=== PATIENT | female | born 1935 | race Caucasian/White ===

== ENCOUNTER → 2017-05-16 13:17 | Outpatient (CLI) | payer MEDICARE, SELFPAY ==
--- NOTE | 2017-05-16 13:20 | RAD_ITS ---
STUDY: X-RAY - RIGHT SHOULDER REASON FOR EXAM: Female, 82 years old. Shoulder pain TECHNIQUE: 3 view(s) of the shoulder. COMPARISON: None. FINDINGS: There is moderate degenerative arthrosis of the glenohumeral articulation. There is minimal widening of the AC joint suggesting a Type I acromioclavicular joint separation. Normal acromion. There is narrowing of the space between the acromion and humerus consistent with chronic rotator cuff tear. There is demineralization of the humerus and visualized osseous structures. The soft tissue structures are unremarkable. Surgical clips are seen anterior to the axilla. Normal visualized pulmonary apex. RAD/Shoulder min 2 Views IMPRESSION: Degenerative changes. Probable chronic rotator cuff tear. Possible AC joint separation Electronically Signed: Dimas Fitch MD at 18:31 EST , Service support ,
== END ==
PROVIDERS: Family Provider Family Medicine; PCP Family Medicine; Visit Provider Orthopaedic Surgery
DX: M25.511 Pain in right shoulder (principal)
CPT/HCPCS: 73030

== ENCOUNTER → 2017-10-21 08:01 | Outpatient (CLI) | payer MEDICARE, SELFPAY ==
--- OUTSIDE RECORDS SUMMARY | 2017-10-07 09:33 | XMS RPT_ITS ---
:1935 Author Organization OHIP Care Team Providers Name Role Phone Francesco Mendoza Attending Unavailable Preciado, Mylene Primary Care Unavailable Preciado, Mylene Referring Unavailable Preciado, Mylene Attending Unavailable Preciado, Mylene Primary Care Unavailable Mario Alberto Garcia Attending Unavailable Preciado, Mylene Referring Unavailable Preciado, Mylene Primary Care Unavailable Mario Alberto Garcia Attending Unavailable Preciado, Mylene Primary Care Unavailable Francesco Mendoza Attending Unavailable Preciado, Mylene Referring Unavailable Preciado, Mylene Primary Care Unavailable Francesco Mendoza Consulting Unavailable Mario Alberto Garcia Attending Unavailable Preciado, Mylene Referring Unavailable Preciado, Mylene Primary Care Unavailable MIAH UPTON Attending Unavailable MIAH UPTON Referring Unavailable MIAH UPTON Attending Unavailable MIAH UPTON Referring Unavailable MIAH UPTON Attending Unavailable MIAH UPTON Referring Unavailable PRECIADO, MYLENE A Primary Care Unavailable PROBLEMS PROBLEMS DATE TYPE CONDITION / CODE ATTENDING STATUS SOURCE 07/05/2017 Unknown D64.9 - Anemia, Francesco Mendoza Active [facility] unspecified / Community D64.9(ICD-10) Hospital Repository 05/16/2017 Unknown M25.511 - Pain in Mario Alberto Garcia Active [facility] right shoulder / Community M25.511(ICD-10) Hospital Repository 12/15/2016 Active Unknown / MIAH UPTON Active [facility] UNK(Unknown) [address] [place] Repository PROCEDURES PROCEDURES No Procedure Records FoundRESULTS RESULTS ORTHOPEDIC VISIT Observed: 09/19/2017 Status: F Source: PAKO REPORT 10:32 AM [facility] REPOSITORY [facility] [id number] [id number] VISITDate of Service: 08/31/17MR#: [id number] Acct: [id number]: CELINA GALINDO Rep #: [id number]: 1935 Provider: Mario Alberto Garcia DOAge/Sex: 82/F Location[place] [facility] [place] [facility] [place]SMOStatus: SignedIntakeIntakeVisit Reasons: RIGHT SHOULDERIs patient in pain?: Yes Pain scale (1-10): 7AllergiesNo Known Allergies Allergy (Verified 07/06/17 12:59)MedicationsCholecalciferol (VIT D3) [Vitamin D3] 2,000 unit PO DAILY [History Confirmed 07/06/17]Furosemide [Lasix] 40 mg PO DAILY 05/24/16 [History Confirmed 07/06/17]Levothyroxine [Synthroid] 50 mcg PO DAILY 05/24/16 [History Confirmed 07/06/17]Metoprolol Tartrate 25 mg PO BID 05/24/16 [History Confirmed 07/06/17]Pantoprazole Sodium [Protonix] 40 mg PO DAILY 05/24/16 [History Confirmed 07/06/17]Pravastatin [Pravachol] 40 mg PO QHS 05/24/16 [History Confirmed 07/06/17]Albuterol IH (ProAir) [Proair Hfa] 1 - 2 puff INHALATION Q4H PRN PRN # 1 inhaler 07/27/16 [RxConfirmed 07/06/17]Ferrous Sulfate 325 mg PO BIDCM #60 tab 07/27/16 [Rx Confirmed 07/06/17]Magnesium Oxide 400 mg PO BID #60 tab 07/27/16 [Rx Confirmed 07/06/17]Senna/Docusate Sodium [Senokot-S] 2 tab PO BID #120 tab [Rx Confirmed 07/06/17]Dulera 200 Mcg/5 Mcg Inhaler 200 mcg INHALATION BID [History Confirmed 07/06/17]hydrocodone 5 mg-acetaminophen 300 mg tablet 1 tab PO ONCE tab 05/16/17 [History Ruskpmaoo73/04/18]tramadol 50 mg tablet 50 mg PO Q6H PRN #60 tab 08/31/17 [Rx Confirmed 08/31/17]PFSHSurgical HistoryH/O right knee surgery (Inactive)History of total left hip arthroplasty (Inactive)History of total replacement of left shoulder joint (Inactive)Family HistoryFather Heart diseaseSocial HistorySmoking Status: Never smokerHPIRIGHT SHOULDER:Details: CELINA GALINDO is a 82 year old F here today for increased right shoulder pain. Shestates that her pain is anterior but can travel into the trap and down the biceps. Sheambulates with a walker when out of her house and that tends to make the shoulder hurt worse.Denies numbness, tingling or other associated symptoms. She has decreased rom today andcomplains of intermittent swelling of her shoulder.ROSMuscReports limited joint movement, Reports stiffness, Reports joint pain, Reports muscle weaknessOrtho ExamRight ShoulderSHOULDER: Patient otherwise alert and oriented x3 in no acute distress.Contact and affect. Otherwise remains intact from C5-T2 distributions. Musculotendinous extranerve function is 5 out of 5. Patient has limited range of motion secondary to rotator cuffarthropathy on the right. Pulses are maintained.Office ProceduresOrtho InjectionsInjectionsYes Subacromial Injection RightDetails: Obtained consent for injection. Under sterile conditions, injected the patients rightsubacromial joint with a 10cc cocktail of 8cc bupivacaine and 2cc kenalog. The patienttolerated the injection well without any noted complication. Patient should call our office ifredness develops, pain worsens or if they have any concerns.Office MedsKenalogPerforming Provider: Mario Alberto Garcia DOAdministered by : Mario Alberto Garcia DO on 08/31/17 13:14Dose Route Admin Location Lot Number Expiration DateNDC Manufacturer2 mg Intra-Articularright shoulder AAU 3232 08/02/18 0250-8368-24 [facility]ssessment AND PlanProblems1. Rotator cuff tear arthropathy of right shoulder M75.101; M12.8112. Chronic right shoulder pain M25.511; G89.29PlanAssessment: Right shoulder rotator cuff arthropathy right shoulder pain.Plan: 1 time of proceeding with a right shoulder injection per the patient's request. I willalso refer her to Dr. George at [facility] [place] for possible surgical intervention the patient willrequire. I think the patient would benefit from a reverse total shoulder arthroplasty forlong-term treatment of her shoulder pain.Obtained consent for injection. Under sterile conditions, injected the patients rightsubacromial joint with a 10cc cocktail of 8cc bupivacaine and 2cc kenalog. The patienttolerated the injection well without any noted complication. Patient should call our office ifredness develops, pain worsens or if they have any concerns. Patient follow-up with Dr. Reilly.A major treatment plan. Patient agrees to plan.Tramadol prescription was also providedOrdersOrders:MedicationsNew:Discontinued:Kenalog (triamcinolone acetonide) 2 mg (0.2 mL) Intra-Articular ONCE NM19.011 Bulmaro NessDiscontinued Reason: Office MedicaStion has been Documented as givenCodingLevel of Care CodeNo ChargeDiagnosesRotator cuff tear arthropathy of right shoulder M75.101; M12.811Chronic right shoulder pain M25.511; G89.29Chronicity: chronicAdditional Codesrcp.sub (31616)09/19/17 1032 <Electronically signed by Mario Alberto Garcia DO>Date Mario Alberto Garcia DOCosigner Signature: Date (if applicable)CC: PROGRESS Observed: 08/25/2017 Status: COMPLETED Source: ALICE 10:54 AM [facility] [place] REPOSITORY HNO ID: [id number]: Miah Jules: (none) Author Type: PhysicianType: Progress NotesFiled: 08/25/2017 6:04 PMNote Text:PERTINENT CARDIAC HISTORYHTNHLOSAThoracic aortic aneurysm - repair 2005DMPossible TIAsASHD - minimal by cath 2005CHF - diastolic, no VICTORINO-I due to low BPPostural lightneadednessSVTADHERENCE TO GUIDELINESACE-I or ARB for HF with prior LVEF&lt ;40 (NQF 0081) - N/AASA or Plavix for ASHD (NQF 0067) - Fe def anemiaBeta emil for ASHD with prior AR or prior LVEF<40 (NQF 0070) - N/ABeta emil for HF with prior LVEF<40 (NQF 0083) - N/AACE-I or ARB for ASHD with DM or prior LVEF<40 ( NQF 0066) - hypotensionStatin therapy for ASHD or FHL or DM - metBMI documented and plan if >25 (NQF 0421) - lifestyle recommendation formTobacco use screening and referral (NQF 0028) - lifestyle recommendationformRecommendation for whole food , plant based diet - lifestyle recommendationformCLINICAL IMPRESSION/PLAN:Celina Galindo is doing well. She has had no assessment of her aorticrepair in over 10 years. This will be discussed with her again I see her.I've encouraged her to continue her current medication and try to beactive to get her weight under better control.I will see her in 8 months or as needed. If there is increased chest painor shortness breath, she's been advised to contact me. I've asked her tocall with vital signs in the next several weeks.Written and verbal health teaching given to patient, patient verbalizesunderstanding and agrees with treatment plan.DIAGNOSIS FOR VISIT:ASHDHypertensionHISTORY OF PRESENT ILLNESSCelina Galindo returns for follow-up of multiple cardiac issues, asnoted above.She reports that she has been feeling well. She's had no further episodesof syncope or lightheadedness. She denies chest pain. She's had noorthopnea. She's had stable edema. She denies palpitations, TIAs,amaurosis and claudicationALLERGIES:ALLERGIESAllergen Reactions- Seasonal Allergies Unknown- Tape [Other]CURRENT OUTPATIENT MEDICATIONS:furosemide ( LASIX) 40 mg tablet Take 0.5 tablets by mouth once daily.acetaminophen (TYLENOL EXTRA STRENGTH) 500 mg tablet Take 500 mg by mouthevery 8 hours as needed.magnesium oxide 400 mg cap Take 400 mg by mouth twice daily.metoprolol tartrate, short acting, (LOPRESSOR ) 25 mg tablet Take 25 mg bymouth twice daily.mometasone-formoterol (DULERA) 200-5 mcg/actuation inhaler Inhale asinstructed twice daily.Cholecalciferol, Vitamin D3, 1,000 unit cap Take 1,000 Units by mouthtwice daily.levothyroxine (SYNTHROID) 50 mcg tablet Take 50 mcg by mouth daily beforebreakfast.albuterol HFA (PROAIR HFA) 90 mcg/actuation inhaler Inhale 2 Puffs asinstructed every 6 hours as needed.ferrous sulfate 325 mg (65 mg iron) tablet Take 325 mg by mouth daily withbreakfast.pravastatin (PRAVACHOL) 40 mg tablet Take 40 mg by mouth once daily.OTC NUTRITIONAL SUPPLEMENT xango drink 1 1/2 oz dailyPROTONIX 40 MG ORAL TBEC Take one(1) tablet daily.CYANOCOBALAMIN, VITAMIN B-12, (VITAMIN B-12 ORAL) Take by mouth.HYDROCODONE-ACETAMINOPHEN 5 MG-500 MG TAB Take one(1) tablet every four(4 )hours as needed.PHYSICAL EXAMINATION:VITAL SIGNS: BP 134/70 Pulse 70 Wt 183 lb 6.4 oz (83.2kg)Chest: Clear to percussion and auscultation. Trachea is midline. Airentry is equal. Cardiac: Regular rhythm. S1 and S2 are normal. PMI isnondisplaced. There is a soft systolic ejection murmur. Carotids arebrisk without bruits. JVP is less than 10 cm. Abdomen: Soft andnontender. There are no pulsatile masses or bruits. No liverenlargement. Bowel sounds are active. Extremities: Trace edema. Pulsesare intact and symmetrical.EKG shows sinus rhythm. There is evidence of previous inferior AR. PoorR-wave progression is noted. There is no significant change from 12/19/14.Recent labs were reviewed. Hemoglobin has improved. Renal function isstable. She has been treated for iron deficiency anemia. I asked her toget copy of her next lab reports for us.Electronically Signed:Miah Upton, MDMa2017 10:54 [facility]: Mylene Preciado MD OV Observed: 08/25/2017 Status: COMPLETED Source: [place] 10:30 AM [facility] REPOSITORY Office Visit (CAWSTR) ---------CELINA GALINDO ([id number]) 1935 FDate Time Provider Department08/25/17 10:30 AM MIAH UPTON CAWSTR During your visit today, we recorded the following information about you: Pulse Blood pressure Weight 70/ minute 134/70 83.2 kgMiah Upton MD 08/25/2017 6:04 PM SignedPERTINENT CARDIAC HISTORYHTNHLOSAThoracic aortic aneurysm - repair 2005DMPossible TIAsASHD - minimal by cath 2004CHF - diastolic, no VICTORINO-I due to low BPPostural lightneadednessSVTADHERENCE TO GUIDELINESACE-I or ARB for HF with prior LVEF<40 (NQF 0081) - N/AASA or Plavix for ASHD (NQF 0067) - Fe def anemiaBeta emil for ASHD with prior AR or prior LVEF<40 (NQF 0070) - N/ABeta emil for HF with prior LVEF<40 (NQF 0083 ) - N/AACE-I or ARB for ASHD with DM or prior LVEF<40 (NQF 0066) - hypotensionStatin therapy for ASHD or FHL or DM - metBMI documented and plan if >25 (NQF 0421) - lifestyle recommendation formTobacco use screening and referral (NQF 0028) - lifestyle recommendation formRecommendation for whole food, plant based diet - lifestyle recommendation formCLINICAL IMPRESSION/PLAN:Celina Galindo is doing well. She has had no assessment of her aortic repairin over 10 years. This will be discussed with her again I see her.I've encouraged her to continue her current medication and try to be active toget her weight under better control.I will see her in 8 months or as needed. If there is increased chest pain orshortness breath, she's been advised to contact me. I've asked her to call withvital signs in the next several weeks.Written and verbal health teaching given to patient, patient verbalizesunderstanding and agrees with treatment plan.DIAGNOSIS FOR VISIT:ASHDHypertensionHISTORY OF PRESENT ILLNESSCelina Galindo returns for follow-up of multiple cardiac issues, as notedabove.She reports that she has been feeling well. She's had no further episodes ofsyncope or lightheadedness. She denies chest pain. She's had no orthopnea.She's had stable edema. She denies palpitations, TIAs, amaurosis andclaudicationALLERGIES:ALLERGIESAllergen Reactions- Seasonal Allergies Unknown- Tape [Other]CURRENT OUTPATIENT MEDICATIONS:furosemide (LASIX) 40 mg tablet Take 0.5 tablets by mouth once daily.acetaminophen (TYLENOL EXTRA STRENGTH) 500 mg tablet Take 500 mg by mouth every8 hours as needed.magnesium oxide 400 mg cap Take 400 mg by mouth twice daily.metoprolol tartrate, short acting, (LOPRESSOR) 25 mg tablet Take 25 mg by mouthtwice daily.mometasone-formoterol ( DULERA) 200-5 mcg/actuation inhaler Inhale asinstructed twice daily.Cholecalciferol, Vitamin D3, 1,000 unit cap Take 1,000 Units by mouth twicedaily.levothyroxine (SYNTHROID) 50 mcg tablet Take 50 mcg by mouth daily beforebreakfast.albuterol HFA (PROAIR HFA) 90 mcg/actuation inhaler Inhale 2 Puffs asinstructed every 6 hours as needed.ferrous sulfate 325 mg (65 mg iron) tablet Take 325 mg by mouth daily withbreakfast.pravastatin (PRAVACHOL) 40 mg tablet Take 40 mg by mouth once daily.OTC NUTRITIONAL SUPPLEMENT xango drink 1 1/2 oz dailyPROTONIX 40 MG ORAL TBEC Take one(1) tablet daily.CYANOCOBALAMIN, VITAMIN B-12, (VITAMIN B-12 ORAL) Take by mouth.HYDROCODONE-ACETAMINOPHEN 5 MG -500 MG TAB Take one(1) tablet every four(4)hours as needed.PHYSICAL EXAMINATION:VITAL SIGNS: BP 134/ 70 Pulse 70 Wt 183 lb 6.4 oz (83.2kg)Chest: Clear to percussion and auscultation. Trachea is midline. Air entry isequal. Cardiac: Regular rhythm. S1 and S2 are normal. PMI is nondisplaced.There is a soft systolic ejection murmur. Carotids are brisk without bruits.JVP is less than 10 cm. Abdomen: Soft and nontender. There are no pulsatilemasses or bruits. No liver enlargement. Bowel sounds are active.Extremities: Trace edema. Pulses are intact and symmetrical.EKG shows sinus rhythm. There is evidence of previous inferior AR. Poor R-waveprogression is noted. There is no significant change from .Recent labs were reviewed. Hemoglobin has improved. Renal function is stable.She has been treated for iron deficiency anemia. I asked her to get copy of hernext lab reports for us.Electronically Signed:Vadim Poe 2017 10:54 [facility]: Fe Byers MD 08/25/2017 10: 55 AM SignedPlease ask for lab results to be sent to [facility]ALCIRA LUBIN healthy lifestyle is the most important component of your overall treatmentplan. Please give serious thought to the following areas and commit to makinglong term changes.EAT A WHOLE FOOD, PLANT BASED DIETThe nutrition your body gets is more important than the medicine you take.What matters most is the overall way you eat. We encourage you to minimize theuse of animal products (which include dairy and all meats except fatty fish)and use whole, unprocessed plant foods to provide your protein, vitamins andother nutrients. We have a lot of information to share with you on this topic.This is not a diet. It is a way of life that you will keep with you.EXERCISE REGULARLYIt is not important to spend hours in the gym, lifting weights and perspiringheavily. A total of 2-3 hours per week of aerobic (causing you to bemoderately short of breath) exercise is sufficient to improve your health.Talk to us before you begin a new exercise program, if you have heart diseaseor experience shortness of breath or chest pain.REDUCE STRESSChronic emotional and physical stress leads to disease. Ways of reducingstress include meditation, visualization, prayer, yoga and other forms ofrelaxation therapy. Consistency is the herrera. Find a technique that works foryou and do it every day.CULTIVATE RELATIONSHIPSLoneliness and isolation have a major negative impact on health. Seek outothers who can love, care for and nurture you. Avoid hurtful relationships.MAINTAIN IDEAL BODY WEIGHTThe best way to do this is to do all the things above. Our bodies naturallyfind the right weight if we keep moving and feed ourselves the right food. Ifyour BMI is greater than 25, we strongly recommend a referral to a weightmanagement program. Please speak to us or your family physician aboutavailable programs.AVOID NICOTINE IN ALL FORMSThis includes all tobacco products, whether chewed, smoked, vaped, or rubbed onthe skin. Smoking cessation programs, which can make use of tobaccosubstitutes, medications to suppress cravings and behavior management, areavailable. Please contact your family physician about programs in your area.Referring Provider: MIAH UPTON [[id number]]Allergies As of Date: 08/25/2017 Noted Allergy ReactionSEASONAL ALLERGIES 12/05/2014 16 - UnknownTAPE [Other] 11/04/2004Date Reviewed: 08/25/2017Reviewed by: Nancy Tam RN - Fully AssessedReason for Visit: Recheck [92]Primary Visit Diagnosis:Essential hypertension [I10] Other Visit Diagnosis:ASHD (arteriosclerotic heart disease ) [I25.10]Order(s):ECG COMPLETE W INTERPRETATION [ECG01] Order #: [id number] FUTUREPrescriptions as of 08/25/2017 Sig: FUROSEMIDE 40 MG TABLET Take 0.5 tablets by mouth onc* ACETAMINOPHEN 500 MG TABLET Take 500 mg by mouth every 8 * MAGNESIUM OXIDE 400 MG CAPSULE Take 400 mg by mouth twice da* METOPROLOL TARTRATE 25 MG TAB* Take 25 mg by mouth twice david* MOMETASONE- FORMOTEROL HFA 200* Inhale as instructed twice d* CHOLECALCIFEROL (VITAMIN D3) * Take 1,000 Units by mouth twi* LEVOTHYROXINE 50 MCG TABLET Take 50 mcg by mouth daily be* ALBUTEROL SULFATE HFA 90 MCG/* Inhale 2 Puffs as instructed * FERROUS SULFATE 325 MG (65 MG* Take 325 mg by mouth daily wi* PRAVASTATIN 40 MG TABLET Take 40 mg by mouth once charlene* * OTC NUTRITIONAL SUPPLEMENT xango drink 1 1/2 oz daily * PROTONIX 40 MG TABLET,DELAYED* Take one(1) tablet daily. VITAMIN B-12 ORAL Take by mouth. * HYDROCODONE 5 MG-ACETAMINOPHE* Take one(1) tablet every four* Patient not taking: No sig reportedProblem List As Of Date 08/25/2017 Noted Resolved BENIGN HYPERTENSION [I10] INVALID FOR* ESOPHAGEAL REFLUX [K21.9] INVALID FOR* OTHER UNSPEC SLEEP APNEA [G47.30] INVALID FOR * SHORTNESS OF BREATH [R06.02] INVALID FOR* HYPERLIPIDEMIA NEC/NOS [E78.5] INVALID FOR* OSTEOARTHROS NOS-OTHER SITE [M19.90] INVALID FOR* CONGESTIVE HEART FAILURE, UNSPEC [I50.9] INVALID FOR* AORTIC ANEURYSM NOS [I71.9] INVALID FOR * ABDOMINAL PAIN RUQ [R10.11] INVALID FOR* ABDOMINAL PAIN UNSPEC SITE [R10.9] INVALID FOR* INCISIONAL HERNIA [K43.2] INVALID FOR* DIAPHRAGMATIC HERNIA [K44.9] INVALID FOR* Anemia [D64.9] INVALID FOR * Other instructions from your clinician: Please ask for lab results to be sent to me LIFESTYLE CHANGE A healthy lifestyle is the most important component of your overall treatment plan. Please give serious thought to the following areas and commit to making chcf changes. EAT A WHOLE FOOD, PLANT BASED DIET The nutrition your body gets is more important than the medicine you take. What matters most is the overall way you eat. We encourage you to minimize the use of animal products (which include dairy and all meats except fatty fish) and use whole, unprocessed plant foods to provide your protein, vitamins and other nutrients. We have a lot of information to share with you on this topic. This is not a diet. It is a way of life that you will keep with you. EXERCISE REGULARLY It is not important to spend hours in the gym, lifting weights and perspiring heavily. A total of 2-3 hours per week of aerobic (causing you to be moderately short of breath) exercise is sufficient to improve your health. Talk to us before you begin a new exercise program, if you have heart disease or experience shortness of breath or chest pain. REDUCE STRESS Chronic emotional and physical stress leads to disease. Ways of reducing stress include meditation, visualization, prayer, yoga and other forms of relaxation therapy. Consistency is the herrera. Find a technique that works for you and do it every day. CULTIVATE RELATIONSHIPS Loneliness and isolation have a major negative impact on health. Seek out others who can love, care for and nurture you. Avoid hurtful relationships. MAINTAIN IDEAL BODY WEIGHT The best way to do this is to do all the things above. Our bodies naturally find the right weight if we keep moving and feed ourselves the right food. If your BMI is greater than 25, we strongly recommend a referral to a weight management program. Please speak to us or your family physician about available programs. AVOID NICOTINE IN ALL FORMS This includes all tobacco products, whether chewed, smoked, vaped, or rubbed on the skin. Smoking cessation programs, which can make use of tobacco substitutes, medications to suppress cravings and behavior management, are available. Please contact your family physician about programs in your area. Status:Closed by MIAH UPTON MD on 08/25/17 ONCOLOGY VISIT REPORT Observed: 07/06/2017 Status: F Source: [place] 1:35 PM [facility] REPOSITORY [facility] [id number], [place] [id number] VISITDate of Service: 07/06/17 1323MR#: [id number] Acct: [id number]: CELINA GALINDO Rep #: [id number]: 1935 From: Francesco Mendoza MDAge/Sex: 82/F Location: DStatus: SignedSubjective- Date of ServiceDate of Service:: 07/06/17- Chief ComplaintF/ u for anemia.- History of Present IllnessMs. Celina Galindo is a very pleasant 81y.o.woman with h/o chronic anemia. She underwentupper GI endoscopy and colonoscopy on 05/27/2016 under the care of Dr. Mittal. Pathology showedmild gastritis and rectal tubular adenoma. She had L knee replacement on 07/20/2016 andrequired PRBC transfusions. Began PO iron 09/15/16 with no improvement. She received [id number] IV x 5 doses from 11/15/2016 to 11/29/2016. She is on oral iron supplements. Comes in forfollow up.- Past Medical/Social HistoryPast Medical HistoryPast Medical History: Anemia,Blood transfusion,Hypertension,ThyroiddiseaseOther Past Medical History: measles, chicken pox,Past Surgical HistorySurgical: Carpal tunnel,Cholecystectomy,Hernia repair,Hipreplacement,Knee replacementOther Surgical History: rotator cuff shoulder sxFamily HistoryPaternal Past Medical History: StrokeMaternal Past Medical History: Heart diseaseSocial HistorySocial History: No changesSmoking Status Never smokerReview of SystemsConstitutional:: Denies: Weakness, Fatigue, Fever, SweatsCardiovascular:: Denies: Chest pain, Palpitations, Dyspnea on exertion, Orthopnea, PND,Shortness of breathRespiratory: Denies: Cough, Hemoptysis, Shortness of Breath, WheezingGastrointestinal:: Denies: Abdominal pain, Nausea, Vomiting, Diarrhea, Constipation,HematocheziaGenitourinary: Denies: Dysuria, Hematuria, 15, Flank painMusculoskeletal:: Reports: - - Pain R shoulderNeurological:: Denies: Headache, Dizziness, Visual changes, Tinnitus, Hearing lossVital SignsHeight 5 ftWeight: 79.605 kgWeight in Pounds 175.5 lbsPulse Ox 95- Physical ExamGeneral: Alert, Oriented x3, No apparent distressLaboratory Data:06/24/2017 Hgb 11, Ferritin 173 , Iron 59.Assessment and PlanIron deficiency Anemia resolved.Plan is to continue maintenance Iron 325mg daily for another 6 months.RTC 6 months with CBC, CMP/Iron profile.Primary Care Provider: Mylene PreciadoReferring Provider:- Problem List(1) Chronic anemiaStatus: ChronicCode VisitOffice Visits / Consults: [id number] OV L3 Est07/06/17 1335 <Electronically signed by Francesco Mendoza MD>Date Francesco Mendoza MDCosigner Signature: Date (if applicable)CC: CBC W/DIFF, AUTOMATED Collected: 06/24/2017 Status: F Source: [place] 9:44 AM [facility] REPOSITORY Order Comment: Reason for Laboratory Test OV TYPE CODE TESTS RESULT OUT OF RANGE REFERENCE UNITS LAB L100.1000 Normal 4.4-11.0 K/mm3 WBC 7.6 LAB L100.1200 Low 4.2-5.4 M/mm3 RBC 3.76 LAB L100.1300 Low 12.0-15.0 g/dl HGB 11.0 LAB L100.1400 Low 37-47 % HCT 36.2 LAB L100.1500 Normal 81-99 fL MCV 96.3 LAB L100.1600 Normal 27.0-32.0 pg MCH 29.3 LAB L100.1700 Low 32-36 g/gl MCHC 30.4 LAB L100.1810 Normal 11.6-14.6 % RDW 14.0 CV LAB L100.1820 High 35.1-43.9 fl RDW 47.4 SD LAB L100.1900 Normal 150-450 K/mm3 PLT 282 LAB L100.2000 Normal 6.2-12.0 fl MPV 9.9 LAB L100.2100 Normal 47-70 % NEUT% 61.6 LAB L100.2200 Normal 19-41 % LY% 25.4 LAB L100.2300 Normal 0-10 % MONO% 7.5 LAB L100.2400 Normal 0-5 % EO% 5.0 LAB L100.2500 Normal 0-1 % BASO% 0.5 LAB L100.2550 Normal 0.0-0.9 % IM 0.000 GRAN % Result Comment: IG% - Immature Granulocytes (promyelocytes, myelocytes andmetamyelocytes) > 1% indicates that a LEFT SHIFT is Present. LAB L100.2620 Normal 2.0-7.7 X10 3/uL Absolute Neut 4.7 LAB L100.2720 Normal 0.83-4.51 X10 3/ul Absolute Lymph 1.93 Performed By: #### L100.0100 ####[facility] [address] [place], [address] VITAMIN B12 Collected: 06/24/2017 Status: F Source: [place] 9:44 AM [facility] REPOSITORY Order Comment: Reason for Laboratory Test OV TYPE CODE TESTS RESULT OUT OF RANGE REFERENCE UNITS LAB L503.0105 Normal 211-911 pg/mL Vitamin 889 B12 Performed By: #### L503.0105 ####[facility] [address] [place], [address] COMPREHENSIVE METABOLIC Collected: 06/24/2017 Status: F Source: PAKO KOTHARI 9:44 AM [facility] REPOSITORY Order Comment: Reason for Laboratory Test OVIs Patient Taking Vitamins or Folic Acid Supplements? N TYPE CODE TESTS RESULT OUT OF RANGE REFERENCE UNITS LAB L501.0100 Normal 74-106 mg/dL GLU 95 Result Comment: Please note revised GLUCOSE reference range yecaorgag95/02/2018. LAB L501.1000 High 7-18 mg/dL BUN 38 LAB L501.1100 Normal 0.55-1.02 mg/dL CREAT,SERUM 0.96 Result Comment: The validity of the calculated GFR AND GFRAA in patients over70 years has not been determined. Clinical correlation isessential. LAB L501.1110 Low >60 mL/min EST GFR 59 Result Comment: Non- GFR Calc LAB L501.1115 Normal >60 mL/min EST GFR - 72 AA Result Comment: GFR Calc LAB L501.1255 Normal ml/min Estimated 33.57 CRCL LAB L501.1300 High 10-20 RATIO BUN/CRE 39.5 LAB L501.1500 Normal 6.4-8. g/dL T PROT 7.2 2 LAB L501.1800 Low 3.2-5. g/dL ALB 3.0 0 LAB L501.1950 Normal 2.2-4. g/dL GLOB 4.2 2 LAB L501.2000 Low 0.9-2. RATIO A/G 0.7 4 LAB L501.2200 Normal 8.5-10 mg/dL CA 9.2 .1 LAB L501.4100 Normal 15-37 U/L AST 15 LAB L501.4305 High 45-117 U/L ALK P 138 LAB L501.4405 Normal 13-56 U/L ALT 18 Result Comment: Please note revised ALT reference range bmzyfrwyo77/28/2018. LAB L501.4600 Normal 0.20-1.00 mg/dL T BILI 0.40 LAB L501.5300 Normal 136-145 mmol/L NA 140 LAB L501.5600 Normal 3.5-5.1 mmol/L K 4.4 LAB L501.5900 Normal 98-107 mmol/L CL 105 LAB L501.6100 Normal 21.0-32.0 mmol/L CO2 28.0 LAB L501.6200 Normal 5-15 GAP 7 Performed By: #### L500.4050, L503.6075, L503.6150, L503.6550, L506.0250 ####[facility] [address] [facility] [address] IRON BINDING Collected: 06/24/2017 Status: F Source: [facility] 9:44 AM [facility] REPOSITORY Order Comment: Reason for Laboratory Test OVIs Patient Taking Vitamins or Folic Acid Supplements? N TYPE CODE TESTS RESULT OUT OF RANGE REFERENCE UNITS LAB L503.6075 Normal 250-450 ug/dL TIBC 310 Performed By: #### L500.4050, L503.6075, L503.6150, L503.6550, L506.0250 ####[facility] [address] [facility] [id number] IRON Collected: 06/24/2017 Status: F Source: [place] 9:44 AM [facility] REPOSITORY Order Comment: Reason for Laboratory Test OVIs Patient Taking Vitamins or Folic Acid Supplements? N TYPE CODE TESTS RESULT OUT OF RANGE REFERENCE UNITS LAB L503.6150 Normal 50-170 ug/dL IRON 59 Performed By: #### L500.4050, L503.6075, L503.6150, L503.6550, L506.0250 ####[facility] [address] [facility] [address] FERRITIN Collected: 06/24/2017 Status: F Source: [place] 9:44 AM [facility] REPOSITORY Order Comment: Reason for Laboratory Test OVIs Patient Taking Vitamins or Folic Acid Supplements? N TYPE CODE TESTS RESULT OUT OF RANGE REFERENCE UNITS LAB L503.6550 Normal 8-252 ng/mL FERRITIN 173 Performed By: #### L500.4050, L503.6075, L503.6150, L503.6550, L506.0250 ####[facility] [address] [place], [address] FOLATES, (FOLIC ACID) Collected: 06/24/2017 Status: F Source: PAKO 9:44 AM [facility] REPOSITORY Order Comment: Reason for Laboratory Test OVIs Patient Taking Vitamins or Folic Acid Supplements? N TYPE CODE TESTS RESULT OUT OF REFERENCE UNITS RANGE LAB L506.0250 High 3.1-55.4 ng/mL FOLATES 62.00 Performed By: #### L500.4050, L503.6075, L503.6150, L503.6550, L506.0250 ####[facility] [address] [place], [address] ORTHOPEDIC VISIT Observed: 05/23/2017 Status: F Source: PAKO REPORT 1:41 PM [facility] REPOSITORY [facility] [address] [place] [address] [place] [address] [phone] VISITDate of Service: 05/16/17MR#: [id number] Acct: [id number]: CELINA GALINDO Rep #: [id number]: 1935 Provider: Mario Alberto Garcia DOAge/Sex: 82/F [place] [facility] [place] [facility] [place]SMOStatus: SignedIntakeVital Signs05/16/17 Height 5 ft05/16/17 Weight: 165 lb05/16/17 Body Mass Index (BMI) 32.2IntakeVisit Reasons: RIGHT SHOULDERIs patient in pain?: YesAllergiesNo Known Allergies Allergy (Verified 05/16/17 13:18)MedicationsCholecalciferol (VIT D3) [Vitamin D3] 2,000 unit PO DAILY 05/24/16 [History Confirmed 01/05/17] Furosemide [Lasix] 40 mg PO DAILY 05/24/16 [History Confirmed 01/05/17]Levothyroxine [ Synthroid] 50 mcg PO DAILY 05/24/16 [History Confirmed 01/05/17]Metoprolol Tartrate 25 mg PO BID 05/24/16 [History Confirmed 01/05/17]Pantoprazole Sodium [Protonix] 40 mg PO DAILY 05/24/16 [History Confirmed 01/05/17]Pravastatin [Pravachol] 40 mg PO QHS 05/24 [History Confirmed 01/05/17]Albuterol IH (ProAir) [Proair Hfa] 1 - 2 puff INHALATION Q4H PRN PRN #1 inhaler 07/27/16 [RxConfirmed 01/05/17]Ferrous Sulfate 325 mg PO BIDCM #60 tab 07/27/16 [Rx Confirmed 01/05/17]Magnesium Oxide 400 mg PO BID #60 tab 07/27/16 [Rx Confirmed 01/05/17]Senna/Docusate Sodium [Senokot-S] 2 tab PO BID #120 tab 07/27/16 [Rx Confirmed 01/05/17]Dulera 200 Mcg/5 Mcg Inhaler 200 mcg INHALATION BID 08/24/16 [History Confirmed 01/05/17]hydrocodone 5 mg-acetaminophen 300 mg tablet 1 tab PO ONCE tab 05/16/17 [History Nsgauglft54/12/18]PFSHSurgical HistoryH/O right knee surgery (Inactive)History of total left hip arthroplasty (Inactive) History of total replacement of left shoulder joint (Inactive)Family HistoryFather Heart diseaseSocial HistorySmoking Status: Never smokerHPIRIGHT SHOULDER:Details: CELINA GALINDO is a 82 year old F here today for right shoulder pain that radiatesinto her bicep. She has no known injury, history of left tsa. She only has pain in themornings and takes a vidodin daily. She is ambulating with a walker and has no pain today withthat. Her FE and ABD is approximately 100 degrees. Denies numbness, tingling or otherassociated symptoms.ROSConstReports system reviewed and no additional complaints, except as docuEyesReports system reviewed and no additional complaints, except as docuENTReports system reviewed and no additional complaints, except as docuCardReports system reviewed and no additional complaints, except as docuRespReports system reviewed and no additional complaints, except as docuGIReports system reviewed and no additional complaints, except as docuMuscReports limited joint movement, Reports stiffness, Reports as per HPISkin/BreastReports system reviewed and no additional complaints, except as docuNeuroYes system reviewed and no additional complaints, except as docuPsychReports system reviewed and no additional complaints, except as docuEndoReports system reviewed and no additional complaints, except as docuOrtho ExamRight ShoulderSkin/Wound: Yes CDITesting: Positive AROM-External Rotation at 90 0-60, PROM-External Rotation at side 0-60,PROM-Forward Elevation 0-180, PROM-External Rotation at 90 0-60, AROM-External Rotation at side0-60, AROM-Forward Elevation 0-180, Hawkin's, Neer's and empty canInternal Rotation: [id number]: Patient is alert and oriented 3 in no acute distress. Appropriate eye contact andaffect. Walks with assistive device. Otherwise intact the C5-T2 distributions. She haspositive pulses. She has no obvious axillary adenopathy. Currently her shoulder showsglenohumeral habitus with range of motion but she will actively move her shoulder in a nearfull symmetric plane but does cause pain when she is within the Bang and Neer's motion area.She has weakness with supraspinatus testing and interspace testing at the side in the abductedposition. She has negative belly press. 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 Rotator cuff tear arthropathy of right shoulder M12.8112. Chronic right shoulder pain M25.511; G89.29PlanAssessment: Right shoulder pain right shoulder rotator cuff arthropathyPlan: At this point time I discussed with the patient conservative care versus operativeintervention. Patient had a reverse total shoulder to the left upper extremity. I told herthat would be my recommendation to the right upper extremity based on her radiographicfindings. However the patient actually moves the shoulder fairly well and says her paincurrently is not too bad. I told patient to consider having an injection and see if that givesher any significant relief should she needed to come back in 4. Otherwise I want her tocontinue to work on good range of motion of her provider with a AOS shoulder guidelines keepworking on some strengthening. If the patient were to fail conservative measures andconsideration for right reverse total shoulder arthroplasty should be warranted. If thepatient decides to proceed with operative intervention I will get a CT examination to evaluatefor retroversion and overall glenohumeral changes. But again the patient would be a candidatefor reverse total shoulder arthroplasty secondary to rotator cuff pathologyOrdersOrders:MedicationsDiscontinued:acetaminophen Discontinued Reason: 1,000 mg (2 x 500 mg) PO Q8H PRN PRN Mi Bulmaro Lily no longer taking ld Pain (-06/11)CodingLevel of Care CodeOff vis,new, level 3DiagnosesRotator cuff tear arthropathy of right shoulder M12.811Chronic right shoulder pain M25.511; G89.29Chronicity: sdouuor33/19/18 1341 < Electronically signed by Mario Alberto Garcia DO>Date Mario Alberto Garcia DOCosigner Signature: Date (if applicable)CC: SHOULDER MIN 2 VIEWS Observed: 05/16/2017 Status: F Source: [place] 1:20 PM [facility] REPOSITORY [facility] [address] [place], [place] [address]Usegexet min 2 ViewsMR#: [id number] Acct: [id number]: CELINA GALINDO Rep #: [id number]: 1935 F 82 From: Dimas Fitch MDPCP: Mylene Preciado MD Status: REG CLIStudy: Shoulder min 2 Views Date of Exam: 05/16/17Exam# [id number] Ordering Dr: Mario Alberto Garcia DOSTUDY: X-RAY - RIGHT SHOULDERREASON FOR EXAM: Female, 82 years old. Shoulder painTECHNIQUE: 3 view(s) of the shoulder.COMPARISON: None. FINDINGS:There is moderate degenerative arthrosis of the glenohumeral articulation.There is minimal widening of the AC joint suggesting a Type Iacromioclavicular joint separation. Normal acromion. There is narrowing ofthe space between the acromion and humerus consistent with chronic rotatorcuff tear.There is demineralization of the humerus and visualized osseous structures.The soft tissue structures are unremarkable. Surgical clips are seenanterior to the axilla.Normal visualized pulmonary apex. ORDER #: [id number] RAD/Shoulder min 2 ViewsIMPRESSION:Degenerative changes. Probable chronic rotator cuff tear. Possible AC jointseparationElectronically Signed:Dimas Fitch MD at 18:31 ESTTel , Service support , AG: Mylene Preciado MD; Mario Alberto Garcia DO Absorber Operator:Signed CBC W/DIFF, AUTOMATED Collected: 04/25/2017 Status: F Source: [place] 3:38 PM [facility] REPOSITORY TYPE CODE TESTS RESULT OUT OF RANGE REFERENCE UNITS LAB L100.1000 Normal 4.4-11.0 K/mm3 WBC 8.7 LAB L100.1200 Low 4.2-5.4 M/mm3 RBC 3.92 LAB L100.1300 Low 12.0-15.0 g/dl HGB 11.1 LAB L100.1400 Normal 37-47 % HCT 37.4 LAB L100.1500 Normal 81-99 fL MCV 95.4 LAB L100.1600 Normal 27.0-32.0 pg MCH 28.3 LAB L100.1700 Low 32-36 g/gl MCHC 29.7 LAB L100.1810 High 11.6-14.6 % RDW 15.4 CV LAB L100.1820 High 35.1-43.9 fl RDW 53.9 SD LAB L100.1900 Normal 150-450 K/mm3 PLT 306 LAB L100.2000 Normal 6.2-12.0 fl MPV 10.8 LAB L100.2100 Normal 47-70 % NEUT% 60.8 LAB L100.2200 Normal 19-41 % LY% 28.0 LAB L100.2300 Normal 0-10 % MONO% 6.4 LAB L100.2400 Normal 0-5 % EO% 4.1 LAB L100.2500 Normal 0-1 % BASO% 0.6 LAB L100.2550 Normal 0.0-0.9 % IM 0.100 GRAN % Result Comment: IG% - Immature Granulocytes (promyelocytes, myelocytes andmetamyelocytes) > 1% indicates that a LEFT SHIFT is Present. LAB L100.2620 Normal 2.0-7.7 X10 3/uL Absolute Neut 5.3 LAB L100.2720 Normal 0.83-4.51 X10 3/ul Absolute Lymph 2.44 Performed By: #### L100.0100 ####[facility] [address] [place], [place], [address] VITAMIN B12 Collected: 04/25/2017 Status: F Source: [place] 3:38 PM [facility] REPOSITORY TYPE CODE TESTS RESULT OUT OF RANGE REFERENCE UNITS LAB L503.0105 Normal 211-911 pg/mL Vitamin 585 B12 Performed By: #### L503.0105 ####[facility] [address] [place], [address] COMPREHENSIVE METABOLIC Collected: 04/25/2017 Status: F Source: [facility] 3:38 PM [facility] REPOSITORY TYPE CODE TESTS RESULT OUT OF RANGE REFERENCE UNITS LAB L501.0100 Normal 70-110 mg/dL GLU 88 LAB L501.1000 High 7-18 mg/dL BUN 40 LAB L501.1100 High 0.55-1.02 mg/dL 1.16 CREAT,SERUM Result Comment: The validity of the calculated GFR AND GFRAA in patients over70 years has not been determined. Clinical correlation isessential. LAB L501.1110 Low >60 mL/min EST GFR 48 Result Comment: Non- GFR Calc LAB L501.1115 Low >60 mL/min EST GFR - AA 58 Result Comment: GFR Calc LAB L501.1300 High 10-20 RATIO BUN/CRE 34.5 LAB L501.1500 Normal 6.4-8.2 g/dL T PROT 7.7 LAB L501.1800 Low 3.4-5.0 g/dL ALB 3.2 Result Comment: Please note revised Albumin AND Globulin reference rangeeffective 2017. LAB L501.1950 High 2.2-4.2 g/dL GLOB 4.5 LAB L501.2000 Low 0.9-2.4 RATIO A/G 0.7 LAB L501.2200 Normal 8.5-10.1 mg/dL CA 9.2 LAB L501.4100 Normal 15-37 U/L AST 18 LAB L501.4305 High 45-117 U/L ALK P 162 LAB L501.4405 Normal 12-78 U/L ALT 18 LAB L501.4600 Normal 0.20-1.00 mg/dL T BILI 0.30 LAB L501.5300 Normal 136-145 mmol/L NA 140 LAB L501.5600 Normal 3.5-5.1 mmol/L K 5.0 LAB L501.5900 Normal 98-107 mmol/L CL 104 LAB L501.6100 Normal 21.0-32.0 mmol/L CO2 28.0 LAB L501.6200 Normal 5-15 GAP 8 Performed By: #### L500.4050, L501.9520, L503.6550 #### [facility] [address] [place], [place], [id number] THYROID STIM HORMONE Collected: 04/25/2017 Status: F Source: MCLEAN (TSH) 3:38 PM [facility] REPOSITORY TYPE CODE TESTS RESULT OUT OF RANGE REFERENCE UNITS LAB L501.9520 Normal 0.358-3.74 uIU/mL TSH 2.83 Performed By: #### L500.4050, L501.9520, L503.6550 #### [facility] [address] [place], [place], [id number] FERRITIN Collected: 04/25/2017 Status: F Source: PAKO 3:38 PM [facility] REPOSITORY TYPE CODE TESTS RESULT OUT OF REFERENCE UNITS RANGE LAB L503.6550 High 8-252 ng/mL FERRITIN 254 Performed By: #### L500.4050, L501.9520, L503.6550 #### [facility] [address] [place], [place], [address] MICROALB:CREAT Collected: 04/25/2017 Status: F Source: PAKO RATIO,RANDOM UR 3:38 PM [facility] REPOSITORY TYPE CODE TESTS RESULT OUT OF RANGE REFERENCE UNITS LAB L501.1200 Normal NO RANGE EST. mg/dL UR 33.30 CREAT LAB L502.0500 Normal NO RANGE EST. mg/L < 5.0 MICROALBUMI N,UR LAB L502.0600 Normal <30 mg/g CRE mg/g CRE Test not MALB:CREAT performed Performed By: #### L502.0250 ####[facility] [address] [place], [place], [address] HEMOGLOBIN A1C Collected: 04/25/2017 Status: F Source: [place] 3:38 PM [facility] REPOSITORY TYPE CODE TESTS RESULT OUT OF RANGE REFERENCE UNITS LAB L501.9985 Normal 4.2-6.3 % HGB 5.6 A1C Performed By: #### L501.9985 ####[facility] [address] [place], [place], [address] CBC W/DIFF, AUTOMATED Collected: 01/03/2017 Status: F Source: PAKO 8:40 AM [facility] REPOSITORY Order Comment: ALEXSANDRA ORDERED LIPID,BMPPRAH ORDERED ALL OTHERS TYPE CODE TESTS RESULT OUT OF RANGE REFERENCE UNITS LAB L100.1000 Normal 4.4-11.0 K/mm3 WBC 7.4 LAB L100.1200 Low 4.2-5.4 M/mm3 RBC 3.91 LAB L100.1300 Low 12.0-15.0 g/dl HGB 10.6 LAB L100.1400 Low 37-47 % HCT 35.3 LAB L100.1500 Normal 81-99 fL MCV 90.3 LAB L100.1600 Normal 27.0-32.0 pg MCH 27.1 LAB L100.1700 Low 32-36 g/gl MCHC 30.0 LAB L100.1810 High 11.6-14.6 % RDW 18.2 CV LAB L100.1820 High 35.1-43.9 fl RDW 60.4 SD LAB L100.1900 Normal 150-450 K/mm3 PLT 274 LAB L100.2000 Normal 6.2-12.0 fl MPV 10.2 LAB L100.2100 Normal 47-70 % NEUT% 58.6 LAB L100.2200 Normal 19-41 % LY% 29.2 LAB L100.2300 Normal 0-10 % MONO% 6.5 LAB L100.2400 High 0-5 % EO% 5.1 LAB L100.2500 Normal 0-1 % BASO% 0.5 LAB L100.2550 Normal 0.0-0.9 % IM 0.100 GRAN % Result Comment: IG% - Immature Granulocytes (promyelocytes, myelocytes andmetamyelocytes) > 1% indicates that a LEFT SHIFT is Present. LAB L100.2620 Normal 2.0-7.7 X10 3/uL Absolute Neut 4.4 LAB L100.2720 Normal 0.83-4.51 X10 3/ul Absolute Lymph 2.17 Performed By: #### L100.0100 ####[facility] [address] [place], [address] COMPREHENSIVE METABOLIC Collected: 01/03/2017 Status: F Source: [facility] 8:39 AM [facility] REPOSITORY Order Comment: ALEXSANDRA ORDERED LIPID,BMPHEIDI ORDERED ALL OTHERSReason for Laboratory Test . TYPE CODE TESTS RESULT OUT OF RANGE REFERENCE UNITS LAB L501.0100 Normal 70-110 mg/dL GLU 91 LAB L501.1000 High 7-18 mg/dL BUN 29 LAB L501.1100 High 0.55-1.02 mg/dL 1.08 CREAT,SERUM Result Comment: The validity of the calculated GFR AND GFRAA in patients over70 years has not been determined. Clinical correlation isessential. LAB L501.1110 Low >60 mL/min EST GFR 52 Result Comment: Non- GFR Calc LAB L501.1115 Normal >60 mL/min EST GFR - 63 AA Result Comment: GFR Calc LAB L501.1255 Normal ml/min Estimated 30.34 CRCL LAB L501.1300 High 10-20 RATIO BUN/CRE 26.9 LAB L501.1500 Normal 6.4-8. g/dL T PROT 7.5 2 LAB L501.1800 Low 3.4-5. g/dL ALB 3.0 0 LAB L501.1950 High 2.3-3. g/dL GLOB 4.5 5 LAB L501.2000 Low 0.9-2. RATIO A/G 0.7 4 LAB L501.2200 Normal 8.5-10 mg/dL CA 8.9 .1 LAB L501.4100 Low 15-37 U/L AST 13 LAB L501.4305 High 45-117 U/L ALK P 173 LAB L501.4405 Normal 12-78 U/L ALT 16 LAB L501.4600 Normal 0.20-1 mg/dL T BILI 0.50 .00 LAB L501.5300 Normal 136-14 mmol/L NA 140 5 LAB L501.5600 Normal 3.5-5. mmol/L K 4.7 1 LAB L501.5900 Normal 98-107 mmol/L CL 107 LAB L501.6100 Normal 21.0-3 mmol/L CO2 27.0 2.0 LAB L501.6200 Normal 5-15 GAP 6 Performed By: #### L500.4050, L500.4100, L503.6030, L503.6550 ####[facility] [address] [place], [place], [address] LIPID PROFILE Collected: 01/03/2017 Status: F Source: [place] 8:39 AM [facility] REPOSITORY Order Comment: ALEXSANDRA ORDERED LIPID,[facility] ORDERED ALL OTHERSReason for Laboratory Test . TYPE CODE TESTS RESULT OUT OF RANGE REFERENCE UNITS LAB L501.4900 Normal 200 mg/dL CHOL 156 Result Comment: <200 mg /dL Desirable 200-240 mg/dL Borderline >240 mg/dL High Risk LAB L501.5000 Normal mg/dL TRIG 74 Result Comment: The drugs N-Acetylcysteine and Metamizole may falselydepress this assay.Serum Triglycerides Reference Interval Normal <150 mg/dL Borderline high 150 - 199 mg/dL High 200 - 499 mg/dL Very High > or = 500 mg/dL LAB L501.6400 Normal mg/dL HDL 73 Result Comment: The drugs N-Acetylcysteine and Metamizole may falselydepress this assay. Reference Range HDL <40 mg/dL Low HDL Cholesterol HDL >or= 60 mg/dL High HDL Cholesterol LAB L501.6500 Normal 0-130 mg/dL LDL 68 LAB L501.6600 Normal 5-40 mg/dL VLDL 15 Performed By: #### L500.4050, L500.4100, L503.6030, L503.6550 ####[facility] [address] [place], [place], [id number] IRON+IRON BINDING Collected: 01/03/2017 Status: F Source: [facility] 8:39 AM [facility] REPOSITORY Order Comment: ALEXSANDRA ORDERED LIPID,[facility] ORDERED ALL OTHERSReason for Laboratory Test . TYPE CODE TESTS RESULT OUT OF RANGE REFERENCE UNITS LAB L503.6075 Normal 250-450 ug/dL TIBC 276 LAB L503.6150 Low 50-170 ug/dL IRON 33 LAB L503.6250 Low 15.0-55.0 % IRON 12.0 SATURATION Performed By: #### L500.4050, L500.4100, L503.6030, L503.6550 ####[facility] [address] [place], [place], [id number] FERRITIN Collected: 01/03/2017 Status: F Source: [place] 8:39 AM [facility] REPOSITORY Order Comment: ALEXSANDRA ORDERED LIPID,BMPPRA ORDERED ALL OTHERSReason for Laboratory Test . TYPE CODE TESTS RESULT OUT OF REFERENCE UNITS RANGE LAB L503.6550 High 8-252 ng/mL FERRITIN 320 Performed By: #### L500.4050, L500.4100, L503.6030, L503.6550 ####[facility] [address] [place], [place], [address] PROGRESS Observed: 12/15/2016 Status: COMPLETED Source: [place] 11:27 AM [facility] REPOSITORY HNO ID: [id number]: Miah Jules: (none) Author Type: PhysicianType: Progress NotesFiled: 12/15/2016 1:01 PMNote Text:PERTINENT CARDIAC HISTORYHTNHLOSAThoracic aortic aneurysm - repair 2005DMPossible TIAsASHD - minimal by cath 2005CHF - diastolic, no VICTORINO-I due to low BPPostural lightneadednessSVTCLINICAL IMPRESSION/PLAN:Celina Galindo is doing well. She 's been advised to continue hercurrent medication. Blood pressure is borderline low. She's having nolightheadedness at this time. She is well compensated.She's been advised to call if she has episodes of lightheadedness. We mayneed to back off on her diuretics, though she appears at optimal volumestatus presently.I will see her in 8 months or as needed.Written and verbal health teaching given to patient, patient verbalizesunderstanding and agrees with treatment plan.This note was generated using [employer] voice recognition system, and theremay be some incorrect words, spellings, and punctuation that were notnoted in checking the note before saving.DIAGNOSIS FOR VISIT:HypertensionCHFHISTORY OF PRESENT ILLNESSCelina Galindo returns for follow-up of her hypertension, coronarydisease, CHF and SVT.She reports good exercise tolerance. 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 She has had no chest discomfort. She is currently seeinghematology for her anemia and is getting iron supplement. She underwentknee surgery without complication.She has had no chest discomfort, orthopnea, palpitations, TIAs, amaurosisor claudication. She's had no further syncope or near-syncopeALLERGIES:ALLERGIESAllergen Reactions- Seasonal Allergies Unknown- Tape [Other]CURRENT OUTPATIENT MEDICATIONS:acetaminophen (TYLENOL EXTRA STRENGTH) 500 mg tablet Take 500 mg by mouthevery 8 hours as needed.magnesium oxide 400 mg cap Take 400 mg by mouth twice daily.metoprolol tartrate, short acting, (LOPRESSOR) 25 mg tablet Take 25 mg bymouth twice daily.mometasone-formoterol (DULERA) 200-5 mcg/actuation inhaler Inhale asinstructed twice daily.furosemide (LASIX) 40 mg tablet Take 1 tablet by mouth once daily.Cholecalciferol, Vitamin D3, 1,000 unit cap Take 1,000 Units by mouthtwice daily.levothyroxine (SYNTHROID) 50 mcg tablet Take 50 mcg by mouth daily beforebreakfast.albuterol HFA (PROAIR HFA) 90 mcg/actuation inhaler Inhale 2 Puffs asinstructed every 6 hours as needed.ferrous sulfate 325 mg (65 mg iron) tablet Take 325 mg by mouth daily withbreakfast.pravastatin (PRAVACHOL) 40 mg tablet Take 40 mg by mouth once daily.HYDROCODONE-ACETAMINOPHEN 5 MG-500 MG TAB Take one(1) tablet every four(4)hours as needed.OTC NUTRITIONAL SUPPLEMENT xango drink 1 1/2 oz dailyPROTONIX 40 MG ORAL TBEC Take one(1) tablet daily.CYANOCOBALAMIN, VITAMIN B-12, (VITAMIN B-12 ORAL) Take by mouth.PHYSICAL EXAMINATION:VITAL SIGNS: BP 110/72 Pulse 68 Ht 5' 2.5 (1.59m) Wt 172 lb 8 oz(78.2kg) BMI 31.03 kg/(m2) .Chest: Clear to percussion and auscultation. Trachea is midline. Airentry is equal. Cardiac: Regular rhythm. S1 and S2 are normal. PMI isnondisplaced. There is a soft systolic ejection murmur. Carotids arebrisk without bruits. JVP is less than 10 cm. Abdomen: Soft andnontender. There are no pulsatile masses or bruits. No liverenlargement. Bowel sounds are active. Extremities: Trace edema. Pulsesare intact and symmetrical.Laboratory studies are followed in primary care. We have requested copy.Electronically Signed:RAMIN Poeept2016 11 :27 [facility]: Mylene Preciado MD CNOV Observed: 12/15/2016 Status: COMPLETED Source: [place] 11:15 AM [facility] REPOSITORY Office Visit (CARDWS) ---------CELINA GALINDO ([id number]) 1935 FDate Time Provider Department12/15/16 11:15 AM MIAH UPTON During your visit today, we recorded the following information about you: Pulse Blood pressure Weight Height 68/minute 110/72 78.2 kg 1.588 Ethel Upton MD 12/15 1:01 PM SignedPERTINENT CARDIAC HISTORYHTNHLOSAThoracic aortic aneurysm - repair 2005DMPossible TIAsASHD - minimal by cath 2005CHF - diastolic, no VICTORINO-I due to low BPPostural lightneadednessSVTCLINICAL IMPRESSION/PLAN:Celina Galindo is doing well. She's been advised to continue her currentmedication. Blood pressure is borderline low. She's having no lightheadednessat this time. She is well compensated.She's been advised to call if she has episodes of lightheadedness. We may needto back off on her diuretics, though she appears at optimal volume statuspresently.I will see her in 8 months or as needed.Written and verbal health teaching given to patient, patient verbalizesunderstanding and agrees with treatment plan.This note was generated using [employer] voice recognition system, and there may besome incorrect words, spellings, and punctuation that were not noted inchecking the note before saving.DIAGNOSIS FOR VISIT:HypertensionCHFHISTORY OF PRESENT ILLNESSCelina Galindo returns for follow-up of her hypertension, coronary disease,CHF and SVT.She reports good exercise tolerance. 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 She has had no chest discomfort. She is currently seeing hematologyfor her anemia and is getting iron supplement. She underwent knee surgerywithout complication.She has had no chest discomfort, orthopnea, palpitations, TIAs, amaurosis orclaudication. She's had no further syncope or near-syncopeALLERGIES:ALLERGIESAllergen Reactions- Seasonal Allergies Unknown- Tape [Other]CURRENT OUTPATIENT MEDICATIONS:acetaminophen (TYLENOL EXTRA STRENGTH) 500 mg tablet Take 500 mg by mouth every8 hours as needed.magnesium oxide 400 mg cap Take 400 mg by mouth twice daily.metoprolol tartrate, short acting, (LOPRESSOR) 25 mg tablet Take 25 mg by mouthtwice daily.mometasone-formoterol (DULERA) 200-5 mcg/actuation inhaler Inhale asinstructed twice daily.furosemide (LASIX) 40 mg tablet Take 1 tablet by mouth once daily.Cholecalciferol, Vitamin D3, 1,000 unit cap Take 1,000 Units by mouth twicedaily.levothyroxine (SYNTHROID) 50 mcg tablet Take 50 mcg by mouth daily beforebreakfast.albuterol HFA (PROAIR HFA) 90 mcg/actuation inhaler Inhale 2 Puffs asinstructed every 6 hours as needed.ferrous sulfate 325 mg (65 mg iron) tablet Take 325 mg by mouth daily withbreakfast.pravastatin (PRAVACHOL) 40 mg tablet Take 40 mg by mouth once daily.HYDROCODONE-ACETAMINOPHEN 5 MG-500 MG TAB Take one(1) tablet every four(4 )hours as needed.OTC NUTRITIONAL SUPPLEMENT xango drink 1 1/2 oz dailyPROTONIX 40 MG ORAL TBEC Take one(1) tablet daily.CYANOCOBALAMIN, VITAMIN B-12, (VITAMIN B-12 ORAL) Take by mouth.PHYSICAL EXAMINATION:VITAL SIGNS: BP 110/72 Pulse 68 Ht 5' 2.5ANDquot; (1.59m) Wt 172 lb 8 oz(78.2kg) BMI 31.03 kg/(m2).Chest: Clear to percussion and auscultation. Trachea is midline. Air entry isequal. Cardiac: Regular rhythm. S1 and S2 are normal. PMI is nondisplaced.There is a soft systolic ejection murmur. Carotids are brisk without bruits.JVP is less than 10 cm. Abdomen: Soft and nontender. There are no pulsatilemasses or bruits. No liver enlargement. Bowel sounds are active.Extremities: Trace edema. Pulses are intact and symmetrical.Laboratory studies are followed in primary care. We have requested copy.Electronically Signed:RAMIN Poeeptember 2016 11:27 [facility]: Meghna Byers Provider: MIAH UPTON [[id number]]Allergies As of Date: 12/15/2016 Noted Allergy ReactionSEASONAL ALLERGIES 12/05/2014 16 - UnknownTAPE [Other] 11/04/2004Date Reviewed: 12/15/2016Reviewed by: Sara Laurent Ma - Fully AssessedReason for Visit: Follow Up [171]Primary Visit Diagnosis:Essential hypertension [I10] Other Visit Diagnosis:Chronic diastolic congestive heart failure (HCC) [I50.32] Prescriptions as of 12/15/2016 Sig: ACETAMINOPHEN 500 MG TABLET Take 500 mg by mouth every 8 * MAGNESIUM OXIDE 400 MG CAPSULE Take 400 mg by mouth twice da* METOPROLOL TARTRATE 25 MG TAB* Take 25 mg by mouth twice david* MOMETASONE-FORMOTEROL HFA 200* Inhale as instructed twice d* FUROSEMIDE 40 MG TABLET Take 1 tablet by mouth once d* CHOLECALCIFEROL (VITAMIN D3) * Take 1,000 Units by mouth twi* LEVOTHYROXINE 50 MCG TABLET Take 50 mcg by mouth daily be* ALBUTEROL SULFATE HFA 90 MCG/* Inhale 2 Puffs as instructed * FERROUS SULFATE 325 MG (65 MG* Take 325 mg by mouth daily wi* PRAVASTATIN 40 MG TABLET Take 40 mg by mouth once charlene* * HYDROCODONE 5 MG- ACETAMINOPHE* Take one(1) tablet every four* * OTC NUTRITIONAL SUPPLEMENT xango drink 1 1/2 oz daily * PROTONIX 40 MG TABLET,DELAYED* Take one(1) tablet daily. VITAMIN B-12 ORAL Take by mouth.Medication notes this encounter VITAMIN B-12 ORAL >> Sara Laurent Ma 12/15/2016 11:09 AM >> SARA LAURENT MA TueDec 15, 2016 11:09 AM Not takingProblem List As Of Date 12/15 Noted Resolved BENIGN HYPERTENSION [I10] INVALID FOR* ESOPHAGEAL REFLUX [K21.9] INVALID FOR* OTHER UNSPEC SLEEP APNEA [G47.30] INVALID FOR* SHORTNESS OF BREATH [R06.02] INVALID FOR* HYPERLIPIDEMIA NEC/NOS [E78.5] INVALID FOR* OSTEOARTHROS NOS-OTHER SITE [M19.90] INVALID FOR * CONGESTIVE HEART FAILURE, UNSPEC [I50.9] INVALID FOR* AORTIC ANEURYSM NOS [I71.9] INVALID FOR* ABDOMINAL PAIN RUQ [R10.11] INVALID FOR* ABDOMINAL PAIN UNSPEC SITE [R10.9] INVALID FOR* INCISIONAL HERNIA [K43.2] INVALID FOR* DIAPHRAGMATIC HERNIA [K44.9] INVALID FOR* Anemia [D64.9] INVALID FOR*Follow-up and Disposition History RecordedEncounter Number: [id number] Status:Closed by MIAH UPTON MD on 12/15/16 CBC W/DIFF, AUTOMATED Collected: 11/08/2016 Status: F Source: PAKO 9:19 AM [facility] REPOSITORY TYPE CODE TESTS RESULT OUT OF RANGE REFERENCE UNITS LAB L100.1000 Normal 4.4-11.0 K/mm3 WBC 8.1 LAB L100.1200 Low 4.2-5.4 M/mm3 RBC 3.80 LAB L100.1300 Low 12.0-15.0 g/dl HGB 9.6 LAB L100.1400 Low 37-47 % HCT 32.9 LAB L100.1500 Normal 81-99 fL MCV 86.6 LAB L100.1600 Low 27.0-32.0 pg MCH 25.3 LAB L100.1700 Low 32-36 g/gl MCHC 29.2 LAB L100.1810 High 11.6-14.6 % RDW 15.0 CV LAB L100.1820 High 35.1-43.9 fl RDW 47.6 SD LAB L100.1900 Normal 150-450 K/mm3 PLT 346 LAB L100.2000 Normal 6.2-12.0 fl MPV 10.2 LAB L100.2100 Normal 47-70 % NEUT% 61.4 LAB L100.2200 Normal 19-41 % LY% 26.4 LAB L100.2300 Normal 0-10 % MONO% 6.3 LAB L100.2400 High 0-5 % EO% 5.3 LAB L100.2500 Normal 0-1 % BASO% 0.5 LAB L100.2550 Normal 0.0-0.9 % IM 0.100 GRAN % Result Comment: IG% - Immature Granulocytes (promyelocytes, myelocytes andmetamyelocytes) > 1% indicates that a LEFT SHIFT is Present. LAB L100.2620 Normal 2.0-7.7 X10 3/uL Absolute Neut 5.0 LAB L100.2720 Normal 0.83-4.51 X10 3/ul Absolute Lymph 2.14 Performed By: #### L100.0100 ####[facility] [address] [place] [place], [address] VITAMIN B12 Collected: 11/08/2016 Status: F Source: PAKO 9:18 AM [facility] REPOSITORY Order Comment: Order Date: 10/18/16Order Info: 2132-9 - B12 TYPE CODE TESTS RESULT OUT OF RANGE REFERENCE UNITS LAB L503.0105 Normal 211-911 pg/mL Vitamin 553 B12 Performed By: #### L503.0105 ####[facility] [address] [place], [address] COMPREHENSIVE METABOLIC Collected: 11/08/2016 Status: F Source: PAKO [facility] 9:14 AM [facility] REPOSITORY Order Comment: Reason for Laboratory Test OV TYPE CODE TESTS RESULT OUT OF RANGE REFERENCE UNITS LAB L501.0100 Normal 70-110 mg/dL GLU 99 LAB L501.1000 High 7-18 mg/dL BUN 37 LAB L501.1100 High 0.55-1.02 mg/dL 1.10 CREAT,SERUM Result Comment: The validity of the calculated GFR AND GFRAA in patients over70 years has not been determined. Clinical correlation isessential. LAB L501.1110 Low >60 mL/min EST GFR 51 Result Comment: Non- GFR Calc LAB L501.1115 Normal >60 mL/min EST GFR - 62 AA Result Comment: GFR Calc LAB L501.1255 Normal ml/min Estimated 29.79 CRCL LAB L501.1300 High 10-20 RATIO BUN/CRE 33.6 LAB L501.1500 Normal 6.4-8. g/dL T PROT 7.5 2 LAB L501.1800 Low 3.4-5. g/dL ALB 2.9 0 LAB L501.1950 High 2.3-3. g/dL GLOB 4.6 5 LAB L501.2000 Low 0.9-2. RATIO A/G 0.6 4 LAB L501.2200 Normal 8.5-10 mg/dL CA 9.2 .1 LAB L501.4100 Low 15-37 U/L AST 13 LAB L501.4305 High 45-117 U/L ALK P 151 LAB L501.4405 Normal 12-78 U/L ALT 12 LAB L501.4600 Normal 0.20-1 mg/dL T BILI 0.30 .00 LAB L501.5300 Normal 136-14 mmol/L NA 138 5 LAB L501.5600 Normal 3.5-5. mmol/L K 4.3 1 LAB L501.5900 Normal 98-107 mmol/L CL 101 LAB L501.6100 Normal 21.0-3 mmol/L CO2 31.0 2.0 LAB L501.6200 Normal 5-15 GAP 6 Performed By: #### L500.4050, L503.6030 ####[facility] [address] [place], [address] IRON+IRON BINDING Collected: 11/08/2016 Status: F Source: [place] [facility] 9:14 AM [facility] REPOSITORY Order Comment: Reason for Laboratory Test OV TYPE CODE TESTS RESULT OUT OF RANGE REFERENCE UNITS LAB L503.6075 Normal 250-450 ug/dL TIBC 347 LAB L503.6150 Low 50-170 ug/dL IRON 33 LAB L503.6250 Low 15.0-55.0 % IRON 9.5 SATURATION Performed By: #### L500.4050, L503.6030 ####[facility] [address] [place], [address] ALLERGIES ALLERGIES DATE TYPE / CODE NAME / CODE REACTION SEVERITY SOURCE 07/06/2017 Drug No Known Unknown [place] Allergy/[id number](S Allergies/F0019 [facility] [place] [address](RXNORM) Hospital Repository 12/05/2014 Environ/[id number](S SEASONAL UNKNOWN [place] NOMED CT) ALLERGIES [facility] Repository 11/04/2004 Miscellaneous OTHER [place] Allergy/[id number](S [facility]OM[facility]) [place] Repository NG/[id number](SNOMED SEASONAL [facility]) ALLERGIES [facility] Repository NG/[id number](SNOMED OTHER [facility]) [facility] Repository ENCOUNTERS ENCOUNTERS ADMIT/DISCHARGE ACCOUNT NUMBER ADMITTING ENCOUNTER LOCATION SOURCE CLASS 08/31/2017/09/01/19 [id number] Ambulatory BMSBuilding: [address] Repository 08/25/2017/08/26/19 [id number] Ambulatory [address] Repository 08/25/2017 [id number] Ambulatory [facility] MEDICAL Repository CENTERBuildi ng:CAGWS 07/06/2017 [id number] Ambulatory [facility] ding:OMD Repository 07/06/2017 [id number] Ambulatory BMSBuilding: [place] BMS.CF.WMO [facility] Repository 05/16/2017 [id number] Ambulatory [facility] ding:HPRAD Repository 05/16/2017/05/16/19 [id number] Ambulatory BMSBuilding: [address] BMS.SMO [facility] Repository 04/25/2017 [id number] Ambulatory [facility] ding:MFPLAB Repository 12/15/2016/12/16/19 [id number] Ambulatory [address] Repository PAYERS PAYERS ENCOUNTER GUARANTOR PAYER SUBSCRIBER SOURCE 08/31/2017 CELINA Pollack Primary CELINA [id number] Insurance:ITZEL BILLHEIMERDOB: Community [place] PPOPolicy [id number] Number: Repository [phone]: (330) [id number] [phone] () Date:3144-40-12Vj [address] [place] [address] 890[address]XS: 08/31/2017 Secondary NOT GIVENUNK [place] Insurance:SELF PAY [facility] Number: Effective Repository Date:2017-08-31 08/25/2017 CELINA Pollack Primary CELINA [facility] BILLHEIMERDOB: Insurance:ITZEL CAMPBELL: Health System [id number] MEDIBLUE ACCESS [id number] [place], [place] Number: [id number]: (330) [id number] [phone] (HP) Date: 07/06/2017 CELINA Pollack Primary CELINA [id number] Insurance:ITZEL GALINDODOB: Community [place] PPOPolicy [id number], [place] Number: Repository [address]Wer: (330) [id number] [phone] (HP) Date:7956-27-13Wy [address] [place] [address] 85275OI: 07/06/2017 Secondary NOT GIVENUNK [place] Insurance:SELF PAY [facility] Number: Effective Repository Date:2016-09-09 07/06/2017 CELINA D Primary CELINA D [place] [id number] Insurance:ANTHEM BILLHEIMERDOB: [facility] MEDICARE PPOPolicy [id number], [place] Number: Repository [address]Esv: 330 [id number] [phone] (HP) Date:2984-82-45Cx [address] [place] [address] 264[address]KO: 07/06/2017 Secondary NOT GIVENUNK [place] Insurance:SELF PAY [facility] Number: Effective Repository Date:2017-07-06 05/16/2017 CELINA D Primary CELINA D [place] [id number] Insurance:ANTHEM BILLHEIMERDOB: Community [place] [id number] Number: Repository [phone]: (330 [id number] [phone] () Date:3225-98-37IC [address] [place] [address]JG: 05/16/2017 Secondary NOT GIVENUNK [place] Insurance:SELF PAY [facility] Number: Effective Repository Date:2017-05-16 05/16/2017 CELINA D Primary CELINA D [place] [id number] Insurance:ANTHEM BILLHEIMERDOB: Community [place] [id number] [place] Number: Repository [id number]: (330 [id number] [phone] (HP) Date:5539-08-91EI [id number] [place] [address]VP: 05/16/2017 Secondary NOT GIVENUNK [place] Insurance:SELF PAY [facility] Number: Effective Repository Date:2017-04-28 04/25/2017 Celina D Primary Celina D [place] [id number] Insurance:ANTHEM BillheimerDOB: Community [place] MED[place]ARE [place] [id number] [facility] Number: Repository [id number]: (443) [id number] [phone] () Date:6057-31-24MC [address]XL[place], [place] [address]YO: 04/25/2017 Secondary NOT GIVENUNK [place] Insurance:SELF PAY [facility] Number: Effective Repository Date:2017-04-25
[2017-10-21 10:33] LABS: Absolute Lymphocyte Count 1.93 X10^3/ul (0.83-4.51); Absolute Neutrophil Count 3.4 X10^3/uL (2.0-7.7); Basophil# 0.04 X10^3/uL; Basophil% 0.6 % (0-1); Eosinophil# 0.29 X10^3/uL; Eosinophils% 4.7 % (0-5); Hematocrit 34.4 % (37-47); Hemoglobin 10.2 g/dl (12.0-15.0); Lymphocyte # 1.93 X10^3/ul (4.0); Lymphocyte % 31.2 % (19-41); Mean Corp Hgb Conc 29.7 g/gl (32-36); Mean Corpuscular Hgb 28.3 pg (27.0-32.0); Mean Corpuscular Volume 95.6 fL (81-99); Mean Platelet Vol. 10.7 fl (6.2-12.0); Monocyte# 0.51 X10^3/uL; Monocyte% 8.3 % (0-10); Neutrophil # 3.41 X10^3/uL (2.7-7.7); Neutrophil % 55.2 % (47-70); Platelet Count 270 K/mm3 (150-450); RBC Distribution Width CV 14.3 % (11.6-14.6); RBC Distribution Width SD 49.8 fl (35.1-43.9); White Blood Count 6.2 K/mm3 (4.4-11.0)
[2017-10-21 10:36] LABS: POSITIVE COUNT NO; POSITIVE DIFFERENTIAL NO; POSITIVE MORPHOLOGY NO
[2017-10-21 10:49] LABS: ALB/GLOB Ratio 0.7 RATIO (0.9-2.4); AST(SGOT) 14 U/L (15-37); Alanine Aminotransfer ALT/SGPT 16 U/L (13-56); Alkaline Phosphatase 125 U/L (45-117); Anion Gap 7 (5-15); BUN 36 mg/dL (7-18); BUN/Creat Ratio 33.6 RATIO (10-20); Chloride 106 mmol/L (98-107); Cholesterol 173 mg/dL (200); Creatinine, Serum 1.07 mg/dL (0.55-1.02); EST Glomerular Filtration Rate 52 mL/min (>60); Est Glom Filt Rate - Afr Amer 63 mL/min (>60); Ferritin 136 ng/mL (8-252); Globulin 4.3 g/dL (2.2-4.2); Glucose 98 mg/dL (74-106); High Density Lipoprotein 68 mg/dL; Potassium 4.4 mmol/L (3.5-5.1); Protein, Total 7.3 g/dL (6.4-8.2); Sodium Level 141 mmol/L (136-145); Triglycerides 58 mg/dL; Very Low Density Lipoprotein 12 mg/dL (5-40)
[2017-10-21 10:53] LABS: Vitamin B12 910 pg/mL (211-911)
[2017-10-21 10:56] LABS: Hemoglobin A1c 5.6 % (4.2-6.3)
== END ==
PROVIDERS: Family Provider Family Medicine; PCP Family Medicine; Visit Provider Family Medicine
DX: E11.9 Type 2 diabetes mellitus without complications (principal); D64.9 Anemia, unspecified
CPT/HCPCS: 80053; 80061; 82607; 82728; 83036; 85025

== ENCOUNTER → 2017-12-30 08:08 | Outpatient (CLI) | payer MEDICARE, SELFPAY ==
[2017-12-30 08:31] LABS: Absolute Lymphocyte Count 2.07 X10^3/ul (0.83-4.51); Absolute Neutrophil Count 4.1 X10^3/uL (2.0-7.7); Basophil# 0.05 X10^3/uL; Basophil% 0.7 % (0-1); Eosinophil# 0.44 X10^3/uL; Eosinophils% 6.1 % (0-5); Hematocrit 33.7 % (37-47); Hemoglobin 10.3 g/dl (12.0-15.0); Lymphocyte # 2.07 X10^3/ul (4.0); Lymphocyte % 28.5 % (19-41); Mean Corp Hgb Conc 30.6 g/gl (32-36); Mean Corpuscular Hgb 28.9 pg (27.0-32.0); Mean Corpuscular Volume 94.7 fL (81-99); Mean Platelet Vol. 9.9 fl (6.2-12.0); Monocyte# 0.57 X10^3/uL; Monocyte% 7.9 % (0-10); Neutrophil # 4.13 X10^3/uL (2.7-7.7); Neutrophil % 56.8 % (47-70); Platelet Count 267 K/mm3 (150-450); RBC Distribution Width CV 14.6 % (11.6-14.6); RBC Distribution Width SD 50.3 fl (35.1-43.9); Red Blood Count 3.56 M/mm3 (4.2-5.4); White Blood Count 7.3 K/mm3 (4.4-11.0)
[2017-12-30 08:35] LABS: POSITIVE COUNT NO; POSITIVE DIFFERENTIAL NO; POSITIVE MORPHOLOGY NO
[2017-12-30 09:05] LABS: ALB/GLOB Ratio 0.7 RATIO (0.9-2.4); AST(SGOT) 13 U/L (15-37); Alanine Aminotransfer ALT/SGPT 14 U/L (13-56); Alkaline Phosphatase 131 U/L (45-117); Anion Gap 6 (5-15); BUN 32 mg/dL (7-18); BUN/Creat Ratio 28.8 RATIO (10-20); Chloride 105 mmol/L (98-107); Creatinine, Serum 1.11 mg/dL (0.55-1.02); EST Glomerular Filtration Rate 50 mL/min (>60); Est Glom Filt Rate - Afr Amer 61 mL/min (>60); Globulin 4.1 g/dL (2.2-4.2); Glucose 91 mg/dL (74-106); Potassium 4.3 mmol/L (3.5-5.1); Protein, Total 7.1 g/dL (6.4-8.2); Sodium Level 140 mmol/L (136-145)
== END ==
PROVIDERS: Family Provider Family Medicine; PCP Family Medicine; Referring Provider Specialist; Visit Provider Specialist
DX: N18.3 Chronic kidney disease, stage 3 (moderate) (principal); M19.011 Primary osteoarthritis, right shoulder
CPT/HCPCS: 36415; 80053; 85025

== ENCOUNTER → 2018-01-18 15:45 | Outpatient (CLI) | payer MEDICARE, SELFPAY ==
--- NOTE | 2018-01-18 15:47 | CT_ITS ---
STUDY: CT RIGHT SHOULDER REASON FOR EXAM: Female, 82 years old. Osteoarthritis of the right shoulder RADIATION DOSAGE (If Supplied By Facility): CTDIvol = ( 27.47 ) mGy, DLP = ( 649.55 ) mGycm TECHNIQUE: The patient was scanned in a multi detector CT scanner. High resolution transaxial imaging was performed without the administration of intravenous contrast material. Sagittal and coronal images were reconstructed. # of Images: 635 Individualized dose optimization techniques were used for this CT. COMPARISON: None. FINDINGS: There is severe osteoarthritis, with severe articular joint space narrowing, osteoarthritic spurring, articular remodeling, and with articular erosions. There is evidence of degenerative spur along the inferior aspect of the glenoid rim. There is cephalic migration of the humeral head suggests well-formed rotator cuff pathology. Normal coracoid process. Normal visualized lateral clavicle. Normal acromioclavicular articulation. There is a Type II morphology (curved), with a neutral orientation. Surgical clips are seen in the right axillary region suggestive of a right axillary lymph node dissection. Increased interstitial markings in the medial aspect of the right upper lobe and right suprahilar region. This may be related to post radiation fibrosis if the patient has a history of a breast cancer and radiation. 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 Electronically Signed: Rex Raines MD at 10:42 EDT Tel [phone], Service support ,
== END ==
PROVIDERS: Family Provider Family Medicine; PCP Family Medicine; Referring Provider Specialist; Visit Provider Specialist
DX: M19.211 Secondary osteoarthritis, right shoulder (principal)
CPT/HCPCS: 73200

== ENCOUNTER 2018-02-08 10:00 | Outpatient (RCR) | payer MEDICARE, SELFPAY ==
--- NOTE | 2018-01-09 12:46 | HP.PTEVAL_ITS ---
Patient's Visit Information CELINA GALINDO is a 82 year old F referred to Physical Therapy by Goran George MD with a diagnosis of Unsteady gait. Date of Evaluation: 01/09/18 Physical Therapist: Jass Phillips PT, - Visit Plan Frequency: 2-3x /Week Duration: 4 Weeks Plan: Gait training with QC, B LE strengthening, balance and proprio, nustep, and HEP - Subjective Subjective: Pt reports she needs to have a R total shoulder replacement here in the near future, and needs to be able to ambulate with just a cane. Pt reports she has been walking with a walker for 2 years due to her unsteady gait. Pt reports she needs to be able to walk with a quad cane in order to have her shoulder surgery. Pt reports she lives in a one floor house at this time. Pt has 2 steps into her house, which she has to use hand rails to negotiate. Pt denies any T or N at this time. Pt reports her surgery is scheduled for 03/01/18. Pt denies any LE pain at this time. R shoulder pain is 7/10 currently. - Pain R shoulder Pain Intensity (Out of 10): 7 - Objective Neuro: B LE sensation is WNL to light touch. B bicepital reflex= 1/3. ROM: B LE's are WFL at this time. MMT: B knee flexion 4-/5. All other LE measurements are 4+/5 throughout. Gait: Pt is able to ambulate approximately 60 feet with QC and CGAx1 until feeling fatigued. Pt did experience one LOB episode which required min A by PT - Goals Goal 1:: Pt will be I with the use of a QC prior to her shoulder surgery Goal Time Frame: 2-4 Weeks Goal 2:: Increase B LE strength x 1 grade to aid with stair negotiation Goal Time Frame: 2-4 Weeks Goal 3:: I with HEP Goal Time Frame: 2-4 Weeks - Rehabilitation Potential Physical Therapy Diagnosis: Pt has an usteady gait pattern with QC which must improve prior to her R TSA Rehabilitation Potential: Good - Anticipated Interventions Patient/Client Instruction: Educate patient on: Condition, Plan of Care For the Purpose of:: To improve self management Therapeutic Exercise to Include: Strength training, Endurance training, Balance training, Gait and locomotor training For the Purpose of:: To improve muscle performance and motor function, To increase tolerance to activity/condition/position, To improve gait and locomotor functions Thank you for the opportunity to evaluate your patient. For Medicare and Medicare HMO plans, please review the plan of care and approve it. It will need to be FAXED BACK to us at [phone] for Medicare purposes. Please let me know if there are questions or concerns regarding this plan of care. Physician Sign ature: Date:
--- NOTE | 2018-02-08 11:05 | HP.PTDCSUM ---
HP - PT D/C Summary It has been my pleasure to treat CELINA GALINDO under orders from Goran George MD, for the diagnosis of Unsteady gait for a total of 7 visit(s). Discharge Date: Please see the following information for a summary of their discharge status. - Subjective Subjective: Pt reports she feels she has made great improvements with her walking since having therapy. Pt feels she is ready to be done - Pain R shoulder Pain Intensity (Out of 10): 8 - Overall Improvement % Improvement: 50 - Objective Objective/Function: R LE strength now 5/5, L LE strength is 4/5. Pt was able to ambulate greater than 40 feet with QC and SBA. Pt is I with HEP. Rx goals achieved - Goals Goal 1:: Pt will be I with the use of a QC prior to her shoulder surgery Goal Progress: Goal Met Goal 2:: Increase B LE strength x 1 grade to aid with stair negotiation Goal Progress: Goal Met Goal 3:: I with HEP Goal Progress: Goal Met - Plan Plan: Discharge - D/C Information If there are questions or concerns regarding this patient's physical therapy, please feel free to call me at [phone]. Thank you for the referral of this patient. Sincerely, Jass Phillips, PT,
== END 2018-02-08 11:46 | disposition home or self-care (01) ==
LOC: PT 10:00
PROVIDERS: Family Provider Family Medicine; PCP Family Medicine; Referring Provider Specialist; Visit Provider Specialist
DX: E66.9 Obesity, unspecified (principal)
CPT/HCPCS: 97110; 97116; 97162; 97530

== ENCOUNTER 2018-03-01 10:45 | Inpatient (IN) | payer MEDICARE, SELFPAY ==
[2018-02-15 11:35] VITALS: BP 150/87; PULSE 69; RESP 16; TEMP 36.6; O2SAT 99; BMI 37.4
--- NOTE | 2018-02-15 11:50 | SDCEKG_ITS ---
Test Reason : Blood Pressure : / mmHG Vent. Rate : 060 BPM Atrial Rate : 060 BPM P-R Int : 188 ms QRS Dur : 084 ms QT Int : 404 ms P-R-T Axes : 000 -05 042 degrees QTc Int : 404 ms Normal sinus rhythm Inferior infarct , age undetermined Cannot rule out Anterior infarct , age undetermined Abnormal ECG Confirmed by MARGARITA BENITEZ, HERMILA ([id number]), film or videotape editor USAMA GRIDER ([id number]) on 02/22/2018 11:32:15 AM Referred By: Goran George Confirmed By:HERMILA AVILA MD
[2018-02-15 15:04] LABS: Absolute Lymphocyte Count 2.07 X10^3/ul (0.83-4.51); Absolute Neutrophil Count 4.9 X10^3/uL (2.0-7.7); Basophil# 0.04 X10^3/uL; Basophil% 0.5 % (0-1); Eosinophil# 0.31 X10^3/uL; Eosinophils% 3.9 % (0-5); Hematocrit 34.1 % (37-47); Hemoglobin 10.4 g/dl (12.0-15.0); Lymphocyte # 2.07 X10^3/ul (4.0); Lymphocyte % 25.8 % (19-41); Mean Corp Hgb Conc 30.5 g/gl (32-36); Mean Corpuscular Hgb 29.9 pg (27.0-32.0); Mean Platelet Vol. 11.2 fl (6.2-12.0); Monocyte# 0.68 X10^3/uL; Monocyte% 8.5 % (0-10); Neutrophil % 61.2 % (47-70); POSITIVE COUNT NO; POSITIVE DIFFERENTIAL NO; POSITIVE MORPHOLOGY NO; Platelet Count 253 K/mm3 (150-450); RBC Distribution Width CV 14.6 % (11.6-14.6); RBC Distribution Width SD 50.1 fl (35.1-43.9); Red Blood Count 3.48 M/mm3 (4.2-5.4)
[2018-02-15 15:28] LABS: Prothrombin Time (Protime)PT. 13.2 SECONDS (11.7-14.9)
[2018-02-15 15:29] LABS: Partial Thromboplast Time 30.5 Seconds (24.1-36.2)
[2018-02-15 15:30] LABS: ALB/GLOB Ratio 0.8 RATIO (0.9-2.4); AST(SGOT) 14 U/L (15-37); Alanine Aminotransfer ALT/SGPT 15 U/L (13-56); Albumin, Serum 3.2 g/dL (3.2-5.0); Alkaline Phosphatase 135 U/L (45-117); Anion Gap 7 (5-15); BUN 32 mg/dL (7-18); BUN/Creat Ratio 26.9 RATIO (10-20); Calcium,Total 8.9 mg/dL (8.5-10.1); Chloride 106 mmol/L (98-107); Creatinine, Serum 1.19 mg/dL (0.55-1.02); EST Glomerular Filtration Rate 46 mL/min (>60); Est Glom Filt Rate - Afr Amer 56 mL/min (>60); Estimated Creatinine Clearance 50.06 ml/min; Ferritin 282 ng/mL (8-252); Glucose 117 mg/dL (74-106); Iron 38 ug/dL (50-170); Iron Binding Capacity,Total 323 ug/dL (250-450); PERCENT IRON SATURATION 11.8 % (15.0-55.0); Potassium 4.7 mmol/L (3.5-5.1); Protein, Total 7.2 g/dL (6.4-8.2); Sodium Level 140 mmol/L (136-145)
--- NOTE | 2018-02-16 12:30 | HP.PCM_ITS ---
History and Physical DATE OF SURGERY: 03/01/2018 SCHEDULED PROCEDURE: Right Reverse Total Shoulder Arthroplasty HISTORY OF PRESENT ILLNESS: This is an 82-year-old female who has been having ongoing pain in her right dominant shoulder for the past 6-7 months. Patient did have a previous fall. Patient has difficult time with activities of daily living that require getting up from a seated position, overhead activity, and driving. Pain is over the anterior lateral aspect of the right shoulder. Patient states she is unable to raise her hand overhead. Her range of motion has been limited. Patient has tried previous corticosteroid injection with no relief in symptoms. X-rays reveal complete loss of the glenohumeral joint with superior head migration consistent with secondary rotator cuff arthropathy. Patient currently denies any chest pain, shortness of breath, fevers chills, recent infections. Patient has had a previous left total shoulder arthroplasty by Dr. Morel in 2009. Patient has a medical history pertinent for hypertension, anemia, gout, sleep apnea. Patient states she sees Dr. Mendoza for iron infusions. She also sees a straight knife cutter machine Dr. Bryan. Patient requires the use of a walker due to her knee. Patient did have a previous left total knee arthroplasty in [address] Billy Levine. Since then she has been on a walker. We are obtaining surgical clearance from patient's straight knife cutter machine and primary care physician. After failing conservative measures and discussing all treatment options with Dr. Goran George, the patient would like to proceed with a right reverse total shoulder arthroplasty. REVIEW OF SYSTEMS: ROS: Const: Reports change in appetite, loss of appetite and weight change, but denies anorexia, anxiety and fever,hard of hearing, and vision problems. CV: Reports irregular heartbeat, but denies chest pain, heart murmur and peripheral vascular disease. Resp: Reports sleep apnea, but denies asthma, cough, pneumonia, SOB, tuberculosis and wheezing. GI: Denies constipation, diarrhea, heartburn, nausea, bloody stools and vomiting, and difficulty swallowing. : Urinary: denies incontinence. Musculo: Reports limp,denies leg swelling, trouble walking and weakness Skin: Denies Raynaud's, history of shingles and tattoo. Neuro: Reports dizziness but denies ambulatory dysfunction, numbness/tingling a nd tremor. Psych: Denies anxiety, depression, insomnia, mental illness and stress. Aaron/Lymph: Reports anemia, but denies bleeding/bruising tendency and past transfusion. Reviewed, no changes. PAST MEDICAL HISTORY: Advance Care Plan: Other Directive, POA Effective Date: 01/14/2017 Other Directive, LIVING WILL Effective Date: 01/14/2017 PMH: Medical Problems: Arthritis, High Blood Pressure, High Cholesteral, Mild Anemia, Gout, Sleep Apnea, Thyroid Disease Accidents: Fracture - (06/2007) LT WRIST LT Foot FX - (12/26/2009) LT KNEE FALL RT Shoulder Dislocation - (07/2011) LT Hip Dislocation - (04/2012) Surgical Hx: Knee Replacement - (2001) RT TKR, [facility] - Abner Aorta Surgery - (11/2004) [facility] Gallbladder - (11/2005) AND HERNIA REPAIR, DR. DUDLEY, [facility] Hernia Repair - (02/2008) Dr. Nayana DE ANDA Carpal Tunnel Release LT - (08/2005) DR. LEVINE L TSR - (07/2009) Dr. Morel [facility] LT THR - (12/28/2011) EVAN @ [facility] LT THR Revision - (07/18/2012) [email or web address] Knee Replacement LT - (07/20/2016) [email or web address] Anesthesia Complications: None Assistive Devices: Glasses, Dentures, Walker Reviewed and updated. SOCIAL HISTORY: SH: Marital: .Occupation: Retired.Work Status: Retired.Hand Dominance: Right- handed. Personal Habits: Smoking: Patient has never smoked.Cigarette Use: Never.Alcohol: Denies use.Drug Use: Denies Use.Enjoy Exercising: Exercises 1-3 x/month. Reviewed, no changes. VITALS: Ht: 59 Wt: 184lb Wt k.462 BMI: 37.2 BP: 116/44 Pulse: 61 Resp: 20 T: 96.8 T: 36.0C ALLERGIES: No Known Drug Allergy MEDICATIONS: Levothyroxine Sodium 50 mcg 1 PO qday, Metoprolol 25mg 1 tab PO bid, Furosemide 40 mg 1 tab PO bid, Pantoprazole Sodium 40 mg 1 tab PO bid, Ferrous Sulfate 325 (65 Fe) MG 1 tab PO bid, Pravastatin Sodium 40 mg 1 by mouth every day, Dulera 200-5 mcg/Act 2 puffs PO bid prn, Vitamin D3 1000 Unit 1 tab PO daily PRE-OP EXAM: General appearance:NORMAL Other: Eyes: Conjunctivae and lids: NORMAL Pupils: ERR Ears, Nose, Mouth, and Throat: NORMAL Other: Inspection of lips, teeth and gums: NORMAL Other: Neck: Examination of neck: no masses noted. Respiratory: Assessment of respiratory effort: NORMAL Other: Auscultation of lungs: clear to auscultation no wheezes, rhonchi or rales. Cardiovascular: Auscultation of heart: regular rate and rhythm, positive systolic murmurs, no gallops or rubs. Exam of carotid arteries: NORMAL Other: Gastrointestinal: Exam of abdomen: soft, nontender, nondistended bowel sounds present. PHYSICAL EXAMINATION: Right shoulder is cool to touch without erythema. Range of motion right jaya ulder: Active flexion 45, passive flexion 100. Right shoulder strength testing of the supraspinatus 3/5. Sensation intact to light touch to axillary, radial, median, and ulnar nerve distribution. Motor intact to AIN, PIN, and ulnar nerve. Patient does require the use of a walker secondary to her knee pain. IMAGING STUDIES: Previous x-rays of the right shoulder do reveal complete loss of glenohumeral joint space with superior migration of the humeral head consistent with secondary rotator cuff arthropathy of the right shoulder. IMPRESSION: 1. 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 Anemia 3. Hypertension 4. Hypercholesterolemia 5. Gout 6. Sleep apnea 7. Thyroid disease PLAN: Dr. Goran George did discuss and review with the patient all treatment options including surgical versus nonsurgical options. Patient does wish to proceed with the above-stated procedure. Potential risks, benefits, and complications of the procedure were discussed in detail including but not limited to , infection, nerve and blood vessel damage, persistent pain, numbness, tingling, paresthesias, blood clot, pulmonary embolism, and requirement for possible further surgery. The patient expressed full understanding and has no further questions for the doctor. Patient does agree to proceed with the above-stated procedure and has signed the surgery consent form. This dictation was created using voice recognition software. Phonetic and/or grammatical errors may exist.. ___ I have re-examined the patient. There are no clinical changes since date of exam. ___ See progress notes for changes. ___ Dictated on admission Date: Time: Signature:
[2018-02-27 08:57] VITALS: BMI 35.9
[2018-03-01] VITALS (12 sets, daily range): BP systolic 106–144; BP diastolic 44–67; PULSE 62–92; RESP 12–18; TEMP 36.4–37.6; O2SAT 4–100; BMI 37.4
[2018-03-01] MEDS: Celecoxib 200 MG Capsule 400 MG PO (11:41)
[2018-03-01] MEDS: Acetaminophen 500 MG Tablet 1000 MG PO ×2 (11:42→21:31)
[2018-03-01] MEDS: Lactated Ringers 1,000 ML 999 ML IV (12:05)
[2018-03-01] MEDS: Cefazolin 2 GM in 0.9% Normal Saline 100 ML IV (13:03)
--- NOTE | 2018-03-01 13:05 | RAD_ITS ---
STUDY: X-RAY - RIGHT SHOULDER REASON FOR EXAM: Female, 82 years old. Postop. TECHNIQUE: 5 view(s) of the right shoulder and upper chest. COMPARISON: Right shoulder, May 16, 2017. FINDINGS: Is evidence of a right total hip arthroplasty. The prosthetic components appear to articulate normally with each other. There is no obvious loosening from the bone or fracture. There is continued widening of the acromioclavicular joint. Normal acromion. There is seen in the surrounding soft tissues.. Surgical clips in the axilla. Normal visualized pulmonary apex. RAD/Shoulder One View IMPRESSION: Status post right total shoulder replacement. Electronically Signed: Urban Hinojosa DO at 19:22 EST Tel [phone], Service support ,
[2018-03-01] MEDS: Scopolamine 1mg/72hr Patch 1 PATCH TD (13:15)
[2018-03-01] MEDS: Ropivacaine 0.5% 30 ML Vial (14:12)
[2018-03-01] MEDS: Ketorolac 30 MG/ML Syringe (14:12)
--- NOTE | 2018-03-01 14:28 | PCM.OPRPT ---
Report of Operation Date of Procedure: 03/01/18 Pre-Operative Diagnosis: Right Shoulder CTA Post-Operative Diagnosis: Right Shoulder CTA Surgery/Procedure Performed:: Right Reverse TSA Description of Surgical Findings:: stable shoulder turntable worker: Dylan Galvez Type of Anesthesia:: General Anesthesiologist: Esvin Gaming Specimen's removed: bony cuts Estimated Blood Loss (mL): 150 Fluids Replaced: 700 ml crystalloid Description of Procedure: Components used 1. glenoid baseplate from Teo for reverse TSA 2. 32, +6 mm Glenosphere 3. 32 mm, 4mm humeral liner 4. reverse TSA humeral adapter tray 4mm 5. 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 Patient failed conservative measures as mentioned in the H&P. After discussion of risk and benefits of reverse total shoulder replacement including but not limited to blood loss, DVTs, PEs, nerve vessel damage, infection, general risk of anesthesia including loss of life, instability and stiffness patient demonstrating understanding wish to proceed was able to sign informed consent. Medical clearance was obtained. Procedure: On the date of the procedure, patient's R upper extremity was marked in the preoperative area. Patient was taken back to the operating room where they were placed on the table in the supine position. Anesthesia assumed control of the C-spine and airway, then administered anesthetic. All bony prominences were identified well-padded, the head was secured and the patient was placed in the beachchair position at about 35? inclination. Anesthesia remained in control of the C-spine airway throughout the remainder of the procedure. Patient was then appropriately fastened to the table and the R upper extremity was prepped in a sterile fashion. The surgeons then scrubbed. Upon reentering the room, the R upper extremity was draped in a sterile fashion and the incision was marked out. Timeout was called, everyone agreed upon the side, the site, the procedure to be performed, patient identity and antibiotics given. Incision was taken down through skin and subcutaneous tissue, fat down to fascia. The stripe of the deltopectoral interval and cephalic vein were identified and blunt dissection was used to retract the deltoid. The cephalic vein was retracted laterally. Clavipectoral fascia was then incised and a cobra retractor was placed in the wound. The proximal one third of the pectoralis major insertion was released. Pectoralis tendon insertion was used to tenodesed the biceps tendon which was identified in the bicipital groove. Tenodesis was done with #1 Vicryl. Proximally we followed the biceps tendon after transecting it into the rotator interval. The rotator interval was split and the arm was externally rotated. The split was 1 cm medial to the bicipital groove. Subscapularis tendon was released. We released down the anterior portion of the humeral head and a herrera elevator was used to release the inferior portion of the humeral head. The arm was externally rotated and the shoulder was dislocated. The [employer] humeral head cutting guide was used to make humeral cut. This was done at 20? retroversion. Once his humeral head cut was made humerus was retracted out of the way and the glenoid was exposed. After exposing the glenoid, the labrum and the remaining proximal biceps were debrided. At this time we are able to view the entire outer edge of the glenoid. A central pin was placed we sequentially reamed over this central pin to 32mm. Once this was completed the central pedicle was drilled. The glenoid baseplate was impacted into place and central screw was tightened down. Wound was closely irrigated out with normal saline we then drilled sequentially for 2 screws. Screws were placed superiorly and inferiorly and tightened down the screws. Once the screws were appropriately tightened into place the glenoid baseplate was compressed against the exposed subchondral bone. A 32, +6mm glenosphere was impacted into place engaging the Renteria taper. Attention was then turned towards the humerus. The humerus was again externally rotated exposing the proximal portion of the humerus. Central canal finder was then used to open up the canal. We reamed to a 11mm reamer. We then broached to a 9mm stem. We trialed the 4mm liner, with the 4mm humeral baseplate. We obtained an adequate reduction at this time with a nice stable shoulder. Good internal rotation to the gluteus, forward elevation to 140?, external rotation to 20?. Final components were then assembled on the back table, trials were removed and the wound was copiously irrigated with normal saline after dislocating the shoulder. Once the final components were assembled they were impacted into place. Shoulder was then reduced and found to be stable with good range of motion. Subscapularis tendon was repaired using #2 fiberwire. The wound was then copiously irrigated out with a 1 L normal saline lavage. The deltopectoral fascia was then closed using #1 Vicryl skin was closed using 2-0 Vicryl interrupted sutures and final skin closure was done with 3-0 Monocryl. Steri-Strips are placed for final skin closure. Sterile dressing was placed patient was then placed in a sling and awakened by anesthesia. Patient was then transferred to the PACU for recovery. Postoperative plan: Patient will be admitted to the hospital overnight. They will get physical therapy starting in 2 weeks with normal postoperative regimen. Patient will be placed on ASA 325 daily for DVT prophylaxis. The first postoperative appointment will be in 2 weeks for wound check and initiation of phase 1 physical therapy. During the course of the procedure the physician speech language pathologist assistant played a vital role. His intimate knowledge of my steps in the procedure aided in safe and expedient completion of the procedure. The PA played a vital rolls in positioning particularly in obtaining the appropriate beach chair position and securing the patient's body and head to the table. The PA was also vital in the retraction of soft tissues during the exposure and especially the glenoid work as this is a vital part of the procedure to prevent neurovascular damage. the PA was also vital and protecting soft tissues during times of bony cuts and reaming. He also played a vital role in closure with my direct supervision. The PA was also important during reduction and dislocation of the joint and trials intraoperatively. Grafts/Implants Used: [place] Re[place] Reverse TSA - Complications none - Admit VTE Documentation VTE Present on Admission: No VTE Mechan Device Prophylaxis: SCD's VTE Pharm Prophylaxis ordered?: Yes
[2018-03-01] MEDS: Lactated Ringers 1,000 ML 125 ML IV (16:06)
--- NOTE | 2018-03-01 16:19 | CASEMGMT ---
EMORY spoke with patient's niece, Bolivar. She is patient's POA and patient has no other family. She said patient is hoping to go to [facility]. EMORY told her SW will check on bed availability and we can let them know tomorrow. Phone number taken and given to MS 3 Jelly CAT. EMORY called Tenisha in TCU and left a voice mail with patient's name. SW to follow up tomorrow. Samantha LANGE COMMERCIAL DOOR INSTALLER
[2018-03-01] MEDS: Ferrous Sulfate 325 MG Tablet PO (18:28)
[2018-03-01] MEDS: Cefazolin 1 GM/50 ML BAG IV (21:16)
[2018-03-01] MEDS: Pravastatin 40 MG Tablet PO (21:30)
[2018-03-01] MEDS: Metoprolol Tartrate 25 MG Tablet PO (21:30)
[2018-03-02] MEDS: Lactated Ringers 1,000 ML 125 ML IV (00:31)
[2018-03-02 01:56] VITALS: BP 118/50; PULSE 53; RESP 16; TEMP 36.6; O2SAT 93
[2018-03-02] MEDS: Cefazolin 1 GM/50 ML BAG IV (05:20)
[2018-03-02] MEDS: Levothyroxine 50 MCG Tablet PO (05:45)
[2018-03-02] MEDS: Acetaminophen 500 MG Tablet 1000 MG PO ×3 (05:45→22:47)
[2018-03-02 07:58] VITALS: BP 119/52; PULSE 61; RESP 16; TEMP 36.6; O2SAT 97
[2018-03-02] MEDS: Aspirin 325 MG Tablet PO (08:17)
--- NOTE | 2018-03-02 09:04 | PN.ORTHO_ITS ---
Subjective: The patient was sitting in bedside chair upon examination. Patient denies any chest pain, shortness of breath, dizziness, lightheadedness, nausea or vomiting, or calf pain. Pain is controlled on medications. No adverse overnight events. Prior to surgery patient was walker dependent secondary to her knee, hip, and back. At this time patient is going to need assistance postoperatively due to this requirement and not having use of the right upper extremity. We will have physical therapy/occupational therapy work with patient. Plan is for [facility] once approval has been obtained. Objective: Vital signs stable, afebrile Dressing is C/D/I Ultra-sling fitting appropriately Sensation intact to axillary, radial, median, and ulnar distribution Motor intact to AIN, PIN, and ulnar nerve - Physical Exam General: Alert, Oriented x3, Cooperative, No apparent distress Vital Signs Temp Pulse Resp BP Pulse Ox 97.9 F 61 16 119/52 L 97 03/02/18 07:58 03/02/18 07:58 03/02/18 07:58 03/02/18 07:58 03/02/18 07:58 Oxygen Flow Rate (L/min) 2 Oxygen Delivery Method Room Air Weight: 84.1 kg Body Mass Index (BMI) 37.4 Intake and Output for Last 24 Hours 02/28/18 03/01/18 03/02/18 23:59 23:59 23:59 Intake Total 900 / 900 1776 / 1776 Output Total 400 / 400 Balance 900 / 900 1376 / 1376 Medical Necessity - Tobacco Use Smoking Status: Never smoker Tobacco Use: Non-smoker Assessment/Plan All Active Problems (Last Reviewed 02/27/18 @ 09:21 by Mary Mcnair) Status post total left knee replacement (Acute) Iron deficiency anemia (Acute) 1. S/P right reverse total shoulder arthroplasty POD #1 2. Continue Pain Medications: Tylenol and OxyIR 3. DVT Prophylaxis: Aspirin 325 mg daily 4. PT/OT: Continue with UltraSling right upper extremity, nonweightbearing right upper extremity. Okay to work on pendulum and range of motion of the right elbow, hand, wrist. No range of motion of the right shoulder. Plan will be for formal physical therapy 2 weeks postoperatively. 5. Encouraged Incentive Spirometry 6. Disposition: Patient is dependent upon walker secondary to her knee, back, and hip. Patient is currently nonweightbearing with the right upper extremity. She will need assistance postoperatively secondary to this requirement. Physical therapy/Occupational Therapy will work with patient. Plan will be for discharge to [facility] once approval has been obtained.
[2018-03-02] MEDS: FORMOTEROL AD IH ×2 (10:45→22:49)
[2018-03-02] MEDS: MOMETASONE IH ×2 (10:45→22:49)
[2018-03-02] MEDS: Furosemide 40 MG Tablet PO (10:45)
[2018-03-02 10:46] VITALS: PULSE 61
[2018-03-02] MEDS: Metoprolol Tartrate 25 MG Tablet PO ×2 (10:46→22:48)
[2018-03-02] MEDS: Famotidine 20 MG Tablet PO (10:48)
[2018-03-02] MEDS: Pantoprazole Sodium 40 MG Tablet PO (10:48)
[2018-03-02] MEDS: Ferrous Sulfate 325 MG Tablet PO ×2 (11:20→18:22)
[2018-03-02 14:00] VITALS: BP 132/82; PULSE 61; RESP 14; TEMP 36.7; O2SAT 96
--- NOTE | 2018-03-02 14:06 | CASEMGMT ---
Social Work Note EMORY received call from [facility] in TCU stating she is able to accept pt and will submit for pre-cert. Tenisha states she will have a potential bed tomorrow and a for sure bed on Tuesday for pt. EMORY met with pt to confirm discharge plans. EMORY introduced self and role at [facility]. Pt has guest present in room. Pt gave this worker permission to speak to her in front of her guest. Pt confirms that she wishes to got to TCU at discharge. EMORY informed pt that TCU is able to accept pt and that pre-cert is needed before pt can discharge. Pt states understanding. EMORY placed a call to pt's niece Ian and updated her on acceptance in TCU. Ian thanked this worker for updating her. Transfer to extended care facility form was placed on pt's chart earlier today. Plan: TCU pending pre-cert Jelly Escamilla TELE TECH, BEHAVIORAL MEDICAL DIRECTOR
[2018-03-02] MEDS: oxyCODONE 5 MG Tablet PO (19:50)
[2018-03-02 21:22] VITALS: BP 132/44; PULSE 79; RESP 18; TEMP 36.8; O2SAT 95
[2018-03-02 22:48] VITALS: PULSE 76
[2018-03-02] MEDS: Pravastatin 40 MG Tablet PO (22:48)
[2018-03-03] MEDS: 0.9% NaCl Peripheral Flush Adult/Peds IV (04:41)
[2018-03-03] MEDS: Ketorolac 15 MG/ML Vial IV (04:41)
[2018-03-03 04:45] VITALS: BP 153/74; PULSE 68; RESP 16; TEMP 36.6; O2SAT 100
[2018-03-03] MEDS: Acetaminophen 500 MG Tablet 1000 MG PO ×2 (04:55→14:09)
[2018-03-03] MEDS: Levothyroxine 50 MCG Tablet PO (04:55)
--- NOTE | 2018-03-03 07:22 | PN.ORTHO_ITS ---
Subjective: The patient was sitting in bed upon examination. Patient denies any chest pain, shortness of breath, dizziness, lightheadedness, nausea or vomiting, or calf pain. Pain is controlled on medications. No adverse overnight events. Patient states she had significant increase in pain yesterday that required oxycodone. She feels she is doing better today. Case management has been working on placement to the transitional care unit. They are able to accept the patient possibly today and has a bed definitely tomorrow. We are waiting on pre-CERT from the insurance. Objective: Dressing is C/D/I Ultra-sling fitting appropriately Sensation intact to axillary, radial, median, and ulnar distribution Motor intact to AIN, PIN, and ulnar nerve Vital signs are stable, afebrile - Physical Exam General: Alert, Oriented x3, Cooperative, No apparent distress Vital Signs Temp Pulse Resp BP Pulse Ox 97.8 F 68 16 153/74 H 100 03/03/18 04:45 03/03/18 04:45 03/03/18 04:45 03/03/18 04:45 03/03/18 04:45 Oxygen Flow Rate (L/min) 2 Oxygen Delivery Method Room Air Weight: 84.1 kg Body Mass Index (BMI) 37.4 Intake and Output for Last 24 Hours 03/01/18 03/02/18 03/03/18 23:59 23:59 23:59 Intake Total 900 / 900 1776 / 1776 Output Total 400 / 400 Balance 900 / 900 1376 / 1376 Medical Necessity - Tobacco Use Smoking Status: Never smoker Tobacco Use: Non-smoker Assessment/Plan All Active Problems (Last Reviewed 02/27/18 @ 09:21 by Mary Mcnair) Status post total left knee replacement (Acute) Iron deficiency anemia (Acute) 1. S/P right reverse total shoulder arthroplasty POD #2 2. Continue Pain Medications: Tylenol and OxyIR 3. DVT Prophylaxis: Aspirin 325 mg daily for 2 weeks postoperatively 4. PT/OT: Continue with UltraSling right upper extremity, nonweightbearing right upper extremity. Okay to work on pendulum and range of motion of the right elbow, hand, wrist. No range of motion of the right shoulder. Plan will be for formal physical therapy 2 weeks postoperatively. 5. Encouraged Incentive Spirometry 6. Disposition: Patient is dependent upon walker secondary to her knee, back, and hip. Patient is currently nonweightbearing with the right upper extremity. She will need assistance postoperatively secondary to this requirement. Physical therapy/Occupational Therapy will work with patient. Plan will be for discharge to assisted facility once approval has been obtained. We are waiting on pre-CERT from the insurance for discharge to transitional care unit at [facility] possibly today versus tomorrow. Patient is orthopedically stable.
--- NOTE | 2018-03-03 07:30 | DCINST_ITS ---
Discharge Diet: No Restrictions Discharge Activity: May Not Drive May shower in (days): 1 - Turned dressing away from water Ice area for (Minutes): 20 - Ice area for 20 minutes each hour while awake Weight Bearing Status: No weight bearing - Right upper extremity Call your doctor if your incision/area has: Continuous Slow Oozing, Sudden Increased Bleeding, Increased Pain/ Swelling, Increased Redness, Foul Smelling Discharge Call your doctor if you observe: Fever of 101 or Higher, Coldness, Increased Pain, Numbness or Tingling, Change in Color Remove Dressing in (days):: 3 - Remove dressing on March 06, 2018 Additional Instructions: Follow [place] [facility] postop instructions Physical therapy/OT: No range of motion of the right shoulder until 2 weeks postoperatively after follow-up in our office. Patient can work on right shoulder pendulums, elbow/wrist/hand range of motion. Continue with UltraSling. Nonweightbearing on the right upper extremity. Allergies/Adverse Reactions: Allergies No Known Allergies Allergy (Verified 03/01/18 11:23) Medications to take at Discharge Cholecalciferol (VIT D3) [Vitamin D3] 1,000 unit PO DAILY 05/24/16 Furosemide [Lasix] 40 mg PO DAILY 05/24/16 Levothyroxine [Synthroid] 50 mcg PO DAILY 05/24/16 Metoprolol Tartrate 25 mg PO BID 05/24/16 Pantoprazole Sodium [Protonix] 40 mg PO DAILY 05/24/16 Pravastatin [Pravachol] 40 mg PO QHS 05/24/16 Albuterol IH (ProAir) [Proair Hfa] 1 - 2 puff INHALATION Q4H PRN PRN #1 inhaler 07/27/16 Dulera 200 Mcg/5 Mcg Inhaler 200 mcg INHALATION BID PRN 08/24/16 Ferrous Sulfate 325 mg PO BIDCM 02/15/18 Acetaminophen [Tylenol] 1,000 mg PO Q8 14 Days tablet 03/03/18 Aspirin 325 mg PO DAILY@0800 14 Days tablet 03/03/18 Oxycodone [Oxyir] 5 - 10 mg PO Q4H PRN PRN 5 Days #60 tab 03/03/18 The following prescriptions were given: Oxycodone [Oxyir] 5 - 10 mg PO Q4H PRN PRN 5 Days #60 tab PRN Reason: Pain Primary Care Physician: Esvin Preciado MD [Primary Care Provider] - Test Results: Test results from this visit will be discussed in further detail at your follow- up appointment, if applicable. Please Follow Up With: Dylan Galvez PA-C When: 03/15/18 @ 10:30 am
[2018-03-03] MEDS: Aspirin 325 MG Tablet PO (08:32)
[2018-03-03] MEDS: Famotidine 20 MG Tablet PO (08:32)
[2018-03-03] MEDS: Furosemide 40 MG Tablet PO (08:32)
[2018-03-03 08:33] VITALS: PULSE 68
[2018-03-03] MEDS: Metoprolol Tartrate 25 MG Tablet PO (08:33)
[2018-03-03] MEDS: Pantoprazole Sodium 40 MG Tablet PO (08:33)
[2018-03-03] MEDS: FORMOTEROL AD IH (08:34)
[2018-03-03] MEDS: MOMETASONE IH (08:34)
[2018-03-03 09:18] VITALS: BP 113/60; PULSE 77; RESP 20; TEMP 36.7; O2SAT 94
[2018-03-03] MEDS: Ferrous Sulfate 325 MG Tablet PO (12:13)
[2018-03-03 13:54] VITALS: BP 122/43; PULSE 70; RESP 22; TEMP 36.8; O2SAT 97
--- NOTE | 2018-03-03 14:15 | CASEMGMT ---
Social Work Phone call from Tenisha in TCU and insurance authorization has been given. Pt medically ready for d/c today. SW met with pt and she is agreeable to transfer to TCU today. Phone call to pt nijasmeet Sosa and informed of d/c. Orders faxed and VM left for Tenisha in TCU informing of d/c today. Nursing made aware. Plan: TCU today YOANDY Higginbotham
--- NOTE | 2018-03-03 15:28 | NURSING ---
REPORT CALLED TO [facility] ON TCU FOR DISCHARGE.
--- OUTSIDE RECORDS SUMMARY | 2018-04-26 19:14 | XMS RPT_ITS ---
:1935 Author Organization OHIP Support Name Relationship Address Phone CABLE, LIMA Unavailable [address] + [place] [address] R Unavailable Unavailable Unavailable CABLE, LIMA Unavailable [address] + [place] [address] R Unavailable Unavailable Unavailable CABLE, LIMA Unavailable [address] + [place] [address] R Unavailable Unavailable Unavailable CABLE, LIMA Unavailable [address] + [place] [address] R Unavailable Unavailable Unavailable CABLE, LIMA Unavailable [address] + [place] [address] R Unavailable Unavailable Unavailable CABLE, LIMA Unavailable [address] + [place] [address] R Unavailable Unavailable Unavailable CABLE, LIMA Unavailable [address] + [place] [address] R Unavailable Unavailable Unavailable CABLE, LIMA Unavailable [address] + [place] [address] R Unavailable Unavailable Unavailable CABLE, LIMA Unavailable [address] + [place] [address] R Unavailable Unavailable Unavailable CABLE, LIMA Unavailable [address] + [place] [address] R Unavailable Unavailable Unavailable CABLE, LIMA Unavailable [address] + [place] [address] R Unavailable Unavailable Unavailable CABLE, LIMA Unavailable [address] + [place] [address] R Unavailable Unavailable Unavailable CABLE, LIMA Unavailable [address] + [place] [address] R Unavailable Unavailable Unavailable CABLE, LIMA Unavailable [address] + [place] [address] R Unavailable Unavailable Unavailable CABLE, LIMA Unavailable [address] + [place] [address] R Unavailable Unavailable Unavailable CABLE, LIMA Unavailable [address] + [place] [address] R Unavailable Unavailable Unavailable CABLE, LIMA Unavailable [address] + [place] [address] R Unavailable Unavailable Unavailable CABLE, LIMA Unavailable [address] + [place] [address] R Unavailable Unavailable Unavailable CABLE, LIMA Unavailable [address] + [place] [address] R Unavailable Unavailable Unavailable CABLE, LIMA Unavailable [address] + [place] [address] R Unavailable Unavailable Unavailable Care Team Providers Name Role Phone JUAN UPTON Attending Unavailable JUAN UPTON Referring Unavailable PRECIADO, MLYENE A Primary Care Unavailable JUAN UPTON Attending Unavailable JUAN UPTON Referring Unavailable JUAN UPTON Attending Unavailable RJ COLON Referring Unavailable Candy Hinkle Attending Unavailable Francesco Armas Attending Unavailable Preciado, Mylene Primary Care Unavailable Preciado, Mylene Referring Unavailable Preciado, Mylene Attending Unavailable Preciado, Mylene Primary Care Unavailable Mario Alberto Garcia Attending Unavailable Preciado, Mylene Referring Unavailable Preciado, Mylene Primary Care Unavailable Mario Alberto Garcia Attending Unavailable Preciado, Mylene Primary Care Unavailable Francesco Armas Attending Unavailable Preciado, Mylene Referring Unavailable Preciado, Mylene Primary Care Unavailable PraFrancesco sanchez Consulting Unavailable Mario Alberto Garcia Attending Unavailable Preciado, Mylene Referring Unavailable Preciado, Mylene Primary Care Unavailable Preciado, Mylene Attending Unavailable Preciado, Mylene Primary Care Unavailable Rj Colon Attending Unavailable Ariel, Rj Referring Unavailable Preciado, Mylene Primary Care Unavailable Rj Colon Attending Unavailable Ariel, Rj Referring Unavailable Preciado, Mylene Primary Care Unavailable Francesco Armas Attending Unavailable Preciado, Mylene Referring Unavailable Preciado, Mylene Primary Care Unavailable PraFrancesco sanchez Consulting Unavailable Rj Colon Attending Unavailable Ariel, Rj Referring Unavailable Preciado, Mylene Primary Care Unavailable Francesco Armas Attending Unavailable Preciado, Mylene Referring Unavailable Preciado, Mylene Primary Care Unavailable Prah, Francesco Consulting Unavailable Aaron Colonen Admitting Unavailable Rj Colon Attending Unavailable Ariel, Rj Referring Unavailable Preciado, Mylene Primary Care Unavailable PraFrancesco sanchez Attending Unavailable Preciado, Mylene Referring Unavailable Preciado, Mylene Primary Care Unavailable Prah, Francesco Consulting Unavailable Walt, Wesley Chi Admitting Unavailable Walt, Wesley Chi Referring Unavailable Preciado, Mylene Primary Care Unavailable Tereletsky, Sourav Attending Unavailable Robotham, Candy Consulting Unavailable Renate, Stuart Attending Unavailable Rj Colon Referring Unavailable Walt, Wesley Chi Attending Unavailable Walt, Wesley Chi Referring Unavailable Preciado, Mylene Primary Care Unavailable Walt, Wesley Chi Admitting Unavailable Robotham, Candy Attending Unavailable Walt, Wesley Chi Referring Unavailable Preciado, Mylene Primary Care Unavailable Robotham, Candy Consulting Unavailable Tereletsky, Sourav Consulting Unavailable Robotham, Candy Attending Unavailable Robotham, Candy Referring Unavailable Preciado, Mylene Primary Care Unavailable PROBLEMS PROBLEMS DATE TYPE CONDITION / CODE ATTENDING STATUS SOURCE 03/20/2018 Unknown D50.9 - Iron Robotham, Active [place] deficiency anemia, C[facility] Community unspecified / Hospital D50.9(ICD-10) Repository 03/20/2018 Unknown K44.9 - Diaphragmatic Robotham, 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 Candy Community obstruction or Hospital gangrene / Repository K44.9(ICD-10) 03/20/2018 Unknown K29.70 - Gastritis, Robotham, Active [place] unspecified, without Candy Community bleeding / Hospital K29.70(ICD-10) Repository 03/21/2018 Unknown Z47.1 - Aftercare Tereletsky, Active [place] following joint Sourav Community replacement surgery / Hospital Z47.1(ICD-10) Repository 03/03/2018 Unknown E61.1 - Iron Rj Colon Active [place] deficiency / Community E61.1(ICD-10) Hospital Repository 03/03/2018 Unknown Z96.611 - Presence of Rj Colon Active [place] right artificial Community shoulder joint / Hospital Z96.611(ICD-10) Repository 02/27/2018 Active Encounter for ALEXSANDRA Active [place] preprocedural [facility] cardiovascular [place] examination / Repository Z01.810(ICD-10) 02/27/2018 Active Essential (primary) ALEXSANDRA, Active [place] hypertension / [facility] I10(ICD-10) [place] Repository 03/06/2018 Unknown R94.31 - Abnormal Renate, German Active [place] electrocardiogram Community [ECG] [EKG] / Hospital R94.31(ICD-10) Repository 02/08/2018 Unknown E66.9 - Obesity, Rj Colon Active [place] unspecified / Community E66.9(ICD-10) Hospital Repository 02/05/2018 Unknown E11.9 - Type 2 PraFrancesco sanchez Active [place] diabetes mellitus Community without complications Hospital / E11.9(ICD-10) Repository 02/05/2018 Unknown 244.9 - Unspecified Prah, Francesco Active [place] acquired Community hypothyroidism / Hospital 244.9(ICD-9) Repository 02/05/2018 Unknown E03.9 - Pradaniel, Francesco Active [place] Hypothyroidism, Community unspecified / Hospital E03.9(ICD-10) Repository 02/05/2018 Unknown 250.00 - Diabetes Pradaniel, Francesco Active [place] mellitus without Community mention of Hospital complication, type II Repository or unspecified type, not stated as uncontrolled / 250.00(ICD-9) 02/05/2018 Unknown 585.3 - Chronic kidney Pradaniel, Francesco Active [place] disease, Stage III Community (moderate) / Hospital 585.3(ICD-9) Repository 02/05/2018 Unknown N18.3 - Chronic kidney Pradaniel, Francesco Active [place] disease, stage 3 Community (moderate) / Hospital N18.3(ICD-10) Repository 12/30/2017 Unknown 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, right Community shoulder / Hospital M19.011(ICD-10) Repository 10/21/2017 Unknown D64.9 - Anemia, Mylene Preciado Active [place] unspecified / Community D64.9(ICD-10) Hospital Repository 05/16/2017 Unknown M25.511 - Pain in Mario Alberto Garcia Active [place] right shoulder / Community M25.511(ICD-10) Hospital Repository PROCEDURES PROCEDURES No Procedure Records FoundRESULTS RESULTS DISCHARGE SUMMARY Observed: 03/20/2018 Status: F Source: [place] 8:14 PM [facility] REPOSITORY [facility] Medical Records Department [address] [place] [address] Discharge Summary 03/20/182010 MR#: [id number] Acct: [id number] Name: JOSIECELINA D Rep #: [id number] : 1935 82 From: Wesley Godoy MD PCP: Mylene Preciado MD Status: ADM IN Location: [place] [address] Discharge Date and Diagnosis - Problem List Patient Problems: Active and Suspected Problems (Last Reviewed 02/27/18 @ 09:21 by Mary Mcnair) Rotator cuff tear arthropathy of right shoulder (Acute) Date of Admission: 03/03/18 Date of Discharge: 03/22/18 - Primary Discharge Diagnosis Active and Suspected Problems (Last Reviewed 02/27/18 @ 09:21 by Mary Mcnair) Rotator cuff tear arthropathy of right shoulder (Acute) - Secondary Discharge Diagnosis Chronic Problems (Last Reviewed 02/27/18 @ 09:21 by Mary Mcnair) Chronic anemia (Chronic) Osteoarthritis of left hip (Chronic) Hypertension (Chronic) Hypercholesterolemia (Chronic) Gout (Chronic) Sleep apnea (Chronic) Contact with and (suspected) exposure to environmental tobacco smoke (acute) (chronic) (Chronic) Secondhand smoke exposure (Chronic) no hx PFTs, on Dulera H/O abdominal aortic aneurysm repair (Chronic) [facility] Iron deficiency anemia (Chronic) Iron deficiency (Chronic) Obstructive sleep apnea (Chronic) Hyperlipidemia (Chronic) Hypothyroidism (Chronic) Hospital Course and Treatment Imaging Results: 03/13/18 11:13 Diet: Regular Diet Is pt able to select menu?: Yes Clinical Impression(s) from Imaging Studies KUB X-Ray 03/09/18 21:20 IMPRESSION: Nonobstructive abdomen. Electronically Signed: Brandy Molina MD at 22:06 EST Tel , Service support , Operations: None Procedures: EGD - 03/13/2018 Dr. Hinkle. Summary of Care Provided: The patient is a 82 year old Female with below past medical history hospitalized for right reverse total shoulder arthroplasty 03/01/[address] Colon, admitted with debility, here for rehabilitation, strengthening, prior to discharge home alone. On TCU, resident developed anemia, +stool guaiac. 03/13/2018 Dr. Hinkle performed EGD showing gastritis, Pantoprazole prescribed, Aspirin DVT prophylaxis held, resident may not have tolerated Aspirin 325MG BID. Discharge home alone, with Home Health Services for PT/OT. Patient Problems: Active and Suspected Problems (Last Reviewed 02/27/18 @ 09:21 by Mary Mcnair) Rotator cuff tear arthropathy of right shoulder (Acute) - Physical Exam Vital Signs Temp Pulse Resp BP Pulse Ox 97.7 F L 87 18 135/56 H 95 03/20/18 16:00 03/20/18 16:57 03/20/18 16:00 03/20/18 16:57 03/20/18 16:00 Oxygen Delivery Method Room Air Weight: 88.6 kg Body Mass Index (BMI) 38.0 Intake and Output for Last 24 Hours Intake Total 800 / 800 840 / 840 720 / 720 Balance 800 / 800 840 / 840 720 / 720 Discharge Diet: No Restrictions Discharge Activity: Return to Normal Activity, May Shower, Use Walker Weight Bearing Status: Weight bearing as tolerated Call your doctor if you observe: Fever of 101 or Higher, Inability to urinate, Inability to have a bowel movement, Shortness of breath, Chest pain, Uncontrolled pain Home Medications: Medications to take at Discharge Cholecalciferol (VIT D3) [Vitamin D3] 1,000 unit PO DAILY 05/24/16 Furosemide [Lasix] 40 mg PO DAILY 05/24/16 Levothyroxine [Synthroid] 50 mcg PO DAILY 05/24/16 Metoprolol Tartrate 25 mg PO BID 05/24/16 Pantoprazole Sodium [Protonix] 40 mg PO DAILY 05/24/16 Pravastatin [Pravachol] 40 mg PO QHS 05/24/16 Albuterol IH (ProAir) [Proair Hfa] 1 - 2 puff INHALATION Q4H PRN PRN #1 inhaler 07/27/16 Dulera 200 Mcg/5 Mcg Inhaler 200 mcg INHALATION BID PRN 08/24/16 Acetaminophen [Tylenol] 1,000 mg PO Q8 03/03/18 Albuterol Inhaler [Ventolin Hfa] 2 puff INHALATION Q4H PRN PRN inhaler 03/20/18 Hydrocortisone 2.5% Crm [Hytone] 1 applic TOPICAL TID PRN PRN #1 tube 03/20/18 Iron Polysaccharide Complex [Ferrex 150] 150 mg PO BIDCM #60 capsule 03/20/18 Menthol/Lanolin/Calamine/Znox [Calmoseptine Ointment] 1 applic TOPICAL 0600,2200 tube 03/20/18 Nystatin Powder [Mycostatin Powder] 1 applic TOPICAL 0600,2200 bottle 03/20/18 Pantoprazole Sodium [Protonix] 40 mg PO DAILY #30 tablet 03/20/18 Following Prescrptions Were Given to Patient: Hydrocortisone 2.5% Crm [Hytone] 1 applic TOPICAL TID PRN PRN #1 tube PRN Reason: Rash/Topical Irritation Pantoprazole Sodium [Protonix] 40 mg PO DAILY #30 tablet Iron Polysaccharide Complex [Ferrex 150] 150 mg PO BIDCM #60 capsule Primary Care Physician: Mylene Preciado MD [Primary Care Provider] - Please follow up with your Primary Care Physician in: 1 week. Please Follow Up With: Rj Colon MD When: 4 wks Please Follow Up With: Mylene Preciado MD Disposition: Home with Home Health Minutes spent on discharge:: 35 Patient Condition:: Stable Medical Necessity - Tobacco Use Smoking Status: Never smoker Tobacco Use: Non-smoker Meaningful Use Info Meaningful Use Diagnoses (Choose all that apply): None applicable 03/20/182013 <Electronically signed by Wesley Godoy MD> Date Wesley oGdoy MD Cosigner Signature (if applicable): Date CC: Mylene Preciado MD; Wesley Godoy MD Signed HOME HEALTH PROGRESS Observed: 03/20/2018 Status: F Source: [place] NOTE 8:14 PM [facility] REPOSITORY [facility] Medical Records Department [address] [place] [id number] Home Health Progress Note [id number] Encounter Encounter Date: 03/20/182013 MR#: [id number] Acct: [id number] Name: CELINA GALINDO Rep #: [id number] : 1935 82 From: Wesley Godoy MD PCP: Mylene Preciado MD Status: ADM IN Location: [place] [address] Home Health Note - Plan Overview of reason of hospitalization: The patient is a 82 year old Female with below past medical history hospitalized for right reverse total shoulder arthroplasty 03/01/[address] Ariel, admitted with debility, here for rehabilitation, strengthening, prior to discharge home alone. On TCU, resident developed anemia, +stool guaiac. 03/13/2018 Dr. Hinkle performed EGD showing gastritis, Pantoprazole prescribed, Aspirin DVT prophylaxis held, resident may not have tolerated Aspirin 325MG BID. Discharge home alone, with Home Health Services for PT/OT. Problems: Patient was seen for (Last Reviewed 02/27/18 @ 09:21 by Mary Mcnair) Rotator cuff tear arthropathy of right shoulder (Acute) Obstructive sleep apnea (Chronic) Hyperlipidemia (Chronic) Hypothyroidism (Chronic) Complete List of Medical Problems (Last Reviewed 02/27/18 @ 09:21 by Mary Mcnair) Chronic anemia (Chronic) Osteoarthritis of left hip (Chronic) Hypertension (Chronic) Hypercholesterolemia (Chronic) Gout (Chronic) Sleep apnea (Chronic) Status post total left knee replacement (Acute) Contact with and (suspected) exposure to environmental tobacco smoke (acute) (chronic) (Chronic) Secondhand smoke exposure (Chronic) H/O abdominal aortic aneurysm repair (Chronic) Iron deficiency anemia (Chronic) Iron deficiency (Chronic) Rotator cuff tear arthropathy of right shoulder (Acute) Obstructive sleep apnea (Chronic) Hyperlipidemia (Chronic) Hypothyroidism (Chronic) - Requirements and Reasons Disciplines Needed/Ordered: Physical Therapy Reason for Disciplines: Gait Training, Stair Training, Fall Prevention, Home Safety/Equipment Instruction, Balance and/or Posture Training, Transfer Training Related To: Limited/Poor Endurance, Shortness of Breath with Activity, Physical Impairments, Unsteady Gait/Balance, Fall Risk Patient is unable to leave the home: Without Aid of Supportive Devices (crutches, cane, wheelchair, walker), Without the assistance of another person - Additional Disciplines Additional Disciplines Needed/Ordered: Occupational Therapy 03/20/182013 <Electronically signed by Wesley Godoy MD> Date Wesley Godoy MD Cosigner Signature (if indicated): Date CC: Signed DISCHARGE INSTRUCTION Observed: 03/20/2018 Status: F Source: [place] 8:11 PM [facility] REPOSITORY [facility] Medical Records Department [address] [place] [address] Instructions for Home/Discharge Instructions 03/20/182008 MR#: [id number] Acct: [id number] Name: CELINA GALINDO Rep #: [id number] : 1935 82 From: Wesley Godoy MD PCP: Mylene Preciado MD Status: ADM IN - Discharge Diagnoses Current Active Problems: Current Active and Chronic Problems (Last Reviewed 02/27/18 @ 09:21 by Mary Mcnair) Rotator cuff tear arthropathy of right shoulder (Acute) Obstructive sleep apnea (Chronic) Hyperlipidemia (Chronic) Hypothyroidism (Chronic) You will use the following diet at home:: No restrictions, Regular Your food should be the consistency of: Regular Your liquids should be the consistency of: Regular/Thin Discharge Activity: Return to Normal Activity, May Shower, Use Walker Weight Bearing Status: Weight bearing as tolerated Call your doctor if you observe: Fever of 101 or Higher, Inability to urinate, Inability to have a bowel movement, Shortness of breath, Chest pain, Uncontrolled pain Allergies/Adverse Reactions: Allergies No Known Allergies Allergy (Verified 03/01/18 11:23) Medications to take at Discharge Cholecalciferol (VIT D3) [Vitamin D3] 1,000 unit PO DAILY 05/24/16 Furosemide [Lasix] 40 mg PO DAILY 05/24/16 Levothyroxine [Synthroid] 50 mcg PO DAILY 05/24/16 Metoprolol Tartrate 25 mg PO BID 05/24/16 Pantoprazole Sodium [Protonix] 40 mg PO DAILY 05/24/16 Pravastatin [Pravachol] 40 mg PO QHS 05/24/16 Albuterol IH (ProAir) [Proair Hfa] 1 - 2 puff INHALATION Q4H PRN PRN #1 inhaler 07/27/16 Dulera 200 Mcg/5 Mcg Inhaler 200 mcg INHALATION BID PRN 08/24/16 Acetaminophen [Tylenol] 1,000 mg PO Q8 03/03/18 Albuterol Inhaler [Ventolin Hfa] 2 puff INHALATION Q4H PRN PRN inhaler 03/20/18 Hydrocortisone 2.5% Crm [Hytone] 1 applic TOPICAL TID PRN PRN #1 tube 03/20/18 Iron Polysaccharide Complex [Ferrex 150] 150 mg PO BIDCM #60 capsule 03/20/18 Menthol/Lanolin/Calamine/Znox [Calmoseptine Ointment] 1 applic TOPICAL 0600,2200 tube 03/20/18 Nystatin Powder [Mycostatin Powder] 1 applic TOPICAL 0600,2200 bottle 03/20/18 Pantoprazole Sodium [Protonix] 40 mg PO DAILY #30 tablet 03/20/18 The following prescriptions were given: Hydrocortisone 2.5% Crm [Hytone] 1 applic TOPICAL TID PRN PRN #1 tube PRN Reason: Rash/Topical Irritation Pantoprazole Sodium [Protonix] 40 mg PO DAILY #30 tablet Iron Polysaccharide Complex [Ferrex 150] 150 mg PO BIDCM #60 capsule Primary Care Physician: Mylene Preciado MD [Primary Care Provider] - Please follow up with your Primary Care Physician in: 1 week. Test Results: Test results from this visit will be discussed in further detail at your follow-up appointment, if applicable. Please Follow Up With: Rj Colon MD When: 4 wks Please Follow Up With: Mylene Preciado MD Proposed Discharge Date: 03/22/18 03/20/182010 <Electronically signed by Wesley Godoy MD> Date Wesley Godoy MD CC: Mylene Preciado MD; Candy Hinkle MD CBC W/DIFF, AUTOMATED Collected: 03/18/2018 Status: F Source: [place] 6:48 AM [facility] REPOSITORY TYPE CODE TESTS RESULT OUT OF RANGE REFERENCE UNITS LAB L100.1000 4.4-11.0 K/mm3 Normal WBC 7.3 LAB L100.1200 4.2-5.4 M/mm3 Low RBC 3.22 LAB L100.1300 12.0-15.0 g/dl Low HGB 9.5 LAB L100.1400 37-47 % Low HCT 32.0 LAB L100.1500 81-99 fL High MCV 99.4 LAB L100.1600 27.0-32.0 pg Normal MCH 29.5 LAB L100.1700 32-36 g/gl Low MCHC 29.7 LAB L100.1810 11.6-14.6 % High RDW CV 15.7 LAB L100.1820 35.1-43.9 fl High RDW SD 53.8 LAB L100.1900 150-450 K/mm3 Normal PLT 382 LAB L100.2000 6.2-12.0 fl Normal MPV 9.9 LAB L100.2100 47-70 % Normal NEUT% 62.4 LAB L100.2200 19-41 % Normal LY% 24.0 LAB L100.2300 0-10 % Normal MONO% 7.6 LAB L100.2400 0-5 % Normal EO% 4.9 LAB L100.2500 0-1 % Normal BASO% 0.8 LAB L100.2550 0.0-0.9 % Normal IM GRAN % 0.300 Result Comment: IG% - Immature Granulocytes (promyelocytes, myelocytes and metamyelocytes) > 1% indicates that a LEFT SHIFT is Present. LAB L100.2620 2.0-7.7 X10 3/uL Normal Absolute Neut 4.5 LAB L100.2720 0.83-4.51 X10 3/ul Normal Absolute Lymph 1.75 Performed By: #### L100.0100 #### [facility] [address] [place], [address] BASIC METABOLIC Collected: 03/18/2018 Status: F Source: [place] PROFILE ([facility]) 6:48 AM [facility] REPOSITORY TYPE CODE TESTS RESULT OUT OF RANGE REFERENCE UNITS LAB L501.0100 74-106 mg/dL Normal GLU 85 Result Comment: Please note revised GLUCOSE reference range effective 2017. LAB L501.1000 7-18 mg/dL High BUN 31 LAB L501.1100 0.55-1.02 mg/dL Normal CREAT,SERUM 0.95 Result Comment: The validity of the calculated GFR AND GFRAA in patients over 70 years has not been determined. Clinical correlation is essential. LAB L501.1110 >60 mL/min Normal EST GFR 60 Result Comment: Non- GFR Calc LAB L501.1115 >60 mL/min Normal EST GFR - AA 73 Result Comment: GFR Calc LAB L501.1255 ml/min Normal Estimated CRCL 33.93 LAB L501.1300 10-20 RATIO High BUN/CRE 32.8 LAB L501.2200 8.5-10 mg/dL Normal .1 CA 8.8 LAB L501.5300 136-14 mmol/L Normal 5 NA 142 LAB L501.5600 3.5-5. mmol/L Normal 1 K 4.0 LAB L501.5900 98-107 mmol/L Normal CL 106 LAB L501.6100 21.0-3 mmol/L Normal 2.0 CO2 29.0 LAB L501.6200 5-15 Normal GAP 7 Performed By: #### L500.2500 #### [facility] [address] [place], [address] HISTORY AND PHYSICAL Observed: 03/16/2018 Status: F Source: [place] EXAM 8:11 AM [facility] REPOSITORY [facility] Medical Records Department [address] [place] [address] History and Physical 03/03/18 1609 MR#: [id number] Acct: [id number] Name: CELINA GALINDO Jaki Rep #: [id number] : 1935 82 From: Wesley Godoy MD PCP: Mylene Preciado MD Status: ADM IN Location: [place] [address] ADDENDUM by Wesley Godoy MD on 03/16/18 at 0810 Code Visit 03/04/2018 Anxiety - Non-pharmacologic therapy ineffective, Lorazepam 0.5MG PO x 1 dose given, effective. 03/16/18 0811 <Electronically signed by Wesley Godoy MD> Date Wesley Godoy MD cc: Mylene Preciado MD; Wesley Godoy MD * Signed Problem List (1) Rotator cuff tear arthropathy of right shoulder Status: Acute (2) Obstructive sleep apnea Status: Chronic (3) Hyperlipidemia Status: Chronic (4) Hypothyroidism Status: Chronic (5) Hypertension Status: Chronic Qualifiers: (6) Gout Status: Chronic Qualifiers: (7) Iron deficiency anemia Status: Chronic Qualifiers: History of Present Illness Date of Admission: 03/03/18 Chief Complaint: Here for rehabilitation, strengthening, prior to discharge home alone. The patient is a 82 year old Female with below past medical history with followin03/01/2018 Right Reverse Total Shoulder Arthroplasty with Dr. David Colon. Tylenol, Oxycodone for pain. Aspirin 325MG daily for DVT prophylaxis. Post-operative course unremarkable. 03/03/2018 Admit to TCU with debility, here for rehabilitation, strengthening, prior to discharge home alone. Past Medical History Past Medical History (Chronic Problems): Chronic Problems (Last Reviewed 02/27/18 @ 09:21 by Mary Mcnair) Chronic anemia (Chronic) Osteoarthritis of left hip (Chronic) Hypertension (Chronic) Hypercholesterolemia (Chronic) Gout (Chronic) Sleep apnea (Chronic) Contact with and (suspected) exposure to environmental tobacco smoke (acute) (chronic) (Chronic) Secondhand smoke exposure (Chronic) no hx PFTs, on Dulera H/O abdominal aortic aneurysm repair (Chronic) [facility] Iron deficiency anemia (Chronic) Iron deficiency (Chronic) Obstructive sleep apnea (Chronic) Hyperlipidemia (Chronic) Hypothyroidism (Chronic) Medical History: Medical History (Last Reviewed 02/27/18 @ 09:21 by Mary Mcnair) Anemia D64.9 History of blood transfusion Z92.89 Thyroid disease E07.9 Allergies No Known Allergies Allergy (Verified 03/01/18 11:23) Home Medications: Ambulatory Orders Medication Instructions Recorded Cholecalciferol (VIT D3) [Vitamin 1,000 unit PO DAILY 05/24/16 D3] Furosemide [Lasix] 40 mg PO DAILY 05/24/16 Surgical History: Surgical History (Last Reviewed 02/27/18 @ 09:21 by Mary Mcnair) History of carpal tunnel repair Z98.890 History of repair of rotator cuff Z98.890 H/O right knee surgery Z98.890 History of total left hip arthroplasty Z96.642 History of total replacement of left shoulder joint Z96.612 Surgical History: cholecystectomy, herniorrhaphy, total hip arthroplasty - Left, Left AISHA revision., total knee arthroplasty - Bilateral., - - Aortic surgery, Left carpal tunnel release, Left total shoulder replacement. Psychiatric History: No pertinent psych hx ALLIGATOR TRAPPER History: No pertinent ALLIGATOR TRAPPER history Lives: Alone Smoking Status: Never smoker Tobacco Use: Non-smoker Alcohol: None Drugs: None - *Family History Maternal Family History: Family History (Last Reviewed 02/27/18 @ 09:21 by Mary Mcnair) Father CVA (cerebral vascular accident) Mother Heart disease History Items: No pertinent history Paternal Family History: Family History (Last Reviewed 02/27/18 @ 09:21 by Mary Mcnair) Father CVA (cerebral vascular accident) Mother Heart disease History Items: No pertinent history Review of Systems Constitutional: Denies: Chills, Fever, Weight Change HEENT: Denies: Head Aches, Sinus Congestion, Sinus Drainage Cardiovascular: Denies: Chest Pain, Palpitations Respiratory: Denies: Cough, Shortness of breath at rest, Sputum production Gastrointestinal: Denies: Abdominal Pain, Nausea, Vomiting Genitourinary: Denies: Dysuria Musculoskeletal: Denies: Joint Pain, Joint Tenderness Skin: Denies: Rash, Wounds Neurological: Denies: Numbness, Tingling, Focal weakness Psychiatric: Denies: Anxiety, Depression, Homicidal Ideations, Suicidal Ideations Hematologic/ Lymphatic: Denies: Easy Bruising, Easy Bleeding VTE Information - Inpt Only VTE Present on Admission: No VTE Mechan Device Prophylaxis: Knee High NELLIE Hose VTE Pharm Prophylaxis ordered?: Yes Patient Problems: Active and Suspected Problems (Last Reviewed 02/27/18 @ 09:21 by Mary Mcnair) Rotator cuff tear arthropathy of right shoulder (Acute) - Physical Exam General: Alert, Oriented x3, Cooperative HEENT: Atraumatic, PERRLA, EOMI, Normocephalic Neck: Supple, No JVD, Negative Carotid Bruits Lungs: Clear to auscultation, Normal air movement Cardiovascular: Regular rate, No murmurs Abdomen: Bowel Sounds Present, Soft, Non Tender Extremities: No edema, Capillary Refill Less than 3 Seconds Skin: No rashes, No breakdown Musculoskeletal: No Tenderness to Palpation of Joints or Extremities, - - Right shoulder Ultra-Sling. Neurological: Cranial nerves II-XII grossly intact Psych/Mental Status: Normal Affect, Appropriate Body Mass Index (BMI) 37.4 Assessment/Plan All Active Problems (Last Reviewed 02/27/18 @ 09:21 by Mary Mcnair) Status post total left knee replacement (Acute) Rotator cuff tear arthropathy of right shoulder (Acute) 82 year old female with below past medical history hospitalized for right reverse total shoulder arthroplasty 03/01/[address] Colon, admitted with debility, here for rehabilitation, strengthening, prior to discharge home alone. * Debility - PT/OT. * Pain - Tylenol 1000MG Q8H, Oxycodone 5-10MG Q4H PRN moderate to severe pain. * Bowel - Miralax 17GM daily, Senna/colace 1 tablet BID, Dulcolax 10MG PO daily PRN. * Pneumonia vaccination - Administer Prevnar 13 and/or Pneumovax 23 as necessary. * DVT prophylaxis - Aspirin 325MG daily. * Vitamin D deficiency - D3 1000IU daily. * Edema - Lasix 40MG daily. * Hypothyroidism - Levothyroxine 50MCG daily. * Hypertension - Metoprolol 25MG BID. * GERD - Pantoprazole 40MG daily. * Hyperlipidemia - Pravastatin 40MG QHS. * Asthma - Dulera 200/5 BID PRN (or Formulary equivalent), Proair MDI 1-2 Q4H PRN. * Iron deficiency anemia - Ferrous sulfate 325MG BID. 03/03/18 0826 <Electronically signed by Wesley Godoy MD> Date Wesley Godoy MD Cosigner Signature: Date (if applicable) CC: Mylene Preciado MD; Wesley Godoy MD Signed HH, HEMOGLOBIN AND Collected: 03/14/2018 Status: F Source: [place] HEMATOCRIT 5:05 AM [facility] REPOSITORY TYPE CODE TESTS RESULT OUT OF RANGE REFERENCE UNITS LAB L100.1300 12.0-15.0 g/dl Low HGB 9.1 LAB L100.1400 37-47 % Low HCT 30.4 Performed By: #### L100.0600 #### [facility] [place], [address] IMMUNOHISTOCHEMISTRY Observed: 03/13/2018 Status: F Source: [place] 10:45 AM [facility] REPOSITORY Patient: CELINA GALINDO : 1935 (82/F) Acct Num: [id number] Phys: Candy Hinkle MD Unit Num: [id number] Loc: EN Specimen: [id number] Received: 03/13/181416 Spec Type: IMMUNO TISSUES 1 TISSUES: Stomach, NOS SPECIMEN INFORMATION: Tissue Source: Antral biopsy Clinical Info: Anemia Specimen Number: [id number] CPT code: 37769 METHODOLOGY: Deparaffinized sections of prefer/formalin-fixed tissue or PAP/DQ stained slides are incubated with monoclonal/polyclonal antibodies/oligonucleotide probes. Localization is made via biotin free immunoperoxidase method. Appropriate controls are performed and reacted as expected. Results on target cell population are indicated in the following table: RESULTS: ANTIBODY / CLONE RESULT H Pylori (polyclonal) negative These tests were developed and their performance characteristics determined by [facility]. They may not have been cleared or approved by the U.S. Food and Drug Administration. The FDA has determined that such clearance or approval is not necessary. INTERPRETATION: Antral biopsy: Negative for Helicobacter pylori organisms. SJ:dajuan 03/14/18 PHYSICIAN AND INSTITUTION [place] [address] Signed Joshua Wilder 03/14/18 <signature on file> Performed By: #### PIMM #### [facility] [address] [place] [address]. [place], [place], [id number] OPERATIVE REPORT - Observed: 03/13/2018 Status: F Source: [place] ENDOSCOPY 10:34 AM [facility] REPOSITORY [facility] Medical Records Department [address] [place] [address] Operative Report - Endoscopy MR#: [id number] Acct: [id number] Name: CELINA GALINDO Rep #: [id number] : 1935 82 From: Candy Hinkle MD PCP: Mylene Preciado MD Status: [place] [facility] [place] Patient Name: Celina Galindo Procedure Date: 03/13/2018 10:17 AM Date of : 1935 Age: 82 Procedure: Upper GI endoscopy Indications: Iron deficiency anemia Providers: Candy Hinkle MD Medicines: Monitored Anesthesia Care Patient Profile: This is an 82 year old female. Patient has symptoms. Complications: No immediate complications. Procedure: Pre-Anesthesia Assessment: - Prior to the procedure, a History and Physical was performed, and patient medications and allergies were reviewed. The patient's tolerance of previous anesthesia was also reviewed. The risks and benefits of the procedure and the sedation options and risks were discussed with the patient. All questions were answered, and informed consent was obtained. Prior Anticoagulants: The patient has taken no previous anticoagulant or antiplatelet agents. ASA Grade Assessment: II - A patient with mild systemic disease. After reviewing the risks and benefits, the patient was deemed in satisfactory condition to undergo the procedure. After obtaining informed consent, the endoscope was passed under direct vision. Throughout the procedure, the patient's blood pressure, pulse, and oxygen saturations were monitored continuously. The gastroscope was introduced through the mouth, and advanced to the second part of duodenum. The upper GI endoscopy was accomplished without difficulty. The patient tolerated the procedure well. Scope In: 10:22:20 AM Scope Out: 10:28:10 AM Total Procedure Duration Time 0 hours 5 minutes 50 seconds Findings: A medium-sized hiatal hernia was present. Mild inflammation characterized by erythema was found in the gastric antrum. Biopsies were taken with a cold forceps for histology. Biopsies were taken with a cold forceps for Helicobacter pylori cultures. The examined duodenum was normal. The examined esophagus was normal. Impression: - Medium-sized hiatal hernia. - Gastritis. Biopsied. - Normal examined duodenum. - Normal esophagus. Recommendation: - Await pathology results. - Use Protonix (pantoprazole) 40 mg IV daily. - Use sucralfate tablets 1 gram PO QID. - Continue present medications. Procedure Code(s): --- Professional --- 93846, Esophagogastroduodenoscopy, flexible, transoral; with biopsy, single or multiple Diagnosis Code(s): --- Professional --- K44.9, Diaphragmatic hernia without obstruction or gangrene K29.70, Gastritis, unspecified, without bleeding D50.9, Iron deficiency anemia, unspecified CPT copyright 2017 [employer]. All rights reserved. The codes documented in this report are preliminary and upon certified professional coder review may be revised to meet current compliance requirements. MD Candy Ramos MD 03/13/2018 10:33:30 AM This report has been signed electronically. Number of Addenda: 0 Note Initiated On: 03/13/2018 10:17 AM 03/13/18 1033 Date Candy Hinkle MD Cosigner Signature: Date (if indicated) CC: Mylene Preciado MD; Candy Hinkle MD Date Dictated: 03/13/18 1017 Date Transcribed: Enamel Drier: TR Signed HH, HEMOGLOBIN AND Collected: 03/13/2018 Status: F Source: [place] HEMATOCRIT 10:12 AM [facility] REPOSITORY TYPE CODE TESTS RESULT OUT OF RANGE REFERENCE UNITS LAB L100.1300 12.0-15.0 g/dl Low HGB 10.1 LAB L100.1400 37-47 % Low HCT 34.2 Performed By: #### L100.0600 #### [facility] [address] [facility] [place], [address] CONSULTATION Observed: 03/13/2018 Status: F Source: [place] 7:43 AM [facility] REPOSITORY [facility] Medical Records Department [address] [place] [address] Consultation 03/12/18 1457 MR#: [id number] Acct: [id number] Name: CELINA GALINDO Rep #: [id number] : 1935 82 From: Candy Hinkle MD PCP: Mylene Preciado MD Status: ADM IN Location: [place] [address] Reason for Consult Date of Consultation: 03/13/18 History of Present Illness: The patient is a 82 year old F for anemia, melena. 82-year-old female was admitted to TCU following a right shoulder surgery. Patient is normally on Protonix at home. However she denies having abdominal pain or reflux and unsure when this was started. Per notes she did have a EGD and colonoscopy in May 2016 which showed some mild gastritis and a rectal tubular adenoma by Dr. Mittal as she also follows with Dr. Armas for chronic anemia. Patient's hemoglobin checked yesterday was 6.8 previous to that it was checked on 03/04 was 9.8. Patient also received 2 units packed red blood cells yesterday and her hemoglobin this morning was 9.0. patient was started on her Protonix as well as some Carafate yesterday. She denied any abdominal pain. She does state that she has black stools but she has also been on iron supplements since prior to her surgery and after her surgery so is difficult to tell if there is much change. She denies any nausea or vomiting Past Medical History Past Medical History (Chronic Problems): Chronic Problems (Last Reviewed 02/27/18 @ 09:21 by Mary Mcnair) Chronic anemia (Chronic) Osteoarthritis of left hip (Chronic) Hypertension (Chronic) Hypercholesterolemia (Chronic) Gout (Chronic) Sleep apnea (Chronic) Contact with and (suspected) exposure to environmental tobacco smoke (acute) (chronic) (Chronic) Secondhand smoke exposure (Chronic) no hx PFTs, on Dulera H/O abdominal aortic aneurysm repair (Chronic) [facility] Iron deficiency anemia (Chronic) Iron deficiency (Chronic) Obstructive sleep apnea (Chronic) Hyperlipidemia (Chronic) Hypothyroidism (Chronic) Medical History: Medical History (Last Reviewed 02/27/18 @ 09:21 by Mary Mcnair) Anemia D64.9 History of blood transfusion Z92.89 Thyroid disease E07.9 Allergies No Known Allergies Allergy (Verified 03/01/18 11:23) Home Medications: Ambulatory Orders Medication Instructions Recorded Cholecalciferol (VIT D3) [Vitamin 1,000 unit PO DAILY 05/24/16 Surgical History: Surgical History (Last Reviewed 02/27/18 @ 09:21 by Mary Mcnair) History of carpal tunnel repair Z98.890 History of repair of rotator cuff Z98.890 H/O right knee surgery Z98.890 History of total left hip arthroplasty Z96.642 History of total replacement of left shoulder joint Z96.612 Surgical History: cholecystectomy, herniorrhaphy, total hip arthroplasty - Left, Left AISHA revision., total knee arthroplasty - Bilateral., - - Aortic surgery, Left carpal tunnel release, Left total shoulder replacement. Psychiatric History: No pertinent psych hx ALLIGATOR TRAPPER History: No pertinent ALLIGATOR TRAPPER history Lives: Alone Smoking Status: Never smoker Tobacco Use: Non-smoker Alcohol: None Drugs: None - *Family History Maternal Family History: Family History (Last Reviewed 02/27/18 @ 09:21 by Mary Mcnair) Father CVA (cerebral vascular accident) Mother Heart disease History Items: No pertinent history Paternal Family History: Family History (Last Reviewed 02/27/18 @ 09:21 by Mary Mcnair) Father CVA (cerebral vascular accident) Mother Heart disease History Items: No pertinent history Review of Systems Constitutional: Denies: Fever Eyes: Denies: Blurred vision HEENT: Denies: Difficulty Swallowing Cardiovascular: Denies: Chest Pain Respiratory: Denies: Shortness of Breath Gastrointestinal: Reports: Melena - Patient is also on iron unsure if this is truly blood previously or her iron supplement, fecal occult positive. Denies: Abdominal Pain, Nausea, Vomiting Genitourinary: Denies: Dysuria Neurological: Denies: Balance problems Psychiatric: Denies: Anxiety, Depression Hematologic/ Lymphatic: Denies: Easy Bleeding Patient Problems: Active and Suspected Problems (Last Reviewed 02/27/18 @ 09:21 by Mary Mcnair) Rotator cuff tear arthropathy of right shoulder (Acute) - Physical Exam General: Alert, Oriented x3, Cooperative, No apparent distress HEENT: Atraumatic Lungs: Normal air movement Cardiovascular: Regular rate Abdomen: Soft, Non Tender - Peritoneal signs, Non-Distended Extremities: No clubbing, No cyanosis, No edema, - - Right upper extremity in a sling Neurological: Cranial nerves II-XII grossly intact Psych/Mental Status: Normal Affect Vital Signs Temp Pulse Resp BP Pulse Ox 98.5 F 87 18 137/48 H 96 03/12/18 14:01 03/12/18 14:01 03/12/18 14:01 03/12/18 14:01 03/12/18 14:01 Oxygen Delivery Method Room Air Weight: 195 lb 2 oz Body Mass Index (BMI) 38.0 Intake and Output for Last 24 Hours Intake Total 1080 / 1080 840 / 840 600 / 600 Output Total 200 / 200 Balance 880 / 880 840 / 840 600 / 600 Microbiology Past 72 Hours 03/12/18 07:15 Stool Occult Blood (FAM) - Final Stool Occult Blood Positive Laboratory Tests Past 24 Hrs Hgb 9.0 L Hct 29.7 L Assessment/Plan All Active Problems (Last Reviewed 02/27/18 @ 09:21 by Mary Mcnair) Status post total left knee replacement (Acute) Rotator cuff tear arthropathy of right shoulder (Acute) 82-year-old female with GI bleed, anemia of 6.8 status post 2 units red blood cells hemoglobin 9, melena, patient also takes iron 1. I have discussed the above with the patient. I have offered the patient EGD with possible biopsy for evaluation. I have explained the risks/benefits of the procedure and described the procedure. I have discussed the risks with the patient, including but not limited to: infection, bleeding, perforation of the GI tract requiring emergency surgery, inability to complete the procedure, injury to any internal organs, complications of anesthesia, etc. - the patient understands and agrees to proceed. I have answered all the patient's questions to the patient's satisfaction and the patient has no further questions. 2. Start patient on Protonix 80 mg IV x1 then 40 mg IV twice daily 3. Clear liquids make n.p.o. 4 hours prior to procedure plan for EGD Tuesday about 10:30 AM. Candy Hinkle M.D. Pager: [phone] [facility] [address] [place] [address], [place] [address] Office: [phone] Candy Hinkle M.D. Pager: [phone] [facility] [address] [place] [address], [facility], [address] [address] Office: [phone] Code Visit Inpatient E AND M: 47074 Init Hosp L2 03/13/18 0743 <Electronically signed by Candy Hinkle MD> Date Candy Hinkle MD Cosigner Signature (if applicable): Date CC: Mylene Preciado MD; Wesley Godoy MD; Candy Hinkle MD Signed GASTRIC BIOPSY Observed: 03/13/2018 Status: F Source: [place] 12:00 AM [facility] REPOSITORY Patient: CELINA GALINDO : 1935 (82/F) Acct Num: [id number] Phys: Arin BENITEZ,Candy Unit Num: [id number] Loc: EN Specimen: [id number] Received: 03/13/18 - 1353 Spec Type: Gastric Bx TISSUES 1 TISSUES: Gastric mucous membrane COMMENT The results of immunohistochemistry for Helicobacter pylori will be reported separately ([id number]). GROSS DESCRIPTION Received in fixative is one container labeled with the patient's name and designated antral biopsy. The specimen consists of one irregular fragment of light milligan soft tissue that measures 0.4 x 0.3 x 0.1 cm. The specimen is totally submitted in one cassette. / SJ:dajuan 03/13/18 TC:3 CPT: 23460 HEADER OPERATION: EGD ([facility]) PRE-OP DIAGNOSIS: Anemia TISSUE SUBMITTED: Antral biopsy for H. pylori and pathology MICROSCOPIC DESCRIPTION Slides are reviewed. The specimen shows fragments of gastric mucosa with chronic inflammatory cell infiltrates in the lamina propria consisting of lymphocytes and plasma cells, consistent with mild chronic gastritis. MICROSCOPIC DIAGNOSIS Antral biopsy: Mild gastritis. See microscopic description and comment. SJ:dajuan 03/14/18 Signed Joshua Wilder 03/14/18 <signature on file> Performed By: #### PGASB #### [facility] [address] [place], [address] Observed: 03/12/2018 Status: F Source: [place] STOOL OCCULT BLOOD 7:15 AM [facility] IFOB REPOSITORY Order Date: 03/11/18 Comments: s STOB iFOB Occult Blood Positive ORGANISM 1: OCCULT BLOOD POSITIVE Performed By: #### M100.7900 #### [facility] [address] [facility]. [place], [place], [address] HH, HEMOGLOBIN AND Collected: 03/12/2018 Status: F Source: [place] HEMATOCRIT 5:05 AM [facility] REPOSITORY TYPE CODE TESTS RESULT OUT OF RANGE REFERENCE UNITS LAB L100.1300 12.0-15.0 g/dl Low HGB 9.0 LAB L100.1400 37-47 % Low HCT 29.7 Performed By: #### L100.0600 #### [facility] [address] [place], [place], [address] TYPE AND SCREEN Collected: 03/11/2018 Status: P Source: [place] 8:20 AM [facility] REPOSITORY Order Comment: CMV NEG? N Number of units to transfuse: 2 Comments: rt total shoulder Is there a >20% drop in pt's BP? N Is the EBL >/= 1000ml in adults or >/= 12ml/kg in children? Y Is pt's HR > 100 bpm? N Reason for Ordering Blood: Acute Are the blood/blood products to be transfused? Y Is the patient having/had surgery? Y Give When? When Ready Irradiated? N Leukodepleted? Y Surgery Date: 03/01/18 Type of Surgery: OTHER TYPE CODE TESTS RESULT OUT OF RANGE REFERENCE UNITS LAB B10.0800 A Normal BLOOD TYPE GEL POSITIVE LAB B100.4000 Normal Antibody NEGATIVE Screen Performed By: #### B101.7450 #### [facility] [address] [facility] [place], [address] TYPE AND SCREEN Collected: 03/11/2018 Status: F Source: [place] 8:20 AM [facility] REPOSITORY Order Comment: CMV NEG? N Number of units to transfuse: 2 Comments: rt total shoulder Is there a >20% drop in pt's BP? N Is the EBL >/= 1000ml in adults or >/= 12ml/kg in children? Y Is pt's HR > 100 bpm? N Reason for Ordering Blood: Acute Are the blood/blood products to be transfused? Y Is the patient having/had surgery? Y Give When? When Ready Irradiated? N Leukodepleted? Y Surgery Date: 03/01/18 Type of Surgery: OTHER TYPE CODE TESTS RESULT OUT OF RANGE REFERENCE UNITS LAB B10.0800 A Normal BLOOD TYPE GEL POSITIVE LAB B100.4000 Normal Antibody NEGATIVE Screen Performed By: #### B101.7450 #### [facility] [address] [place], [address] Collected: 03/11/2018 Status: F Source: [place] 8:20 AM [facility] REPOSITORY TYPE CODE TESTS RESULT OUT OF REFERENCE UNITS RANGE LAB U100.0000 [id number] TRANSFUSED PRODUCT: T AND S with Crossmatch, Red Cells COUNT: 2 Performed By: #### U100.0000 #### Non-[facility] - refer to report for specific site CBC W/DIFF, AUTOMATED Collected: 03/11/2018 Status: F Source: [place] 6:30 AM [facility] REPOSITORY TYPE CODE TESTS RESULT OUT OF RANGE REFERENCE UNITS LAB L100.1000 4.4-11.0 K/mm3 Normal WBC 7.6 LAB L100.1200 4.2-5.4 M/mm3 Low RBC 2.31 LAB L100.1300 12.0-15.0 g/dl Low HGB 6.8 LAB L100.1400 37-47 % Low HCT 24.0 LAB L100.1500 81-99 fL High MCV 103.9 LAB L100.1600 27.0-32.0 pg Normal MCH 29.4 LAB L100.1700 32-36 g/gl Low MCHC 28.3 LAB L100.1810 11.6-14.6 % High RDW CV 15.8 LAB L100.1820 35.1-43.9 fl High RDW SD 57.3 LAB L100.1900 150-450 K/mm3 Normal PLT 323 LAB L100.2000 6.2-12.0 fl Normal MPV 10.1 LAB L100.2100 47-70 % Normal NEUT% 59.8 LAB L100.2200 19-41 % Normal LY% 23.4 LAB L100.2300 0-10 % Normal MONO% 9.8 LAB L100.2400 0-5 % High EO% 6.2 LAB L100.2500 0-1 % Normal BASO% 0.5 LAB L100.2550 0.0-0.9 % Normal IM GRAN % 0.300 Result Comment: IG% - Immature Granulocytes (promyelocytes, myelocytes and metamyelocytes) > 1% indicates that a LEFT SHIFT is Present. LAB L100.2620 2.0-7.7 X10 3/uL Normal Absolute Neut 4.5 LAB L100.2720 0.83-4.51 X10 3/ul Normal Absolute Lymph 1.77 Performed By: #### L100.0100 #### [facility] [address] [place], [place], [address] BASIC METABOLIC Collected: 03/11/2018 Status: F Source: [place] PROFILE ([facility]) 6:30 AM [facility] REPOSITORY TYPE CODE TESTS RESULT OUT OF RANGE REFERENCE UNITS LAB L501.0100 74-106 mg/dL Normal GLU 87 Result Comment: Please note revised GLUCOSE reference range effective 2017. LAB L501.1000 7-18 mg/dL High BUN 69 LAB L501.1100 0.55-1.02 mg/dL High CREAT,SERUM 1.04 Result Comment: The validity of the calculated GFR AND GFRAA in patients over 70 years has not been determined. Clinical correlation is essential. LAB L501.1110 >60 mL/min Low EST GFR 54 Result Comment: Non- GFR Calc LAB L501.1115 >60 mL/min Normal EST GFR - AA 65 Result Comment: GFR Calc LAB L501.1255 ml/min Normal Estimated CRCL 30.99 LAB L501.1300 10-20 RATIO High BUN/CRE 66.3 LAB L501.2200 8.5-10 mg/dL Normal .1 CA 8.5 LAB L501.5300 136-14 mmol/L Normal 5 NA 143 LAB L501.5600 3.5-5. mmol/L Normal 1 K 4.5 LAB L501.5900 98-107 mmol/L Normal CL 105 LAB L501.6100 21.0-3 mmol/L Normal 2.0 CO2 31.0 LAB L501.6200 5-15 Normal GAP 7 Performed By: #### L500.2500 #### [facility] [address] [place], [place], [address] URINALYSIS, COMPLETE Collected: 03/09/2018 Status: F Source: [place] 10:50 PM [facility] REPOSITORY Order Comment: Order Date: 03/09/18 How was Urine Obtained? BLADDER TAP TYPE CODE TESTS RESULT OUT OF RANGE REFERENCE UNITS LAB L400.3000 Yellow COLOR Normal Yellow LAB L400.3050 Clear Normal CLARITY Clear LAB L400.3200 Normal mg/dl Normal GLUCOSE, UR Normal LAB L400.3300 Negative mg/dL Normal BILIRUBIN URINE Negative LAB L400.3400 Negative mg/dl Normal KETONE UR Negative LAB L400.3465 1.002-1.030 Normal SP.GR. DIPSTX 1.010 LAB L400.3550 5.0 - 8.0 pH UR Normal 6.5 LAB L400.3600 Negative mg/dl PROT Normal DIPSTX Negative LAB L400.3700 Normal mg/dl Normal UROBILI Normal LAB L400.3750 Negative Normal NITRITE UR Negative LAB L400.3780 Negative /ul High 25 OCCULT BLOOD-UR LAB L400.3800 Negative /ul LEUK Normal ESTERASE Negative LAB L400.4050 0-5 /hpf WBC 0 Normal SEEN LAB L400.4100 0-5 /hpf Normal RBC-UA 0-5 SEEN LAB L400.4150 5-10 /hpf SQUAM 0 Normal EPI SEEN LAB L400.4300 None Seen /hpf 0 Normal BACTERIA SEEN LAB L400.4350 <or=2+ /hpf 0 Normal MUCUS, URINE SEEN Performed By: #### L400.0001 #### [facility] [address] [facility]. [place], [place], [address] ABDOMEN SINGLE VIEW Observed: 03/09/2018 Status: F Source: [place] (PORTABLE) 9:11 PM [facility] REPOSITORY [facility] Imaging Services [address] [place] [address] Abdomen Single View (Portable) MR#: [id number] Acct: [id number] Name: CELINA GALINDO Rep #: [id number] : 1935 F 82 From: Brandy Molina MD PCP: Mylene Preciado MD Status: ADM IN Study: Abdomen Single View (Portable) Date of Exam: 03/09/18 Exam# [id number] Ordering Dr: Wesley Godoy MD STUDY: X-RAY - ABDOMEN/PELVIS REASON FOR EXAM: Female, 82 years old. Nausea vomiting. TECHNIQUE: KUB. COMPARISON: 12/10/2015. FINDINGS: There is a nonobstructive bowel gas pattern. Buttock granuloma is noted on the right. Phleboliths are noted in the pelvis. Left hip replacement is present. There is no acute bony abnormality. RAD/Abdomen Single View (Portable) IMPRESSION: Nonobstructive abdomen. Electronically Signed: Brandy Molina MD at 22:06 EST Tel , Service support , CC: Mylene Preciado MD; Wesley Godoy MD Enamel Drier: Signed CBC W/DIFF, AUTOMATED Collected: 03/04/2018 Status: F Source: [place] 7:45 AM [facility] REPOSITORY TYPE CODE TESTS RESULT OUT OF RANGE REFERENCE UNITS LAB L100.1000 4.4-11.0 K/mm3 Normal WBC 9.1 LAB L100.1200 4.2-5.4 M/mm3 Low RBC 3.29 LAB L100.1300 12.0-15.0 g/dl Low HGB 9.8 LAB L100.1400 37-47 % Low HCT 32.6 LAB L100.1500 81-99 fL High MCV 99.1 LAB L100.1600 27.0-32.0 pg Normal MCH 29.8 LAB L100.1700 32-36 g/gl Low MCHC 30.1 LAB L100.1810 11.6-14.6 % High RDW CV 17.0 LAB L100.1820 35.1-43.9 fl High RDW SD 57.2 LAB L100.1900 150-450 K/mm3 Normal PLT 236 LAB L100.2000 6.2-12.0 fl Normal MPV 10.0 LAB L100.2100 47-70 % Normal NEUT% 69.3 LAB L100.2200 19-41 % Low LY% 14.3 LAB L100.2300 0-10 % High MONO% 11.5 LAB L100.2400 0-5 % Normal EO% 4.5 LAB L100.2500 0-1 % Normal BASO% 0.2 LAB L100.2550 0.0-0.9 % Normal IM GRAN % 0.200 Result Comment: IG% - Immature Granulocytes (promyelocytes, myelocytes and metamyelocytes) > 1% indicates that a LEFT SHIFT is Present. LAB L100.2620 2.0-7.7 X10 3/uL Normal Absolute Neut 6.3 LAB L100.2720 0.83-4.51 X10 3/ul Normal Absolute Lymph 1.31 Performed By: #### L100.0100 #### [facility] [address] [place], [address] BASIC METABOLIC Collected: 03/04/2018 Status: F Source: [place] [facility] ([facility]) 7:45 AM [facility] REPOSITORY TYPE CODE TESTS RESULT OUT OF RANGE REFERENCE UNITS LAB L501.0100 74-106 mg/dL Normal GLU 103 Result Comment: Fasting Glucose result from 100 to 125 mg/dL suggests IMPAIRED HOMEOSTASIS per A.D.A. criteria. Please note revised GLUCOSE reference range effective 2017. LAB L501.1000 7-18 mg/dL High BUN 48 LAB L501.1100 0.55-1.02 mg/dL High CREAT,SERUM 1.30 Result Comment: The validity of the calculated GFR AND GFRAA in patients over 70 years has not been determined. Clinical correlation is essential. LAB L501.1110 >60 mL/min Low EST GFR 42 Result Comment: Non- GFR Calc LAB L501.1115 >60 mL/min Low EST GFR - AA 51 Result Comment: GFR Calc LAB L501.1255 ml/min Normal Estimated CRCL 24.79 LAB L501.1300 10-20 RATIO High BUN/CRE 36.9 LAB L501.2200 8.5-10 mg/dL Normal .1 CA 8.6 LAB L501.5300 136-14 mmol/L Normal 5 NA 142 LAB L501.5600 3.5-5. mmol/L Normal 1 K 4.6 LAB L501.5900 98-107 mmol/L Normal CL 105 LAB L501.6100 21.0-3 mmol/L Normal 2.0 CO2 30.0 LAB L501.6200 5-15 Normal GAP 7 Performed By: #### L500.2500 #### [facility] [address] [place], [address] 12 LEAD ELECTROCARDIOGRAM Observed: 03/03/2018 Status: F Source: [place] 9:12 AM [facility] REPOSITORY [facility] Cardiovascular Services [address] [facility] [place] [address] EKG - SDC 02/15/18 1202 MR#: [id number] Acct: [id number] Name: CELINA GALINDO Rep #: [id number] : 1935 82 From: German Dewitt MD Attending Dr: Rj Colon MD Status: ADM IN Ordering Dr: Rj Colon MD Date: 02/15/18 Location: [facility] [place] Sex: F C Admitted: 03/01/18 Test Reason : Blood Pressure : / mmHG Vent. Rate : 060 BPM Atrial Rate : 060 BPM P-R Int : 188 ms QRS Dur : 084 ms QT Int : 404 ms P-R-T Axes : 000 -05 042 degrees QTc Int : 404 ms Normal sinus rhythm Inferior infarct , age undetermined Cannot rule out Anterior infarct , age undetermined Abnormal ECG Confirmed by RENATE BENITEZ, GERMAN ([id number]), editor publications USAMA GRIDER (56) on 02/22/2018 11:32:15 AM Referred By: Rj Colon Confirmed By:GERMAN DEWITT MD 02/22/181131 Date German Dewitt MD CC: Mylene Preciado MD; Rj Colon MD Date Dictated: 02/15/181201 Date Transcribed: 02/15/181201 Enamel Drier: Signed DISCHARGE INSTRUCTION Observed: 03/03/2018 Status: F Source: [place] 7:30 AM [facility] REPOSITORY [facility] Medical Records Department [address] [place] [address] Instructions for Home/Discharge Instructions 03/03/18 0728 MR#: [id number] Acct: [id number] Name: CELINA GALINDO Rep #: [id number] : 1935 82 From: Dylan Galvez PA-C PCP: Mylene Preciado MD Status: ADM IN Discharge Diet: No Restrictions Discharge Activity: May Not Drive May shower in (days): 1 - Turned dressing away from water Ice area for (Minutes): 20 - Ice area for 20 minutes each hour while awake Weight Bearing Status: No weight bearing - Right upper extremity Call your doctor if your incision/area has: Continuous Slow Oozing, Sudden Increased Bleeding, Increased Pain/ Swelling, Increased Redness, Foul Smelling Discharge Call your doctor if you observe: Fever of 101 or Higher, Coldness, Increased Pain, Numbness or Tingling, Change in Color Remove Dressing in (days):: 3 - Remove dressing on March 06, 2018 Additional Instructions: Follow [facility] postop instructions Physical therapy/OT: No range of motion of the right shoulder until 2 weeks postoperatively after follow-up in our office. Patient can work on right shoulder pendulums, elbow/wrist/hand range of motion. Continue with UltraSling. Nonweightbearing on the right upper extremity. Allergies/Adverse Reactions: Allergies No Known Allergies Allergy (Verified 03/01/18 11:23) Medications to take at Discharge Cholecalciferol (VIT D3) [Vitamin D3] 1,000 unit PO DAILY 05/24/16 Furosemide [Lasix] 40 mg PO DAILY 05/24/16 Levothyroxine [Synthroid] 50 mcg PO DAILY 05/24/16 Metoprolol Tartrate 25 mg PO BID 05/24/16 Pantoprazole Sodium [Protonix] 40 mg PO DAILY 05/24/16 Pravastatin [Pravachol] 40 mg PO QHS 05/24/16 Albuterol IH (ProAir) [Proair Hfa] 1 - 2 puff INHALATION Q4H PRN PRN #1 inhaler 07/27/16 Dulera 200 Mcg/5 Mcg Inhaler 200 mcg INHALATION BID PRN 08/24/16 Ferrous Sulfate 325 mg PO BIDCM 02/15/18 Acetaminophen [Tylenol] 1,000 mg PO Q8 14 Days tablet 03/03/18 Aspirin 325 mg PO DAILY@0800 14 Days tablet 03/03/18 Oxycodone [Oxyir] 5 - 10 mg PO Q4H PRN PRN 5 Days #60 tab 03/03/18 The following prescriptions were given: Oxycodone [Oxyir] 5 - 10 mg PO Q4H PRN PRN 5 Days #60 tab PRN Reason: Pain Primary Care Physician: Mylene Preciado MD [Primary Care Provider] - Test Results: Test results from this visit will be discussed in further detail at your follow-up appointment, if applicable. Please Follow Up With: Dylan Galvez PA-C When: 03/15/18 @ 10:30 am 03/03/18 0730 <Electronically signed by Dylan Galvez PA-C> Date Dylan Galvez PA-C CC: Mylene Preciado MD OPERATIVE REPORT Observed: 03/01/2018 Status: F Source: [place] 3:08 PM [facility] REPOSITORY [facility] Medical Records Department [address] [place] [address] Operative Report 03/01/18 1428 MR#: [id number] Acct: [id number] Name: CELINA GALINDO Rep #: [id number] : 1935 82 From: Rj Colon MD PCP: Mylene Preciado MD Status: ADM IN [id number] Report of Operation Date of Procedure: 03/01/18 Pre-Operative Diagnosis: Right Shoulder CTA Post-Operative Diagnosis: Right Shoulder CTA Surgery/Procedure Performed:: Right Reverse TSA Description of Surgical Findings:: stable shoulder deckhand clam dredge: Dylan Galvez Type of Anesthesia:: General Anesthesiologist: Mylene Gaming Specimen's removed: bony cuts Estimated Blood Loss (mL): 150 Fluids Replaced: 700 ml crystalloid Description of Procedure: Components used 1. glenoid baseplate from [employer] for reverse TSA 2. 32, +6 mm Glenosphere 3. 32 mm, 4mm humeral liner 4. reverse TSA humeral adapter tray 4mm 5. 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 Patient failed conservative measures as mentioned in the H AND P. After discussion of risk and benefits of reverse total shoulder replacement including but not limited to blood loss, DVTs, PEs, nerve vessel damage, infection, general risk of anesthesia including loss of life, instability and stiffness patient demonstrating understanding wish to proceed was able to sign informed consent. Medical clearance was obtained. Procedure: On the date of the procedure, patient's R upper extremity was marked in the preoperative area. Patient was taken back to the operating room where they were placed on the table in the supine position. Anesthesia assumed control of the C-spine and airway, then administered anesthetic. All bony prominences were identified well-padded, the head was secured and the patient was placed in the beachchair position at about 35 inclination. Anesthesia remained in control of the C-spine airway throughout the remainder of the procedure. Patient was then appropriately fastened to the table and the R upper extremity was prepped in a sterile fashion. The surgeons then scrubbed. Upon reentering the room, the R upper extremity was draped in a sterile fashion and the incision was marked out. Timeout was called, everyone agreed upon the side, the site, the procedure to be performed, patient identity and antibiotics given. Incision was taken down through skin and subcutaneous tissue, fat down to fascia. The stripe of the deltopectoral interval and cephalic vein were identified and blunt dissection was used to retract the deltoid. The cephalic vein was retracted laterally. Clavipectoral fascia was then incised and a cobra retractor was placed in the wound. The proximal one third of the pectoralis major insertion was released. Pectoralis tendon insertion was used to tenodesed the biceps tendon which was identified in the bicipital groove. Tenodesis was done with #1 Vicryl. Proximally we followed the biceps tendon after transecting it into the rotator interval. The rotator interval was split and the arm was externally rotated. The split was 1 cm medial to the bicipital groove. Subscapularis tendon was released. We released down the anterior portion of the humeral head and a herrera elevator was used to release the inferior portion of the humeral head. The arm was externally rotated and the shoulder was dislocated. The [employer] humeral head cutting guide was used to make humeral cut. This was done at 20 retroversion. Once his humeral head cut was made humerus was retracted out of the way and the glenoid was exposed. After exposing the glenoid, the labrum and the remaining proximal biceps were debrided. At this time we are able to view the entire outer edge of the glenoid. A central pin was placed we sequentially reamed over this central pin to 32mm. Once this was completed the central pedicle was drilled. The glenoid baseplate was impacted into place and central screw was tightened down. Wound was closely irrigated out with normal saline we then drilled sequentially for 2 screws. Screws were placed superiorly and inferiorly and tightened down the screws. Once the screws were appropriately tightened into place the glenoid baseplate was compressed against the exposed subchondral bone. A 32, +6mm glenosphere was impacted into place engaging the Renteria taper. Attention was then turned towards the humerus. The humerus was again externally rotated exposing the proximal portion of the humerus. Central canal finder was then used to open up the canal. We reamed to a 11mm reamer. We then broached to a 9mm stem. We trialed the 4mm liner, with the 4mm humeral baseplate. We obtained an adequate reduction at this time with a nice stable shoulder. Good internal rotation to the gluteus, forward elevation to 140 , external rotation to 20 . Final components were then assembled on the back table, trials were removed and the wound was copiously irrigated with normal saline after dislocating the shoulder. Once the final components were assembled they were impacted into place. Shoulder was then reduced and found to be stable with good range of motion. Subscapularis tendon was repaired using #2 fiberwire. The wound was then copiously irrigated out with a 1 L normal saline lavage. The deltopectoral fascia was then closed using #1 Vicryl skin was closed using 2-0 Vicryl interrupted sutures and final skin closure was done with 3-0 Monocryl. Steri-Strips are placed for final skin closure. Sterile dressing was placed patient was then placed in a sling and awakened by anesthesia. Patient was then transferred to the PACU for recovery. Postoperative plan: Patient will be admitted to the hospital overnight. They will get physical therapy starting in 2 weeks with normal postoperative regimen. Patient will be placed on ASA 325 daily for DVT prophylaxis. The first postoperative appointment will be in 2 weeks for wound check and initiation of phase 1 physical therapy. During the course of the procedure the physician physician assistant played a vital role. His intimate knowledge of my steps in the procedure aided in safe and expedient completion of the procedure. The PA played a vital rolls in positioning particularly in obtaining the appropriate beach chair position and securing the patient's body and head to the table. The PA was also vital in the retraction of soft tissues during the exposure and especially the glenoid work as this is a vital part of the procedure to prevent neurovascular damage. the PA was also vital and protecting soft tissues during times of bony cuts and reaming. He also played a vital role in closure with my direct supervision. The PA was also important during reduction and dislocation of the joint and trials intraoperatively. Grafts/Implants Used: Teo ReUnion Reverse TSA - Complications none - Admit VTE Documentation VTE Present on Admission: No VTE Mechan Device Prophylaxis: SCD's VTE Pharm Prophylaxis ordered?: Yes 03/01/18 1508 <Electronically signed by Rj Colon MD> Date Rj Colon MD CC: Mylene Preciado MD; Rj Colon MD Signed SHOULDER ONE VIEW Observed: 03/01/2018 Status: F Source: [place] 1:14 PM [facility] REPOSITORY [facility] Imaging Services [address] [place] [address] Shoulder One View MR#: [id number] Acct: [id number] Name: CELINA GALINDO Rep #: [id number] : 1935 F 82 From: Urban Hinojosa DO PCP: Mylene Preciado MD Status: ADM IN Study: Shoulder One View Date of Exam: 03/01/18 Exam# [id number] Ordering Dr: Rj Colon MD STUDY: X-RAY - RIGHT SHOULDER REASON FOR EXAM: Female, 82 years old. Postop. TECHNIQUE: 5 view(s) of the right shoulder and upper chest. COMPARISON: Right shoulder, May 16, 2017. FINDINGS: Is evidence of a right total hip arthroplasty. The prosthetic components appear to articulate normally with each other. There is no obvious loosening from the bone or fracture. There is continued widening of the acromioclavicular joint. Normal acromion. There is seen in the surrounding soft tissues.. Surgical clips in the axilla. Normal visualized pulmonary apex. RAD/Shoulder One View IMPRESSION: Status post right total shoulder replacement. Electronically Signed: Urban Hinojosa DO at 19:22 EST Tel [phone], Service support , CC: Mylene Preciado MD; Rj Colon MD Enamel Drier: Signed PROGRESS Observed: 02/27/2018 Status: COMPLETED Source: [place] 2:[address] [facility] [place] REPOSITORY O ID: [id number] Author: Juan Upton Service: (none) Author Type: Physician Type: Progress Notes Filed: 02/27/2018 5:32 PM Note Text: PERTINENT CARDIAC HISTORY HTN HL SAAD Thoracic aortic aneurysm - repair 2004 DM Possible TIAs ASHD - minimal by cath 2004 CHF - diastolic, no VICTORINO-I due to low BP Postural lightneadedness SVT ADHERENCE TO GUIDELINES VICTORINO-I or ARB for HF with prior LVEF<40 (NQF 0081) - N/A ASA or Plavix for ASHD (NQF 0067) - Fe def anemia Beta emil for ASHD with prior ME or prior LVEF<40 (NQF 0070) - N/A Beta emil for HF with prior LVEF<40 (NQF 0083) - N/A VICTORINO-I or ARB for ASHD with DM or prior LVEF<40 (NQF 0066) - hypotension Statin therapy for ASHD or FHL or DM - met BMI documented and plan if >25 (NQF 0421) - lifestyle recommendation form Tobacco use screening and referral (NQF 0028) - lifestyle recommendation form Recommendation for whole food, plant based diet - lifestyle recommendation form CLINICAL IMPRESSION/PLAN: Celina Galindo has stable ischemic heart disease. She's had no recent angina. There is no evidence of decompensated heart failure, arrhythmia or ischemia. Risk of perioperative cardiac complications is low to intermediate. No further studies are recommended. No guarantees were made. I've asked her to follow with me in the office as scheduled. Written and verbal health teaching given to patient, patient verbalizes understanding and agrees with treatment plan. DIAGNOSIS FOR VISIT: Preoperative cardiac risk assessment ASHD HISTORY OF PRESENT ILLNESS Celina Galindo returns for follow-up of multiple cardiac issues, as noted above and for preoperative cardiac risk assessment. She has a right shoulder arthroplasty planned for later this week. She reports that her exercise tolerance has been stable. She is walking up and down steps in her house without shortness of breath or chest discomfort. She has been able to keep up with her activities of daily living. She denies chest discomfort. She's had no orthopnea. She's had minimal edema. She denies syncope. She's had no recent palpitations, TIAs, amaurosis or claudication. ALLERGIES: ALLERGIES Allergen Reactions - Seasonal Allergies Unknown - Tape [Other] CURRENT OUTPATIENT MEDICATIONS: furosemide (LASIX) 40 mg tablet Take 0.5 tablets by mouth once daily. acetaminophen (TYLENOL EXTRA STRENGTH) 500 mg tablet Take 500 mg by mouth every 8 hours as needed. magnesium oxide 400 mg cap Take 400 mg by mouth twice daily. metoprolol tartrate, short acting, (LOPRESSOR) 25 mg tablet Take 25 mg by mouth twice daily. mometasone-formoterol (DULERA) 200-5 mcg/actuation inhaler Inhale as instructed twice daily. Cholecalciferol, Vitamin D3, 1,000 unit cap Take 1,000 Units by mouth twice daily. levothyroxine (SYNTHROID) 50 mcg tablet Take 50 mcg by mouth daily before breakfast. albuterol HFA (PROAIR HFA) 90 mcg/actuation inhaler Inhale 2 Puffs as instructed every 6 hours as needed. ferrous sulfate 325 mg (65 mg iron) tablet Take 325 mg by mouth daily with breakfast. pravastatin (PRAVACHOL) 40 mg tablet Take 40 mg by mouth once daily. OTC NUTRITIONAL SUPPLEMENT xango drink 1 1/2 oz daily PROTONIX 40 MG ORAL TBEC Take one(1) tablet daily. CYANOCOBALAMIN, VITAMIN B-12, (VITAMIN B-12 ORAL) Take by mouth. HYDROCODONE-ACETAMINOPHEN 5 MG-500 MG TAB Take one(1) tablet every four(4) hours as needed. PHYSICAL EXAMINATION: VITAL SIGNS: BP 144/57 Pulse 67 Ht 5' 2.75 (1.59m) Wt 185 lb 8 oz (84.1kg) BMI 33.12 kg/(m2). Chest: Clear to auscultation. Trachea is midline. Air entry is equal. Cardiac: Regular rhythm. S1 and S2 are normal. PMI is nondisplaced. There is a soft systolic ejection murmur. Carotids are brisk without bruits. JVP is less than 10 cm. Abdomen: Soft and nontender. There are no pulsatile masses or bruits. No liver enlargement. Bowel sounds are active. Extremities: Trace edema. Pulses are intact and symmetrical. Recent labs were reviewed. Hemoglobin was 10.4. Renal function is mildly impaired. Electronically Signed: Juan Upton MD February 27, 2018 2:10 PM CC: Mylene Preciado MD CNOV Observed: 02/27/2018 Status: COMPLETED Source: [place] 10:15 AM [facility] REPOSITORY Office Visit (CA[facility]) CELINA GALINDO ([id number]) 1935 F Date Time Provider Department 02/27/18 10:15 AM JUAN UPTON [facility] During your visit today, we recorded the following information about you: Pulse Blood pressure Weight Height 67/minute 144/57 84.1 kg 1.594 m Juan Upton MD 02/27/2018 5:32 PM Signed PERTINENT CARDIAC HISTORY HTN HL SAAD Thoracic aortic aneurysm - repair 2004 DM Possible TIAs ASHD - minimal by cath 2004 CHF - diastolic, no VICTORINO-I due to low BP Postural lightneadedness SVT ADHERENCE TO GUIDELINES VICTORINO-I or ARB for HF with prior LVEF<40 (NQF 0081) - N/A ASA or Plavix for ASHD (NQF 0067) - Fe def anemia Beta emil for ASHD with prior ME or prior LVEF<40 (NQF 0070) - N/A Beta emil for HF with prior LVEF<40 (NQF 0083) - N/A VICTORINO-I or ARB for ASHD with DM or prior LVEF<40 (NQF 0066) - hypotension Statin therapy for ASHD or FHL or DM - met BMI documented and plan if >25 (NQF 0421) - lifestyle recommendation form Tobacco use screening and referral (NQF 0028) - lifestyle recommendation form Recommendation for whole food, plant based diet - lifestyle recommendation form CLINICAL IMPRESSION/PLAN: Celina Galindo has stable ischemic heart disease. She's had no recent angina. There is no evidence of decompensated heart failure, arrhythmia or ischemia. Risk of perioperative cardiac complications is low to intermediate. No further studies are recommended. No guarantees were made. I've asked her to follow with me in the office as scheduled. Written and verbal health teaching given to patient, patient verbalizes understanding and agrees with treatment plan. DIAGNOSIS FOR VISIT: Preoperative cardiac risk assessment ASHD HISTORY OF PRESENT ILLNESS Celina Galindo returns for follow-up of multiple cardiac issues, as noted above and for preoperative cardiac risk assessment. She has a right shoulder arthroplasty planned for later this week. She reports that her exercise tolerance has been stable. She is walking up and down steps in her house without shortness of breath or chest discomfort. She has been able to keep up with her activities of daily living. She denies chest discomfort. She's had no orthopnea. She's had minimal edema. She denies syncope. She's had no recent palpitations, TIAs, amaurosis or claudication. ALLERGIES: ALLERGIES Allergen Reactions - Seasonal Allergies Unknown - Tape [Other] CURRENT OUTPATIENT MEDICATIONS: furosemide (LASIX) 40 mg tablet Take 0.5 tablets by mouth once daily. acetaminophen (TYLENOL EXTRA STRENGTH) 500 mg tablet Take 500 mg by mouth every 8 hours as needed. magnesium oxide 400 mg cap Take 400 mg by mouth twice daily. metoprolol tartrate, short acting, (LOPRESSOR) 25 mg tablet Take 25 mg by mouth twice daily. mometasone-formoterol (DULERA) 200-5 mcg/actuation inhaler Inhale as instructed twice daily. Cholecalciferol, Vitamin D3, 1,000 unit cap Take 1,000 Units by mouth twice daily. levothyroxine (SYNTHROID) 50 mcg tablet Take 50 mcg by mouth daily before breakfast. albuterol HFA (PROAIR HFA) 90 mcg/actuation inhaler Inhale 2 Puffs as instructed every 6 hours as needed. ferrous sulfate 325 mg (65 mg iron) tablet Take 325 mg by mouth daily with breakfast. pravastatin (PRAVACHOL) 40 mg tablet Take 40 mg by mouth once daily. OTC NUTRITIONAL SUPPLEMENT xango drink 1 1/2 oz daily PROTONIX 40 MG ORAL TBEC Take one(1) tablet daily. CYANOCOBALAMIN, VITAMIN B-12, (VITAMIN B-12 ORAL) Take by mouth. HYDROCODONE-ACETAMINOPHEN 5 MG-500 MG TAB Take one(1) tablet every four(4) hours as needed. PHYSICAL EXAMINATION: VITAL SIGNS: BP 144/57 Pulse 67 Ht 5' 2.75 (1.59m) Wt 185 lb 8 oz (84.1kg) BMI 33.12 kg/(m2). Chest: Clear to auscultation. Trachea is midline. Air entry is equal. Cardiac: Regular rhythm. S1 and S2 are normal. PMI is nondisplaced. There is a soft systolic ejection murmur. Carotids are brisk without bruits. JVP is less than 10 cm. Abdomen: Soft and nontender. There are no pulsatile masses or bruits. No liver enlargement. Bowel sounds are active. Extremities: Trace edema. Pulses are intact and symmetrical. Recent labs were reviewed. Hemoglobin was 10.4. Renal function is mildly impaired. Electronically Signed: Juan Upton MD February 27, 2018 2:10 PM CC: MD Juan Byers MD 02/27/2018 2:11 PM Signed LIFESTYLE CHANGE A healthy lifestyle is the most important component of your overall treatment plan. Please give serious thought to the following areas and commit to making long term care phlebotomist changes. EAT A WHOLE FOOD, PLANT BASED [...] family physician about programs in your area. Referring Provider: RJ COLON [[id number]] Allergies As of Date: 02/27/2018 Noted Allergy Reaction SEASONAL ALLERGIES 12/05/2014 16 - Unknown TAPE [Other] 11/04/2004 Date Reviewed: 02/27/2018 Reviewed by: Natasha Zelaya MA - Fully Assessed Reason for Visit: Established Patient [175] Primary Visit Diagnosis:Preop cardiovascular exam [Z01.810] Other Visit Diagnosis:Essential hypertension [I10] Prescriptions as of 02/27/2018 Sig: FUROSEMIDE 40 MG TABLET Take 0.5 [...] every four* Patient not taking: No sig reported Problem List As Of Date 02/27/2018 Noted Resolved BENIGN HYPERTENSION [I10] INVALID FOR* [...] HERNIA [K44.9] INVALID FOR* Anemia [D64.9] INVALID FOR* Other instructions from your clinician: LIFESTYLE CHANGE A healthy lifestyle is the most important component of your overall treatment plan. Please give serious thought to the following areas and commit to making long term care phlebotomist changes. EAT A WHOLE FOOD, PLANT BASED [...] family physician about programs in your area. Follow-up and Disposition History Recorded Encounter Status:Closed by JUAN UPTON MD on 02/27/18 ONCOLOGY VISIT REPORT Observed: 02/21/2018 Status: F Source: [place] 11:18 AM [facility] REPOSITORY [facility] [place] [address] OFFICE VISIT Date of Service: 02/21/18 1112 MR#: [id number] Acct: [id number] Name: CELINA GALINDO Rep #: [id number] : 1935 From: Francesco Armas MD Age/Sex: 82/F Location: ONC Status: Signed Subjective - Date of Service Date of Service:: 02/21/18 - Chief Complaint F/u for anemia management before surgery. - History of Present Illness Ms. Celina Galindo is a very pleasant 82 y.o.woman with h/o chronic anemia. She underwent upper GI endoscopy and colonoscopy on 05/27/2016 under the care of Dr. Mittal. Pathology showed mild gastritis and rectal tubular adenoma. She had L knee replacement on 07/20/2016 and required PRBC transfusions. Began PO iron 09/15/16 with no improvement. She received Venofer 200mg IV x 5 doses from 11/15/2016 to 11/29/2016. She is scheduled for surgery in February 2018. She received additional iron infusions on 01/19/2018, 01/24/2018 and 01/26/2018. Comes for follow up. She is due for surgery on 02/23/2018. - Past Medical/Social History Past Medical History Past Medical History: Anemia,Blood transfusion,Hypertension,Thyroid disease Other Past Medical History: measles, chicken pox, Past Surgical History Surgical: Carpal tunnel,Cholecystectomy,Hernia repair,Hip replacement,Knee replacement Other Surgical History: rotator cuff shoulder sx Family History Paternal Past Medical History: Stroke Maternal Past Medical History: Heart disease Social History Social History: No changes Smoking Status Never smoker Review of Systems Constitutional:: Denies: Fever, Sweats, Weight loss, Appetite change, Chills Cardiovascular:: Denies: Chest pain, Palpitations, Dyspnea on exertion, Orthopnea, PND, Shortness of breath Respiratory: Denies: Cough, Hemoptysis, Shortness of Breath, Wheezing Gastrointestinal:: Denies: Abdominal pain, Nausea, Vomiting, Diarrhea, Constipation, Hematochezia Genitourinary: Denies: Dysuria, Hematuria, 15, Flank pain Musculoskeletal:: Reports: Arthritis - Right shoulder.. Denies: Back pain, Myalgia, Arthralgia Skin: Denies: Rash, Skin Changes, Wounds Neurological:: Denies: Headache, Dizziness, Visual changes, Tinnitus, Hearing loss Psychiatric: Denies: Anxiety, Depression, Homicidal Ideations, Suicidal Ideations Vital Signs Height 5 ft Weight: 83.461 kg Weight in Pounds 184.0 lbs Pulse Ox 99 - Physical Exam General: Alert, Oriented x3, No apparent distress Extremities:: - - + diminsihed ROM R shoulder. Assessment and Plan Iron deficiency, low Iron level with Hgb 10. S/P 3 iron infusion. Pt is going for R shoulder surgery in March 01, 2018. To optimize iron and Hgb level before surgery. Plan is to do Procrit injection 40,000 Units and Iron infusion on 02/21/2018 and 02/27/2018. RTC 4 wks. with CBC and Iron studies. Primary Care Provider: Mylene Preciado Referring Provider: - Problem List (1) Chronic anemia Status: Chronic (2) Iron deficiency Status: Chronic Code Visit Office Visits / Consults: 11349 OV L3 Est 02/21/18 1118 <Electronically signed by Francesco Armas MD> Date Francesco Armas MD Cosigner Signature: Date (if applicable) CC: HISTORY AND PHYSICAL Observed: 02/16/2018 Status: F Source: [place] EXAM 12:30 PM [facility] REPOSITORY [facility] Medical Records Department [address] [place] [address] History and Physical 02/16/18 1229 MR#: [id number] Acct: [id number] Name: MIKAELAANDREASCELINA Rep #: [id number] : 1935 82 From: Dylan Galvez PA-C PCP: Mylene Preciado MD Status: PRE IN Y [place] [facility] [facility] [place] History and Physical DATE OF SURGERY: 03/01/2018 SCHEDULED PROCEDURE: Right Reverse Total Shoulder Arthroplasty HISTORY OF PRESENT ILLNESS: This is an 82-year-old female who has been having ongoing pain in her right dominant shoulder for the past 6-7 months. Patient did have a previous fall. Patient has difficult time with activities of daily living that require getting up from a seated position, overhead activity, and driving. Pain is over the anterior lateral aspect of the right shoulder. Patient states she is unable to raise her hand overhead. Her range of motion has been limited. Patient has tried previous corticosteroid injection with no relief in symptoms. X-rays reveal complete loss of the glenohumeral joint with superior head migration consistent with secondary rotator cuff arthropathy. Patient currently denies any chest pain, shortness of breath, fevers chills, recent infections. Patient has had a previous left total shoulder arthroplasty by Dr. Morel in 2009. Patient has a medical history pertinent for hypertension, anemia, gout, sleep apnea. Patient states she sees Dr. Armas for iron infusions. She also sees a business objects architect Dr. Bryan. Patient requires the use of a walker due to her knee. Patient did have a previous left total knee arthroplasty in [address] Billy Urbina. Since then she has been on a walker. We are obtaining surgical clearance from patient's business objects architect and primary care physician. After failing conservative measures and discussing all treatment options with Dr. Rj Colon, the patient would like to proceed with a right reverse total shoulder arthroplasty. REVIEW OF SYSTEMS: ROS: Const: Reports change in appetite, loss of appetite and weight change, but denies anorexia, anxiety and fever,hard of hearing, and vision problems. CV: Reports irregular heartbeat, but denies chest pain, heart murmur and peripheral vascular disease. Resp: Reports sleep apnea, but denies asthma, cough, pneumonia, SOB, tuberculosis and wheezing. GI: Denies constipation, diarrhea, heartburn, nausea, bloody stools and vomiting, and difficulty swallowing. : Urinary: denies incontinence. Musculo: Reports limp,denies leg swelling, trouble walking and weakness Skin: Denies Raynaud's, history of shingles and tattoo. Neuro: Reports dizziness but denies ambulatory dysfunction, numbness/tingling and tremor. Psych: Denies anxiety, depression, insomnia, mental illness and stress. Aaron/Lymph: Reports anemia, but denies bleeding/bruising tendency and past transfusion. Reviewed, no changes. PAST MEDICAL HISTORY: Advance Care Plan: Other Directive, POA Effective Date: 01/14/2017 Other Directive, LIVING WILL Effective Date: 01/14/2017 PMH: Medical Problems: Arthritis, High Blood Pressure, High Cholesteral, Mild Anemia, Gout, Sleep Apnea, Thyroid Disease Accidents: Fracture - (06/2007) LT WRIST LT Foot FX - (12/26/2009) LT KNEE FALL RT Shoulder Dislocation - (07/2011) LT Hip Dislocation - (04/2012) Surgical Hx: Knee Replacement - (2001) RT TKR, [facility] - Carlitos Aorta Surgery - (11/2004) [facility] Gallbladder - (11/2005) AND HERNIA REPAIR, DR. DUDLEY, [facility] Hernia Repair - (02/2008) Dr. Nayana DE ANDA Carpal Tunnel Release LT - (08/2005) DR. URBINA L TSR - (07/2009) [facility] - (12/28/2011) EVAN @ [facility] LT THR Revision - (07/18/2012) [email or web address] Knee Replacement LT - (07/20/2016) [email or web address] Anesthesia Complications: None Assistive Devices: Glasses, Dentures, Walker Reviewed and updated. SOCIAL HISTORY: SH: Marital: .Occupation: Retired.Work Status: Retired.Hand Dominance: Right-handed. Personal Habits: Smoking: Patient has never smoked.Cigarette Use: Never.Alcohol: Denies use.Drug Use: Denies Use.Enjoy Exercising: Exercises 1-3 x/month. Reviewed, no changes. VITALS: Ht: 59 Wt: 184lb Wt k.462 BMI: 37.2 BP: 116/44 Pulse: 61 Resp: 20 T: 96.8 T: 36.0C ALLERGIES: No Known Drug Allergy MEDICATIONS: Levothyroxine Sodium 50 mcg 1 PO qday, Metoprolol 25mg 1 tab PO bid, Furosemide 40 mg 1 tab PO bid, Pantoprazole Sodium 40 mg 1 tab PO bid, Ferrous Sulfate 325 (65 Fe) MG 1 tab PO bid, Pravastatin Sodium 40 mg 1 by mouth every day, Dulera 200- 5 mcg/Act 2 puffs PO bid prn, Vitamin D3 1000 Unit 1 tab PO daily PRE-OP EXAM: General appearance:NORMAL Other: Eyes: Conjunctivae and lids: NORMAL Pupils: ERR Ears, Nose, Mouth, and Throat: NORMAL Other: Inspection of lips, teeth and gums: NORMAL Other: Neck: Examination of neck: no masses noted. Respiratory: Assessment of respiratory effort: NORMAL Other: Auscultation of lungs: clear to auscultation no wheezes, rhonchi or rales. Cardiovascular: Auscultation of heart: regular rate and rhythm, positive systolic murmurs, no gallops or rubs. Exam of carotid arteries: NORMAL Other: Gastrointestinal: Exam of abdomen: soft, nontender, nondistended bowel sounds present. PHYSICAL EXAMINATION: Right shoulder is cool to touch without erythema. Range of motion right shoulder: Active flexion 45, passive flexion 100. Right shoulder strength testing of the supraspinatus 3/5. Sensation intact to light touch to axillary, radial, median, and ulnar nerve distribution. Motor intact to AIN, PIN, and ulnar nerve. Patient does require the use of a walker secondary to her knee pain. IMAGING STUDIES: Previous x-rays of the right shoulder do reveal complete loss of glenohumeral joint space with superior migration of the humeral head consistent with secondary rotator cuff arthropathy of the right shoulder. IMPRESSION: 1. 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 Anemia 3. Hypertension 4. Hypercholesterolemia 5. Gout 6. Sleep apnea 7. Thyroid disease PLAN: Dr. Rj Colon did discuss and review with the patient all treatment options including surgical versus nonsurgical options. Patient does wish to proceed with the above-stated procedure. Potential risks, benefits, and complications of the procedure were discussed in detail including but not limited to , infection, nerve and blood vessel damage, persistent pain, numbness, tingling, paresthesias, blood clot, pulmonary embolism, and requirement for possible further surgery. The patient expressed full understanding and has no further questions for the doctor. Patient does agree to proceed with the above-stated procedure and has signed the surgery consent form. This dictation was created using voice recognition software. Phonetic and/or grammatical errors may exist.. ___ I have re-examined the patient. There are no clinical changes since date of exam. ___ See progress notes for changes. ___ Dictated on admission Date: Time: Signature: 02/16/18 1230 <Electronically signed by Dylan Galvez PA-C> Date Dylan Galvez PA-C Cosigner Signature: Date (if applicable) CC: Mylene Preciado MD; Dylan ANTONY Signed PROTHROMBIN TIME W/INR Collected: 02/15/2018 Status: F Source: [place] 12:26 PM [facility] REPOSITORY TYPE CODE TESTS RESULT OUT OF RANGE REFERENCE UNITS LAB L300.4150 11.7-14.9 SECONDS Normal PROTIME 13.2 LAB L300.4200 Normal INR 1.0 Performed By: #### L300.3900, L300.4310 #### [facility] [address] [place], [place], [address] PARTIAL THROMBOPLAST Collected: 02/15/2018 Status: F Source: [place] TIME 12:26 PM [facility] REPOSITORY TYPE CODE TESTS RESULT OUT OF RANGE REFERENCE UNITS LAB L300.4310 24.1-36.2 Seconds Normal PTT 30.5 Performed By: #### L300.3900, L300.4310 #### [facility] [address] [place], [address] CBC W/DIFF, AUTOMATED Collected: 02/15/2018 Status: F Source: [place] 12:24 PM [facility] REPOSITORY Order Comment: SEND RESULTS TO DR ARMAS ALSO TYPE CODE TESTS RESULT OUT OF RANGE REFERENCE UNITS LAB L100.1000 4.4-11.0 K/mm3 Normal WBC 8.0 LAB L100.1200 4.2-5.4 M/mm3 Low RBC 3.48 LAB L100.1300 12.0-15.0 g/dl Low HGB 10.4 LAB L100.1400 37-47 % Low HCT 34.1 LAB L100.1500 81-99 fL Normal MCV 98.0 LAB L100.1600 27.0-32.0 pg Normal MCH 29.9 LAB L100.1700 32-36 g/gl Low MCHC 30.5 LAB L100.1810 11.6-14.6 % Normal RDW CV 14.6 LAB L100.1820 35.1-43.9 fl High RDW SD 50.1 LAB L100.1900 150-450 K/mm3 Normal PLT 253 LAB L100.2000 6.2-12.0 fl Normal MPV 11.2 LAB L100.2100 47-70 % Normal NEUT% 61.2 LAB L100.2200 19-41 % Normal LY% 25.8 LAB L100.2300 0-10 % Normal MONO% 8.5 LAB L100.2400 0-5 % Normal EO% 3.9 LAB L100.2500 0-1 % Normal BASO% 0.5 LAB L100.2550 0.0-0.9 % Normal IM GRAN % 0.100 Result Comment: IG% - Immature Granulocytes (promyelocytes, myelocytes and metamyelocytes) > 1% indicates that a LEFT SHIFT is Present. LAB L100.2620 2.0-7.7 X10 3/uL Normal Absolute Neut 4.9 LAB L100.2720 0.83-4.51 X10 3/ul Normal Absolute Lymph 2.07 Performed By: #### L100.0100 #### [facility] [address] [place], [place], [address] COMPREHENSIVE METABOLIC Collected: 02/15/2018 Status: F Source: [facility] 12:18 PM [facility] REPOSITORY Order Comment: Reason for Laboratory Test . TYPE CODE TESTS RESULT OUT OF RANGE REFERENCE UNITS LAB L501.0100 74-106 mg/dL High GLU 117 Result Comment: Fasting Glucose result from 100 to 125 mg/dL suggests IMPAIRED HOMEOSTASIS per A.D.A. criteria. Please note revised GLUCOSE reference range effective 2017. LAB L501.1000 7-18 mg/dL High BUN 32 LAB L501.1100 0.55-1.02 mg/dL High CREAT,SERUM 1.19 Result Comment: The validity of the calculated GFR AND GFRAA in patients over 70 years has not been determined. Clinical correlation is essential. LAB L501.1110 >60 mL/min Low EST GFR 46 Result Comment: Non- GFR Calc LAB L501.1115 >60 mL/min Low EST GFR - AA 56 Result Comment: GFR Calc LAB L501.1255 ml/min Normal Estimated CRCL 50.06 LAB L501.1300 10-20 RATIO High BUN/CRE 26.9 LAB L501.1500 6.4-8. g/dL Normal 2 T PROT 7.2 LAB L501.1800 3.2-5. g/dL Normal 0 ALB 3.2 LAB L501.1950 2.2-4. g/dL Normal 2 GLOB 4.0 LAB L501.2000 0.9-2. RATIO Low 4 A/G 0.8 LAB L501.2200 8.5-10 mg/dL Normal .1 CA 8.9 LAB L501.4100 15-37 U/L Low AST 14 LAB L501.4305 45-117 U/L High ALK P 135 LAB L501.4405 13-56 U/L Normal ALT 15 LAB L501.4600 0.20-1 mg/dL Normal .00 T BILI 0.30 LAB L501.5300 136-14 mmol/L Normal 5 NA 140 LAB L501.5600 3.5-5. mmol/L Normal 1 K 4.7 LAB L501.5900 98-107 mmol/L Normal CL 106 LAB L501.6100 21.0-3 mmol/L Normal 2.0 CO2 27.0 LAB L501.6200 5-15 Normal GAP 7 Performed By: #### L500.4050, L503.6030, L503.6550 #### [facility] [address] [facility] [place], [place], [address] IRON+IRON BINDING Collected: 02/15/2018 Status: F Source: [facility] 12:18 PM [facility] REPOSITORY Order Comment: Reason for Laboratory Test . TYPE CODE TESTS RESULT OUT OF RANGE REFERENCE UNITS LAB L503.6075 250-450 ug/dL TIBC Normal 323 LAB L503.6150 50-170 ug/dL Low IRON 38 LAB L503.6250 15.0-55.0 % Low IRON SATURATION 11.8 Performed By: #### L500.4050, L503.6030, L503.6550 #### [facility] [address] [place], [place], [address] FERRITIN Collected: 02/15/2018 Status: F Source: [place] 12:18 PM [facility] REPOSITORY Order Comment: Reason for Laboratory Test . TYPE CODE TESTS RESULT OUT OF REFERENCE UNITS RANGE LAB L503.6550 8-252 ng/mL High FERRITIN 282 Performed By: #### L500.4050, L503.6030, L503.6550 #### [facility] [address] [place], [address] Observed: 02/15/2018 Status: F Source: [place] MRSA/SAID SCREEN 12:10 PM [facility] REPOSITORY MRSA/SAID SCRN S. AUREUS S. aureus Negative MRSA MRSA Negative Performed By: #### M100.651 #### [facility] [address] [place], [address] PT D/C SUMMARY (1) Observed: 02/08/2018 Status: F Source: [place] 11:05 AM [facility] REPOSITORY [facility] [address] [place], [place] [address] Fax REHABILITATION SERVICES DISCHARGE SUMMARY MR#: [id number] Acct: [id number] Name: CELINA GALINDO Rep #: [id number] : 1935 82 From: Jass Phillips PT, ATC Referring Dr.: Rj Colon MD Status: REG RCR Insurance: [employer] PPO SELF PAY INSURANCE HP - PT D/C Summary It has been my pleasure to treat CELINA GALINDO under orders from Rj Colon MD, for the diagnosis of Unsteady gait for a total of 7 visit(s). Discharge Date: Please see the following information for a summary of their discharge status. - Subjective Subjective: Pt reports she feels she has made great improvements with her walking since having therapy. Pt feels she is ready to be done - Pain R shoulder Pain Intensity (Out of 10): 8 - Overall Improvement % Improvement: 50 - Objective Objective/Function: R LE strength now 5/5, L LE strength is 4/5. Pt was able to ambulate greater than 40 feet with QC and SBA. Pt is I with HEP. Rx goals achieved - Goals Goal 1:: Pt will be I with the use of a QC prior to her shoulder surgery Goal Progress: Goal Met Goal 2:: Increase B LE strength x 1 grade to aid with stair negotiation Goal Progress: Goal Met Goal 3:: I with HEP Goal Progress: Goal Met - Plan Plan: Discharge - D/C Information If there are questions or concerns regarding this patient's physical therapy, please feel free to call me at [phone]. Thank you for the referral of this patient. Sincerely, Jass Phillips, PT, <Electronically signed by Jass Phillips PT, ATC> 02/08/18 1105 CC: Mylene Preciado MD; Rj Colon MD [facility] Signed ONCOLOGY VISIT REPORT Observed: 02/05/2018 Status: F Source: [place] 4:16 PM [facility] REPOSITORY [facility] [address] [place] [address] OFFICE VISIT Date of Service: 02/01/18 1702 MR#: [id number] Acct: [id number] Name: CELINA GALINDO Rep #: [id number] : 1935 From: Francesco Armas MD Age/Sex: 82/F Location: OMD Status: Signed Subjective - Date of Service Date of Service:: 02/01/18 - Chief Complaint F/u for anemia. - History of Present Illness Ms. Celina Galindo is a very pleasant 82 y.o.woman with h/o chronic anemia. She underwent upper GI endoscopy and colonoscopy on 05/27/2016 under the care of Dr. Mittal. Pathology showed mild gastritis and rectal tubular adenoma. She had L knee replacement on 07/20/2016 and required PRBC transfusions. Began PO iron 09/15/16 with no improvement. She received Venofer 200mg IV x 5 doses from 11/15/2016 to 11/29/2016. She is scheduled for surgery in February 2018. She received additional iron infusions on 01/19/2018, 01/24/2018 and 01/26/2018. Comes for follow up. - Past Medical/Social History Past Medical History Past Medical History: Anemia,Blood transfusion,Hypertension,Thyroid disease Other Past Medical History: measles, chicken pox, Past Surgical History Surgical: Carpal tunnel,Cholecystectomy,Hernia repair,Hip replacement,Knee replacement Other Surgical History: rotator cuff shoulder sx Family History Paternal Past Medical History: Stroke Maternal Past Medical History: Heart disease Social History Social History: No changes Smoking Status Never smoker Review of Systems Constitutional:: Reports: Fatigue Cardiovascular:: Denies: Chest pain, Palpitations, Dyspnea on exertion, Orthopnea, PND, Shortness of breath Respiratory: Denies: Cough, Hemoptysis, Shortness of Breath, Wheezing Gastrointestinal:: Denies: Abdominal pain, Nausea, Vomiting, Diarrhea, Constipation, Hematochezia Genitourinary: Denies: Dysuria, Hematuria, 15, Flank pain Vital Signs Height 5 ft Weight: 84.55 kg Weight in Pounds 186.4 lbs Pulse Ox 94 - Physical Exam General: Alert, Oriented x3, No apparent distress Laboratory Data: Laboratory Tests Assessment and Plan Iron deficiency, low Iron level with Hgb 10. S/P 3 iron infusion. Pt is going for R shoulder surgery in March 01, 2018. To optimize iron and Hgb level before surgery. Plan is to do Procrit injection 40,000 Units and Iron infusion on 02/21/2018. RTC 02/21/2018 with CBC and Iron studies. Primary Care Provider: Mylene Preciado Referring Provider: - Problem List (1) Chronic anemia Status: Chronic (2) Iron deficiency Status: Chronic Code Visit Office Visits / Consults: 76095 OV L3 Est 02/05/18 1616 <Electronically signed by Francesco Armas MD> Date Francesco Armas MD Cosigner Signature: Date (if applicable) CC: HEMOGLOBIN A1C Collected: 02/01/2018 Status: F Source: [place] 1:16 PM [facility] REPOSITORY TYPE CODE TESTS RESULT OUT OF RANGE REFERENCE UNITS LAB L501.9985 4.2-6.3 % Normal HGB A1C 6.1 Performed By: #### L501.9985, L500.4050, L501.9520, L506.0400 #### [facility] [address] [place], [address] COMPREHENSIVE METABOLIC Collected: 02/01/2018 Status: F Source: [place] TYPE CODE TESTS RESULT OUT OF RANGE REFERENCE UNITS LAB L501.0100 74-106 mg/dL High GLU 113 Result Comment: Fasting Glucose result from 100 to 125 mg/dL suggests IMPAIRED HOMEOSTASIS per A.D.A. criteria. Please note revised GLUCOSE reference range effective 2017. LAB L501.1000 7-18 mg/dL High BUN 33 LAB L501.1100 0.55-1.02 mg/dL High CREAT,SERUM 1.03 Result Comment: The validity of the calculated GFR AND GFRAA in patients over 70 years has not been determined. Clinical correlation is essential. LAB L501.1110 >60 mL/min Low EST GFR 55 Result Comment: Non- GFR Calc LAB L501.1115 >60 mL/min Normal EST GFR - AA 66 Result Comment: GFR Calc LAB L501.1255 ml/min Normal Estimated CRCL 31.29 LAB L501.1300 10-20 RATIO High BUN/CRE 32.0 LAB L501.1500 6.4-8. g/dL Normal 2 T PROT 7.0 LAB L501.1800 3.2-5. g/dL Low 0 ALB 2.9 LAB L501.1950 2.2-4. g/dL Normal 2 GLOB 4.1 LAB L501.2000 0.9-2. RATIO Low 4 A/G 0.7 LAB L501.2200 8.5-10 mg/dL Normal .1 CA 8.6 LAB L501.4100 15-37 U/L Normal AST 16 LAB L501.4305 45-117 U/L High ALK P 128 LAB L501.4405 13-56 U/L Normal ALT 17 LAB L501.4600 0.20-1 mg/dL Normal .00 T BILI 0.30 LAB L501.5300 136-14 mmol/L Normal 5 NA 140 LAB L501.5600 3.5-5. mmol/L Normal 1 K 4.2 LAB L501.5900 98-107 mmol/L Normal CL 107 LAB L501.6100 21.0-3 mmol/L Normal 2.0 CO2 27.0 LAB L501.6200 5-15 Normal GAP 6 Performed By: #### L501.9985, L500.4050, L501.9520, L506.0400 #### [facility] [address] [facility] [place], [address] THYROID STIM HORMONE Collected: 02/01/2018 Status: F Source: [place] ([facility]) 1:16 PM [facility] REPOSITORY TYPE CODE TESTS RESULT OUT OF RANGE REFERENCE UNITS LAB L501.9520 0.358-3.74 uIU/mL Normal TSH 3.74 Performed By: #### L501.9985, L500.4050, L501.9520, L506.0400 #### [facility] [address] [place], [address] T4 FREE DIRECT Collected: 02/01/2018 Status: F Source: [place] 1:16 PM [facility] REPOSITORY TYPE CODE TESTS RESULT OUT OF RANGE REFERENCE UNITS LAB L506.0400 0.76-1.46 ng/dL Normal T4 FREE 1.05 DIRECT Performed By: #### L501.9985, L500.4050, L501.9520, L506.0400 #### [facility] [address] [place], [address] CBC W/DIFF, AUTOMATED Collected: 02/01/2018 Status: F Source: [place] 1:13 PM [facility] REPOSITORY Order Comment: Reason for Laboratory Test . TYPE CODE TESTS RESULT OUT OF RANGE REFERENCE UNITS LAB L100.1000 4.4-11.0 K/mm3 Normal WBC 7.8 LAB L100.1200 4.2-5.4 M/mm3 Low RBC 3.49 LAB L100.1300 12.0-15.0 g/dl Low HGB 10.2 LAB L100.1400 37-47 % Low HCT 33.9 LAB L100.1500 81-99 fL Normal MCV 97.1 LAB L100.1600 27.0-32.0 pg Normal MCH 29.2 LAB L100.1700 32-36 g/gl Low MCHC 30.1 LAB L100.1810 11.6-14.6 % High RDW CV 15.1 LAB L100.1820 35.1-43.9 fl High RDW SD 53.1 LAB L100.1900 150-450 K/mm3 Normal PLT 251 LAB L100.2000 6.2-12.0 fl Normal MPV 10.2 LAB L100.2100 47-70 % Normal NEUT% 62.7 LAB L100.2200 19-41 % Normal LY% 24.8 LAB L100.2300 0-10 % Normal MONO% 8.4 LAB L100.2400 0-5 % Normal EO% 3.6 LAB L100.2500 0-1 % Normal BASO% 0.4 LAB L100.2550 0.0-0.9 % Normal IM GRAN % 0.100 Result Comment: IG% - Immature Granulocytes (promyelocytes, myelocytes and metamyelocytes) > 1% indicates that a LEFT SHIFT is Present. LAB L100.2620 2.0-7.7 X10 3/uL Normal Absolute Neut 4.9 LAB L100.2720 0.83-4.51 X10 3/ul Normal Absolute Lymph 1.93 Performed By: #### L100.0100 #### [facility] [address] [place] [address]. [place], [place], [address] IRON+IRON BINDING Collected: 02/01/2018 Status: F Source: [place] 1:13 PM [facility] REPOSITORY Order Comment: Reason for Laboratory Test . TYPE CODE TESTS RESULT OUT OF RANGE REFERENCE UNITS LAB L503.6075 250-450 ug/dL TIBC Normal 281 LAB L503.6150 50-170 ug/dL Low IRON 38 LAB L503.6250 15.0-55.0 % Low IRON SATURATION 13.5 Performed By: #### L503.6030, L503.6550 #### [facility] [address] [place], [place], [address] FERRITIN Collected: 02/01/2018 Status: F Source: [place] 1:13 PM [facility] REPOSITORY Order Comment: Reason for Laboratory Test . TYPE CODE TESTS RESULT OUT OF REFERENCE UNITS RANGE LAB L503.6550 8-252 ng/mL High FERRITIN 364 Performed By: #### L503.6030, L503.6550 #### [facility] [address] [place], [place], [address] EXTREMITY UPPER Observed: 01/18/2018 Status: F Source: [place] WITHOUT CONTRA 3:47 PM [facility] REPOSITORY [facility] Imaging Services [address] [place] [address] Extremity Upper without Contra MR#: [id number] Acct: [id number] Name: CELINA GALINDO Rep #: [id number] : 1935 F 82 From: Rex Raines MD PCP: Ozzy BENITEZ,Mylene Status: REG CLI Study: Extremity Upper without Contra Date of Exam: 01/18/18 Exam# [id number] Ordering Dr: Rj Colno MD STUDY: CT RIGHT SHOULDER REASON FOR EXAM: Female, 82 years old. Osteoarthritis of the right shoulder RADIATION DOSAGE (If Supplied By Facility): CTDIvol = ( 27.47 ) mGy, DLP = ( 649.55 ) mGycm TECHNIQUE: The patient was scanned in a multi detector CT scanner. High resolution transaxial imaging was performed without the administration of intravenous contrast material. Sagittal and coronal images were reconstructed. # of Images: 635 Individualized dose optimization techniques were used for this CT. COMPARISON: None. FINDINGS: There is severe osteoarthritis, with severe articular joint space narrowing, osteoarthritic spurring, articular remodeling, and with articular erosions. There is evidence of degenerative spur along the inferior aspect of the glenoid rim. There is cephalic migration of the humeral head suggests well-formed rotator cuff pathology. Normal coracoid process. Normal visualized lateral clavicle. Normal acromioclavicular articulation. There is a Type II morphology (curved), with a neutral orientation. Surgical clips are seen in the right axillary region suggestive of a right axillary lymph node dissection. Increased interstitial markings in the medial aspect of the right upper lobe and right suprahilar region. This may be related to post radiation fibrosis if the patient has a history of a breast cancer and radiation. 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 Electronically Signed: eRx Raines MD at 10:42 EDT Tel [phone], Service support , CC: Mylene Preciado MD; Rj Colon MD Enamel Drier: Signed INITAL EVALUATION (1) Observed: 01/09/2018 Status: F Source: [place] - PT 12:46 PM [facility] REPOSITORY [facility] [address] [place] [address] Fax REHABILITATION SERVICES INITIAL EVALUATION MR#: [id number] Acct: [id number] Name: CELINA GALINDO Rep #: [id number] : 1935 82 From: Jass Phillips PT, ATC Referring Dr.: Rj Colon MD Status: REG RCR Insurance: [facility] MEDIC[facility] PPO SELF PAY INSURANCE Patient's Visit Information CELINA GALINDO is a 82 year old F referred to Physical Therapy by Rj Colon MD with a diagnosis of Unsteady gait. Date of Evaluation: 01/09/18 Physical Therapist: Jass Phillips PT, - Visit Plan Frequency: 2-3x /Week Duration: 4 Weeks Plan: Gait training with QC, B LE strengthening, balance and proprio, nustep, and HEP - Subjective Subjective: Pt reports she needs to have a R total shoulder replacement here in the near future, and needs to be able to ambulate with just a cane. Pt reports she has been walking with a walker for 2 years due to her unsteady gait. Pt reports she needs to be able to walk with a quad cane in order to have her shoulder surgery. Pt reports she lives in a one floor house at this time. Pt has 2 steps into her house, which she has to use hand rails to negotiate. Pt denies any T or N at this time. Pt reports her surgery is scheduled for 03/01/18. Pt denies any LE pain at this time. R shoulder pain is 7/10 currently. - Pain R shoulder Pain Intensity (Out of 10): 7 - Objective Neuro: B LE sensation is WNL to light touch. B bicepital reflex= 1/3. ROM: B LE's are WFL at this time. MMT: B knee flexion 4-/5. All other LE measurements are 4+/5 throughout. Gait: Pt is able to ambulate approximately 60 feet with QC and CGAx1 until feeling fatigued. Pt did experience one LOB episode which required min A by PT - Goals Goal 1:: Pt will be I with the use of a QC prior to her shoulder surgery Goal Time Frame: 2-4 Weeks Goal 2:: Increase B LE strength x 1 grade to aid with stair negotiation Goal Time Frame: 2-4 Weeks Goal 3:: I with HEP Goal Time Frame: 2-4 Weeks - Rehabilitation Potential Physical Therapy Diagnosis: Pt has an usteady gait pattern with QC which must improve prior to her R TSA Rehabilitation Potential: Good - Anticipated Interventions Patient/Client Instruction: Educate patient on: Condition, Plan of Care For the Purpose of:: To improve self management Therapeutic Exercise to Include: Strength training, Endurance training, Balance training, Gait and locomotor training For the Purpose of:: To improve muscle performance and motor function, To increase tolerance to activity/condition/position, To improve gait and locomotor functions Thank you for the opportunity to evaluate your patient. For Medicare and Medicare HMO plans, please review the plan of care and approve it. It will need to be FAXED BACK to us at [phone] for Medicare purposes. Please let me know if there are questions or concerns regarding this plan of care. Physician Signature: Date: <Electronically signed by Jass Phillips PT, ATC> 01/09/18 1246 CC: Mylene Preciado MD; Rj Colon MD [facility] Signed For Medicare only, by signing this I certify the plan of care. Physicians Signature Date ONCOLOGY VISIT REPORT Observed: 01/04/2018 Status: F Source: [place] 2:47 PM [facility] REPOSITORY [facility] [place] [address] OFFICE VISIT Date of Service: 01/04/18 1425 MR#: [id number] Acct: [id number] Name: CELINA GALINDO Rep #: [id number] : 1935 From: Francesco Armas MD Age/Sex: 82/F Location: OMD Status: Signed Subjective - Date of Service Date of Service:: 01/04/18 - Chief Complaint F/u for anemia. - History of Present Illness Ms. Celina Galindo is a very pleasant 82 y.o.woman with h/o chronic anemia. She underwent upper GI endoscopy and colonoscopy on 05/27/2016 under the care of Dr. Mittal. Pathology showed mild gastritis and rectal tubular adenoma. She had L knee replacement on 07/20/2016 and required PRBC transfusions. Began PO iron 09/15/16 with no improvement. She received Venofer 200mg IV x 5 doses from 11/15/2016 to 11/29/2016. She remains on oral iron supplements. Comes in for follow up. She is scheduled for surgery in February 2018. - Past Medical/Social History Past Medical History Past Medical History: Anemia,Blood transfusion,Hypertension,Thyroid disease Other Past Medical History: measles, chicken pox, Past Surgical History Surgical: Carpal tunnel,Cholecystectomy,Hernia repair,Hip replacement,Knee replacement Other Surgical History: rotator cuff shoulder sx Family History Paternal Past Medical History: Stroke Maternal Past Medical History: Heart disease Social History Social History: No changes Smoking Status Never smoker Review of Systems Constitutional:: Reports: Fatigue. Denies: Fever, Sweats, Weight loss, Appetite change, Chills Cardiovascular:: Denies: Chest pain, Palpitations, Dyspnea on exertion, Orthopnea, PND, Shortness of breath Respiratory: Denies: Cough, Hemoptysis, Shortness of Breath, Wheezing Gastrointestinal:: Denies: Abdominal pain, Nausea, Vomiting, Diarrhea, Constipation, Hematochezia Genitourinary: Denies: Dysuria, Hematuria, 15, Flank pain Musculoskeletal:: Reports: Arthritis - R shoulder. Vital Signs Height 5 ft Weight: 79.605 kg Weight in Pounds 175.5 lbs Pulse Ox 95 - Physical Exam General: Alert, Oriented x3, No apparent distress, - - Walking Cardiac:: Regular rate, Regular rhythm, Normal S1, Normal S2. Negative for: Murmur Lungs: Clear to auscultation, Excusion symmetrical. Negative for: Rhonchi, Wheezes Laboratory Data: Laboratory Tests WBC 7.3 Hgb 10.3 L Hct 33.7 L Plt Count 267 Iron 46 L Ferritin 106 Assessment and Plan Iron deficiency, low Iron level with Hgb 10. Pt is going for R shoulder surgery in February 2018. To optimize iron and Hgb level before surgery. Plan is to do IV Venofer 200mg x 3. RTC 4 weeks with CBC and Iron studies. Primary Care Provider: Mylene Preciado Referring Provider: - Problem List (1) Chronic anemia Status: Chronic (2) Iron deficiency Status: Chronic Code Visit Office Visits / Consults: [id number] OV L3 Est 01/04/18 1447 <Electronically signed by Francesco Armas MD> Date Francesco Armas MD Cosigner Signature: Date (if applicable) CC: Mylene Preciado MD CBC W/DIFF, AUTOMATED Collected: 12/30/2017 Status: F Source: [place] 8:14 AM [facility] REPOSITORY TYPE CODE TESTS RESULT OUT OF RANGE REFERENCE UNITS LAB L100.1000 4.4-11.0 K/mm3 Normal WBC 7.3 LAB L100.1200 4.2-5.4 M/mm3 Low RBC 3.56 LAB L100.1300 12.0-15.0 g/dl Low HGB 10.3 LAB L100.1400 37-47 % Low HCT 33.7 LAB L100.1500 81-99 fL Normal MCV 94.7 LAB L100.1600 27.0-32.0 pg Normal MCH 28.9 LAB L100.1700 32-36 g/gl Low MCHC 30.6 LAB L100.1810 11.6-14.6 % Normal RDW CV 14.6 LAB L100.1820 35.1-43.9 fl High RDW SD 50.3 LAB L100.1900 150-450 K/mm3 Normal PLT 267 LAB L100.2000 6.2-12.0 fl Normal MPV 9.9 LAB L100.2100 47-70 % Normal NEUT% 56.8 LAB L100.2200 19-41 % Normal LY% 28.5 LAB L100.2300 0-10 % Normal MONO% 7.9 LAB L100.2400 0-5 % High EO% 6.1 LAB L100.2500 0-1 % Normal BASO% 0.7 LAB L100.2550 0.0-0.9 % Normal IM GRAN % 0.000 Result Comment: IG% - Immature Granulocytes (promyelocytes, myelocytes and metamyelocytes) > 1% indicates that a LEFT SHIFT is Present. LAB L100.2620 2.0-7.7 X10 3/uL Normal Absolute Neut 4.1 LAB L100.2720 0.83-4.51 X10 3/ul Normal Absolute Lymph 2.07 Performed By: #### L100.0100 #### [facility] [address] [place], [address] COMPREHENSIVE METABOLIC Collected: 12/30/2017 Status: F Source: [facility] 8:11 AM [facility] REPOSITORY Order Comment: OZZY MARROQUIN GETS CMP, DR COLON GETS CBCD Order Date: 10/24/17 Order Info: 0786-1 - CMP TYPE CODE TESTS RESULT OUT OF RANGE REFERENCE UNITS LAB L501.0100 74-106 mg/dL Normal GLU 91 Result Comment: Please note revised GLUCOSE reference range effective 2017. LAB L501.1000 7-18 mg/dL High BUN 32 LAB L501.1100 0.55-1.02 mg/dL High CREAT,SERUM 1.11 Result Comment: The validity of the calculated GFR AND GFRAA in patients over 70 years has not been determined. Clinical correlation is essential. LAB L501.1110 >60 mL/min Low EST GFR 50 Result Comment: Non- GFR Calc LAB L501.1115 >60 mL/min Normal EST GFR - AA 61 Result Comment: GFR Calc LAB L501.1300 10-20 RATIO High BUN/CRE 28.8 LAB L501.1500 6.4-8.2 g/dL T Normal PROT 7.1 LAB L501.1800 3.2-5.0 g/dL Low ALB 3.0 LAB L501.1950 2.2-4.2 g/dL Normal GLOB 4.1 LAB L501.2000 0.9-2.4 RATIO Low A/G 0.7 LAB L501.2200 8.5-10.1 mg/dL CA Normal 9.0 LAB L501.4100 15-37 U/L Low AST 13 LAB L501.4305 45-117 U/L High ALK P 131 LAB L501.4405 13-56 U/L Normal ALT 14 LAB L501.4600 0.20-1.00 mg/dL T Normal BILI 0.40 LAB L501.5300 136-145 mmol/L NA Normal 140 LAB L501.5600 3.5-5.1 mmol/L K Normal 4.3 LAB L501.5900 98-107 mmol/L CL Normal 105 LAB L501.6100 21.0-32.0 mmol/L Normal CO2 29.0 LAB L501.6200 5-15 Normal GAP 6 Performed By: #### L500.4050 #### [facility] [address] [facility]. [place], [place], [address] CBC W/DIFF, AUTOMATED Collected: 12/29/2017 Status: F Source: [place] 8:16 AM [facility] REPOSITORY Order Comment: Reason for Laboratory Test . TYPE CODE TESTS RESULT OUT OF RANGE REFERENCE UNITS LAB L100.1000 4.4-11.0 K/mm3 Normal WBC 8.2 LAB L100.1200 4.2-5.4 M/mm3 Low RBC 3.54 LAB L100.1300 12.0-15.0 g/dl Low HGB 10.2 LAB L100.1400 37-47 % Low HCT 33.8 LAB L100.1500 81-99 fL Normal MCV 95.5 LAB L100.1600 27.0-32.0 pg Normal MCH 28.8 LAB L100.1700 32-36 g/gl Low MCHC 30.2 LAB L100.1810 11.6-14.6 % Normal RDW CV 14.4 LAB L100.1820 35.1-43.9 fl High RDW SD 50.3 LAB L100.1900 150-450 K/mm3 Normal PLT 253 LAB L100.2000 6.2-12.0 fl Normal MPV 9.9 LAB L100.2100 47-70 % Normal NEUT% 59.2 LAB L100.2200 19-41 % Normal LY% 26.7 LAB L100.2300 0-10 % Normal MONO% 7.7 LAB L100.2400 0-5 % High EO% 5.7 LAB L100.2500 0-1 % Normal BASO% 0.6 LAB L100.2550 0.0-0.9 % Normal IM GRAN % 0.100 Result Comment: IG% - Immature Granulocytes (promyelocytes, myelocytes and metamyelocytes) > 1% indicates that a LEFT SHIFT is Present. LAB L100.2620 2.0-7.7 X10 3/uL Normal Absolute Neut 4.9 LAB L100.2720 0.83-4.51 X10 3/ul Normal Absolute Lymph 2.19 Performed By: #### L100.0100 #### [facility] [address] [place], [address] COMPREHENSIVE METABOLIC Collected: 12/29/2017 Status: F Source: [facility] 8:16 AM [facility] REPOSITORY Order Comment: Reason for Laboratory Test . TYPE CODE TESTS RESULT OUT OF RANGE REFERENCE UNITS LAB L501.0100 74-106 mg/dL Normal GLU 93 Result Comment: Please note revised GLUCOSE reference range effective 2017. LAB L501.1000 7-18 mg/dL High BUN 33 LAB L501.1100 0.55-1.02 mg/dL High CREAT,SERUM 1.14 Result Comment: The validity of the calculated GFR AND GFRAA in patients over 70 years has not been determined. Clinical correlation is essential. LAB L501.1110 >60 mL/min Low EST GFR 49 Result Comment: Non- GFR Calc LAB L501.1115 >60 mL/min Low EST GFR - AA 59 Result Comment: GFR Calc LAB L501.1255 ml/min Normal Estimated CRCL 28.27 LAB L501.1300 10-20 RATIO High BUN/CRE 28.9 LAB L501.1500 6.4-8. g/dL Normal 2 T PROT 7.3 LAB L501.1800 3.2-5. g/dL Low 0 ALB 3.0 LAB L501.1950 2.2-4. g/dL High 2 GLOB 4.3 LAB L501.2000 0.9-2. RATIO Low 4 A/G 0.7 LAB L501.2200 8.5-10 mg/dL Normal .1 CA 9.1 LAB L501.4100 15-37 U/L Normal AST 15 LAB L501.4305 45-117 U/L High ALK P 137 LAB L501.4405 13-56 U/L Normal ALT 15 LAB L501.4600 0.20-1 mg/dL Normal .00 T BILI 0.50 LAB L501.5300 136-14 mmol/L Normal 5 NA 141 LAB L501.5600 3.5-5. mmol/L Normal 1 K 4.0 LAB L501.5900 98-107 mmol/L Normal CL 105 LAB L501.6100 21.0-3 mmol/L Normal 2.0 CO2 30.0 LAB L501.6200 5-15 Normal GAP 6 Performed By: #### L500.4050, L503.6075, L503.6150, L503.6550 #### [facility] [address] [place], [place], [address] IRON BINDING Collected: 12/29/2017 Status: F Source: [facility] 8:16 AM [facility] REPOSITORY Order Comment: Reason for Laboratory Test . TYPE CODE TESTS RESULT OUT OF RANGE REFERENCE UNITS LAB L503.6075 250-450 ug/dL Normal TIBC 321 Performed By: #### L500.4050, L503.6075, L503.6150, L503.6550 #### [facility] [address] [place], [place], [address] IRON Collected: 12/29/2017 Status: F Source: [place] 8:16 AM [facility] REPOSITORY Order Comment: Reason for Laboratory Test . TYPE CODE TESTS RESULT OUT OF RANGE REFERENCE UNITS LAB L503.6150 50-170 ug/dL Low IRON 46 Performed By: #### L500.4050, L503.6075, L503.6150, L503.6550 #### [facility] [address] [place], [address] FERRITIN Collected: 12/29/2017 Status: F Source: [place] 8:16 AM [facility] REPOSITORY Order Comment: Reason for Laboratory Test . TYPE CODE TESTS RESULT OUT OF RANGE REFERENCE UNITS LAB L503.6550 8-252 ng/mL Normal FERRITIN 106 Performed By: #### L500.4050, L503.6075, L503.6150, L503.6550 #### [facility] [address] [place], [address] CBC W/DIFF, AUTOMATED Collected: 10/21/2017 Status: F Source: [place] 8:02 AM [facility] REPOSITORY Order Comment: Order Date: 10/20/17 Order Info: 0184-1 - CBCD PLEASE SEND COPIES TO DR.KEN UPTON TYPE CODE TESTS RESULT OUT OF RANGE REFERENCE UNITS LAB L100.1000 4.4-11.0 K/mm3 Normal WBC 6.2 LAB L100.1200 4.2-5.4 M/mm3 Low RBC 3.60 LAB L100.1300 12.0-15.0 g/dl Low HGB 10.2 LAB L100.1400 37-47 % Low HCT 34.4 LAB L100.1500 81-99 fL Normal MCV 95.6 LAB L100.1600 27.0-32.0 pg Normal MCH 28.3 LAB L100.1700 32-36 g/gl Low MCHC 29.7 LAB L100.1810 11.6-14.6 % Normal RDW CV 14.3 LAB L100.1820 35.1-43.9 fl High RDW SD 49.8 LAB L100.1900 150-450 K/mm3 Normal PLT 270 LAB L100.2000 6.2-12.0 fl Normal MPV 10.7 LAB L100.2100 47-70 % Normal NEUT% 55.2 LAB L100.2200 19-41 % Normal LY% 31.2 LAB L100.2300 0-10 % Normal MONO% 8.3 LAB L100.2400 0-5 % Normal EO% 4.7 LAB L100.2500 0-1 % Normal BASO% 0.6 LAB L100.2550 0.0-0.9 % Normal IM GRAN % 0.000 Result Comment: IG% - Immature Granulocytes (promyelocytes, myelocytes and metamyelocytes) > 1% indicates that a LEFT SHIFT is Present. LAB L100.2620 2.0-7.7 X10 3/uL Normal Absolute Neut 3.4 LAB L100.2720 0.83-4.51 X10 3/ul Normal Absolute Lymph 1.93 Performed By: #### L100.0100, L500.4050, L500.4100, L503.6550, L503.0105, L501.9985 #### [facility] [address] [place], [place], [address] COMPREHENSIVE METABOLIC Collected: 10/21/2017 Status: F Source: [facility] 8:02 AM [facility] REPOSITORY Order Comment: PLEASE SEND COPIES TO DR.KEN UPTON Order Date: 10/20/17 Order Info: [id number] - CMP Order Info: [id number] - LIPID Order Info: 2276-4 - KEEGAN TYPE CODE TESTS RESULT OUT OF RANGE REFERENCE UNITS LAB L501.0100 74-106 mg/dL Normal GLU 98 Result Comment: Please note revised GLUCOSE reference range effective 2017. LAB L501.1000 7-18 mg/dL High BUN 36 LAB L501.1100 0.55-1.02 mg/dL High CREAT,SERUM 1.07 Result Comment: The validity of the calculated GFR AND GFRAA in patients over 70 years has not been determined. Clinical correlation is essential. LAB L501.1110 >60 mL/min Low EST GFR 52 Result Comment: Non- GFR Calc LAB L501.1115 >60 mL/min Normal EST GFR - AA 63 Result Comment: GFR Calc LAB L501.1300 10-20 RATIO High BUN/CRE 33.6 LAB L501.1500 6.4-8.2 g/dL T Normal PROT 7.3 LAB L501.1800 3.2-5.0 g/dL Low ALB 3.0 LAB L501.1950 2.2-4.2 g/dL High GLOB 4.3 LAB L501.2000 0.9-2.4 RATIO Low A/G 0.7 LAB L501.2200 8.5-10.1 mg/dL CA Normal 9.0 LAB L501.4100 15-37 U/L Low AST 14 LAB L501.4305 45-117 U/L High ALK P 125 LAB L501.4405 13-56 U/L Normal ALT 16 LAB L501.4600 0.20-1.00 mg/dL T Normal BILI 0.40 LAB L501.5300 136-145 mmol/L NA Normal 141 LAB L501.5600 3.5-5.1 mmol/L K Normal 4.4 LAB L501.5900 98-107 mmol/L CL Normal 106 LAB L501.6100 21.0-32.0 mmol/L Normal CO2 28.0 LAB L501.6200 5-15 Normal GAP 7 Performed By: #### L100.0100, L500.4050, L500.4100, L503.6550, L503.0105, L501.9985 #### [facility] [address] [place], [address] LIPID PROFILE Collected: 10/21/2017 Status: F Source: [place] 8:02 AM [facility] REPOSITORY Order Comment: PLEASE SEND COPIES TO DR.KEN UPTON Order Date: 10/20/17 Order Info: [id number] - CMP Order Info: [id number] - LIPID Order Info: 2276-4 - KEEGAN TYPE CODE TESTS RESULT OUT OF RANGE REFERENCE UNITS LAB L501.4900 200 mg/dL Normal CHOL 173 Result Comment: <200 mg/dL Desirable 200-240 mg/dL Borderline >240 mg/dL High Risk LAB L501.5000 mg/dL Normal TRIG 58 Result Comment: The drugs N-Acetylcysteine and Metamizole may falsely depress this assay. Serum Triglycerides Reference Interval Normal <150 mg/dL Borderline high 150 - 199 mg/dL High 200 - 499 mg/dL Very High > or = 500 mg/dL LAB L501.6400 mg/dL Normal HDL 68 Result Comment: The drugs N-Acetylcysteine and Metamizole may falsely depress this assay. Reference Range HDL <40 mg/dL Low HDL Cholesterol HDL >or= 60 mg/dL High HDL Cholesterol LAB L501.6500 0-130 mg/dL Normal LDL 93 LAB L501.6600 5-40 mg/dL Normal VLDL 12 Performed By: #### L100.0100, L500.4050, L500.4100, L503.6550, L503.0105, L501.9985 #### [facility] [address] [place], [place], [address] FERRITIN Collected: 10/21/2017 Status: F Source: [place] 8:02 AM [facility] REPOSITORY Order Comment: PLEASE SEND COPIES TO DR.KEN UPTON Order Date: 10/20/17 Order Info: [id number] - CMP Order Info: [id number] - LIPID Order Info: 2276-4 - KEEGAN TYPE CODE TESTS RESULT OUT OF RANGE REFERENCE UNITS LAB L503.6550 8-252 ng/mL Normal FERRITIN 136 Performed By: #### L100.0100, L500.4050, L500.4100, L503.6550, L503.0105, L501.9985 #### [facility] [facility] [place], [place], [id number] VITAMIN B12 Collected: 10/21/2017 Status: F Source: [place] 8:02 AM [facility] REPOSITORY Order Comment: Order Date: 10/20/17 PLEASE SEND COPIES TO DR.KEN UPTON Order Info: 2 132-9 - B12 TYPE CODE TESTS RESULT OUT OF RANGE REFERENCE UNITS LAB L503.0105 211-911 pg/mL Normal Vitamin B12 910 Performed By: #### L100.0100, L500.4050, L500.4100, L503.6550, L503.0105, L501.9985 #### [facility] [address] [place], [place], [address] HEMOGLOBIN A1C Collected: 10/21/2017 Status: F Source: [place] 8:02 AM [facility] REPOSITORY Order Comment: PLEASE SEND COPIES TO DR.KEN UPTON Order Date: 10/20/17 Order Info: 4548-4 - A1C TYPE CODE TESTS RESULT OUT OF RANGE REFERENCE UNITS LAB L501.9985 4.2-6.3 % Normal HGB A1C 5.6 Performed By: #### L100.0100, L500.4050, L500.4100, L503.6550, L503.0105, L501.9985 #### [facility] [address] [place], [address] ORTHOPEDIC VISIT Observed: 09/19/2017 Status: F Source: [place] REPORT 10:32 AM [facility] REPOSITORY [facility] [address] [place] [address] OFFICE VISIT Date of Service: 08/31/17 MR#: [id number] Acct: [id number] Name: CELINA GALINDO Rep #: [id number] : 1935 Provider: Mario Alberto Garcia DO Age/Sex: 82/F [place] [facility] [place] [place] Status: Signed Intake Intake Visit Reasons: RIGHT SHOULDER Is patient in pain?: Yes Pain scale (1-10): 7 Allergies No Known Allergies Allergy (Verified 07/06/17 12:59) Medications Cholecalciferol (VIT D3) [Vitamin D3] 2,000 unit PO DAILY 05/24/16 [History Confirmed 07/06/17] Furosemide [Lasix] 40 mg PO DAILY 05/24/16 [History Confirmed 07/06/17] Levothyroxine [Synthroid] 50 mcg PO DAILY 05/24/16 [History Confirmed 07/06/17] Metoprolol Tartrate 25 mg PO BID 05/24/16 [History Confirmed 07/06/17] Pantoprazole Sodium [Protonix] 40 mg PO DAILY 05/24/16 [History Confirmed 07/06/17] Pravastatin [Pravachol] 40 mg PO QHS 05/24/16 [History Confirmed 07/06/17] Albuterol IH (ProAir) [Proair Hfa] 1 - 2 puff INHALATION Q4H PRN PRN #1 inhaler 07/27/16 [Rx Confirmed 07/06/17] Ferrous Sulfate 325 mg PO BIDCM #60 tab 07/27/16 [Rx Confirmed 07/06/17] Magnesium Oxide 400 mg PO BID #60 tab 07/27/16 [Rx Confirmed 07/06/17] Senna/Docusate Sodium [Senokot-S] 2 tab PO BID #120 tab 07/27/16 [Rx Confirmed 07/06/17] Dulera 200 Mcg/5 Mcg Inhaler 200 mcg INHALATION BID 08/24/16 [History Confirmed 07/06/17] hydrocodone 5 mg-acetaminophen 300 mg tablet 1 tab PO ONCE tab 05/16/17 [History Confirmed 07/06/17] tramadol 50 mg tablet 50 mg PO Q6H PRN #60 tab 08/31/17 [Rx Confirmed 08/31/17] PFSH Surgical History H/O right knee surgery (Inactive) History of total left hip arthroplasty (Inactive) History of total replacement of left shoulder joint (Inactive) Family History Father Heart disease Social History Smoking Status: Never smoker HPI RIGHT SHOULDER: Details: CELINA GALINDO is a 82 year old F here today for increased right shoulder pain. She states that her pain is anterior but can travel into the trap and down the biceps. She ambulates with a walker when out of her house and that tends to make the shoulder hurt worse. Denies numbness, tingling or other associated symptoms. She has decreased rom today and complains of intermittent swelling of her shoulder. ROS Musc Reports limited joint movement, Reports stiffness, Reports joint pain, Reports muscle weakness Ortho Exam Right Shoulder SHOULDER: Patient otherwise alert and oriented x3 in no acute distress. Contact and affect. Otherwise remains intact from C5-T2 distributions. Musculotendinous extra nerve function is 5 out of 5. Patient has limited range of motion secondary to rotator cuff arthropathy on the right. Pulses are maintained. Office Procedures Ortho Injections Injections Yes Subacromial Injection Right Details: Obtained consent for injection. Under sterile conditions, injected the patients right subacromial joint with a 10cc cocktail of 8cc bupivacaine and 2cc kenalog. The patient tolerated the injection well without any noted complication. Patient should call our office if redness develops, pain worsens or if they have any concerns. Office Meds Kenalog Performing Provider: Mario Alberto Garcia DO Administered by: Mario Alberto Garcia DO on 08/31/17 13:14 Dose Route Admin Location Lot Number Expiration DateNDC Credit Balance Specialist 2 mg Intra-Articularright shoulder AAU 3232 08/02/18 3143-8632-56 [email or web address] Assessment AND Plan Problems 1. Rotator cuff tear arthropathy of right shoulder M75.101; M12.811 2. Chronic right shoulder pain M25.511; G89.29 Plan Assessment: Right shoulder rotator cuff arthropathy right shoulder pain. Plan: 1 time of proceeding with a right shoulder injection per the patient's request. I will also refer her to Dr. Colon at [facility] for possible surgical intervention the patient will require. I think the patient would benefit from a reverse total shoulder arthroplasty for long-term treatment of her shoulder pain. Obtained consent for injection. Under sterile conditions, injected the patients right subacromial joint with a 10cc cocktail of 8cc bupivacaine and 2cc kenalog. The patient tolerated the injection well without any noted complication. Patient should call our office if redness develops, pain worsens or if they have any concerns. Patient follow-up with Dr. Reilly. A major treatment plan. Patient agrees to plan. 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 [place] REPOSITORY O ID: [id number] Author: Juan Upton Service: (none) Author Type: Physician Type: Progress Notes Filed: 08/25/2017 6:04 PM Note Text: PERTINENT CARDIAC HISTORY HTN HL SAAD Thoracic aortic aneurysm - repair 2004 DM Possible TIAs ASHD - minimal by cath 2004 CHF - diastolic, no VICTORINO-I due to low BP Postural lightneadedness SVT ADHERENCE TO GUIDELINES VICTORINO-I or ARB for HF with prior LVEF<40 (NQF 0081) - N/A ASA or Plavix for ASHD (NQF 0067) - Fe def anemia Beta emil for ASHD with prior ME or prior LVEF<40 (NQF 0070) - N/A Beta emil for HF with prior LVEF<40 (NQF 0083) - N/A VICTORINO-I or ARB for ASHD with DM or prior LVEF<40 (NQF 0066) - hypotension Statin therapy for ASHD or FHL or DM - met BMI documented and plan if >25 (NQF 0421) - lifestyle recommendation form Tobacco use screening and referral (NQ 0028) - lifestyle recommendation form Recommendation for whole food, plant based diet - lifestyle recommendation form CLINICAL IMPRESSION/PLAN: Celina Galindo is doing well. She has had no assessment of her aortic repair in over 10 years. This will be discussed with her again I see her. I've encouraged her to continue her current medication and try to be active to get her weight under better control. I will see her in 8 months or as needed. If there is increased chest pain or shortness breath, she's been advised to contact me. I've asked her to call with vital signs in the next several weeks. Written and verbal health teaching given to patient, patient verbalizes understanding and agrees with treatment plan. DIAGNOSIS FOR VISIT: ASHD Hypertension HISTORY OF PRESENT ILLNESS Celina Galindo returns for follow-up of multiple cardiac issues, as noted above. She reports that she has been feeling well. She's had no further episodes of syncope or lightheadedness. She denies chest pain. She's had no orthopnea. She's had stable edema. She denies palpitations, TIAs, amaurosis and claudication ALLERGIES: ALLERGIES Allergen Reactions - Seasonal Allergies Unknown - Tape [Other] CURRENT OUTPATIENT MEDICATIONS: furosemide (LASIX) 40 mg tablet Take 0.5 tablets by mouth once daily. acetaminophen (TYLENOL EXTRA STRENGTH) 500 mg tablet Take 500 mg by mouth every 8 hours as needed. magnesium oxide 400 mg cap Take 400 mg by mouth twice daily. metoprolol tartrate, short acting, (LOPRESSOR) 25 mg tablet Take 25 mg by mouth twice daily. mometasone-formoterol (DULERA) 200-5 mcg/actuation inhaler Inhale as instructed twice daily. Cholecalciferol, Vitamin D3, 1,000 unit cap Take 1,000 Units by mouth twice daily. levothyroxine (SYNTHROID) 50 mcg tablet Take 50 mcg by mouth daily before breakfast. albuterol HFA (PROAIR HFA) 90 mcg/actuation inhaler Inhale 2 Puffs as instructed every 6 hours as needed. ferrous sulfate 325 mg (65 mg iron) tablet Take 325 mg by mouth daily with breakfast. pravastatin (PRAVACHOL) 40 mg tablet Take 40 mg by mouth once daily. OTC NUTRITIONAL SUPPLEMENT xango drink 1 1/2 oz daily PROTONIX 40 MG ORAL TBEC Take one(1) tablet daily. CYANOCOBALAMIN, VITAMIN B-12, (VITAMIN B-12 ORAL) Take by mouth. HYDROCODONE-ACETAMINOPHEN 5 MG-500 MG TAB Take one(1) tablet every four(4) hours as needed. PHYSICAL EXAMINATION: VITAL SIGNS: BP 134/70 Pulse 70 Wt 183 lb 6.4 oz (83.2kg) Chest: Clear to percussion and auscultation. Trachea is midline. Air entry is equal. Cardiac: Regular rhythm. S1 and S2 are normal. PMI is nondisplaced. There is a soft systolic ejection murmur. Carotids are brisk without bruits. JVP is less than 10 cm. Abdomen: Soft and nontender. There are no pulsatile masses or bruits. No liver enlargement. Bowel sounds are active. Extremities: Trace edema. Pulses are intact and symmetrical. EKG shows sinus rhythm. There is evidence of previous inferior ME. Poor R-wave progression is noted. There is no significant change from 12/19/14. Recent labs were reviewed. Hemoglobin has improved. Renal function is stable. She has been treated for iron deficiency anemia. I asked her to get copy of her next lab reports for us. Electronically Signed: Juan Upton MD August 25, 2017 10:54 AM CC: Mylene Preciado MD CNOV Observed: 08/25/2017 Status: COMPLETED Source: [place] 10:30 AM [facility] REPOSITORY Office Visit (MNWSTR) CELINA GALINDO ([id number]) 1935 F Date Time Provider Department 08/25/17 10:30 AM JUAN UPTON During your visit today, we recorded the following information about you: Pulse Blood pressure Weight 70/minute 134/70 83.2 kg Juan Upton MD 08/25/2017 6:04 PM Signed PERTINENT CARDIAC HISTORY HTN HL SAAD Thoracic aortic aneurysm - repair 2004 DM Possible TIAs ASHD - minimal by cath 2004 CHF - diastolic, no VICTORINO-I due to low BP Postural lightneadedness SVT ADHERENCE TO GUIDELINES VICTORINO-I or ARB for HF with prior LVEF<40 (NQF 0081) - N/A ASA or Plavix for ASHD (NQF 0067) - Fe def anemia Beta emil for ASHD with prior ME or prior LVEF<40 (NQF 0070) - N/A Beta emil for HF with prior LVEF<40 (NQF 0083) - N/A VICTORINO-I or ARB for ASHD with DM or prior LVEF<40 (NQF 0066) - hypotension Statin therapy for ASHD or FHL or DM - met BMI documented and plan if >25 (NQF 0421) - lifestyle recommendation form Tobacco use screening and referral (NQF 0028) - lifestyle recommendation form Recommendation for whole food, plant based diet - lifestyle recommendation form CLINICAL IMPRESSION/PLAN: Celina Galindo is doing well. She has had no assessment of her aortic repair in over 10 years. This will be discussed with her again I see her. I've encouraged her to continue her current medication and try to be active to get her weight under better control. I will see her in 8 months or as needed. If there is increased chest pain or shortness breath, she's been advised to contact me. I've asked her to call with vital signs in the next several weeks. Written and verbal health teaching given to patient, patient verbalizes understanding and agrees with treatment plan. DIAGNOSIS FOR VISIT: ASHD Hypertension HISTORY OF PRESENT ILLNESS Celina Galindo returns for follow-up of multiple cardiac issues, as noted above. She reports that she has been feeling well. She's had no further episodes of syncope or lightheadedness. She denies chest pain. She's had no orthopnea. She's had stable edema. She denies palpitations, TIAs, amaurosis and claudication ALLERGIES: ALLERGIES Allergen Reactions - Seasonal Allergies Unknown - Tape [Other] CURRENT OUTPATIENT MEDICATIONS: furosemide (LASIX) 40 mg tablet Take 0.5 tablets by mouth once daily. acetaminophen (TYLENOL EXTRA STRENGTH) 500 mg tablet Take 500 mg by mouth every 8 hours as needed. magnesium oxide 400 mg cap Take 400 mg by mouth twice daily. metoprolol tartrate, short acting, (LOPRESSOR) 25 mg tablet Take 25 mg by mouth twice daily. mometasone-formoterol (DULERA) 200-5 mcg/actuation inhaler Inhale as instructed twice daily. Cholecalciferol, Vitamin D3, 1,000 unit cap Take 1,000 Units by mouth twice daily. levothyroxine (SYNTHROID) 50 mcg tablet Take 50 mcg by mouth daily before breakfast. albuterol HFA (PROAIR HFA) 90 mcg/actuation inhaler Inhale 2 Puffs as instructed every 6 hours as needed. ferrous sulfate 325 mg (65 mg iron) tablet Take 325 mg by mouth daily with breakfast. pravastatin (PRAVACHOL) 40 mg tablet Take 40 mg by mouth once daily. OTC NUTRITIONAL SUPPLEMENT xango drink 1 1/2 oz daily PROTONIX 40 MG ORAL TBEC Take one(1) tablet daily. CYANOCOBALAMIN, VITAMIN B-12, (VITAMIN B-12 ORAL) Take by mouth. HYDROCODONE-ACETAMINOPHEN 5 MG-500 MG TAB Take one(1) tablet every four(4) hours as needed. PHYSICAL EXAMINATION: VITAL SIGNS: BP 134/70 Pulse 70 Wt 183 lb 6.4 oz (83.2kg) Chest: Clear to percussion and auscultation. Trachea is midline. Air entry is equal. Cardiac: Regular rhythm. S1 and S2 are normal. PMI is nondisplaced. There is a soft systolic ejection murmur. Carotids are brisk without bruits. JVP is less than 10 cm. Abdomen: Soft and nontender. There are no pulsatile masses or bruits. No liver enlargement. Bowel sounds are active. Extremities: Trace edema. Pulses are intact and symmetrical. EKG shows sinus rhythm. There is evidence of previous inferior ME. Poor R-wave progression is noted. There is no significant change from 12/19/14. Recent labs were reviewed. Hemoglobin has improved. Renal function is stable. She has been treated for iron deficiency anemia. I asked her to get copy of her next lab reports for us. Electronically Signed: Juan Upton MD August 25, 2017 10:54 AM CC: MD Juan Byers MD 08/25/2017 10:55 AM Signed Please ask for lab results to be sent to me LIFESTYLE CHANGE A healthy lifestyle is the most important component of your overall treatment plan. Please give serious thought to the following areas and commit to making longterm changes. EAT A WHOLE FOOD, PLANT BASED [...] family physician about programs in your area. Referring Provider: JUAN UPTON [[id number]] Allergies As of Date: 08/25/2017 Noted Allergy Reaction SEASONAL ALLERGIES 12/05/2014 16 - Unknown TAPE [Other] 11/04/2004 Date Reviewed: 08/25/2017 Reviewed by: Nancy Tam RN - Fully Assessed Reason for Visit: Recheck [92] Primary Visit Diagnosis:Essential hypertension [I10] Other Visit Diagnosis:ASHD (arteriosclerotic heart disease) [I25.10] Order(s):ECG COMPLETE W INTERPRETATION [ECG01] Order #: [id number] FUTURE Prescriptions as of 08/25/2017 Sig: FUROSEMIDE 40 MG [...] every four* Patient not taking: No sig reported Problem List As Of Date 08/25/2017 Noted Resolved [...] HERNIA [K44.9] INVALID FOR* Anemia [D64.9] INVALID FOR* Other instructions from your clinician: Please ask for lab results to be sent to me LIFESTYLE CHANGE A healthy lifestyle is the most important component of your overall treatment plan. Please give serious thought to the following areas and commit to making longterm changes. EAT A WHOLE FOOD, PLANT BASED [...] family physician about programs in your area. Encounter Status:Closed by JUAN UPTON MD on 08/25/17 ONCOLOGY VISIT REPORT Observed: 07/06/2017 Status: F Source: [place] 1:35 PM [facility] REPOSITORY [facility] [place] [address] OFFICE VISIT Date of Service: 07/06/17 1323 MR#: [id number] Acct: [id number] Name: CELINA GALINDO Rep #: [id number] : 1935 From: Francesco Armas MD Age/Sex: 82/F Location: OMD Status: Signed Subjective - Date of Service Date of Service:: 07/06/17 - Chief Complaint F/u for anemia. - History of Present Illness Ms. Celina Galindo is a very pleasant 81y.o.woman with h/o chronic anemia. She underwent upper GI endoscopy and colonoscopy on 05/27/2016 under the care of Dr. Mittal. Pathology showed mild gastritis and rectal tubular adenoma. She had L knee replacement on 07/20/2016 and required PRBC transfusions. Began PO iron 09/15/16 with no improvement. She received Venofer 200mg IV x 5 doses from 11/15/2016 to 11/29/2016. She is on oral iron supplements. Comes in for follow up. - Past Medical/Social History Past Medical History Past Medical History: Anemia,Blood transfusion,Hypertension,Thyroid disease Other Past Medical History: measles, chicken pox, Past Surgical History Surgical: Carpal tunnel,Cholecystectomy,Hernia repair,Hip replacement,Knee replacement Other Surgical History: rotator cuff shoulder sx Family History Paternal Past Medical History: Stroke Maternal Past Medical History: Heart disease Social History Social History: No changes Smoking Status Never smoker Review of Systems Constitutional:: Denies: Weakness, Fatigue, Fever, Sweats Cardiovascular:: Denies: Chest pain, Palpitations, Dyspnea on exertion, Orthopnea, PND, Shortness of breath Respiratory: Denies: Cough, Hemoptysis, Shortness of Breath, Wheezing Gastrointestinal:: Denies: Abdominal pain, Nausea, Vomiting, Diarrhea, Constipation, Hematochezia Genitourinary: Denies: Dysuria, Hematuria, 15, Flank pain Musculoskeletal:: Reports: - - Pain R shoulder Neurological:: Denies: Headache, Dizziness, Visual changes, Tinnitus, Hearing loss Vital Signs Height 5 ft Weight: 79.605 kg Weight in Pounds 175.5 lbs Pulse Ox 95 - Physical Exam General: Alert, Oriented x3, No apparent distress Laboratory Data: 06/24/2017 Hgb 11, Ferritin 173, Iron 59. Assessment and Plan Iron deficiency Anemia resolved. Plan is to continue maintenance Iron 325mg daily for another 6 months. RTC 6 months with CBC, CMP/Iron profile. Primary Care Provider: Mylene Preciado Referring Provider: - Problem List (1) Chronic anemia Status: Chronic Code Visit Office Visits / Consults: 97700 OV L3 Est 07/06/17 1335 <Electronically signed by Francesco Armas MD> Date Francesco Armas MD Cosigner Signature: Date (if applicable) CC: CBC W/DIFF, AUTOMATED Collected: 06/24/2017 Status: F Source: [place] 9:44 AM [facility] REPOSITORY Order Comment: Reason for Laboratory Test OV TYPE CODE TESTS RESULT OUT OF RANGE REFERENCE UNITS LAB L100.1000 4.4-11.0 K/mm3 Normal WBC 7.6 LAB L100.1200 4.2-5.4 M/mm3 Low RBC 3.76 LAB L100.1300 12.0-15.0 g/dl Low HGB 11.0 LAB L100.1400 37-47 % Low HCT 36.2 LAB L100.1500 81-99 fL Normal MCV 96.3 LAB L100.1600 27.0-32.0 pg Normal MCH 29.3 LAB L100.1700 32-36 g/gl Low MCHC 30.4 LAB L100.1810 11.6-14.6 % Normal RDW CV 14.0 LAB L100.1820 35.1-43.9 fl High RDW SD 47.4 LAB L100.1900 150-450 K/mm3 Normal PLT 282 LAB L100.2000 6.2-12.0 fl Normal MPV 9.9 LAB L100.2100 47-70 % Normal NEUT% 61.6 LAB L100.2200 19-41 % Normal LY% 25.4 LAB L100.2300 0-10 % Normal MONO% 7.5 LAB L100.2400 0-5 % Normal EO% 5.0 LAB L100.2500 0-1 % Normal BASO% 0.5 LAB L100.2550 0.0-0.9 % Normal IM GRAN % 0.000 Result Comment: IG% - Immature Granulocytes (promyelocytes, myelocytes and metamyelocytes) > 1% indicates that a LEFT SHIFT is Present. LAB L100.2620 2.0-7.7 X10 3/uL Normal Absolute Neut 4.7 LAB L100.2720 0.83-4.51 X10 3/ul Normal Absolute Lymph 1.93 Performed By: #### L100.0100 #### [facility] [address] [place], [address] VITAMIN B12 Collected: 06/24/2017 Status: F Source: [place] 9:44 AM [facility] REPOSITORY Order Comment: Reason for Laboratory Test OV TYPE CODE TESTS RESULT OUT OF RANGE REFERENCE UNITS LAB L503.0105 211-911 pg/mL Normal Vitamin B12 889 Performed By: #### L503.0105 #### [facility] [address] [place], [address] COMPREHENSIVE METABOLIC Collected: 06/24/2017 Status: F Source: [facility] 9:44 AM [facility] REPOSITORY Order Comment: Reason for Laboratory Test OV Is Patient Taking Vitamins or Folic Acid Supplements? N TYPE CODE TESTS RESULT OUT OF RANGE REFERENCE UNITS LAB L501.0100 74-106 mg/dL Normal GLU 95 Result Comment: Please note revised GLUCOSE reference range effective 2017. LAB L501.1000 7-18 mg/dL High BUN 38 LAB L501.1100 0.55-1.02 mg/dL Normal CREAT,SERUM 0.96 Result Comment: The validity of the calculated GFR AND GFRAA in patients over 70 years has not been determined. Clinical correlation is essential. LAB L501.1110 >60 mL/min Low EST GFR 59 Result Comment: Non- GFR Calc LAB L501.1115 >60 mL/min Normal EST GFR - AA 72 Result Comment: GFR Calc LAB L501.1255 ml/min Normal Estimated CRCL 33.57 LAB L501.1300 10-20 RATIO High BUN/CRE 39.5 LAB L501.1500 6.4-8. g/dL Normal 2 T PROT 7.2 LAB L501.1800 3.2-5. g/dL Low 0 ALB 3.0 LAB L501.1950 2.2-4. g/dL Normal 2 GLOB 4.2 LAB L501.2000 0.9-2. RATIO Low 4 A/G 0.7 LAB L501.2200 8.5-10 mg/dL Normal .1 CA 9.2 LAB L501.4100 15-37 U/L Normal AST 15 LAB L501.4305 45-117 U/L High ALK P 138 LAB L501.4405 13-56 U/L Normal ALT 18 Result Comment: Please note revised ALT reference range effective 2017. LAB L501.4600 0.20-1.00 mg/dL Normal T BILI 0.40 LAB L501.5300 136-145 mmol/L Normal NA 140 LAB L501.5600 3.5-5.1 mmol/L Normal K 4.4 LAB L501.5900 98-107 mmol/L Normal CL 105 LAB L501.6100 21.0-32.0 mmol/L Normal CO2 28.0 LAB L501.6200 5-15 Normal GAP 7 Performed By: #### L500.4050, L503.6075, L503.6150, L503.6550, L506.0250 #### [facility] [address] [facility] [place], [address] IRON BINDING Collected: 06/24/2017 Status: F Source: [facility] 9:44 AM [facility] REPOSITORY Order Comment: Reason for Laboratory Test OV Is Patient Taking Vitamins or Folic Acid Supplements? N TYPE CODE TESTS RESULT OUT OF RANGE REFERENCE UNITS LAB L503.6075 250-450 ug/dL Normal TIBC 310 Performed By: #### L500.4050, L503.6075, L503.6150, L503.6550, L506.0250 #### [facility] [address] [facility] [place], [address] IRON Collected: 06/24/2017 Status: F Source: [place] 9:44 AM [facility] REPOSITORY Order Comment: Reason for Laboratory Test OV Is Patient Taking Vitamins or Folic Acid Supplements? N TYPE CODE TESTS RESULT OUT OF RANGE REFERENCE UNITS LAB L503.6150 50-170 ug/dL Normal IRON 59 Performed By: #### L500.4050, L503.6075, L503.6150, L503.6550, L506.0250 #### [facility] [address] [place], [address] FERRITIN Collected: 06/24/2017 Status: F Source: [place] 9:44 AM [facility] REPOSITORY Order Comment: Reason for Laboratory Test OV Is Patient Taking Vitamins or Folic Acid Supplements? N TYPE CODE TESTS RESULT OUT OF RANGE REFERENCE UNITS LAB L503.6550 8-252 ng/mL Normal FERRITIN 173 Performed By: #### L500.4050, L503.6075, L503.6150, L503.6550, L506.0250 #### [facility] [address] [place], [address] FOLATES, (FOLIC ACID) Collected: 06/24/2017 Status: F Source: [place] 9:44 AM [facility] REPOSITORY Order Comment: Reason for Laboratory Test OV Is Patient Taking Vitamins or Folic Acid Supplements? N TYPE CODE TESTS RESULT OUT OF REFERENCE UNITS RANGE LAB L506.0250 3.1-55.4 ng/mL High FOLATES 62.00 Performed By: #### L500.4050, L503.6075, L503.6150, L503.6550, L506.0250 #### [facility] [address] [place], [address] ORTHOPEDIC VISIT Observed: 05/23/2017 Status: F Source: [place] RE[place] 1:41 PM [facility] REPOSITORY [facility] [address] [place] [address] [address] [place] [address] OFFICE VISIT Date of Service: 05/16/17 MR#: [id number] Acct: [id number] Name: CELINA GALINDO Rep #: [id number] : 1935 Provider: Mario Alberto Garcia DO Age/Sex: 82/F [place] [facility] [place]: Signed Intake Vital Signs05/16/17 Height 5 ft 05/16/17 Weight: 165 lb 05/16/17 Body Mass Index (BMI) 32.2 Intake Visit Reasons: RIGHT SHOULDER Is patient in pain?: Yes Allergies No Known Allergies Allergy (Verified 05/16/17 13:18) Medications Cholecalciferol (VIT D3) [Vitamin D3] 2,000 unit PO DAILY 05/24/16 [History Confirmed 01/05/17] Furosemide [Lasix] 40 mg PO DAILY 05/24/16 [History Confirmed 01/05/17] Levothyroxine [Synthroid] 50 mcg PO DAILY 05/24/16 [History Confirmed 01/05/17] Metoprolol Tartrate 25 mg PO BID 05/24/16 [History Confirmed 01/05/17] Pantoprazole Sodium [Protonix] 40 mg PO DAILY 05/24/16 [History Confirmed 01/05/17] Pravastatin [Pravachol] 40 mg PO QHS 05/24/16 [History Confirmed 01/05/17] Albuterol IH (ProAir) [Proair Hfa] 1 - 2 puff INHALATION Q4H PRN PRN #1 inhaler 07/27/16 [Rx Confirmed 01/05/17] Ferrous Sulfate 325 mg PO BIDCM #60 tab 07/27/16 [Rx Confirmed 01/05/17] Magnesium Oxide 400 mg PO BID #60 tab 07/27/16 [Rx Confirmed 01/05/17] Senna/Docusate Sodium [Senokot-S] 2 tab PO BID #120 tab 07/27/16 [Rx Confirmed 01/05/17] Dulera 200 Mcg/5 Mcg Inhaler 200 mcg INHALATION BID 08/24/16 [History Confirmed 01/05/17] hydrocodone 5 mg-acetaminophen 300 mg tablet 1 tab PO ONCE tab 05/16/17 [History Confirmed 05/16/17] PFSH Surgical History H/O right knee surgery (Inactive) History of total left hip arthroplasty (Inactive) History of total replacement of left shoulder joint (Inactive) Family History Father Heart disease Social History Smoking Status: Never smoker HPI RIGHT SHOULDER: Details: CELINA GALINDO is a 82 year old F here today for right shoulder pain that radiates into her bicep. She has no known injury, history of left tsa. She only has pain in the mornings and takes a vidodin daily. She is ambulating with a walker and has no pain today with that. Her FE and ABD is approximately 100 degrees. Denies numbness, tingling or other associated symptoms. ROS Const Reports system reviewed and no additional complaints, except as docu Eyes Reports system reviewed and no additional complaints, except as docu ENT Reports system reviewed and no additional complaints, except as docu Card Reports system reviewed and no additional complaints, except as docu Resp Reports system reviewed and no additional complaints, except as docu GI Reports system reviewed and no additional complaints, except as docu Musc Reports limited joint movement, Reports stiffness, Reports as per HPI Skin/Breast Reports system reviewed and no additional complaints, except as docu Neuro Yes system reviewed and no additional complaints, except as docu Psych Reports system reviewed and no additional complaints, except as docu Endo Reports system reviewed and no additional complaints, except as docu Ortho Exam Right Shoulder Skin/Wound: Yes CDI Testing: Positive AROM-External Rotation at 90 0-60, PROM- External Rotation at side 0-60, PROM-Forward Elevation 0-180, PROM-External Rotation at 90 0-60, AROM-External Rotation at side 0-60, AROM-Forward Elevation 0-180, Hawkin's, Neer's and empty can Internal Rotation: L2 SHOULDER: Patient is alert and oriented 3 in no acute distress. Appropriate eye contact and affect. Walks with assistive device. Otherwise intact the C5-T2 distributions. She has positive pulses. She has no obvious axillary adenopathy. Currently her shoulder shows glenohumeral habitus with range of motion but she will actively move her shoulder in a near full symmetric plane but does cause pain when she is within the Bang and Neer's motion area. She has weakness with supraspinatus testing and interspace testing at the side in the abducted position. She has negative belly press. However currently again she has minimal discomfort with provocative testing. 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 No other lytic or blastic lesions Left Shoulder Skin/Wound: Yes CDI Contralateral Normal: Yes Testing: Yes AROM-Forward Elevation 0-180, Yes AROM-External Rotation at side 0-60, Yes PROM-External Rotation at side 0-60, Yes AROM-External Rotation at 90 0-60, Yes PROM-Forward Elevation 0-180, Yes PROM-External Rotation at 90 0-60 Internal Rotation: Tip of Scapula Assessment AND Plan Problems 1. Rotator cuff tear arthropathy of right shoulder M12.811 2. Chronic right shoulder pain M25.511; G89.29 Plan Assessment: Right shoulder pain right shoulder rotator cuff arthropathy Plan: At this point time I discussed with the patient conservative care versus operative intervention. Patient had a reverse total shoulder to the left upper extremity. I told her that would be my recommendation to the right upper extremity based on her radiographic findings. However the patient actually moves the shoulder fairly well and says her pain currently is not too bad. I told patient to consider having an injection and see if that gives her any significant relief should she needed to come back in 4. Otherwise I want her to continue to work on good range of motion of her provider with a AOS shoulder guidelines keep working on some strengthening. If the patient were to fail conservative measures and consideration for right reverse total shoulder arthroplasty should be warranted. If the patient decides to proceed with operative intervention I will get a CT examination to evaluate for retroversion and overall glenohumeral changes. But again the patient would be a candidate for reverse total shoulder arthroplasty secondary to rotator cuff pathology Orders Orders: Medications Discontinued: acetaminophen Discontinued Reason: 1,000 mg (2 x 500 mg) PO Q8H PRN PRN Marlene Ness Pt no longer taking ld Pain (-06/11) Coding Level of Care Code Off vis,new,level 3 Diagnoses Rotator cuff tear arthropathy of right shoulder M12.811 Chronic right shoulder pain M25.511; G89.29 Chronicity: chronic 05/23/17 1341 <Electronically signed by Mario Alberto Garcia DO> Date Mario Alberto Garcia DO Cosigner Signature: Date (if applicable) CC: SHOULDER MIN 2 VIEWS Observed: 05/16/2017 Status: F Source: PAKO 1:20 PM [facility] REPOSITORY [facility] Imaging Services [address] [place] [address] Shoulder min 2 Views MR#: [id number] Acct: [id number] Name: CELINA GALINDO Rep #: [id number] : 1935 F 82 From: Dimas Fitch MD PCP: Mylene Preciado MD Status: REG CLI Study: Shoulder min 2 Views Date of Exam: 05/16/17 Exam# [id number] Ordering Dr: Mario Alberto Garcia DO STUDY: X-RAY - RIGHT SHOULDER REASON FOR EXAM: Female, 82 years old. Shoulder pain TECHNIQUE: 3 view(s) of the shoulder. COMPARISON: None. FINDINGS: There is moderate degenerative arthrosis of the glenohumeral articulation. There is minimal widening of the AC joint suggesting a Type I acromioclavicular joint separation. Normal acromion. There is narrowing of the space between the acromion and humerus consistent with chronic rotator cuff tear. There is demineralization of the humerus and visualized osseous structures. The soft tissue structures are unremarkable. Surgical clips are seen anterior to the axilla. Normal visualized pulmonary apex. RAD/Shoulder min 2 Views IMPRESSION: Degenerative changes. Probable chronic rotator cuff tear. Possible AC joint separation Electronically Signed: Dimas Fitch MD at 18:31 EST , Service support , CC: Mylene Preciado MD; Mario Alberto Garcia DO Enamel Drier: Signed CBC W/DIFF, AUTOMATED Collected: 04/25/2017 Status: F Source: PAKO 3:38 PM [facility] REPOSITORY TYPE CODE TESTS RESULT OUT OF RANGE REFERENCE UNITS LAB L100.1000 4.4-11.0 K/mm3 Normal WBC 8.7 LAB L100.1200 4.2-5.4 M/mm3 Low RBC 3.92 LAB L100.1300 12.0-15.0 g/dl Low HGB 11.1 LAB L100.1400 37-47 % Normal HCT 37.4 LAB L100.1500 81-99 fL Normal MCV 95.4 LAB L100.1600 27.0-32.0 pg Normal MCH 28.3 LAB L100.1700 32-36 g/gl Low MCHC 29.7 LAB L100.1810 11.6-14.6 % High RDW CV 15.4 LAB L100.1820 35.1-43.9 fl High RDW SD 53.9 LAB L100.1900 150-450 K/mm3 Normal PLT 306 LAB L100.2000 6.2-12.0 fl Normal MPV 10.8 LAB L100.2100 47-70 % Normal NEUT% 60.8 LAB L100.2200 19-41 % Normal LY% 28.0 LAB L100.2300 0-10 % Normal MONO% 6.4 LAB L100.2400 0-5 % Normal EO% 4.1 LAB L100.2500 0-1 % Normal BASO% 0.6 LAB L100.2550 0.0-0.9 % Normal IM GRAN % 0.100 Result Comment: IG% - Immature Granulocytes (promyelocytes, myelocytes and metamyelocytes) > 1% indicates that a LEFT SHIFT is Present. LAB L100.2620 2.0-7.7 X10 3/uL Normal Absolute Neut 5.3 LAB L100.2720 0.83-4.51 X10 3/ul Normal Absolute Lymph 2.44 Performed By: #### L100.0100 #### [facility] [address] [facility] [place], [place], [address] VITAMIN B12 Collected: 04/25/2017 Status: F Source: [place] 3:38 PM [facility] REPOSITORY TYPE CODE TESTS RESULT OUT OF RANGE REFERENCE UNITS LAB L503.0105 211-911 pg/mL Normal Vitamin B12 585 Performed By: #### L503.0105 #### [facility] [address] [place] [address] COMPREHENSIVE METABOLIC Collected: 04/25/2017 Status: F Source: PAKO [facility] 3:38 PM [facility] REPOSITORY TYPE CODE TESTS RESULT OUT OF RANGE REFERENCE UNITS LAB L501.0100 70-110 mg/dL Normal GLU 88 LAB L501.1000 7-18 mg/dL High BUN 40 LAB L501.1100 0.55-1.02 mg/dL High 1.16 CREAT,SERUM Result Comment: The validity of the calculated GFR AND GFRAA in patients over 70 years has not been determined. Clinical correlation is essential. LAB L501.1110 >60 mL/min Low EST GFR 48 Result Comment: Non- GFR Calc LAB L501.1115 >60 mL/min Low EST GFR - AA 58 Result Comment: GFR Calc LAB L501.1300 10-20 RATIO High BUN/CRE 34.5 LAB L501.1500 6.4-8.2 g/dL T Normal PROT 7.7 LAB L501.1800 3.4-5.0 g/dL Low ALB 3.2 Result Comment: Please note revised Albumin AND Globulin reference range effective 2017. LAB L501.1950 2.2-4.2 g/dL High GLOB 4.5 LAB L501.2000 0.9-2.4 RATIO Low A/G 0.7 LAB L501.2200 8.5-10.1 mg/dL Normal CA 9.2 LAB L501.4100 15-37 U/L Normal AST 18 LAB L501.4305 45-117 U/L High ALK P 162 LAB L501.4405 12-78 U/L Normal ALT 18 LAB L501.4600 0.20-1.00 mg/dL Normal T BILI 0.30 LAB L501.5300 136-145 mmol/L Normal NA 140 LAB L501.5600 3.5-5.1 mmol/L Normal K 5.0 LAB L501.5900 98-107 mmol/L Normal CL 104 LAB L501.6100 21.0-32.0 mmol/L Normal CO2 28.0 LAB L501.6200 5-15 Normal GAP 8 Performed By: #### L500.4050, L501.9520, L503.6542 #### [facility] [address] [place], [address] THYROID STIM HORMONE Collected: 04/25/2017 Status: F Source: PAKO (TSH) 3:38 PM [facility] REPOSITORY TYPE CODE TESTS RESULT OUT OF RANGE REFERENCE UNITS LAB L501.9520 0.358-3.74 uIU/mL Normal TSH 2.83 Performed By: #### L500.4050, L501.9520, L503.6550 #### [facility] [address] [place], [address] FERRITIN Collected: 04/25/2017 Status: F Source: PAKO 3:38 PM [facility] REPOSITORY TYPE CODE TESTS RESULT OUT OF REFERENCE UNITS RANGE LAB L503.6550 8-252 ng/mL High FERRITIN 254 Performed By: #### L500.4050, L501.9520, L503.6550 #### [facility] [address] [place], [address] MICROALB:CREAT Collected: 04/25/2017 Status: F Source: PAKO RATIO,RANDOM UR 3:38 PM [facility] REPOSITORY TYPE CODE TESTS RESULT OUT OF RANGE REFERENCE UNITS LAB L501.1200 NO RANGE EST. mg/dL 33.30 Normal UR CREAT LAB L502.0500 NO RANGE EST. mg/L < 5.0 Normal MICROALBUMI N,UR LAB L502.0600 <30 mg/g CRE mg/g CRE Test Normal not performed MALB:CREAT Performed By: #### L502.0250 #### [facility] [address] [place], [address] HEMOGLOBIN A1C Collected: 04/25/2017 Status: F Source: PAKO 3:38 PM [facility] REPOSITORY TYPE CODE TESTS RESULT OUT OF RANGE REFERENCE UNITS LAB L501.9985 4.2-6.3 % Normal HGB A1C 5.6 Performed By: #### L501.9985 #### [facility] [address] [place], [address] ALLERGIES ALLERGIES DATE TYPE / CODE NAME / CODE REACTION SEVERITY SOURCE 03/01/2018 Drug No Known Unknown [place] Allergy/[id number](S Allergies/F0019 [facility] [place]) [address](RXNORM) Hospital Repository 12/05/2014 Environ/413259535(S SEASONAL UNKNOWN [place] NOMED CT) ALLERGIES [facility] Repository 11/04/2004 Miscellaneous OTHER [place] Allergy/074156586(S [facility] NOMED CT) [place] Repository NG/728872117(SNOMED SEASONAL [facility]) [facility]ERGIES [facility] Repository NG/350287286(SNOMED OTHER [facility]) [facility] Repository ENCOUNTERS ENCOUNTERS ADMIT/DISCHARGE ACCOUNT NUMBER ADMITTING ENCOUNTER LOCATION SOURCE CLASS 03/13/2018/03/13/20 [id number] Ambulatory BMSBuilding: [place] 18 BMS.CF.[facility] Repository 03/13/2018/03/13/20 [id number] [place]ulatory [place] ding:ENRoom: Repository AC02 03/11/2018/03/11/20 [id number] Ambulatory [place] [facility] [address] [place] [address] ding:MS3OUT Repository 03/03/2018 [id number] Wesley Godoy Chi Inpatient [place] ding:TCURoom Repository : MZM08Bkq: 1 03/03/2018 [id number] Wesley Godoy Chi Ambulatory BMSBuilding: [place] BMS.CF.[facility] Repository 03/01/2018/03/03/20 [id number] Ariel, Inpatient [place] 18 Rj Encounter [facility] ding:FP1Naeb Repository : QS552Awe: 1 02/27/2018/02/28/20 [id number] Ambulatory [address] Repository 02/27/2018 [id number] Ambulatory [place] [facility] acute hospital ding:ONC Repository 02/21/2018 [id number] Ambulatory BMSBuilding: [place] BMS.CF.[facility] Repository 02/15/2018 [id number] Ambulatory BMSBuilding: [place] [facility] Repository 02/08/2018/02/09/20 [id number] Ambulatory [place] [facility] [address] [place] [address] ding:PT Repository 02/01/2018 [id number] Ambulatory BMSBuilding: [place] BMS.CF.[facility] Repository 01/18/2018 [id number] Ambulatory [facility] ding:CT Repository 01/04/2018 [id number] Ambulatory BMSBuilding: [place] BMS.CF.[facility] Repository 12/30/2017 [id number] Ambulatory [facility] ding:LAB Repository 10/21/2017 [id number] Ambulatory [facility] ding:MFPLAB Repository 08/31/2017/09/01/19 [id number] Ambulatory BMSBuilding: [place] 18 BMS.[facility] Repository 08/25/2017/08/26/19 [id number] Ambulatory [address] Repository 08/25/2017 [id number] Ambulatory [facility] MEDICAL Repository CENTERBuildi ng:CAGWS 07/06/2017 [id number] Ambulatory BMSBuilding: [place] BMS.CF.[facility] Repository 05/16/2017 [id number] Ambulatory [facility] ding:HPRAD Repository 05/16/2017/05/16/19 [id number] Ambulatory BMSBuilding: [place] 18 BMS.[facility] Repository 04/25/2017 [id number] Ambulatory [facility] ding:MFPLAB Repository PAYERS PAYERS ENCOUNTER GUARANTOR PAYER SUBSCRIBER SOURCE 03/13/2018 CELINA Pollack Primary CELINA [place] [id number] Insurance:ITZEL CAMPBELL: [place]icy [id number] Number: Repository [phone]: (060) [id number] [phone] () Date:3312-80-79Ei[address] [address]DZ: 03/13/2018 Secondary NOT GIVENUNK [place] Insurance:SELF PAY [facility] Number: Effective Repository Date:2018-03-13 03/13/2018 CELINA Pollack Primary CELINA Pollack [place] [id number] Insurance:ITZEL CAMPBELL: Community [place] PPOPolicy [id number] [place] Number: Repository [address]Hsd: (330) [id number] [phone]) Date:9564-74-32Mk [address] [place] [address]BX: 03/13/2018 Secondary NOT GIVENUNK [place] Insurance:SELF PAY [facility] Number: Effective Repository Date:2018-03-13 03/11/2018 CELINA D Primary CELINA D [place] [id number] Insurance:ANTHEM BILLHEIMERDOB: Community [place] PPOPolicy [id number] [place] Number: Repository [address]Llz: (330) [id number] [phone]) Date:4925-08-57Im [address], [place] [address]XS: 03/11/2018 Secondary NOT GIVENUNK [place] Insurance:SELF PAY [facility] Number: Effective Repository Date:2018-03-11 03/03/2018 CELINA D Primary CELINA D [place] [id number] Insurance:ANTHEM BILLHEIMERDOB: Community [place] PPOPolicy [id number] Affairs Medical Center [place] Number: Repository [phone]: (330) [id number] [phone]) Date:1928-76-26Uo [address] [address]QY: 03/03/2018 Secondary NOT GIVENUNK [place] Insurance:SELF PAY [facility] Number: Effective Repository Date:2018-03-03 03/03/2018 CELINA D Primary CELINA D [place] [id number] Insurance:ANTHEM BILLHEIMERDOB: Community [place] PPOPolicy [id number] Affairs [facility] [place] Number: Repository [address]Hnd: (330) [id number] [phone]) Date:6697-87-02Lt [address]ZctbnhhALEX Watkins [address]UU: 03/03/2018 Secondary NOT GIVENUNK [place] Insurance:SELF PAY [facility] Number: Effective Repository Date:2018-03-03 03/01/2018 CELINA D Primary CELINA D [place] [id number] Insurance:ANTHEM BILLHEIMERDOB: Community [place] PPOPolicy [id number] Number: Repository [address]Hsm: (330 [id number] [phone] () Date:3866-42-87Tc [address] [place] [address]YD: 03/01/2018 Secondary NOT GIVENUNK [place] Insurance:SELF PAY [facility] Number: Effective Repository Date:2018-01-02 02/27/2018 CELINA D Primary CELINA D [place] [id number] Insurance:ANTHEM BILLHEIMERDOB: Community [place] PP[place]icy [id number] Number: Repository [address]Mxd: (330 [id number] [phone] () Date:8055-95-62Ke [address] [place] [address]NK: 02/27/2018 Secondary NOT GIVENUNK [place] Insurance:SELF PAY [facility] Number: Effective Repository Date:2016-09-09 02/21/2018 CELINA D Primary CELINA D [place] [id number] Insurance:ANTHEM BILLHEIMERDOB: Community [place] PP[place]icy [id number] Number: Repository [address]Gvj: (330) [id number] [phone]) Date:5641-39-56Lf [address]Vqjftlp, [place] [address]EU: 02/21/2018 Secondary NOT GIVENUNK [place] Insurance:SELF PAY [facility] Number: Effective Repository Date:2018-02-21 02/15/2018 CELINA D Primary CELINA D [place] [id number] Insurance:ANTHEM BILLHEIMERDOB: Community [place] PP[place]olicy [id number] Number: Repository [address]Pwl: (330) [id number] [phone]) Date:1823-29-73Ra [address]Rwrlmsp [place] [address]FT: 02/15/2018 Secondary NOT GIVENUNK [place] Insurance:SELF PAY [facility] Number: Effective Repository Date:2018-02-15 02/08/2018 CELINA D Primary CELINA D [place] [id number] Insurance:ANTHEM BILLHEIMERDOB: Community [place] PPOPolicy [id number] Affairs Medical Center [place] Number: Repository [address]Gil: (330) [id number] [phone]) Date:5879-14-44Iv [address]Dipdeuc, [place] [address]HG: 02/08/2018 Secondary NOT GIVENUNK [place] Insurance:SELF PAY [facility] Number: Effective Repository Date:2017-12-30 02/01/2018 CELINA D Primary CELINA D [place] [id number] Insurance:ANTHEM BILLHEIMERDOB: Community [place] PPOPolicy [id number] Affairs Medical Center [place] Number: Repository [address]Nvr: (330) [id number] [phone]) Date:3735-19-44Td [address]Ddnbvep [place] [address]TG: 02/01/2018 Secondary NOT GIVENUNK [place] Insurance:SELF PAY [facility] Number: Effective Repository Date:2018-02-01 01/18/2018 CELINA D Primary CELINA D [place] [id number] Insurance:ANTHEM BILLHEIMERDOB: Community [place] PPOPolicy [id number] [place] Number: Repository [address]Bvy: (330) [id number] [phone]) Date:5635-22-29Pr [address]Bgpskqf, [place] [address]GL: 01/18/2018 Secondary NOT GIVENUNK [place] Insurance:SELF PAY [facility] Number: Effective Repository Date:2017-12-29 01/04/2018 CELINA D Primary CELINA D [place] [id number] Insurance:ANTHEM BILLHEIMERDOB: Community [place] PPOPolicy [id number] Number: Repository [address]Dhf: (330) [id number] [phone]) Date:4641-26-56Bj [address]Dqajuxy[address] [place] [address]JT: 01/04/2018 Secondary NOT GIVENUNK [place] Insurance:SELF PAY [facility] Number: Effective Repository Date:2018-01-04 12/30/2017 CELINA D Primary CELINA D [place] [id number] Insurance:ANTHEM BILLHEIMERDOB: Community [place] PPOPolicy [id number] Number: Repository [address]Bpi: (330) [id number] [phone]) Date:1612-94-91Du [address] [place] [address]SA: 12/30/2017 Secondary NOT GIVENUNK [place] Insurance:SELF PAY [facility] Number: Effective Repository Date:2017-12-30 10/21/2017 CELINA D Primary CELINA D [place] [id number] Insurance:ANTHEM BILLHEIMERDOB: Community [place] PPOPolicy [id number] [place] Number: Repository [address]Shn: (330) [id number] [phone]) Date:1258-25-25Zf [address]ofwe[address] [place] [address] 314[address]VB: 10/21/2017 Secondary NOT GIVENUNK [place] Insurance:SELF PAY [facility] Number: Effective Repository Date:2017-10-21 08/31/2017 CELINA D Primary CELINA D [place] [id number] Insurance:ANTHEM BILLHEIMERDOB: Community [place] PPOPolicy [id number] [place] Number: Repository [address]Kxj: (330) [id number] [phone] (HP) Date:9331-66-18Rz [address]j, [place] [address]SY: 08/31/2017 Secondary NOT GIVENUNK [place] Insurance:SELF PAY [facility] Number: Effective Repository Date:2017-08-31 08/25/2017 CELINA D Primary CELINA D [facility] BILLHEIMERDOB: Insurance:ANTHEM BILLHEIMERDOB: [facility] MEDIBLUE ACCESS [id number] [place], [place] Number: [address]Gpi: (330) [id number] [phone] (HP) Date: 07/06/2017 CELINA D Primary CELINA D [place] [id number] Insurance:ANTHEM BILLHEIMERDOB: Community [place] PPOPolicy [id number] Number: Repository [address]Alk: (330) [id number] [phone] (HP) Date:6096-34-24Mh [address] [place] [address] 04854UF: 07/06/2017 Secondary NOT GIVENUNK [place] Insurance:SELF PAY [facility] Number: Effective Repository Date:2017-07-06 05/16/2017 CELINA D Primary CELINA D [place] [id number] Insurance:ANTHEM BILLHEIMERDOB: Community [place] [id number] [facility] Number: Repository [address]Iyh: (330) [id number] [phone] (HP) Date:4329-37-03SD [address]ETDBB, [place] [address]EV: 05/16/2017 Secondary NOT GIVENUNK [place] Insurance:SELF PAY [facility] Number: Effective Repository Date:2017-05-16 05/16/2017 CELINA D Primary CELINA D [place] [id number] Insurance:ANTHEM BILLHEIMERDOB: Community [place] [id number] [facility] Hospital[facility] Number: Repository [address]Kpj: (330 [id number] [phone] () Date:3368-12-38CE [address]EGGIUPB, [place] [address]EW: 05/16/2017 Secondary NOT GIVENUNK [place] Insurance:SELF PAY [facility] Number: Effective Repository Date:2017-04-28 04/25/2017 Celina D Primary Celina [id number] Insurance:ITZEL Campbell: [place] [id number]: Repository [address]Dgk: 330 [id number] [phone] () Date:7036-32-60IE [address]LHKQUUV, [place] [address]MM: 04/25/2017 Secondary NOT GIVENUNK [place] Insurance:SELF PAY [facility] Number: Effective Repository Date:2017-04-25
== END 2018-03-03 15:50 | disposition skilled nursing facility (03) | DRG 483 ==
LOC: ACINP 10:48 → MS3 14:36
PROVIDERS: Anesthesiology; Internal Medicine Medical Oncology; Admitting Provider Specialist; Family Provider Family Medicine; PCP Family Medicine; Referring Provider Specialist; Visit Provider Specialist
PROC: 0RRJ00Z Replacement of Right Shoulder Joint with Reverse Ball and Socket Synthetic Substitute, Open Approach (ICD-10-PCS; CPT 23472; principal; 2018-03-01 13:00)
DX: M12.811 Other specific arthropathies, not elsewhere classified, right shoulder (principal); M75.101 Unspecified rotator cuff tear or rupture of right shoulder, not specified as traumatic; E07.9 Disorder of thyroid, unspecified; M10.9 Gout, unspecified; I10 Essential (primary) hypertension; G47.30 Sleep apnea, unspecified; E78.00 Pure hypercholesterolemia, unspecified; D50.9 Iron deficiency anemia, unspecified; Z96.612 Presence of left artificial shoulder joint; Z96.652 Presence of left artificial knee joint
CPT/HCPCS: 36415; 73020; 80053; 82728; 83540; 83550; 85025; 85610; 85730; 87081; 93005; 96365; 97162; 97165; 97530; 97802; C1776; J7050; J7120; A4216; J2405

== ENCOUNTER 2018-03-03 16:02 | Inpatient (IN) | payer MEDICARE, SELFPAY ==
[2018-03-01 16:41] VITALS: BMI 37.4
[2018-03-03 16:08] VITALS: BMI 37.4
--- NOTE | 2018-03-03 16:09 | PCM.HP.STD ---
Problem List (1) Rotator cuff tear arthropathy of right shoulder Status: Acute (2) Obstructive sleep apnea Status: Chronic (3) Hyperlipidemia Status: Chronic (4) Hypothyroidism Status: Chronic (5) Hypertension Status: Chronic Qualifiers: (6) Gout Status: Chronic Qualifiers: (7) Iron deficiency anemia Status: Chronic Qualifiers: History of Present Illness Date of Admission: 03/03/18 Chief Complaint: Here for rehabilitation, strengthening, prior to discharge home alone. The patient is a 82 year old Female with below past medical history with followin03/01/2018 Right Reverse Total Shoulder Arthroplasty with Dr. David George. Tylenol, Oxycodone for pain. Aspirin 325MG daily for DVT prophylaxis. Post-operative course unremarkable. 03/03/2018 Admit to TCU with debility, here for rehabilitation, strengthening, prior to discharge home alone. Past Medical History Past Medical History (Chronic Problems): Chronic Problems (Last Reviewed 02/27/18 @ 09:21 by Mary Mcnair) Chronic anemia (Chronic) Osteoarthritis of left hip (Chronic) Hypertension (Chronic) Hypercholesterolemia (Chronic) Gout (Chronic) Sleep apnea (Chronic) Contact with and (suspected) exposure to environmental tobacco smoke (acute) (chronic) (Chronic) Secondhand smoke exposure (Chronic) no hx PFTs, on Dulera H/O abdominal aortic aneurysm repair (Chronic) [facility] Iron deficiency anemia (Chronic) Iron deficiency (Chronic) Obstructive sleep apnea (Chronic) Hyperlipidemia (Chronic) Hypothyroidism (Chronic) Medical History: Medical History (Last Reviewed 02/27/18 @ 09:21 by Mary Mcnair) Anemia D64.9 History of blood transfusion Z92.89 Thyroid disease E07.9 Allergies No Known Allergies Allergy (Verified 03/01/18 11:23) Home Medications: Ambulatory Orders Medication Instructions Recorded Cholecalciferol (VIT D3) [Vitamin 1,000 unit PO DAILY 05/24/16 D3] Furosemide [Lasix] 40 mg PO DAILY 05/24/16 Levothyroxine [Synthroid] 50 mcg PO DAILY 05/24/16 Metoprolol Tartrate 25 mg PO BID 05/24/16 Pantoprazole Sodium [Protonix] 40 mg PO DAILY 05/24/16 Pravastatin [Pravachol] 40 mg PO QHS 05/24/16 Albuterol IH (ProAir) [Proair Hfa] 1 - 2 puff INHALATION Q4H PRN PRN 07/27/16 #1 inhaler Dulera 200 Mcg/5 Mcg Inhaler 200 mcg INHALATION BID PRN 08/24/16 Ferrous Sulfate 325 mg PO BIDCM 02/15/18 Acetaminophen [Tylenol] 1,000 mg PO Q8 03/03/18 Aspirin 325 mg PO DAILY@0800 03/03/18 Oxycodone [Oxyir] 5 - 10 mg PO Q4H PRN PRN 5 Days 03/03/18 #60 tab Surgical History: Surgical History (Last Reviewed 02/27/18 @ 09:21 by Mary Mcnair) History of carpal tunnel repair Z98.890 History of repair of rotator cuff Z98.890 H/O right knee surgery Z98.890 History of total left hip arthroplasty Z96.642 History of total replacement of left shoulder joint Z96.612 Surgical History: cholecystectomy, herniorrhaphy, total hip arthroplasty - Left, Left AISHA revision., total knee arthroplasty - Bilateral., - - Aortic surgery, Left carpal tunnel release, Left total shoulder replacement. 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 history Lives: Alone Smoking Status: Never smoker Tobacco Use: Non-smoker Alcohol: None Drugs: None - *Family History Maternal Family History: Family History (Last Reviewed 02/27/18 @ 09:21 by Mary Mcnair) Father CVA (cerebral vascular accident) Mother Heart disease History Items: No pertinent history Paternal Family History: Family History (Last Reviewed 02/27/18 @ 09:21 by Mary Mcnair) Father CVA (cerebral vascular accident) Mother Heart disease History Items: No pertinent history Review of Systems Constitutional: Denies: Chills, Fever, Weight Change HEENT: Denies: Head Aches, Sinus Congestion, Sinus Drainage Cardiovascular: Denies: Chest Pain, Palpitations Respiratory: Denies: Cough, Shortness of breath at rest, Sputum production Gastrointestinal: Denies: Abdominal Pain, Nausea, Vomiting Genitourinary: Denies: Dysuria Musculoskeletal: Denies: Joint Pain, Joint Tenderness Skin: Denies: Rash, Wounds Neurological: Denies: Numbness, Tingling, Focal weakness Psychiatric: Denies: Anxiety, Depression, Homicidal Ideations, Suicidal Ideations Hematologic/ Lymphatic: Denies: Easy Bruising, Easy Bleeding VTE Information - Inpt Only VTE Present on Admission: No VTE Mechan Device Prophylaxis: Knee High NELLIE Hose VTE Pharm Prophylaxis ordered?: Yes Patient Problems: Active and Suspected Problems (Last Reviewed 02/27/18 @ 09:21 by Mary Mcnair) Rotator cuff tear arthropathy of right shoulder (Acute) - Physical Exam General: Alert, Oriented x3, Cooperative HEENT: Atraumatic, PERRLA, EOMI, Normocephalic Neck: Supple, No JVD, Negative Carotid Bruits Lungs: Clear to auscultation, Normal air movement Cardiovascular: Regular rate, No murmurs Abdomen: Bowel Sounds Present, Soft, Non Tender Extremities: No edema, Capillary Refill Less than 3 Seconds Skin: No rashes, No breakdown Musculoskeletal: No Tenderness to Palpation of Joints or Extremities, - - Right shoulder Ultra-Sling. Neurological: Cranial nerves II-XII grossly intact Psych/Mental Status: Normal Affect, Appropriate Body Mass Index (BMI) 37.4 Assessment/Plan All Active Problems (Last Reviewed 02/27/18 @ 09:21 by Mary Mcnair) Status post total left knee replacement (Acute) Rotator cuff tear arthropathy of right shoulder (Acute) 82 year old female with below past medical history hospitalized for right reverse total shoulder arthroplasty 03/01/[address] George, admitted with debility, here for rehabilitation, strengthening, prior to discharge home alone. Debility - PT/OT. Pain - Tylenol 1000MG Q8H, Oxycodone 5-10MG Q4H PRN moderate to severe pain. Bowel - Miralax 17GM daily, Senna/colace 1 tablet BID, Dulcolax 10MG PO daily PRN. Pneumonia vaccination - Administer Prevnar 13 and/or Pneumovax 23 as necessary. DVT prophylaxis - Aspirin 325MG daily. Vitamin D deficiency - D3 1000IU daily. Edema - Lasix 40MG daily. Hypothyroidism - Levothyroxine 50MCG daily. Hypertension - Metoprolol 25MG BID. GERD - Pantoprazole 40MG daily. Hyperlipidemia - Pravastatin 40MG QHS. Asthma - Dulera 200/5 BID PRN (or Formulary equivalent), Proair MDI 1-2 Q4H PRN. Iron deficiency anemia - Ferrous sulfate 325MG BID.
--- NOTE | 2018-03-03 16:13 | HP.PCM_ITS ---
Problem List (1) Rotator cuff tear arthropathy of right shoulder Status: Acute (2) Obstructive sleep apnea Status: Chronic (3) Hyperlipidemia Status: Chronic (4) Hypothyroidism Status: Chronic (5) Hypertension Status: Chronic Qualifiers: (6) Gout Status: Chronic Qualifiers: (7) Iron deficiency anemia Status: Chronic Qualifiers: History of Present Illness Date of Admission: 03/03/18 Chief Complaint: Here for rehabilitation, strengthening, prior to discharge home alone. The patient is a 82 year old Female with below past medical history with followin03/01/2018 Right Reverse Total Shoulder Arthroplasty with Dr. David George. Tylenol, Oxycodone for pain. Aspirin 325MG daily for DVT prophylaxis. Post-operative course unremarkable. 03/03/2018 Admit to TCU with debility, here for rehabilitation, strengthening, prior to discharge home alone. Past Medical History Past Medical History (Chronic Problems): Chronic Problems (Last Reviewed 02/27/18 @ 09:21 by Mary Mcnair) Chronic anemia (Chronic) Osteoarthritis of left hip (Chronic) Hypertension (Chronic) Hypercholesterolemia (Chronic) Gout (Chronic) Sleep apnea (Chronic) Contact with and (suspected) exposure to environmental tobacco smoke (acute) (chronic) (Chronic) Secondhand smoke exposure (Chronic) no hx PFTs, on Dulera H/O abdominal aortic aneurysm repair (Chronic) [facility] Iron deficiency anemia (Chronic) Iron deficiency (Chronic) Obstructive sleep apnea (Chronic) Hyperlipidemia (Chronic) Hypothyroidism (Chronic) Medical History: Medical History (Last Reviewed 02/27/18 @ 09:21 by Mary Mcnair) Anemia D64.9 History of blood transfusion Z92.89 Thyroid disease E07.9 Allergies No Known Allergies Allergy (Verified 03/01/18 11:23) Home Medications: Ambulatory Orders Medication Instructions Recorded Cholecalciferol (VIT D3) [Vitamin 1,000 unit PO DAILY 05/24/16 D3] Furosemide [Lasix] 40 mg PO DAILY 05/24/16 Levothyroxine [Synthroid] 50 mcg PO DAILY 05/24/16 Metoprolol Tartrate 25 mg PO BID 05/24/16 Pantoprazole Sodium [Protonix] 40 mg PO DAILY 05/24/16 Pravastatin [Pravachol] 40 mg PO QHS 05/24/16 Albuterol IH (ProAir) [Proair Hfa] 1 - 2 puff INHALATION Q4H PRN PRN 07/27/16 #1 inhaler Dulera 200 Mcg/5 Mcg Inhaler 200 mcg INHALATION BID PRN 08/24/16 Ferrous Sulfate 325 mg PO BIDCM 02/15/18 Acetaminophen [Tylenol] 1,000 mg PO Q8 03/03/18 Aspirin 325 mg PO DAILY@0800 03/03/18 Oxycodone [Oxyir] 5 - 10 mg PO Q4H PRN PRN 5 Days 03/03/18 #60 tab Surgical History: Surgical History (Last Reviewed 02/27/18 @ 09:21 by Mary Mcnair) History of carpal tunnel repair Z98.890 History of repair of rotator cuff Z98.890 H/O right knee surgery Z98.890 History of total left hip arthroplasty Z96.642 History of total replacement of left shoulder joint Z96.612 Surgical History: cholecystectomy, herniorrhaphy, total hip arthroplasty - Left, Left AISHA revision., total knee arthroplasty - Bilateral., - - Aortic surgery, Left carpal tunnel release, Left total shoulder replacement. 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 Lives: Alone Smoking Status: Never smoker Tobacco Use: Non-smoker Alcohol: None Drugs: None - *Family History Maternal Family History: Family History (Last Reviewed 02/27/18 @ 09:21 by Mary Mcnair) Father CVA (cerebral vascular accident) Mother Heart disease History Items: No pertinent history Paternal Family History: Family History (Last Reviewed 02/27/18 @ 09:21 by Mary Mcnair) Father CVA (cerebral vascular accident) Mother Heart disease History Items: No pertinent history Review of Systems Constitutional: Denies: Chills, Fever, Weight Change HEENT: Denies: Head Aches, Sinus Congestion, Sinus Drainage Cardiovascular: Denies: Chest Pain, Palpitations Respiratory: Denies: Cough, Shortness of breath at rest, Sputum production Gastrointestinal: Denies: Abdominal Pain, Nausea, Vomiting Genitourinary: Denies: Dysuria Musculoskeletal: Denies: Joint Pain, Joint Tenderness Skin: Denies: Rash, Wounds Neurological: Denies: Numbness, Tingling, Focal weakness Psychiatric: Denies: Anxiety, Depression, Homicidal Ideations, Suicidal Ideations Hematologic/ Lymphatic: Denies: Easy Bruising, Easy Bleeding VTE Information - Inpt Only VTE Present on Admission: No VTE Mechan Device Prophylaxis: Knee High NELLIE Hose VTE Pharm Prophylaxis ordered?: Yes Patient Problems: Active and Suspected Problems (Last Reviewed 02/27/18 @ 09:21 by Mary Mcnair) Rotator cuff tear arthropathy of right shoulder (Acute) - Physical Exam General: Alert, Oriented x3, Cooperative HEENT: Atraumatic, PERRLA, EOMI, Normocephalic Neck: Supple, No JVD, Negative Carotid Bruits Lungs: Clear to auscultation, Normal air movement Cardiovascular: Regular rate, No murmurs Abdomen: Bowel Sounds Present, Soft, Non Tender Extremities: No edema, Capillary Refill Less than 3 Seconds Skin: No rashes, No breakdown Musculoskeletal: No Tenderness to Palpation of Joints or Extremities, - - Right shoulder Ultra-Sling. Neurological: Cranial nerves II-XII grossly intact Psych/Mental Status: Normal Affect, Appropriate Body Mass Index (BMI) 37.4 Assessment/Plan All Active Problems (Last Reviewed 02/27/18 @ 09:21 by Mary Mcnair) Status post total left knee replacement (Acute) Rotator cuff tear arthropathy of right shoulder (Acute) 82 year old female with below past medical history hospitalized for right reverse total shoulder arthroplasty 03/01/[address] George, admitted with debility, here for rehabilitation, strengthening, prior to discharge home alone. * Debility - PT/OT. * Pain - Tylenol 1000MG Q8H, Oxycodone 5-10MG Q4H PRN moderate to severe pain. * Bowel - Miralax 17GM daily, Senna/colace 1 tablet BID, Dulcolax 10MG PO daily PRN. * Pneumonia vaccination - Administer Prevnar 13 and/or Pneumovax 23 as necessary. * DVT prophylaxis - Aspirin 325MG daily. * Vitamin D deficiency - D3 1000IU daily. * Edema - Lasix 40MG daily. * Hypothyroidism - Levothyroxine 50MCG daily. * Hypertension - Metoprolol 25MG BID. * GERD - Pantoprazole 40MG daily. * Hyperlipidemia - Pravastatin 40MG QHS. * Asthma - Dulera 200/5 BID PRN (or Formulary equivalent), Proair MDI 1-2 Q4H PRN. * Iron deficiency anemia - Ferrous sulfate 325MG BID.
--- NOTE | 2018-03-03 16:21 | NURSING ---
pt arrived at 1555 via bed
[2018-03-03 16:58] VITALS: BP 144/60; PULSE 68; RESP 16; TEMP 36.8; O2SAT 93; BMI 38.0
[2018-03-03] MEDS: Senna/Docusate Sodium 1 Tablet PO (17:27)
[2018-03-03] MEDS: Ferrous Sulfate 325 MG Tablet PO (17:27)
[2018-03-03 17:28] VITALS: BP 144/60; PULSE 68
[2018-03-03] MEDS: Metoprolol Tartrate 25 MG Tablet PO (17:28)
[2018-03-03] MEDS: Acetaminophen 500 MG Tablet 1000 MG PO (20:27)
[2018-03-03] MEDS: Pravastatin 40 MG Tablet PO (20:29)
[2018-03-04] MEDS: oxyCODONE 5 MG Tablet PO ×2 (01:29→20:03)
[2018-03-04] MEDS: LORazepam 0.5 MG Tablet PO (04:13)
[2018-03-04 04:14] VITALS: BP 129/57; PULSE 72
[2018-03-04] MEDS: Levothyroxine 50 MCG Tablet PO (04:14)
[2018-03-04] MEDS: Metoprolol Tartrate 25 MG Tablet PO ×2 (04:14→17:21)
[2018-03-04] MEDS: Senna/Docusate Sodium 1 Tablet PO ×2 (04:14→17:21)
[2018-03-04] MEDS: Pantoprazole Sodium 40 MG Tablet PO (04:14)
[2018-03-04] MEDS: Furosemide 40 MG Tablet PO (04:15)
[2018-03-04] MEDS: Polyethylene Glycol 3350 17 GM PACKET PO (04:15)
[2018-03-04] MEDS: Acetaminophen 500 MG Tablet 1000 MG PO ×2 (06:09→15:28)
[2018-03-04 08:00] VITALS: O2SAT 96
[2018-03-04 08:24] LABS: Absolute Lymphocyte Count 1.31 X10^3/ul (0.83-4.51); Absolute Neutrophil Count 6.3 X10^3/uL (2.0-7.7); Basophil# 0.02 X10^3/uL; Basophil% 0.2 % (0-1); Eosinophil# 0.41 X10^3/uL; Eosinophils% 4.5 % (0-5); Hematocrit 32.6 % (37-47); Hemoglobin 9.8 g/dl (12.0-15.0); Lymphocyte # 1.31 X10^3/ul (4.0); Lymphocyte % 14.3 % (19-41); Mean Corp Hgb Conc 30.1 g/gl (32-36); Mean Corpuscular Hgb 29.8 pg (27.0-32.0); Mean Corpuscular Volume 99.1 fL (81-99); Monocyte# 1.05 X10^3/uL; Monocyte% 11.5 % (0-10); Neutrophil # 6.33 X10^3/uL (2.7-7.7); Neutrophil % 69.3 % (47-70); Platelet Count 236 K/mm3 (150-450); RBC Distribution Width SD 57.2 fl (35.1-43.9); Red Blood Count 3.29 M/mm3 (4.2-5.4); White Blood Count 9.1 K/mm3 (4.4-11.0)
[2018-03-04 08:26] LABS: POSITIVE COUNT NO; POSITIVE DIFFERENTIAL NO; POSITIVE MORPHOLOGY NO
[2018-03-04 09:17] LABS: Anion Gap 7 (5-15); BUN 48 mg/dL (7-18); BUN/Creat Ratio 36.9 RATIO (10-20); Calcium,Total 8.6 mg/dL (8.5-10.1); Chloride 105 mmol/L (98-107); EST Glomerular Filtration Rate 42 mL/min (>60); Est Glom Filt Rate - Afr Amer 51 mL/min (>60); Estimated Creatinine Clearance 24.79 ml/min; Glucose 103 mg/dL (74-106); Potassium 4.6 mmol/L (3.5-5.1); Sodium Level 142 mmol/L (136-145)
[2018-03-04] MEDS: Aspirin 325 MG Tablet PO (09:59)
[2018-03-04] MEDS: Ferrous Sulfate 325 MG Tablet PO ×2 (09:59→17:22)
[2018-03-04] MEDS: Tuberculin,Purif.prot.deriv. 50 TU/ML Vial 5 ML ID (15:29)
[2018-03-04 16:00] VITALS: BP 116/49; PULSE 83; RESP 18; TEMP 37.1; O2SAT 98
[2018-03-04 17:21] VITALS: BP 116/49; PULSE 83
[2018-03-04] MEDS: Pravastatin 40 MG Tablet PO (20:04)
[2018-03-04 21:27] VITALS: PULSE 78; RESP 18; O2SAT 95
[2018-03-05] MEDS: oxyCODONE 5 MG Tablet PO ×3 (00:35→19:39)
--- NOTE | 2018-03-05 01:31 | NURSING ---
Pt not wanting to get washed-up evening of 03/04/18.
[2018-03-05 05:32] VITALS: PULSE 74
[2018-03-05] MEDS: Senna/Docusate Sodium 1 Tablet PO ×2 (05:32→16:00)
[2018-03-05] MEDS: Pantoprazole Sodium 40 MG Tablet PO (05:32)
[2018-03-05] MEDS: Acetaminophen 500 MG Tablet 1000 MG PO ×2 (05:32→15:56)
[2018-03-05] MEDS: Levothyroxine 50 MCG Tablet PO (05:32)
[2018-03-05] MEDS: Furosemide 40 MG Tablet PO (05:32)
[2018-03-05] MEDS: Metoprolol Tartrate 25 MG Tablet PO ×2 (05:32→15:59)
[2018-03-05] MEDS: Polyethylene Glycol 3350 17 GM PACKET PO (05:37)
[2018-03-05] MEDS: Aspirin 325 MG Tablet PO (10:00)
[2018-03-05] MEDS: Ferrous Sulfate 325 MG Tablet PO ×2 (10:00→15:58)
--- NOTE | 2018-03-05 13:14 | NURSING ---
Per patient request, nebulizer treatments changed to inhaler form. Dr. Godoy aware, new orders given.
[2018-03-05 15:41] VITALS: BP 148/57; PULSE 79; RESP 18; TEMP 36.8; O2SAT 98
[2018-03-05 15:59] VITALS: BP 148/57; PULSE 79
[2018-03-05] MEDS: Pravastatin 40 MG Tablet PO (19:41)
[2018-03-06] MEDS: oxyCODONE 5 MG Tablet PO (02:54)
[2018-03-06] MEDS: Acetaminophen 500 MG Tablet 1000 MG PO ×3 (06:39→22:11)
[2018-03-06] MEDS: Furosemide 40 MG Tablet PO (06:39)
[2018-03-06 07:05] VITALS: PULSE 78
[2018-03-06] MEDS: Metoprolol Tartrate 25 MG Tablet PO ×2 (07:05→17:10)
[2018-03-06] MEDS: Pantoprazole Sodium 40 MG Tablet PO (07:06)
[2018-03-06] MEDS: Senna/Docusate Sodium 1 Tablet PO ×2 (07:06→17:01)
[2018-03-06] MEDS: Polyethylene Glycol 3350 17 GM PACKET PO (07:06)
[2018-03-06] MEDS: Levothyroxine 50 MCG Tablet PO (07:07)
[2018-03-06] MEDS: Aspirin 325 MG Tablet PO (07:47)
[2018-03-06] MEDS: Ferrous Sulfate 325 MG Tablet PO ×2 (07:48→17:01)
--- NOTE | 2018-03-06 11:38 | PCM.PN.RX ---
<AbimbolaMoses elder D - Last Filed: 03/06/18 11:38> Progress Note - Pharmacy Subjective: TCU Admission Objective: Allergies No Known Allergies Allergy (Verified 03/01/18 11:23) Current Medications Generic Name Dose Route Start Last Admin Trade Name Freq PRN Reason Stop Dose Admin Acetaminophen 1,000 mg 03/03/18 22:00 03/06/18 06:39 Tylenol PO 1,000 mg Q8 RODRÍGUEZ Administration Albuterol Sulfate 2 puff 03/05/18 13:10 Ventolin Hfa (Sp) INHALATION Q4H PRN PRN COUGH Albuterol Sulfate 2 puff 03/05/18 17:00 03/06/18 11:22 Ventolin Hfa (Sp) INHALATION 2 puff 4X/DAY RODRÍGUEZ Administration Aspirin 325 mg 03/04/18 08:00 03/06/18 07:47 Aspirin PO 03/18/18 08:01 325 mg DAILY@0800 RODRÍGUEZ Administration Bisacodyl 10 mg 03/03/18 16:27 Dulcolax PO DAILY PRN Constipation Calamine/Phenol 1 applic 03/06/18 22:00 Calmoseptine Ointment TOPICAL 0600,2200 [facility] Protocol Cholecalciferol 1,000 unit 03/04/18 08:00 03/06/18 07:47 Vitamin D PO 1,000 unit DAILYCM RODRÍGUEZ Administration Ferrous Sulfate 325 mg 03/03/18 17:00 03/06/18 07:48 Ferrous Sulfate PO 325 mg BIDCM RODRÍGUEZ Administration Fluticasone Propionate 1 puff 03/05/18 18:00 03/06/18 06:39 Flovent Diskus 250 Mcg INHALATION 1 puff BID RODRÍGUEZ Administration Furosemide 40 mg 03/04/18 06:00 03/06/18 06:39 Lasix PO 40 mg DAILY RODRÍGUEZ Administration Levothyroxine Sodium 50 mcg 03/04/18 06:00 03/06/18 07:07 Synthroid PO 50 mcg DAILY RODRÍGUEZ Administration Metoprolol Tartrate 25 mg 03/03/18 18:00 03/06/18 07:05 Lopressor (Beta Marija) PO 25 mg BID RODRÍGUEZ Administration Nutritional Formula (Lactose Free) 120 ml 03/05/18 18:00 03/06/18 06:39 Ensure Enlive PO 120 ml BID RODRÍGUEZ Administration Oxycodone HCl 5 - 10 mg 03/03/18 16:19 03/06/18 02:54 Oxyir PO 10 mg Q4H PRN PRN Administration PAIN Pantoprazole Sodium 40 mg 03/04/18 06:00 03/06/18 07:06 Protonix PO 40 mg DAILY RODRÍGUEZ Administration Polyethylene Glycol 17 gm 03/04/18 06:00 03/06/18 07:06 Miralax PO 17 gm DAILY RODRÍGUEZ Administration Pravastatin Sodium 40 mg 03/03/18 22:00 03/05/18 19:41 Pravachol PO 40 mg QHS RODRÍGUEZ Administration Senna/Docusate Sodium 1 tablet 03/03/18 18:00 03/06/18 07:06 Senokot-S, Meka-Colace PO 1 tablet BID RODRÍGUEZ Administration Tuberculin PPD 5 tu 03/11/18 10:00 Tubersol, Aplisol, Ppd ID 03/11/18 10:01 X1 ONE Problem List (Last Reviewed 02/27/18 @ 09:21 by Mary Mcnair) Rotator cuff tear arthropathy of right shoulder (Acute) Obstructive sleep apnea (Chronic) Hyperlipidemia (Chronic) Hypothyroidism (Chronic) Vital Signs Temp Pulse Resp BP Pulse Ox 98.2 F 78 18 148/57 H 98 03/05/18 15:41 03/06/18 07:05 03/05/18 15:41 03/05/18 15:59 03/05/18 15:41 Oxygen Delivery Method Room Air Weight: 88.451 kg Body Mass Index (BMI) 38.0 Sodium 142 mmol/L (136-145) 03/04/18 07:45 Potassium 4.6 mmol/L (3.5-5.1) 03/04/18 07:45 Chloride 105 mmol/L (98-107) 03/04/18 07:45 Carbon Dioxide 30.0 mmol/L (21.0-32.0) 03/04/18 07:45 Anion Gap 7 (5-15) 03/04/18 07:45 BUN 48 mg/dL (7-18) H 03/04/18 07:45 Creatinine 1.30 mg/dL (0.55-1.02) H 03/04/18 07:45 Est GFR (MDRD) Af Amer 51 mL/min (>60) L 03/04/18 07:45 Est GFR (MDRD) Non-Af 42 mL/min (>60) L 03/04/18 07:45 BUN/Creatinine Ratio 36.9 RATIO (10-20) H 03/04/18 07:45 Glucose 103 mg/dL (74-106) 03/04/18 07:45 Assessment/Plan: 1) Pain APAP scheduled, oxycodone for pain. Continue to monitor prn medication use, daily pain scores. 2) HTN Metoprolol. Continue to monitor BP/HR. 3) Edema Furosemide. Continue to monitor renal function, BP/HR, electrolytes. 4) DVT PPx ASA daily. Continue to monitor for bleeding/clot. * 5) Asthma Flovent, albuterol scheduled and prn. * For ease of use consider switching patient to Advair and dc scheduled albuterol 6) Hypothyroidism Levothyroxine daily. Continue to monitor s/s hyper/hypothyroidism. 7) GI Pantoprazole daily. Continue to monitor s/s GI distress. 8) Nutrition Fe, D, Ensure. Continue to monitor clinically. Psychotropic Medications: None Unnecessary Medications: None Bowel Regimen: 9) Senna/s, PEG, prn bisacodyl. Continue to monitor prn medication use, for constipation/diarrhea. Date of Note:: 03/06/18 - Provider Comments Provider responsibility: Provider responsible to enter orders to implement recommendations <Wesley Godoy Chi - Last Filed: 03/06/18 17:47> Progress Note - Pharmacy Subjective: [] Objective: Allergies No Known Allergies Allergy (Verified 03/01/18 11:23) Current Medications Generic Name Dose Route Start Last Admin Trade Name Freq PRN Reason Stop Dose Admin Acetaminophen 1,000 mg 03/03/18 22:00 03/06/18 13:06 Tylenol PO 1,000 mg Q8 RODRÍGUEZ Administration Albuterol Sulfate 2 puff 03/05/18 13:10 Ventolin Hfa (Sp) INHALATION Q4H PRN PRN COUGH Albuterol Sulfate 2 puff 03/05/18 17:00 03/06/18 17:03 Ventolin Hfa (Sp) INHALATION 2 puff 4X/DAY RODRÍGUEZ Administration Aspirin 325 mg 03/04/18 08:00 03/06/18 07:47 Aspirin PO 03/18/18 08:01 325 mg DAILY@0800 RODRÍGUEZ Administration Bisacodyl 10 mg 03/03/18 16:27 Dulcolax PO DAILY PRN Constipation Calamine/Phenol 1 applic 12/03/18 22:00 Calmoseptine Ointment TOPICAL 0600,2200 [facility] Protocol Cholecalciferol 1,000 unit 03/04/18 08:00 03/06/18 07:47 Vitamin D PO 1,000 unit DAILYCM RODRÍGUEZ Administration Ferrous Sulfate 325 mg 03/03/18 17:00 03/06/18 17:01 Ferrous Sulfate PO 325 mg BIDCM RODRÍGUEZ Administration Fluticasone Propionate 1 puff 03/05/18 18:00 03/06/18 17:03 Flovent Diskus 250 Mcg INHALATION 1 puff BID RODRÍGUEZ Administration Furosemide 40 mg 03/04/18 06:00 03/06/18 06:39 Lasix PO 40 mg DAILY RODRÍGUEZ Administration Levothyroxine Sodium 50 mcg 03/04/18 06:00 03/06/18 07:07 Synthroid PO 50 mcg DAILY RODRÍGUEZ Administration Metoprolol Tartrate 25 mg 03/03/18 18:00 03/06/18 17:10 Lopressor (Beta Marija) PO 25 mg BID RODRÍGUEZ Administration Nutritional Formula (Lactose Free) 120 ml 03/05/18 18:00 03/06/18 17:08 Ensure Enlive PO 120 ml BID RODRÍGUEZ Administration Oxycodone HCl 5 - 10 mg 03/03/18 16:19 03/06/18 02:54 Oxyir PO 10 mg Q4H PRN PRN Administration PAIN Pantoprazole Sodium 40 mg 03/04/18 06:00 03/06/18 07:06 Protonix PO 40 mg DAILY RODRÍGUEZ Administration Polyethylene Glycol 17 gm 03/04/18 06:00 03/06/18 07:06 Miralax PO 17 gm DAILY RODRÍGUEZ Administration Pravastatin Sodium 40 mg 03/03/18 22:00 03/05/18 19:41 Pravachol PO 40 mg QHS RODRÍGUEZ Administration Senna/Docusate Sodium 1 tablet 03/03/18 18:00 03/06/18 17:01 Senokot-S, Meka-Colace PO 1 tablet BID RODRÍGUEZ Administration Tuberculin PPD 5 tu 03/11/18 10:00 Tubersol, Aplisol, Ppd ID 03/11/18 10:01 X1 ONE Problem List (Last Reviewed 02/27/18 @ 09:21 by Mary Mcnair) Rotator cuff tear arthropathy of right shoulder (Acute) Obstructive sleep apnea (Chronic) Hyperlipidemia (Chronic) Hypothyroidism (Chronic) Vital Signs Temp Pulse Resp BP Pulse Ox 98.6 F 88 20 H 132/44 H 91 03/06/18 15:40 03/06/18 17:12 03/06/18 15:40 03/06/18 17:12 03/06/18 15:40 Oxygen Delivery Method Room Air Weight: 88.451 kg Body Mass Index (BMI) 38.0 Sodium 142 mmol/L (136-145) 03/04/18 07:45 Potassium 4.6 mmol/L (3.5-5.1) 03/04/18 07:45 Chloride 105 mmol/L (98-107) 03/04/18 07:45 Carbon Dioxide 30.0 mmol/L (21.0-32.0) 03/04/18 07:45 Anion Gap 7 (5-15) 03/04/18 07:45 BUN 48 mg/dL (7-18) H 03/04/18 07:45 Creatinine 1.30 mg/dL (0.55-1.02) H 03/04/18 07:45 Est GFR (MDRD) Af Amer 51 mL/min (>60) L 03/04/18 07:45 Est GFR (MDRD) Non-Af 42 mL/min (>60) L 03/04/18 07:45 BUN/Creatinine Ratio 36.9 RATIO (10-20) H 03/04/18 07:45 Glucose 103 mg/dL (74-106) 03/04/18 07:45 Assessment/Plan: Psychotropic Medications: Unnecessary Medications: Bowel Regimen: - Provider Comments Provider responsibility: Provider responsible to enter orders to implement recommendations Provider Comments to Recommendations by Pharmacy: Agree
[2018-03-06 14:15] VITALS: PULSE 77; RESP 18; O2SAT 94
--- NOTE | 2018-03-06 14:26 | CASEMGMT ---
Insurance Clinicals sent via secure email. Will await continued stay determination. Auth # [id number] YOANDY Higginbotham
--- NOTE | 2018-03-06 14:54 | CASEMGMT ---
SW reviewed Student [employer] completion of psychosocial assessment. YOANDY Higginbotham
[2018-03-06 15:40] VITALS: BP 109/45; PULSE 88; RESP 20; TEMP 37; O2SAT 91
--- NOTE | 2018-03-06 16:48 | NURSING ---
OLD DRESSING REMOVED TO RIGHT SHOULDER PER DOCTOR ORDERS. STERI STIPS AND SUTURES, NO S/S OF INFECTION. MINIMAL DRAINAGE. ABD APPLIED. REPORTED TO MITCH GELLER
[2018-03-06 17:10] VITALS: BP 132/44; PULSE 88
[2018-03-06 17:12] VITALS: BP 132/44; PULSE 88
--- NOTE | 2018-03-06 18:18 | NURSING ---
THIS NURSE CALLED PHARMACY ABOUT THE NEW ORDER FOR FLUTICASONE/SALMETEROL. PER PHARMACY DUE NOT GIVE 1800 DOSE DUE TO ALREADY GIVEN 2 OTHER INHALERS AT 1700. MITCH GELLER AWARE
[2018-03-06] MEDS: Pravastatin 40 MG Tablet PO (22:08)
[2018-03-06] MEDS: Menthol/Lanolin/Calamine/Znox 113 GM Tube 1 APPLIC TOPICAL (22:20)
[2018-03-07] MEDS: Polyethylene Glycol 3350 17 GM PACKET PO (05:38)
[2018-03-07] MEDS: Acetaminophen 500 MG Tablet 1000 MG PO ×3 (05:39→19:54)
[2018-03-07 05:40] VITALS: BP 131/77; PULSE 81
[2018-03-07] MEDS: Metoprolol Tartrate 25 MG Tablet PO ×2 (05:40→17:01)
[2018-03-07] MEDS: Pantoprazole Sodium 40 MG Tablet PO (05:41)
[2018-03-07] MEDS: Levothyroxine 50 MCG Tablet PO (05:41)
[2018-03-07] MEDS: Furosemide 40 MG Tablet PO (05:41)
[2018-03-07] MEDS: Senna/Docusate Sodium 1 Tablet PO ×2 (05:41→17:01)
[2018-03-07] MEDS: Menthol/Lanolin/Calamine/Znox 113 GM Tube 1 APPLIC TOPICAL ×2 (05:45→19:58)
[2018-03-07] MEDS: Aspirin 325 MG Tablet PO (07:42)
[2018-03-07] MEDS: Ferrous Sulfate 325 MG Tablet PO ×2 (07:42→17:01)
[2018-03-07 15:42] VITALS: BP 124/51; PULSE 84; RESP 18; TEMP 36.7; O2SAT 97
[2018-03-07 17:01] VITALS: PULSE 84
[2018-03-07 17:55] VITALS: O2SAT 98
[2018-03-07] MEDS: Pravastatin 40 MG Tablet PO (19:54)
[2018-03-08 06:27] VITALS: BP 138/62; PULSE 86
[2018-03-08] MEDS: Polyethylene Glycol 3350 17 GM PACKET PO (06:27)
[2018-03-08] MEDS: Metoprolol Tartrate 25 MG Tablet PO ×2 (06:27→16:29)
[2018-03-08] MEDS: Levothyroxine 50 MCG Tablet PO (06:28)
[2018-03-08] MEDS: Acetaminophen 500 MG Tablet 1000 MG PO ×3 (06:28→20:48)
[2018-03-08] MEDS: Senna/Docusate Sodium 1 Tablet PO ×2 (06:28→16:31)
[2018-03-08] MEDS: Furosemide 40 MG Tablet PO (06:28)
[2018-03-08] MEDS: Pantoprazole Sodium 40 MG Tablet PO (06:28)
[2018-03-08] MEDS: Menthol/Lanolin/Calamine/Znox 113 GM Tube 1 APPLIC TOPICAL ×2 (06:29→20:47)
--- NOTE | 2018-03-08 07:54 | NURSING ---
SUPERINTENDENT TESTS noticed a rash to pt right and left flank area and notified this nurse. This nurse went into this pt room access the area denies any discomfort or pain at this time. Korey Calderon aware.
[2018-03-08] MEDS: Aspirin 325 MG Tablet PO (08:57)
[2018-03-08] MEDS: Ferrous Sulfate 325 MG Tablet PO ×2 (08:57→16:29)
[2018-03-08 09:11] VITALS: PULSE 84; O2SAT 97
--- NOTE | 2018-03-08 11:31 | CASEMGMT ---
Insurance Continued stay approved with update due 03/13/18. Auth # [id number] PT and niece notified and express understanding. YOANDY Higginbotham
[2018-03-08 16:00] VITALS: BP 117/38; PULSE 85; RESP 22; TEMP 36.1; O2SAT 94
--- NOTE | 2018-03-08 16:18 | CASEMGMT ---
Team meeting held today with pt and niece present. Pt is progressing with therapy and continues to be NWB URE. Pt plans to return home alone at time of d/c. No d/c date set at this time. Pt is aware that continued stay is not guaranteed (next update 03/13). Will continue with treatment plan at this time. YOANDY Higginbotham
[2018-03-08 16:29] VITALS: PULSE 96
[2018-03-08] MEDS: Pravastatin 40 MG Tablet PO (20:48)
[2018-03-09] MEDS: Levothyroxine 50 MCG Tablet PO (05:24)
[2018-03-09] MEDS: Senna/Docusate Sodium 1 Tablet PO ×2 (05:24→17:20)
[2018-03-09] MEDS: Pantoprazole Sodium 40 MG Tablet PO (05:24)
[2018-03-09] MEDS: Furosemide 40 MG Tablet PO (05:24)
[2018-03-09 05:27] VITALS: BP 135/67; PULSE 86
[2018-03-09] MEDS: Metoprolol Tartrate 25 MG Tablet PO ×2 (05:27→17:20)
[2018-03-09] MEDS: Polyethylene Glycol 3350 17 GM PACKET PO (05:28)
[2018-03-09] MEDS: Menthol/Lanolin/Calamine/Znox 113 GM Tube 1 APPLIC TOPICAL ×2 (05:28→19:57)
[2018-03-09] MEDS: Acetaminophen 500 MG Tablet 1000 MG PO ×2 (06:32→13:09)
[2018-03-09] MEDS: Ferrous Sulfate 325 MG Tablet PO ×2 (09:04→17:20)
[2018-03-09] MEDS: Aspirin 325 MG Tablet PO (09:04)
--- NOTE | 2018-03-09 14:20 | MDS.RN ---
Pain interview for jake 03/10/18 completed.
[2018-03-09 16:00] VITALS: BP 145/59; PULSE 97; RESP 16; TEMP 37.2; O2SAT 97
[2018-03-09 17:20] VITALS: BP 145/59; PULSE 97
--- NOTE | 2018-03-09 18:10 | NURSING ---
Pt has had one emesis at this time brown color small amount. States she had coffee and a roll earlier. Pt given jass lisy and crackers at this time. Pt states she didn't eat dinner tonight because soup was to salty. Korey Calderon made aware.
[2018-03-09] MEDS: Pravastatin 40 MG Tablet PO (19:57)
[2018-03-09] MEDS: oxyCODONE 5 MG Tablet PO (19:58)
[2018-03-09 20:08] VITALS: PULSE 78; RESP 19; O2SAT 96
--- NOTE | 2018-03-09 21:11 | NURSING ---
Dr. Godoy notified of patient having emesis and that patient is unable to take pills without being nauseated with emesis. New orders given of сергей dale, and u/a olivia skinner.
--- NOTE | 2018-03-09 21:20 | RAD_ITS ---
STUDY: X-RAY - ABDOMEN/PELVIS REASON FOR EXAM: Female, 82 years old. Nausea vomiting. TECHNIQUE: KUB. COMPARISON: 12/10/2015. FINDINGS: There is a nonobstructive bowel gas pattern. Buttock granuloma is noted on the right. Phleboliths are noted in the pelvis. Left hip replacement is present. There is no acute bony abnormality. RAD/Abdomen Single View (Portable) IMPRESSION: Nonobstructive abdomen. Electronically Signed: Brandy Molina MD at 22:06 EST Tel , Service support ,
[2018-03-09] MEDS: Ondansetron ODT 4 MG Tablet PO (21:55)
--- NOTE | 2018-03-09 22:55 | NURSING ---
Pt straight cathed for 200cc clear yellow urine per orders. Sent to lab. Strong odor noted. No complaints from pt who tolerated well. Repositioned in bed, states she is comfortable with no further c/o nausea since zofran administration. Continuing to monitor, call light within reach.
[2018-03-09 22:58] LABS: Bacteria 0 SEEN /hpf (None Seen); Mucous, Urine 0 SEEN /hpf (<or=2+); Squamous Epithelial Cells - UA 0 SEEN /hpf (5-10); White Blood Cells 0 SEEN /hpf (0-5)
[2018-03-09 22:59] LABS: Color, Urine Yellow (Yellow); Glucose, Dipstick Normal (Normal); Ketone-Dipstick Negative (Negative); Leukocyte Esterase-Dipstick Negative /ul (Negative); Nitrite-Dipstick Negative (Negative); Occult Blood-Urine 25 /ul (Negative); Protein-Dipstick Negative (Negative); Urine Bilirubin Dipstick Negative (Negative); Urine Clarity Clear (Clear); Urine Urobilinogen Normal (Normal); Urine pH 6.5 (5.0 - 8.0)
[2018-03-09 23:08] LABS: Red Blood Cells-Urine 0-5 SEEN /hpf (0-5)
[2018-03-10] MEDS: oxyCODONE 5 MG Tablet PO ×2 (00:50→05:09)
[2018-03-10] MEDS: Menthol/Lanolin/Calamine/Znox 113 GM Tube 1 APPLIC TOPICAL ×2 (05:01→20:09)
[2018-03-10 05:02] VITALS: PULSE 84
[2018-03-10] MEDS: Metoprolol Tartrate 25 MG Tablet PO ×2 (05:02→17:03)
[2018-03-10] MEDS: Senna/Docusate Sodium 1 Tablet PO ×2 (05:03→17:03)
[2018-03-10] MEDS: Pantoprazole Sodium 40 MG Tablet PO (05:03)
[2018-03-10] MEDS: Levothyroxine 50 MCG Tablet PO (05:03)
[2018-03-10] MEDS: Furosemide 40 MG Tablet PO (05:03)
[2018-03-10] MEDS: Polyethylene Glycol 3350 17 GM PACKET PO (05:05)
[2018-03-10] MEDS: Acetaminophen 500 MG Tablet 1000 MG PO ×3 (05:05→20:05)
[2018-03-10 05:22] VITALS: PULSE 84; RESP 18; O2SAT 96
[2018-03-10] MEDS: Aspirin 325 MG Tablet PO (08:11)
[2018-03-10] MEDS: Ferrous Sulfate 325 MG Tablet PO ×2 (08:11→17:03)
--- NOTE | 2018-03-10 09:52 | NURSING ---
PT THREW UP OF 200 EMESES. BROWN IN COLOR. PT STATED SHE FEELS FINE OTHER [place]. PT HAD COFFIE 7AM. REPORTED TO MITCH SUAREZ
[2018-03-10] MEDS: Ondansetron ODT 4 MG Tablet PO (10:03)
--- NOTE | 2018-03-10 11:12 | NURSING ---
Dr. Godoy reviewed KUB results, NNO.
--- NOTE | 2018-03-10 13:27 | CASEMGMT ---
Addendum entered by Roslyn Kaur 03/10/18 13:40: Student SW notes reviewed. YOANDY Higginbotham Original Note: Brief interview for mental status (BIMS) and mood (PHQ-9) completed on this day. BIMS score 15. PHQ-9 score 04/30. Fredrick Aguilar social work student
[2018-03-10 16:00] VITALS: BP 121/43; PULSE 92; RESP 18; TEMP 36.9; O2SAT 97
[2018-03-10 17:03] VITALS: BP 121/43; PULSE 92
[2018-03-10] MEDS: Pravastatin 40 MG Tablet PO (20:05)
[2018-03-11] MEDS: Furosemide 40 MG Tablet PO (06:46)
[2018-03-11 06:47] VITALS: BP 147/67; PULSE 87
[2018-03-11] MEDS: Metoprolol Tartrate 25 MG Tablet PO ×2 (06:47→15:59)
[2018-03-11] MEDS: Levothyroxine 50 MCG Tablet PO (06:48)
[2018-03-11] MEDS: Acetaminophen 500 MG Tablet 1000 MG PO ×3 (06:48→21:10)
[2018-03-11] MEDS: Senna/Docusate Sodium 1 Tablet PO ×2 (06:48→15:59)
[2018-03-11] MEDS: Pantoprazole Sodium 40 MG Tablet PO ×2 (06:48→15:59)
[2018-03-11] MEDS: Menthol/Lanolin/Calamine/Znox 113 GM Tube 1 APPLIC TOPICAL ×2 (06:49→21:11)
[2018-03-11 06:51] VITALS: BP 147/67; PULSE 87; RESP 20; O2SAT 94
[2018-03-11 06:57] LABS: Absolute Lymphocyte Count 1.77 X10^3/ul (0.83-4.51); Absolute Neutrophil Count 4.5 X10^3/uL (2.0-7.7); Basophil# 0.04 X10^3/uL; Basophil% 0.5 % (0-1); Eosinophil# 0.47 X10^3/uL; Eosinophils% 6.2 % (0-5); Hemoglobin 6.8 g/dl (12.0-15.0); Lymphocyte # 1.77 X10^3/ul (4.0); Lymphocyte % 23.4 % (19-41); Mean Corp Hgb Conc 28.3 g/gl (32-36); Mean Corpuscular Hgb 29.4 pg (27.0-32.0); Mean Corpuscular Volume 103.9 fL (81-99); Mean Platelet Vol. 10.1 fl (6.2-12.0); Monocyte# 0.74 X10^3/uL; Monocyte% 9.8 % (0-10); Neutrophil # 4.51 X10^3/uL (2.7-7.7); Neutrophil % 59.8 % (47-70); Platelet Count 323 K/mm3 (150-450); RBC Distribution Width CV 15.8 % (11.6-14.6); RBC Distribution Width SD 57.3 fl (35.1-43.9); Red Blood Count 2.31 M/mm3 (4.2-5.4); White Blood Count 7.6 K/mm3 (4.4-11.0)
[2018-03-11 07:01] LABS: POSITIVE COUNT NO; POSITIVE DIFFERENTIAL NO; POSITIVE MORPHOLOGY NO
[2018-03-11 07:29] LABS: Anion Gap 7 (5-15); BUN 69 mg/dL (7-18); BUN/Creat Ratio 66.3 RATIO (10-20); Calcium,Total 8.5 mg/dL (8.5-10.1); Chloride 105 mmol/L (98-107); Creatinine, Serum 1.04 mg/dL (0.55-1.02); EST Glomerular Filtration Rate 54 mL/min (>60); Est Glom Filt Rate - Afr Amer 65 mL/min (>60); Estimated Creatinine Clearance 30.99 ml/min; Glucose 87 mg/dL (74-106); Potassium 4.5 mmol/L (3.5-5.1); Sodium Level 143 mmol/L (136-145)
--- NOTE | 2018-03-11 07:55 | NURSING ---
dr Godoy notified of pt HGB 6.8 this AM, orders obtained for 2 units blood transfusion, type and cross, H/H in AM
[2018-03-11] MEDS: Ferrous Sulfate 325 MG Tablet PO (08:14)
[2018-03-11] MEDS: Aspirin 325 MG Tablet PO (08:14)
[2018-03-11] MEDS: Sucralfate 1 GM Tablet PO ×3 (09:56→21:10)
[2018-03-11] MEDS: Ondansetron ODT 4 MG Tablet PO (10:00)
[2018-03-11] MEDS: Tuberculin,Purif.prot.deriv. 50 TU/ML Vial 5 ML ID (10:19)
--- NOTE | 2018-03-11 10:30 | NURSING ---
pt off unit for blood via wc to [id number]
[2018-03-11 15:59] VITALS: BP 136/57; PULSE 85
--- NOTE | 2018-03-11 21:00 | NURSING ---
JUST RETURNED FROM MED SURG AFTER RECEIVING BLOOD. PUPPET MAKER IN ROOM AND STAFF ASSISTED PATIENT TO RECLINER. CAUGHT UP ON ALL MEDS. DENIES ANY NAUSEA AT PRESENT. VSS. SEE FLOW SHEET. KRISTEN RN AND JANETT RN NOTIFIED OF RETURN TO UNIT. WILL CONT TO MONITOR. PATIENT IN GOOD SPIRITS AND VERY TALKATIVE. DENIES ANY NEEDS AT THIS TIME,
[2018-03-11] MEDS: Iron Polysaccharide Complex 150 MG CAPSULE PO (21:10)
[2018-03-11] MEDS: Pravastatin 40 MG Tablet PO (21:10)
[2018-03-11 21:16] VITALS: BP 114/51; PULSE 68; RESP 16; TEMP 36.7; O2SAT 93
[2018-03-12 05:59] LABS: Hematocrit 29.7 % (37-47)
[2018-03-12] MEDS: Menthol/Lanolin/Calamine/Znox 113 GM Tube 1 APPLIC TOPICAL ×2 (06:10→19:46)
[2018-03-12] MEDS: Levothyroxine 50 MCG Tablet PO (06:12)
[2018-03-12] MEDS: Pantoprazole Sodium 40 MG Tablet PO (06:12)
[2018-03-12] MEDS: Furosemide 40 MG Tablet PO (06:12)
[2018-03-12 06:13] VITALS: BP 172/77; PULSE 80
[2018-03-12] MEDS: Sucralfate 1 GM Tablet PO ×2 (06:13→12:19)
[2018-03-12] MEDS: Metoprolol Tartrate 25 MG Tablet PO ×2 (06:13→16:00)
[2018-03-12] MEDS: Acetaminophen 500 MG Tablet 1000 MG PO ×2 (06:14→14:16)
[2018-03-12] MEDS: Senna/Docusate Sodium 1 Tablet PO ×2 (06:14→16:01)
[2018-03-12] MEDS: Iron Polysaccharide Complex 150 MG CAPSULE PO ×2 (07:52→15:59)
--- NOTE | 2018-03-12 13:56 | NURSING ---
pt returned with Saline lock in Lt wrist, tried flushing to use for IV protonix, would not flush, edema noted, no redness. Removed, 2x2 gauze to area. RN supervisor inspection notified for new IV site. Pt concerned cause it took 7 sticks yesterday on acute for blood transfusion.
[2018-03-12 14:01] VITALS: BP 137/48; PULSE 87; RESP 18; TEMP 36.9; O2SAT 96
--- NOTE | 2018-03-12 14:57 | PCM.CONS.GEN ---
Reason for Consult Date of Consultation: 03/13/18 History of Present Illness: The patient is a 82 year old F for anemia, melena. 82-year-old female was admitted to TCU following a right shoulder surgery. Patient is normally on Protonix at home. However she denies having abdominal pain or reflux and unsure when this was started. Per notes she did have a EGD and colonoscopy in May 2016 which showed some mild gastritis and a rectal tubular adenoma by Dr. Mittal as she also follows with Dr. Mendoza for chronic anemia. Patient's hemoglobin checked yesterday was 6.8 previous to that it was checked on 03/04 was 9.8. Patient also received 2 units packed red blood cells yesterday and her hemoglobin this morning was 9.0. patient was started on her Protonix as well as some Carafate yesterday. She denied any abdominal pain. She does state that she has black stools but she has also been on iron supplements since prior to her surgery and after her surgery so is difficult to tell if there is much change. She denies any nausea or vomiting Past Medical History Past Medical History (Chronic Problems): Chronic Problems (Last Reviewed 02/27/18 @ 09:21 by Mary Mcnair) Chronic anemia (Chronic) Osteoarthritis of left hip (Chronic) Hypertension (Chronic) Hypercholesterolemia (Chronic) Gout (Chronic) Sleep apnea (Chronic) Contact with and (suspected) exposure to environmental tobacco smoke (acute) (chronic) (Chronic) Secondhand smoke exposure (Chronic) no hx PFTs, on Dulera H/O abdominal aortic aneurysm repair (Chronic) [facility] Iron deficiency anemia (Chronic) Iron deficiency (Chronic) Obstructive sleep apnea (Chronic) Hyperlipidemia (Chronic) Hypothyroidism (Chronic) Medical History: Medical History (Last Reviewed 02/27/18 @ 09:21 by Mary Mcnair) Anemia D64.9 History of blood transfusion Z92.89 Thyroid disease E07.9 Allergies No Known Allergies Allergy (Verified 03/01/18 11:23) Home Medications: Ambulatory Orders Medication Instructions Recorded Cholecalciferol (VIT D3) [Vitamin 1,000 unit PO DAILY 05/24/16 D3] Furosemide [Lasix] 40 mg PO DAILY 05/24/16 Levothyroxine [Synthroid] 50 mcg PO DAILY 05/24/16 Metoprolol Tartrate 25 mg PO BID 05/24/16 Pantoprazole Sodium [Protonix] 40 mg PO DAILY 05/24/16 Pravastatin [Pravachol] 40 mg PO QHS 05/24/16 Albuterol IH (ProAir) [Proair Hfa] 1 - 2 puff INHALATION Q4H PRN PRN 07/27/16 #1 inhaler Dulera 200 Mcg/5 Mcg Inhaler 200 mcg INHALATION BID PRN 08/24/16 Ferrous Sulfate 325 mg PO BIDCM 02/15/18 Acetaminophen [Tylenol] 1,000 mg PO Q8 03/03/18 Aspirin 325 mg PO DAILY@0800 03/03/18 Surgical History: Surgical History (Last Reviewed 02/27/18 @ 09:21 by Mary Mcnair) History of carpal tunnel repair Z98.890 History of repair of rotator cuff Z98.890 H/O right knee surgery Z98.890 History of total left hip arthroplasty Z96.642 History of total replacement of left shoulder joint Z96.612 Surgical History: cholecystectomy, herniorrhaphy, total hip arthroplasty - Left, Left AISHA revision., total knee arthroplasty - Bilateral., - - Aortic surgery, Left carpal tunnel release, Left total shoulder replacement. Psychiatric History: No pertinent psych hx DENTAL OFFICE COORDINATOR History: No pertinent DENTAL OFFICE COORDINATOR history Lives: Alone Smoking Status: Never smoker Tobacco Use: Non-smoker Alcohol: None Drugs: None - *Family History Maternal Family History: Family History (Last Reviewed 02/27/18 @ 09:21 by Mary Mcnair) Father CVA (cerebral vascular accident) Mother Heart disease History Items: No pertinent history Paternal Family History: Family History (Last Reviewed 02/27/18 @ 09:21 by aMry Mcnair) Father CVA (cerebral vascular accident) Mother Heart disease History Items: No pertinent history Review of Systems Constitutional: Denies: Fever Eyes: Denies: Blurred vision HEENT: Denies: Difficulty Swallowing Cardiovascular: Denies: Chest Pain Respiratory: Denies: Shortness of Breath Gastrointestinal: Reports: Melena - Patient is also on iron unsure if this is truly blood previously or her iron supplement, fecal occult positive. Denies: Abdominal Pain, Nausea, Vomiting Genitourinary: Denies: Dysuria Neurological: Denies: Balance problems Psychiatric: Denies: Anxiety, Depression Hematologic/ Lymphatic: Denies: Easy Bleeding Patient Problems: Active and Suspected Problems (Last Reviewed 02/27/18 @ 09:21 by Mary Mcnair) Rotator cuff tear arthropathy of right shoulder (Acute) - Physical Exam General: Alert, Oriented x3, Cooperative, No apparent distress HEENT: Atraumatic Lungs: Normal air movement Cardiovascular: Regular rate Abdomen: Soft, Non Tender - Peritoneal signs, Non-Distended Extremities: No clubbing, No cyanosis, No edema, - - Right upper extremity in a sling Neurological: Cranial nerves II-XII grossly intact Psych/Mental Status: Normal Affect Vital Signs Temp Pulse Resp BP Pulse Ox 98.5 F 87 18 137/48 H 96 03/12/18 14:01 03/12/18 14:01 03/12/18 14:01 03/12/18 14:01 03/12/18 14:01 Oxygen Delivery Method Room Air Weight: 195 lb 2 oz Body Mass Index (BMI) 38.0 Intake and Output for Last 24 Hours 03/10/18 03/11/18 03/12/18 23:59 23:59 23:59 Intake Total 1080 / 1080 840 / 840 600 / 600 Output Total 200 / 200 Balance 880 / 880 840 / 840 600 / 600 Microbiology Past 72 Hours 03/12/18 07:15 Stool Occult Blood (FAM) - Final Stool Occult Blood Positive Laboratory Tests Past 24 Hrs 03/12/18 05:05 Hgb 9.0 L Hct 29.7 L Assessment/Plan All Active Problems (Last Reviewed 02/27/18 @ 09:21 by Mary Mcnair) Status post total left knee replacement (Acute) Rotator cuff tear arthropathy of right shoulder (Acute) 82-year-old female with GI bleed, anemia of 6.8 status post 2 units red blood cells hemoglobin 9, melena, patient also takes iron 1. I have discussed the above with the patient. I have offered the patient EGD with possible biopsy for evaluation. I have explained the risks/benefits of the procedure and described the procedure. I have discussed the risks with the patient, including but not limited to: infection, bleeding, perforation of the GI tract requiring emergency surgery, inability to complete the procedure, injury to any internal organs, complications of anesthesia, etc. - the patient understands and agrees to proceed. I have answered all the patient's questions to the patient's satisfaction and the patient has no further questions. 2. Start patient on Protonix 80 mg IV x1 then 40 mg IV twice daily 3. Clear liquids make n.p.o. 4 hours prior to procedure plan for EGD Tuesday about 10:30 AM. Candy Hinkle M.D. Pager: [phone] [facility] [address] [place] [address], Outpatient [place], [place] [address] Office: [phone] Candy Hinkle M.D. Pager: [phone] [facility] [address] [place] [address], [facility], [address] [place] [id number] Office: [phone] Code Visit Inpatient E&M: 15963 Init Hosp L2
[2018-03-12] MEDS: 0.9% NaCl Peripheral Flush Adult/Peds IV ×2 (15:58→21:39)
[2018-03-12 16:00] VITALS: BP 137/48; PULSE 87
[2018-03-12] MEDS: Pravastatin 40 MG Tablet PO (19:48)
[2018-03-12 20:00] VITALS: PULSE 74; RESP 18; O2SAT 94
[2018-03-13 05:22] VITALS: BP 148/54; PULSE 82
[2018-03-13] MEDS: Levothyroxine 50 MCG Tablet PO (05:22)
[2018-03-13] MEDS: Menthol/Lanolin/Calamine/Znox 113 GM Tube 1 APPLIC TOPICAL ×2 (05:22→19:54)
[2018-03-13] MEDS: Metoprolol Tartrate 25 MG Tablet PO ×2 (05:22→17:26)
--- NOTE | 2018-03-13 06:01 | NURSING ---
NPO PER ORDER FOR PROCEDURE THIS AM PATIENT AWARE OF SAME. RESTING IN RECLINER WITH BLE ELEVATED FOR COMFORT.
[2018-03-13] MEDS: 0.9% NaCl Peripheral Flush Adult/Peds IV ×2 (06:04→19:50)
[2018-03-13 06:30] VITALS: PULSE 82; RESP 18; O2SAT 96
--- NOTE | 2018-03-13 09:00 | NURSING ---
Patient taken down to AC by INSURANCE VERIFIER for EGD. Report given to RN in AC.
[2018-03-13] MEDS: Furosemide 40 MG Tablet PO (11:47)
[2018-03-13] MEDS: Iron Polysaccharide Complex 150 MG CAPSULE PO ×2 (11:49→17:26)
[2018-03-13] MEDS: Senna/Docusate Sodium 1 Tablet PO ×2 (11:50→17:27)
[2018-03-13] MEDS: Acetaminophen 500 MG Tablet 1000 MG PO ×2 (13:55→19:48)
--- NOTE | 2018-03-13 13:56 | CASEMGMT ---
Insurance Clinical information sent. Pending continued stay approval at this time. Auth#[id number] YOANDY Rondon, MANAGER VIDEO
--- NOTE | 2018-03-13 14:47 | NURSING ---
Patient returned from EGD. No active bleeding or abnormalities were found. Patient awake and alert. Denies pain. Will continue to monitor.
[2018-03-13 16:00] VITALS: BP 115/42; PULSE 70; RESP 16; TEMP 36.8; O2SAT 93
[2018-03-13] MEDS: Sucralfate 1 GM Tablet PO ×2 (16:37→19:50)
[2018-03-13 17:26] VITALS: BP 142/56; PULSE 84
--- NOTE | 2018-03-13 17:43 | NURSING ---
Dr. Ojeda called, NO to d/c IV protonix and start protonix 40mg PO daily and check H&H in AM.
[2018-03-13] MEDS: Pravastatin 40 MG Tablet PO (19:49)
[2018-03-14] MEDS: Levothyroxine 50 MCG Tablet PO (05:43)
[2018-03-14] MEDS: Pantoprazole Sodium 40 MG Tablet PO (05:43)
[2018-03-14] MEDS: Acetaminophen 500 MG Tablet 1000 MG PO ×2 (05:43→13:52)
[2018-03-14 05:44] VITALS: BP 145/86; PULSE 92
[2018-03-14] MEDS: Metoprolol Tartrate 25 MG Tablet PO ×2 (05:44→17:39)
[2018-03-14] MEDS: Furosemide 40 MG Tablet PO (05:44)
[2018-03-14] MEDS: Senna/Docusate Sodium 1 Tablet PO ×2 (05:44→17:39)
[2018-03-14] MEDS: Sucralfate 1 GM Tablet PO ×4 (05:45→20:15)
[2018-03-14 05:47] LABS: Hematocrit 30.4 % (37-47); Hemoglobin 9.1 g/dl (12.0-15.0)
[2018-03-14] MEDS: Menthol/Lanolin/Calamine/Znox 113 GM Tube 1 APPLIC TOPICAL ×2 (05:47→20:14)
[2018-03-14] MEDS: 0.9% NaCl Peripheral Flush Adult/Peds IV (05:52)
--- NOTE | 2018-03-14 07:11 | NURSING ---
Saline lock in Lt wrist flushed with normal saline, no s/sx of infiltration. Edema noted to BLE + 2 elevated while sitting in recliner. No concerns voiced at this time.
[2018-03-14] MEDS: Iron Polysaccharide Complex 150 MG CAPSULE PO ×2 (07:36→17:40)
--- NOTE | 2018-03-14 11:42 | NURSING ---
IV d/c'd by VENDING ROUTE SERVICER. Patient tolerated well.
--- NOTE | 2018-03-14 11:50 | NURSING ---
THIS NURSE PULLED IV OUT OF PT LEFT WRIST,PER MITCH SUAREZ. PT TOLERATED WELL. NO S/S OF INFECTION. PRESSURE DRESSING APPLIED.
[2018-03-14 15:14] VITALS: BP 150/65; PULSE 97; RESP 18; TEMP 37.1; O2SAT 92
--- NOTE | 2018-03-14 17:03 | CASEMGMT ---
Insurance Continued stay approved with next update due on 03/15/18. Auth#[id number] YOANDY Rondon, NYLON OPERATOR
[2018-03-14 17:39] VITALS: BP 150/65; PULSE 97
[2018-03-14] MEDS: oxyCODONE 5 MG Tablet PO (20:14)
[2018-03-14] MEDS: Pravastatin 40 MG Tablet PO (20:15)
[2018-03-14 20:25] VITALS: PULSE 88; RESP 18; O2SAT 96
[2018-03-15] MEDS: oxyCODONE 5 MG Tablet PO ×3 (00:44→19:52)
[2018-03-15] MEDS: Menthol/Lanolin/Calamine/Znox 113 GM Tube 1 APPLIC TOPICAL ×2 (06:05→19:51)
[2018-03-15] MEDS: Acetaminophen 500 MG Tablet 1000 MG PO ×2 (06:06→13:29)
[2018-03-15] MEDS: Pantoprazole Sodium 40 MG Tablet PO (06:07)
[2018-03-15 06:08] VITALS: PULSE 86
[2018-03-15] MEDS: Metoprolol Tartrate 25 MG Tablet PO ×2 (06:08→17:18)
[2018-03-15] MEDS: Sucralfate 1 GM Tablet PO ×4 (06:08→19:54)
[2018-03-15] MEDS: Levothyroxine 50 MCG Tablet PO (06:09)
--- NOTE | 2018-03-15 06:11 | NURSING ---
Pt refused am lasix 40mg, senna and miralax d/t am appointment. Pt slept off and on throughout night, requesting pain medication several times for c/o back and shoulder pain. Appears anxious to work with therapy as well as appointment. States niece is transporting to [facility] and said she would like to call and verify this after breakfast. Accepted all other am meds as well as pain medicine. RN aware, continuing to monitor.
[2018-03-15] MEDS: Iron Polysaccharide Complex 150 MG CAPSULE PO ×2 (07:36→17:18)
[2018-03-15 14:06] VITALS: PULSE 73; RESP 18; O2SAT 95
--- NOTE | 2018-03-15 14:42 | CASEMGMT ---
Insurance Clinical information sent. Pending continued stay approval at this time. Auth#[id number] YOANDY Alexis, FELLMONGERING MACHINE OPERATOR
[2018-03-15 14:57] VITALS: BP 124/48; PULSE 92; RESP 20; TEMP 37.2; O2SAT 97
--- NOTE | 2018-03-15 15:29 | NURSING ---
AT 10:15 AM PT LEFT BY WHEELCHAIR WITH FAMILY MEMBER AND RETURNED AT 12:10PM.
--- NOTE | 2018-03-15 15:33 | NURSING ---
NEW ORDER FROM PT DR.APPOINTMENT. PT CAN TAKE SLING OFF WHEN IN RECLINER. SLING MUST BE ON WHEN PT UP AND WALKING. SLING/ULTRA SLING MUST BE ON WHEN PT IN BED. THERAPY AND MITCH CARDONA AWARE
[2018-03-15 17:18] VITALS: BP 124/48; PULSE 92
[2018-03-15] MEDS: Pravastatin 40 MG Tablet PO (19:51)
[2018-03-16] MEDS: oxyCODONE 5 MG Tablet PO ×2 (00:09→05:30)
[2018-03-16] MEDS: Menthol/Lanolin/Calamine/Znox 113 GM Tube 1 APPLIC TOPICAL ×2 (05:29→19:37)
[2018-03-16] MEDS: Pantoprazole Sodium 40 MG Tablet PO (05:30)
[2018-03-16] MEDS: Levothyroxine 50 MCG Tablet PO (05:30)
[2018-03-16 05:31] VITALS: PULSE 78
[2018-03-16] MEDS: Furosemide 40 MG Tablet PO (05:31)
[2018-03-16] MEDS: Metoprolol Tartrate 25 MG Tablet PO ×2 (05:31→16:28)
[2018-03-16] MEDS: Acetaminophen 500 MG Tablet 1000 MG PO ×2 (05:41→13:20)
[2018-03-16] MEDS: Iron Polysaccharide Complex 150 MG CAPSULE PO ×2 (06:50→16:26)
[2018-03-16] MEDS: Sucralfate 1 GM Tablet PO ×4 (06:50→19:39)
--- NOTE | 2018-03-16 06:52 | NURSING ---
Addendum entered by Lisandra Bullock 03/16/18 06:58: This nurse and MARKETING OPERATIONS MANAGER rearranged room in middle of the night. Pt remained in recliner chair until bed was moved. Original Note: Pt asked for bed to be moved away from corner and closer to center of room in order to not feel so closed in. This nurse and pt rearranged room in middle of night and helped pt from recliner chair into bed. In the morning, pt was very pleased and stated she has not slept as well as she had last night, her entire time at hospital. Said she felt more 'at ease' and was able to relax and sleep. Other staff aware of this in order to keep bed where it is while pt present. RN aware. Continuing to monitor.
--- NOTE | 2018-03-16 07:10 | MDS.RN ---
Information for the mds was obtained from review of the clinical record, interview of resident, staff, and direct observation of resident's care.
[2018-03-16 16:00] VITALS: BP 125/59; PULSE 81; RESP 16; TEMP 36.7; O2SAT 97
[2018-03-16 16:28] VITALS: BP 125/59; PULSE 81
[2018-03-16] MEDS: Senna/Docusate Sodium 1 Tablet PO (16:29)
[2018-03-16] MEDS: Pravastatin 40 MG Tablet PO (19:39)
[2018-03-17] MEDS: Menthol/Lanolin/Calamine/Znox 113 GM Tube 1 APPLIC TOPICAL ×2 (06:28→20:00)
[2018-03-17] MEDS: Sucralfate 1 GM Tablet PO ×4 (06:29→20:00)
[2018-03-17] MEDS: Senna/Docusate Sodium 1 Tablet PO (06:29)
[2018-03-17] MEDS: Pantoprazole Sodium 40 MG Tablet PO (06:29)
[2018-03-17] MEDS: Furosemide 40 MG Tablet PO (06:29)
[2018-03-17 06:30] VITALS: PULSE 92; RESP 18; O2SAT 95
[2018-03-17] MEDS: Levothyroxine 50 MCG Tablet PO (06:34)
[2018-03-17 06:36] VITALS: BP 158/70; PULSE 92
[2018-03-17] MEDS: Metoprolol Tartrate 25 MG Tablet PO ×2 (06:36→16:33)
--- NOTE | 2018-03-17 08:39 | CASEMGMT ---
Insurance Continued stay approved with next update due on 03/20/18. Auth#[id number] YOANDY Alexis, DIE CAST DIE MAKER
--- NOTE | 2018-03-17 09:29 | NURSING ---
TYELNOL CHANGED TO PRN PER PT REQUEST
[2018-03-17] MEDS: Acetaminophen 500 MG Tablet 1000 MG PO (10:13)
[2018-03-17] MEDS: Iron Polysaccharide Complex 150 MG CAPSULE PO ×2 (10:15→17:12)
[2018-03-17 15:15] VITALS: BP 132/67; PULSE 81; RESP 18; TEMP 37.3; O2SAT 94
[2018-03-17 16:33] VITALS: PULSE 81
[2018-03-17] MEDS: Pravastatin 40 MG Tablet PO (20:00)
[2018-03-18] MEDS: Sucralfate 1 GM Tablet PO ×4 (06:13→20:35)
[2018-03-18] MEDS: Furosemide 40 MG Tablet PO (06:14)
[2018-03-18] MEDS: Pantoprazole Sodium 40 MG Tablet PO (06:15)
[2018-03-18] MEDS: Levothyroxine 50 MCG Tablet PO (06:16)
[2018-03-18 06:17] VITALS: BP 138/82; PULSE 88
[2018-03-18] MEDS: Menthol/Lanolin/Calamine/Znox 113 GM Tube 1 APPLIC TOPICAL ×2 (06:17→20:37)
[2018-03-18] MEDS: Metoprolol Tartrate 25 MG Tablet PO ×2 (06:17→18:00)
[2018-03-18 07:13] LABS: Absolute Lymphocyte Count 1.75 X10^3/ul (0.83-4.51); Absolute Neutrophil Count 4.5 X10^3/uL (2.0-7.7); Basophil# 0.06 X10^3/uL; Basophil% 0.8 % (0-1); Eosinophil# 0.36 X10^3/uL; Eosinophils% 4.9 % (0-5); Hemoglobin 9.5 g/dl (12.0-15.0); Lymphocyte # 1.75 X10^3/ul (4.0); Mean Corp Hgb Conc 29.7 g/gl (32-36); Mean Corpuscular Hgb 29.5 pg (27.0-32.0); Mean Corpuscular Volume 99.4 fL (81-99); Mean Platelet Vol. 9.9 fl (6.2-12.0); Monocyte# 0.55 X10^3/uL; Monocyte% 7.6 % (0-10); Neutrophil # 4.54 X10^3/uL (2.7-7.7); Neutrophil % 62.4 % (47-70); Platelet Count 382 K/mm3 (150-450); RBC Distribution Width CV 15.7 % (11.6-14.6); RBC Distribution Width SD 53.8 fl (35.1-43.9); Red Blood Count 3.22 M/mm3 (4.2-5.4); White Blood Count 7.3 K/mm3 (4.4-11.0)
[2018-03-18 07:14] LABS: POSITIVE COUNT NO; POSITIVE DIFFERENTIAL NO; POSITIVE MORPHOLOGY NO
[2018-03-18] MEDS: Iron Polysaccharide Complex 150 MG CAPSULE PO ×2 (07:36→18:00)
[2018-03-18 07:40] LABS: Anion Gap 7 (5-15); BUN 31 mg/dL (7-18); BUN/Creat Ratio 32.8 RATIO (10-20); Calcium,Total 8.8 mg/dL (8.5-10.1); Chloride 106 mmol/L (98-107); Creatinine, Serum 0.95 mg/dL (0.55-1.02); EST Glomerular Filtration Rate 60 mL/min (>60); Est Glom Filt Rate - Afr Amer 73 mL/min (>60); Estimated Creatinine Clearance 33.93 ml/min; Glucose 85 mg/dL (74-106); Sodium Level 142 mmol/L (136-145)
[2018-03-18 16:00] VITALS: BP 126/56; PULSE 89; RESP 16; TEMP 36.8; O2SAT 95
[2018-03-18 18:00] VITALS: BP 126/56; PULSE 89
[2018-03-18 20:17] VITALS: PULSE 96; RESP 16; O2SAT 95
[2018-03-18] MEDS: Pravastatin 40 MG Tablet PO (20:27)
[2018-03-19 05:24] VITALS: BP 142/58; PULSE 83
[2018-03-19] MEDS: Senna/Docusate Sodium 1 Tablet PO (05:24)
[2018-03-19] MEDS: Pantoprazole Sodium 40 MG Tablet PO (05:24)
[2018-03-19] MEDS: Levothyroxine 50 MCG Tablet PO (05:24)
[2018-03-19] MEDS: Metoprolol Tartrate 25 MG Tablet PO ×2 (05:24→17:10)
[2018-03-19] MEDS: Furosemide 40 MG Tablet PO (05:24)
[2018-03-19] MEDS: Polyethylene Glycol 3350 17 GM PACKET PO (05:25)
[2018-03-19] MEDS: Menthol/Lanolin/Calamine/Znox 113 GM Tube 1 APPLIC TOPICAL ×2 (05:34→21:20)
[2018-03-19] MEDS: Sucralfate 1 GM Tablet PO ×4 (07:15→21:18)
[2018-03-19] MEDS: Iron Polysaccharide Complex 150 MG CAPSULE PO ×2 (08:36→17:06)
[2018-03-19 14:51] VITALS: BP 109/43; PULSE 86; RESP 20; TEMP 37.4; O2SAT 91
[2018-03-19 17:10] VITALS: BP 127/64; PULSE 90
[2018-03-19] MEDS: Pravastatin 40 MG Tablet PO (21:18)
[2018-03-19 21:21] VITALS: PULSE 72; RESP 16; O2SAT 97
[2018-03-20 05:14] VITALS: BP 154/61; PULSE 85
[2018-03-20] MEDS: Furosemide 40 MG Tablet PO (05:14)
[2018-03-20] MEDS: Levothyroxine 50 MCG Tablet PO (05:14)
[2018-03-20] MEDS: Senna/Docusate Sodium 1 Tablet PO (05:14)
[2018-03-20] MEDS: Pantoprazole Sodium 40 MG Tablet PO (05:14)
[2018-03-20] MEDS: Metoprolol Tartrate 25 MG Tablet PO ×2 (05:14→16:57)
[2018-03-20] MEDS: Nystatin Powder 15gm Bottle 1 APPLIC TOPICAL ×2 (05:19→19:52)
[2018-03-20] MEDS: Menthol/Lanolin/Calamine/Znox 113 GM Tube 1 APPLIC TOPICAL ×2 (05:20→19:42)
[2018-03-20] MEDS: Sucralfate 1 GM Tablet PO ×4 (06:54→19:43)
[2018-03-20] MEDS: Iron Polysaccharide Complex 150 MG CAPSULE PO ×2 (08:06→16:57)
[2018-03-20 10:00] VITALS: PULSE 72; RESP 16; O2SAT 97
--- NOTE | 2018-03-20 12:52 | CASEMGMT ---
Insurance Clinical information sent. Pending continued stay approval. Auth#[id number] YOANDY Alexis, MANAGER INTERVENTIONAL
--- NOTE | 2018-03-20 13:42 | CASEMGMT ---
Brief interview for mental status (BIMS) and resident mood interview (PHQ-9) completed on this day. BIMS score 13/15. PHQ-9 score
--- NOTE | 2018-03-20 13:42 | CASEMGMT ---
Social Work Spoke with resident in room. Resident requesting to discharge on 03/22/18. Team agreeable to discharge date and recommending for resident to discharge to home with physical and occupational therapy. Resident is agreeable to recommendation and requesting for home health care to be set up through [facility] ([facility]). Resident requesting for this social welfare research worker to contact resident purnima in regards to discharge plan. Telephone call to resident nathaliaIan alamo voicemail left. Resident reporting to need a jose guadalupe-walker at time of discharge. Resident does not have a preference of [employer], [employer] to be utilized. Resident reporting that Ian will provide transportation home for resident at time of discharge. Support given. [facility] This social welfare research worker making referral for physical and occupational therapy. Order to be completed. Will set-up jose guadalupe-walker when order is obtained. Proposed discharge date: 03/22/18 PLAN: Discharge to home alone. YOANDY Alexis, FIRE SUPERVISOR
[2018-03-20 16:00] VITALS: BP 135/56; PULSE 87; RESP 18; TEMP 36.5; O2SAT 95
[2018-03-20 16:57] VITALS: BP 135/56; PULSE 87
[2018-03-20] MEDS: Pravastatin 40 MG Tablet PO (19:45)
--- NOTE | 2018-03-20 20:11 | DCINST_ITS ---
- Discharge Diagnoses Current Active Problems: Current Active and Chronic Problems (Last Reviewed 02/27/18 @ 09:21 by Mary Mcnair) Rotator cuff tear arthropathy of right shoulder (Acute) Obstructive sleep apnea (Chronic) Hyperlipidemia (Chronic) Hypothyroidism (Chronic) You will use the following diet at home:: No restrictions, Regular Your food should be the consistency of: Regular Your liquids should be the consistency of: Regular/Thin Discharge Activity: Return to Normal Activity, May Shower, Use Walker Weight Bearing Status: Weight bearing as tolerated Call your doctor if you observe: Fever of 101 or Higher, Inability to urinate, Inability to have a bowel movement, Shortness of breath, Chest pain, Uncontrolled pain Allergies/Adverse Reactions: Allergies No Known Allergies Allergy (Verified 03/01/18 11:23) Medications to take at Discharge Cholecalciferol (VIT D3) [Vitamin D3] 1,000 unit PO DAILY 05/24/16 Furosemide [Lasix] 40 mg PO DAILY 05/24/16 Levothyroxine [Synthroid] 50 mcg PO DAILY 05/24/16 Metoprolol Tartrate 25 mg PO BID 05/24/16 Pantoprazole Sodium [Protonix] 40 mg PO DAILY 05/24/16 Pravastatin [Pravachol] 40 mg PO QHS 05/24/16 Albuterol IH (ProAir) [Proair Hfa] 1 - 2 puff INHALATION Q4H PRN PRN #1 inhaler 07/27/16 Dulera 200 Mcg/5 Mcg Inhaler 200 mcg INHALATION BID PRN 08/24/16 Acetaminophen [Tylenol] 1,000 mg PO Q8 03/03/18 Albuterol Inhaler [Ventolin Hfa] 2 puff INHALATION Q4H PRN PRN inhaler 03/20/18 Hydrocortisone 2.5% Crm [Hytone] 1 applic TOPICAL TID PRN PRN #1 tube 03/20/18 Iron Polysaccharide Complex [Ferrex 150] 150 mg PO BIDCM #60 capsule 03/20/18 Menthol/Lanolin/Calamine/Znox [Calmoseptine Ointment] 1 applic TOPICAL 0600,2200 tube 03/20/18 Nystatin Powder [Mycostatin Powder] 1 applic TOPICAL 0600,2200 bottle 03/20/18 Pantoprazole Sodium [Protonix] 40 mg PO DAILY #30 tablet 03/20/18 The following prescriptions were given: Hydrocortisone 2.5% Crm [Hytone] 1 applic TOPICAL TID PRN PRN #1 tube PRN Reason: Rash/Topical Irritation Pantoprazole Sodium [Protonix] 40 mg PO DAILY #30 tablet Iron Polysaccharide Complex [Ferrex 150] 150 mg PO BIDCM #60 capsule Primary Care Physician: Esvin Preciado MD [Primary Care Provider] - Please follow up with your Primary Care Physician in: 1 week. Test Results: Test results from this visit will be discussed in further detail at your follow- up appointment, if applicable. Please Follow Up With: Goran George MD When: 4 wks Please Follow Up With: Esvin Preciado MD Proposed Discharge Date: 03/22/18
--- NOTE | 2018-03-20 20:11 | PCM.DC.SUM ---
Discharge Date and Diagnosis - Problem List Patient Problems: Active and Suspected Problems (Last Reviewed 02/27/18 @ 09:21 by Mary Mcnair) Rotator cuff tear arthropathy of right shoulder (Acute) Date of Admission: 03/03/18 Date of Discharge: 03/22/18 - Primary Discharge Diagnosis Active and Suspected Problems (Last Reviewed 02/27/18 @ 09:21 by Mary Mcnair) Rotator cuff tear arthropathy of right shoulder (Acute) - Secondary Discharge Diagnosis Chronic Problems (Last Reviewed 02/27/18 @ 09:21 by Mary Mcnair) Chronic anemia (Chronic) Osteoarthritis of left hip (Chronic) Hypertension (Chronic) Hypercholesterolemia (Chronic) Gout (Chronic) Sleep apnea (Chronic) Contact with and (suspected) exposure to environmental tobacco smoke (acute) (chronic) (Chronic) Secondhand smoke exposure (Chronic) no hx PFTs, on Dulera H/O abdominal aortic aneurysm repair (Chronic) [facility] Iron deficiency anemia (Chronic) Iron deficiency (Chronic) Obstructive sleep apnea (Chronic) Hyperlipidemia (Chronic) Hypothyroidism (Chronic) Hospital Course and Treatment Imaging Results: 03/13/18 11:13 Diet: Regular Diet Is pt able to select menu?: Yes Clinical Impression(s) from Imaging Studies [facility] X-Ray 03/09/18 21:20 IMPRESSION: Nonobstructive abdomen. Electronically Signed: Brandy Molina MD at 22:06 EST Tel , Service support , Operations: None Procedures: EGD - 03/13/2018 Dr. Hinkle. Summary of Care Provided: The patient is a 82 year old Female with below past medical history hospitalized for right reverse total shoulder arthroplasty 03/01/[address] George, admitted with debility, here for rehabilitation, strengthening, prior to discharge home alone. On TCU, resident developed anemia, +stool guaiac. 03/13/2018 Dr. Hinkle performed EGD showing gastritis, Pantoprazole prescribed, Aspirin DVT prophylaxis held, resident may not have tolerated Aspirin 325MG BID. Discharge home alone, with Home Health Services for PT/OT. Patient Problems: Active and Suspected Problems (Last Reviewed 02/27/18 @ 09:21 by Mary Mcnair) Rotator cuff tear arthropathy of right shoulder (Acute) - Physical Exam Vital Signs Temp Pulse Resp BP Pulse Ox 97.7 F L 87 18 135/56 H 95 03/20/18 16:00 03/20/18 16:57 03/20/18 16:00 03/20/18 16:57 03/20/18 16:00 Oxygen Delivery Method Room Air Weight: 88.6 kg Body Mass Index (BMI) 38.0 Intake and Output for Last 24 Hours 03/18/18 03/19/18 03/20/18 23:59 23:59 23:59 Intake Total 800 / 800 840 / 840 720 / 720 Balance 800 / 800 840 / 840 720 / 720 Discharge Diet: No Restrictions Discharge Activity: Return to Normal Activity, May Shower, Use Walker Weight Bearing Status: Weight bearing as tolerated Call your doctor if you observe: Fever of 101 or Higher, Inability to urinate, Inability to have a bowel movement, Shortness of breath, Chest pain, Uncontrolled pain Home Medications: Medications to take at Discharge Cholecalciferol (VIT D3) [Vitamin D3] 1,000 unit PO DAILY 05/24/16 Furosemide [Lasix] 40 mg PO DAILY 05/24/16 Levothyroxine [Synthroid] 50 mcg PO DAILY 05/24/16 Metoprolol Tartrate 25 mg PO BID 05/24/16 Pantoprazole Sodium [Protonix] 40 mg PO DAILY 05/24/16 Pravastatin [Pravachol] 40 mg PO QHS 05/24/16 Albuterol IH (ProAir) [Proair Hfa] 1 - 2 puff INHALATION Q4H PRN PRN #1 inhaler 07/27/16 Dulera 200 Mcg/5 Mcg Inhaler 200 mcg INHALATION BID PRN 08/24/16 Acetaminophen [Tylenol] 1,000 mg PO Q8 03/03/18 Albuterol Inhaler [Ventolin Hfa] 2 puff INHALATION Q4H PRN PRN inhaler 03/20/18 Hydrocortisone 2.5% Crm [Hytone] 1 applic TOPICAL TID PRN PRN #1 tube 03/20/18 Iron Polysaccharide Complex [Ferrex 150] 150 mg PO BIDCM #60 capsule 03/20/18 Menthol/Lanolin/Calamine/Znox [Calmoseptine Ointment] 1 applic TOPICAL 0600,2200 tube 03/20/18 Nystatin Powder [Mycostatin Powder] 1 applic TOPICAL 0600,2200 bottle 03/20/18 Pantoprazole Sodium [Protonix] 40 mg PO DAILY #30 tablet 03/20/18 Following Prescrptions Were Given to Patient: Hydrocortisone 2.5% Crm [Hytone] 1 applic TOPICAL TID PRN PRN #1 tube PRN Reason: Rash/Topical Irritation Pantoprazole Sodium [Protonix] 40 mg PO DAILY #30 tablet Iron Polysaccharide Complex [Ferrex 150] 150 mg PO BIDCM #60 capsule Primary Care Physician: Esvin Preciado MD [Primary Care Provider] - Please follow up with your Primary Care Physician in: 1 week. Please Follow Up With: Gorna George MD When: 4 wks Please Follow Up With: Esvin Preciado MD Disposition: Home with Home Health Minutes spent on discharge:: 35 Patient Condition:: Stable Medical Necessity - Tobacco Use Smoking Status: Never smoker Tobacco Use: Non-smoker Meaningful Use Info Meaningful Use Diagnoses (Choose all that apply): None applicable
--- NOTE | 2018-03-20 20:14 | HHNOTE_ITS ---
Home Health Note - Plan Overview of reason of hospitalization: The patient is a 82 year old Female with below past medical history hospitalized for right reverse total shoulder arthroplasty 03/01/[address] George, admitted with debility, here for rehabilitation, strengthening, prior to discharge home alone. On TCU, resident developed anemia, +stool guaiac. 03/13/2018 Dr. Hinkle performed EGD showing gastritis, Pantoprazole prescribed, Aspirin DVT prophylaxis held, resident may not have tolerated Asp irin 325MG BID. Discharge home alone, with Home Health Services for PT/OT. Problems: Patient was seen for (Last Reviewed 02/27/18 @ 09:21 by Mary Mcnair) Rotator cuff tear arthropathy of right shoulder (Acute) Obstructive sleep apnea (Chronic) Hyperlipidemia (Chronic) Hypothyroidism (Chronic) Complete List of Medical Problems (Last Reviewed 02/27/18 @ 09:21 by Mary Mcnair) Chronic anemia (Chronic) Osteoarthritis of left hip (Chronic) Hypertension (Chronic) Hypercholesterolemia (Chronic) Gout (Chronic) Sleep apnea (Chronic) Status post total left knee replacement (Acute) Contact with and (suspected) exposure to environmental tobacco smoke (acute) (chronic) (Chronic) Secondhand smoke exposure (Chronic) H/O abdominal aortic aneurysm repair (Chronic) Iron deficiency anemia (Chronic) Iron deficiency (Chronic) Rotator cuff tear arthropathy of right shoulder (Acute) Obstructive sleep apnea (Chronic) Hyperlipidemia (Chronic) Hypothyroidism (Chronic) - Requirements and Reasons Disciplines Needed/Ordered: Physical Therapy Reason for Disciplines: Gait Training, Stair Training, Fall Prevention, Home Safety/Equipment Instruction, Balance and/or Posture Training, Transfer Training Related To: Limited/Poor Endurance, Shortness of Breath with Activity, Physical Impairments, Unsteady Gait/Balance, Fall Risk Patient is unable to leave the home: Without Aid of Supportive Devices (crutches, cane, wheelchair, walker), Without the assistance of another person - Additional Disciplines Additional Disciplines Needed/Ordered: Occupational Therapy
[2018-03-21] MEDS: Levothyroxine 50 MCG Tablet PO (04:41)
[2018-03-21] MEDS: Sucralfate 1 GM Tablet PO ×4 (04:42→21:18)
[2018-03-21] MEDS: Furosemide 40 MG Tablet PO (04:42)
[2018-03-21 04:43] VITALS: BP 141/76; PULSE 80
[2018-03-21] MEDS: Nystatin Powder 15gm Bottle 1 APPLIC TOPICAL ×2 (04:43→21:17)
[2018-03-21] MEDS: Senna/Docusate Sodium 1 Tablet PO (04:43)
[2018-03-21] MEDS: Pantoprazole Sodium 40 MG Tablet PO (04:43)
[2018-03-21] MEDS: Metoprolol Tartrate 25 MG Tablet PO ×2 (04:43→17:05)
[2018-03-21] MEDS: Menthol/Lanolin/Calamine/Znox 113 GM Tube 1 APPLIC TOPICAL ×2 (04:45→21:16)
--- NOTE | 2018-03-21 06:44 | PCA ---
res refusing arm brace when going to bed, said the pillow under it should be fine, both ,Both RNS aware
[2018-03-21] MEDS: Iron Polysaccharide Complex 150 MG CAPSULE PO ×2 (07:48→17:05)
--- NOTE | 2018-03-21 09:00 | CASEMGMT ---
Social Work Telephone call to Angela Brown. This [employer] school social science teacher making referral for Cesar-Walker. Order faxed. Stephanie to deliver Cesar-Walker to resident room prior to resident discharge. Proposed discharge date: 03/22/18 PLAN: Discharge to home alone with home health care. GAVIN AlexisW, RECYCLABLE MATERIALS SORTER
[2018-03-21 15:20] VITALS: BP 131/65; PULSE 95; RESP 18; TEMP 36.5; O2SAT 94
[2018-03-21 15:41] VITALS: PULSE 78; RESP 18; O2SAT 94
[2018-03-21 17:05] VITALS: BP 131/65; PULSE 78
--- NOTE | 2018-03-21 17:05 | CASEMGMT ---
Insurance Continued stay denied with last cover day being 03/22/18 and resident to discharge or financial responsibility to begin on 03/23/18. Spoke with resident in room. Resident plans to discharge on 03/22/18 as planned. Auth#[id number] Darlene Howell, STUDENT MINISTRIES DIRECTOR, FUNERAL PROFESSIONAL
[2018-03-21] MEDS: Pravastatin 40 MG Tablet PO (21:18)
[2018-03-22 06:30] VITALS: PULSE 80; RESP 16; O2SAT 95
[2018-03-22] MEDS: Menthol/Lanolin/Calamine/Znox 113 GM Tube 1 APPLIC TOPICAL (06:45)
[2018-03-22 06:48] VITALS: BP 153/68; PULSE 80
[2018-03-22] MEDS: Levothyroxine 50 MCG Tablet PO (06:48)
[2018-03-22] MEDS: Metoprolol Tartrate 25 MG Tablet PO (06:48)
[2018-03-22] MEDS: Pantoprazole Sodium 40 MG Tablet PO (06:48)
[2018-03-22] MEDS: Nystatin Powder 15gm Bottle 1 APPLIC TOPICAL (06:49)
[2018-03-22] MEDS: Sucralfate 1 GM Tablet PO (06:50)
[2018-03-22] MEDS: Iron Polysaccharide Complex 150 MG CAPSULE PO (07:34)
[2018-03-22 10:30] VITALS: BP 172/73; PULSE 79; RESP 20; TEMP 36.8; O2SAT 94
--- NOTE | 2018-03-23 14:53 | CASEMGMT ---
Insurance Notified insurance of resident discharge on 03/22/18 to home alone with home health care. Auth#[id number] YOANDY Alexis, INDUSTRIAL TRACTOR DRIVER
--- OUTSIDE RECORDS SUMMARY | 2018-04-28 15:39 | XMS RPT_ITS ---
:1935 Author Organization OHIP Support Name Relationship Address Phone CABLE, LIMA Unavailable [address] + [place] [address] R Unavailable Unavailable Unavailable CABLE, LIMA Unavailable [address] + [place] [address] R Unavailable Unavailable Unavailable CABLE, LIMA Unavailable [address] + [place] [address] R Unavailable Unavailable Unavailable CABLE, LIMA Unavailable [address] + [place] [address] R Unavailable Unavailable Unavailable CABLE, LIMA Unavailable [address] + [place] [address] R Unavailable Unavailable Unavailable CABLE, LIMA Unavailable [address] + [place] [address] R Unavailable Unavailable Unavailable CABLE, LIMA Unavailable [address] + [place] [address] R Unavailable Unavailable Unavailable CABLE, LIMA Unavailable [address] + [place] [address] R Unavailable Unavailable Unavailable CABLE, LIMA Unavailable [address] + [place] [address] R Unavailable Unavailable Unavailable CABLE, LIMA Unavailable [address] + [place] [address] R Unavailable Unavailable Unavailable CABLE, LIMA Unavailable [address] + [place] [address] R Unavailable Unavailable Unavailable CABLE, LIMA Unavailable [address] + [place] [address] R Unavailable Unavailable Unavailable CABLE, LIMA Unavailable [address] + [place] [address] R Unavailable Unavailable Unavailable CABLE, LIMA Unavailable [address] + [place] [address] R Unavailable Unavailable Unavailable CABLE, LIMA Unavailable [address] + [place] [address] R Unavailable Unavailable Unavailable CABLE, LIMA Unavailable [address] + [place] [address] R Unavailable Unavailable Unavailable CABLE, LIMA Unavailable [address] + [place] [address] R Unavailable Unavailable Unavailable CABLE, LIMA Unavailable [address] + [place] [address] R Unavailable Unavailable Unavailable CABLE, LIMA Unavailable [address] + [place] [address] R Unavailable Unavailable Unavailable CABLE, LIMA Unavailable [address] + [place] [address] R Unavailable Unavailable Unavailable Care Team Providers Name Role Phone Candy Hinkle Attending Unavailable Francesco Armas Attending [...] Primary Care Unavailable Prah, Francesco Consulting Unavailable Rj Colon Attending Unavailable Ariel, Rj Referring Unavailable Preciado, Mylene Primary Care Unavailable PraFrancesco sanchez Attending Unavailable Preciado, Mylene Referring Unavailable Preciado, Mylene Primary Care Unavailable Prah, Francesco Consulting Unavailable Ariel, Rj Admitting Unavailable Aaron Colonen Attending Unavailable Ariel, Rj Referring Unavailable Preciado, Mylene Primary Care Unavailable Francesco Armas Attending Unavailable Preciado, Mylene Referring Unavailable Preciado, Mylene Primary Care Unavailable Prah, Francesco Consulting Unavailable Walt, Wesley Chi Admitting Unavailable Walt, Wesley Chi Referring Unavailable Preciado, Mylene Primary Care Unavailable Sourav Moran Attending Unavailable Candy Hinkle Consulting Unavailable German Dewitt Attending Unavailable Ariel, Rj Referring Unavailable Walt, Wesley Chi Attending Unavailable Walt, Wesley Chi Referring Unavailable Preciado, Mylene Primary Care Unavailable Walt, Wesley Chi Admitting Unavailable Robotham, Candy Attending Unavailable Walt, Wesley Chi Referring Unavailable Preciado, Mylene Primary Care Unavailable Robotham, Candy Consulting Unavailable Tereletsky, Sourav Consulting Unavailable Robotham, Candy Attending Unavailable Robotham, Candy Referring Unavailable Preciado, Mlyene Primary Care Unavailable JUAN UPTON Attending Unavailable JUAN UPTON Referring Unavailable JUAN UPTON Attending Unavailable RJ COLON Referring Unavailable JUAN UPTON Attending Unavailable JUAN UPTON Referring Unavailable PRECIADO, MYLENE A Primary Care Unavailable PROBLEMS PROBLEMS DATE TYPE CONDITION / CODE ATTENDING STATUS SOURCE 03/20/2018 Unknown D50.9 - Iron Robotham, Active [facility] deficiency anemia, Candy Community unspecified / Hospital D50.9(ICD-10) Repository 03/20/2018 Unknown K44.9 - Diaphragmatic Robotham, Active [facility] hernia without Candy Community obstruction or Hospital [...] Z96.611 - 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 / Hospital Z96.611(ICD-10) Repository 02/27/2018 Active Encounter for Sam UPTON [place] preprocedural [place] [facility] Main cardiovascular [place] examination / Repository Z01.810(ICD-10) 02/27/2018 Active Essential (primary) Sam UPTON [place] hypertension / [facility] Main I10(ICD-10) [place] Repository 03/06/2018 Unknown R94.31 - Abnormal Renate, German Active [facility] electrocardiogram Community [ECG] [EKG] / Hospital R94.31(ICD-10) [...] Unknown 250.00 - Diabetes Pradaniel, Francesco Active [facility] mellitus without Community mention of Hospital complication, type II Repository or unspecified type, not stated as uncontrolled / 250.00(ICD-9) 02/05/2018 Unknown 585.3 - Chronic kidney Pradaniel, Francesco Active [place] disease, Stage III Community (moderate) / Hospital 585.3(ICD-9) Repository 02/05/2018 Unknown N18.3 - Chronic kidney Pradaniel, Francesco Active [facility] disease, stage 3 Community (moderate) / Hospital N18.3(ICD-10) Repository 12/30/2017 Unknown 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, right Community shoulder / Hospital M19.011(ICD-10) Repository 10/21/2017 Unknown D64.9 - Anemia, Mylene Preciado Active [facility] unspecified / Community D64.9(ICD-10) Hospital Repository 05/16/2017 Unknown M25.511 - Pain in Mario Alberto Garcia Active [facility] right shoulder / Community M25.511(ICD-10) Hospital Repository PROCEDURES PROCEDURES No Procedure Records FoundRESULTS RESULTS DISCHARGE SUMMARY Observed: 03/20/2018 Status: F Source: [place] 8:14 PM [facility] REPOSITORY [facility] Medical Records Department [address] [place] [address] Discharge Summary 03/20/182010 MR#: [id number] Acct: [id number] Name: JOSIECELINA D Rep #: [id number] : 1935 82 From: Wesley Godoy MD PCP: Mylene Preciado MD Status: ADM IN Location: [place] [address] Discharge Date and Diagnosis - Problem List [...] Date Wesley Godoy MD Cosigner Signature (if applicable): Date CC: Mylene Preciado MD; Wesley Godoy MD Signed HOME HEALTH PROGRESS Observed: 03/20/2018 Status: F Source: [place] NOTE 8:14 PM [facility] REPOSITORY [facility] Medical Records Department [address] [place] [address] Home Health Progress Note Ywly-vs-Kfpc Encounter Encounter Date: 03/20/182013 MR#: [id number] Acct: [id number] Name: CELINA GALINDO Rep #: [id number] : 1935 82 From: Wesley Godoy MD PCP: Mylene Preciado MD Status: ADM IN Location: [place] [address] Home Health Note - Plan Overview of [...] DISCHARGE INSTRUCTION Observed: 03/20/2018 Status: F Source: [place] 8:11 PM [facility] REPOSITORY [facility] Medical Records Department [address] [place] [address] Instructions for Home/Discharge Instructions 03/20/182008 MR#: [id number] Acct: [id number] Name: CELINA GALINDO Rep #: [id number] : 1935 82 From: Wesley Godoy MD [...] 03/18/2018 Status: F Source: [place] 6:48 AM [facility] REPOSITORY TYPE CODE TESTS RESULT OUT OF [...] Lymph 1.75 Performed By: #### L100.0100 #### [facility] [address] [place], [address] BASIC METABOLIC Collected: 03/18/2018 Status: F Source: [place] PROFILE ([facility]) 6:48 AM [facility] REPOSITORY TYPE CODE TESTS RESULT OUT OF [...] GAP 7 Performed By: #### L500.2500 #### [facility] [address] [place], [address] HISTORY AND PHYSICAL Observed: 03/16/2018 Status: F Source: [place] EXAM 8:11 AM [facility] REPOSITORY [facility] Medical Records Department [address] [place] [address] History and Physical 03/03/18 1609 MR#: [id number] Acct: [id number] Name: CELINA GALINDO Jaki Rep #: [id number] : 1935 82 From: Wesley Godoy MD PCP: Mylene Preciado MD Status: ADM IN Location: [place] [address] ADDENDUM by Wesley Godoy MD on 03/16/18 [...] (Last Reviewed 02/27/18 @ 09:21 by Mary Mncair) History of carpal tunnel repair Z98.890 History [...] replacement. 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 03/03/18 7126 <Electronically signed by Wesley Godoy MD> Date Wesley Godoy MD Cosigner Signature: Date (if applicable) CC: Mylene Preciado MD; Wesley Godoy MD Signed HH, HEMOGLOBIN AND Collected: 03/14/2018 Status: F Source: [place] HEMATOCRIT 5:05 AM [facility] REPOSITORY TYPE CODE TESTS RESULT OUT OF RANGE REFERENCE UNITS LAB L100.1300 12.0-15.0 g/dl Low HGB 9.1 LAB L100.1400 37-47 % Low HCT 30.4 Performed By: #### L100.0600 #### [facility] [place], [address] IMMUNOHISTOCHEMISTRY Observed: 03/13/2018 Status: F Source: [place] 10:45 AM [facility] REPOSITORY Patient: CELINA GALINDO : 1935 (82/F) Acct Num: [id number] Phys: Candy Hinkle MD Unit Num: [id number] Loc: EN Specimen: [id number] Received: 03/13/181416 Spec Type: IMMUNO TISSUES 1 TISSUES: Stomach, NOS SPECIMEN INFORMATION: Tissue Source: Antral biopsy Clinical Info: Anemia Specimen Number: [id number] CPT code: 15463 METHODOLOGY: Deparaffinized sections of prefer/formalin-fixed tissue or PAP/DQ stained slides are incubated with monoclonal/polyclonal antibodies/oligonucleotide probes. Localization is made via biotin free immunoperoxidase method. Appropriate controls are performed and reacted as expected. Results on target cell population are indicated in the following table: RESULTS: ANTIBODY / CLONE RESULT H Pylori (polyclonal) negative These tests were developed and their performance characteristics determined by [facility]. They may not have been cleared or approved by the U.S. Food and Drug Administration. The FDA has determined that such clearance or approval is not necessary. INTERPRETATION: Antral biopsy: Negative for Helicobacter pylori organisms. SJ:dajuan 03/14/18 PHYSICIAN AND INSTITUTION [place] [address] Signed Josuha Wilder 03/14/18 <signature on file> Performed By: #### PIMM #### [facility] [address] [place] [address]. [place], [place], [id number] OPERATIVE REPORT - Observed: 03/13/2018 Status: F Source: [place] ENDOSCOPY 10:34 AM [facility] REPOSITORY [facility] Medical Records Department [address] [place] [address] Operative Report - Endoscopy MR#: [id number] Acct: [id number] Name: CELINA GALINDO Rep #: [id number] : 1935 82 From: Candy Hinkle MD PCP: Mylene Preciado MD Status: [facility] Patient Name: Celina Galindo Procedure Date: 03/13/2018 [...] present medications. Procedure Code(s): --- Professional --- 52132, Esophagogastroduodenoscopy, flexible, transoral; with biopsy, single or multiple Diagnosis Code(s): --- Professional --- K44.9, Diaphragmatic hernia without obstruction or gangrene K29.70, Gastritis, unspecified, without bleeding D50.9, Iron deficiency anemia, unspecified CPT copyright 2017 [employer]. All rights reserved. The codes documented in this report are preliminary and upon relay shop supervisor review may be revised to meet current compliance requirements. MD Candy Ramos MD 03/13/2018 10:33:30 AM This report has been signed electronically. Number of Addenda: 0 Note Initiated On: 03/13/2018 10:17 AM 03/13/18 1033 Date Candy Hinkle MD Cosigner Signature: Date (if indicated) CC: Mylene Preciado MD; Candy Hinkle MD Date Dictated: 03/13/18 1017 Date Transcribed: Car Knocker: TR Signed HH, HEMOGLOBIN AND Collected: 03/13/2018 Status: F Source: [place] HEMATOCRIT 10:12 AM [facility] REPOSITORY TYPE CODE TESTS RESULT OUT OF RANGE REFERENCE UNITS LAB L100.1300 12.0-15.0 g/dl Low HGB 10.1 LAB L100.1400 37-47 % Low HCT 34.2 Performed By: #### L100.0600 #### [facility] [address] [facility] [place], [address] CONSULTATION Observed: 03/13/2018 Status: F Source: [place] 7:43 AM [facility] REPOSITORY [facility] Medical Records Department [address] [place] [address] Consultation 03/12/18 1457 MR#: [id number] Acct: [id number] Name: CELINA GALINDO Rep #: [id number] : 1935 82 From: Candy Hinkle MD PCP: Mylene Preciado MD Status: ADM IN Location: [place] [address] Reason for Consult Date of Consultation: 03/13/18 [...] replacement. 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 Candy Hinkle M.D. Pager: [phone] [facility] [address] [place] [address], [place] [address] Office: [phone] Candy Hinkle M.D. Pager: [phone] [facility] [address] [place] [address], [facility], [address] [address] Office: [phone] Code Visit Inpatient E AND M: 93580 Init Hosp L2 03/13/18 0743 <Electronically signed by Candy Hinkle MD> Date Candy Hinkle MD Cosigner Signature (if applicable): Date CC: Mylene Preciado MD; Wesley Godoy MD; Candy Hinkle MD Signed GASTRIC BIOPSY Observed: 03/13/2018 Status: F Source: [place] 12:00 AM [facility] REPOSITORY Patient: CELINA GALINDO : 1935 (82/F) Acct Num: [id number] Phys: Arin BENITEZ,Candy Unit Num: [id number] Loc: EN Specimen: [id number] Received: 03/13/18 - 1353 Spec Type: Gastric Bx TISSUES 1 TISSUES: Gastric mucous membrane COMMENT The results of immunohistochemistry for Helicobacter pylori will be reported separately ([id number]). GROSS DESCRIPTION Received in fixative is one container labeled with the patient's name and designated antral biopsy. The specimen consists of one irregular fragment of light milligan soft tissue that measures 0.4 x 0.3 x 0.1 cm. The specimen is totally submitted in one cassette. / SJ:dajuan 03/13/18 TC:3 CPT: 48381 HEADER OPERATION: EGD ([facility]) PRE-OP DIAGNOSIS: Anemia TISSUE SUBMITTED: Antral biopsy [...] on file> Performed By: #### PGASB #### [facility] [address] [place], [address] Observed: 03/12/2018 Status: F Source: [place] STOOL OCCULT BLOOD 7:15 AM [facility] IFOB REPOSITORY Order Date: 03/11/18 Comments: s STOB iFOB Occult Blood Positive ORGANISM 1: OCCULT BLOOD POSITIVE Performed By: #### M100.7900 #### [facility] [address] [facility] [place], [place], [address] HH, HEMOGLOBIN AND Collected: 03/12/2018 Status: F Source: [place] HEMATOCRIT 5:05 AM [facility] REPOSITORY TYPE CODE TESTS RESULT OUT OF RANGE REFERENCE UNITS LAB L100.1300 12.0-15.0 g/dl Low HGB 9.0 LAB L100.1400 37-47 % Low HCT 29.7 Performed By: #### L100.0600 #### [facility] [address] [place], [place], [address] TYPE AND SCREEN Collected: 03/11/2018 Status: P Source: [place] 8:20 AM [facility] REPOSITORY Order Comment: CMV NEG? N Number [...] NEGATIVE Screen Performed By: #### B101.7450 #### [facility] [address] [facility] [place], [address] TYPE AND SCREEN Collected: 03/11/2018 Status: F Source: [place] 8:20 AM [facility] REPOSITORY Order Comment: CMV NEG? N Number [...] NEGATIVE Screen Performed By: #### B101.7450 #### [facility] [address] [place], [address] Collected: 03/11/2018 Status: F Source: [place] 8:20 AM [facility] REPOSITORY TYPE CODE TESTS RESULT OUT OF REFERENCE UNITS RANGE LAB U100.0000 [id number] TRANSFUSED PRODUCT: T AND S with Crossmatch, Red Cells COUNT: 2 Performed By: #### U100.0000 #### Non-[facility] - refer to report for specific site CBC W/DIFF, AUTOMATED Collected: 03/11/2018 Status: F Source: [place] 6:30 AM [facility] REPOSITORY TYPE CODE TESTS RESULT OUT OF [...] Lymph 1.77 Performed By: #### L100.0100 #### [facility] [address] [place], [place], [address] BASIC METABOLIC Collected: 03/11/2018 Status: F Source: [place] PROFILE ([facility]) 6:30 AM [facility] REPOSITORY TYPE CODE TESTS RESULT OUT OF [...] GAP 7 Performed By: #### L500.2500 #### [facility] [address] [place], [place], [address] URINALYSIS, COMPLETE Collected: 03/09/2018 Status: F Source: [place] 10:50 PM [facility] REPOSITORY Order Comment: Order Date: 03/09/18 How [...] URINE SEEN Performed By: #### L400.0001 #### [facility] [address] [facility] [place], [place], [address] ABDOMEN SINGLE VIEW Observed: 03/09/2018 Status: F Source: [place] (PORTABLE) 9:11 PM [facility] REPOSITORY [facility] Imaging Services [address] [place] [address] Abdomen Single View (Portable) MR#: [id number] Acct: [id number] Name: CELINA GALINDO Rep #: [id number] : 1935 F 82 From: Brandy Molina MD PCP: Mylene Preciado MD Status: ADM IN Study: Abdomen Single View (Portable) Date of Exam: 03/09/18 Exam# [id number] Ordering Dr: Wesley Godoy MD STUDY: X-RAY [...] CC: Mylene Preciado MD; Wesley Godoy MD Car Knocker: Signed CBC W/DIFF, AUTOMATED Collected: 03/04/2018 Status: F Source: [place] 7:45 AM [facility] REPOSITORY TYPE CODE TESTS RESULT OUT OF [...] Lymph 1.31 Performed By: #### L100.0100 #### [facility] [address] [place], [address] BASIC METABOLIC Collected: 03/04/2018 Status: F Source: [place] PROFILE ([facility]) 7:45 AM [facility] REPOSITORY TYPE CODE TESTS RESULT OUT OF [...] GAP 7 Performed By: #### L500.2500 #### [facility] [address] [place], [address] 12 LEAD ELECTROCARDIOGRAM Observed: 03/03/2018 Status: F Source: [place] 9:12 AM [facility] REPOSITORY [facility] Cardiovascular Services [address] [place] [address] EKG - SDC 02/15/18 1202 MR#: [id number] Acct: [id number] Name: CELINA GALINDO Rep #: [id number] : 1935 82 From: German Dewitt MD Attending Dr: Rj Colon MD Status: ADM IN Ordering Dr: Rj Colon MD Date: 02/15/18 Location: [facility] Sex: F C Admitted: 03/01/18 Test Reason [...] ECG Confirmed by RENATE BENITEZ, GERMAN ([id number]), telegraph editor USAMA GRIDER ([id number]) on 02/22/2018 11:32:15 AM Referred By: Rj Colon Confirmed By:GERMAN DEWITT MD 02/22/181131 Date German Dewitt MD CC: Mylene Preciado MD; Rj Colon MD Date Dictated: 02/15/181201 Date Transcribed: 02/15/181201 Car Knocker: Signed DISCHARGE INSTRUCTION Observed: 03/03/2018 Status: F Source: [place] 7:30 AM [facility] REPOSITORY [facility] Medical Records Department [address] [place] [address] Instructions for Home/Discharge Instructions 03/03/18 0728 MR#: [id number] Acct: [id number] Name: CELINA GALINDO Rep #: [id number] : 1935 82 From: Dylan Galvez PA-C [...] on March 06, 2018 Additional Instructions: Follow [facility] postop instructions Physical therapy/OT: No range [...] OPERATIVE REPORT Observed: 03/01/2018 Status: F Source: [place] 3:08 PM [facility] REPOSITORY [facility] Medical Records Department [address] [place] [address] Operative Report 03/01/18 1428 MR#: [id number] Acct: [id number] Name: CELINA GALINDO Rep #: [id number] : 1935 82 From: Rj Colon MD PCP: Mylene Preciado MD Status: ADM IN [facility] Report of Operation Date of Procedure: 03/01/18 Pre-Operative Diagnosis: Right Shoulder CTA Post-Operative Diagnosis: Right Shoulder CTA Surgery/Procedure Performed:: Right Reverse TSA Description of Surgical Findings:: stable shoulder informatics spec: Dylan Galvez Type of Anesthesia:: General Anesthesiologist: Mylene Gaming Specimen's removed: bony cuts Estimated Blood Loss (mL): 150 Fluids Replaced: 700 ml crystalloid Description of Procedure: Components used 1. glenoid baseplate from HBCS for reverse TSA 2. 32, +6 mm [...] rotated and the shoulder was dislocated. The HBCS humeral head cutting guide was used to [...] the course of the procedure the physician assistant center director played a vital role. His intimate knowledge [...] ONE VIEW Observed: 03/01/2018 Status: F Source: [place] 1:14 PM [facility] REPOSITORY [facility] Imaging Services [address] [place] [address] Shoulder One View MR#: [id number] Acct: [id number] Name: CELINA GALINDO Rep #: [id number] : 1935 F 82 From: Urban Hinojosa DO PCP: Mylene Preciado MD Status: ADM IN Study: Shoulder One View Date of Exam: 03/01/18 Exam# [id number] Ordering Dr: Rj Colon MD STUDY: X-RAY [...] Urban Hinojosa DO at 19:22 EST Tel [phone], Service support , CC: Mylene Preciado MD; Rj Colon MD Car Knocker: Signed PROGRESS Observed: 02/27/2018 Status: COMPLETED Source: [place] 2:10 PM [facility] [place] REPOSITORY O ID: [id number] Author: Juan Upton Service: (none) Author Type: [...] anemia Beta emil for ASHD with prior [place] or prior LVEF<40 (NQF 0070) - N/A [...] MD CNOV Observed: 02/27/2018 Status: COMPLETED Source: [place] 10:15 AM [facility] REPOSITORY Office Visit (CAWSTR) CELINA GALINDO ([id number]) 1935 F Date Time Provider Department 02/27/18 [...] anemia Beta emil for ASHD with prior [place] or prior LVEF<40 (NQF 0070) - N/A [...] the following areas and commit to making longwall foreman changes. EAT A WHOLE FOOD, PLANT BASED [...] in your area. Referring Provider: RJ COLON [[id number]] Allergies As of Date: 02/27/2018 Noted Allergy [...] the following areas and commit to making longwall foreman changes. EAT A WHOLE FOOD, PLANT BASED [...] VISIT REPORT Observed: 02/21/2018 Status: F Source: [place] 11:18 AM [facility] REPOSITORY [facility] [address] OFFICE VISIT Date of Service: 02/21/18 1112 MR#: [id number] Acct: [id number] Name: CELINA GALINDO Rep #: [id number] : 1935 From: Francesco Armas MD Age/Sex: [...] Chronic Code Visit Office Visits / Consults: [id number] OV L3 Est 02/21/18 1118 <Electronically signed by Francesco Armas MD> Date Francesco Armas MD Cosigner Signature: Date (if applicable) CC: HISTORY AND PHYSICAL Observed: 02/16/2018 Status: F Source: [place] EXAM 12:30 PM [facility] REPOSITORY [facility] Medical Records Department [address] [place] [address] History and Physical 02/16/18 1229 MR#: [id number] Acct: [id number] Name: MIKAELAANDREASCELINA Rep #: [id number] : 1935 82 From: Dylan Galvez PA-C PCP: Mylene Preciado MD Status: PRE IN Y Location: [facility] History and Physical DATE OF SURGERY: 03/01/2018 [...] for iron infusions. She also sees a vehicle body maker Dr. Bryan. Patient requires the use of a walker due to her knee. Patient did have a previous left total knee arthroplasty in [address] Billy Urbina. Since then she has been on a walker. We are obtaining surgical clearance from patient's vehicle body maker and primary care physician. After failing conservative [...] Hx: Knee Replacement - (2001) RT TKR, [facility] - Carlitos Aorta Surgery - (11/2004) [facility] Gallbladder - (11/2005) AND HERNIA REPAIR, DR. DUDLEY, [facility] Hernia Repair - (02/2008) Dr. Nayana DE ANDA Carpal Tunnel Release LT - (08/2005) DR. URBINA L TSR - (07/2009) [facility] - (12/28/2011) EVAN @ [facility] LT THR Revision - (07/18/2012) [email or web address] Knee Replacement LT - (07/20/2016) [email or web address] Anesthesia Complications: None Assistive Devices: Glasses, [...] 02/15/2018 Status: F Source: PAKO 12:26 PM [facility] REPOSITORY TYPE CODE TESTS RESULT OUT OF RANGE REFERENCE UNITS LAB L300.4150 11.7-14.9 SECONDS Normal PROTIME 13.2 LAB L300.4200 Normal INR 1.0 Performed By: #### L300.3900, L300.4310 #### [facility] [address] [place], [place], [address] PARTIAL THROMBOPLAST Collected: 02/15/2018 Status: F Source: [place] TIME 12:26 PM [facility] REPOSITORY TYPE CODE TESTS RESULT OUT OF RANGE REFERENCE UNITS LAB L300.4310 24.1-36.2 Seconds Normal PTT 30.5 Performed By: #### L300.3900, L300.4310 #### [facility] [address] [place], [address] CBC W/DIFF, AUTOMATED Collected: 02/15/2018 Status: F Source: [place] 12:24 PM [facility] REPOSITORY Order Comment: SEND RESULTS TO DR [...] Lymph 2.07 Performed By: #### L100.0100 #### [facility] [address] [place], [place], [address] COMPREHENSIVE METABOLIC Collected: 02/15/2018 Status: F Source: [facility] 12:18 PM [facility] REPOSITORY Order Comment: Reason for Laboratory Test [...] Performed By: #### L500.4050, L503.6030, L503.6550 #### [facility] [address] [facility] [place], [place], [address] IRON+IRON BINDING Collected: 02/15/2018 Status: F Source: [facility] 12:18 PM [facility] REPOSITORY Order Comment: Reason for Laboratory Test . TYPE CODE TESTS RESULT OUT OF RANGE REFERENCE UNITS LAB L503.6075 250-450 ug/dL TIBC Normal 323 LAB L503.6150 50-170 ug/dL Low IRON 38 LAB L503.6250 15.0-55.0 % Low IRON SATURATION 11.8 Performed By: #### L500.4050, L503.6030, L503.6550 #### [facility] [address] [place], [place], [address] FERRITIN Collected: 02/15/2018 Status: F Source: [place] 12:18 PM [facility] REPOSITORY Order Comment: Reason for Laboratory Test . TYPE CODE TESTS RESULT OUT OF REFERENCE UNITS RANGE LAB L503.6550 8-252 ng/mL High FERRITIN 282 Performed By: #### L500.4050, L503.6030, L503.6550 #### [facility] [address] [place], [address] Observed: 02/15/2018 Status: F Source: [place] MRSA/SAID SCREEN 12:10 PM [facility] REPOSITORY MRSA/SAID SCRN S. AUREUS S. aureus Negative MRSA MRSA Negative Performed By: #### M100.651 #### [facility] [address] [place], [address] PT D/C SUMMARY (1) Observed: 02/08/2018 Status: F Source: [place]KO 11:05 AM [facility] REPOSITORY [facility] [address] [place], [place] [address] Fax REHABILITATION SERVICES DISCHARGE SUMMARY MR#: [id number] Acct: [id number] Name: CELINA GALINDO Rep #: [id number] : 1935 82 From: Jass Phillips PT, [...] please feel free to call me at [phone]. Thank you for the referral of this patient. Sincerely, Jass Phillips, PT, <Electronically signed by Jass Phillips PT, ATC> 02/08/18 1105 CC: Mylene Preciado MD; Rj Colon MD [facility] Signed ONCOLOGY VISIT REPORT Observed: 02/05/2018 Status: F Source: [place]KO 4:16 PM [facility] REPOSITORY [facility] [address] [place] [address] OFFICE VISIT Date of Service: 02/01/18 1702 MR#: [id number] Acct: [id number] Name: CELINA GALINDO Rep #: [id number] : 1935 From: Francesco Armas MD Age/Sex: [...] Chronic Code Visit Office Visits / Consults: 98690 OV L3 Est 02/05/18 1616 <Electronically signed by Francesco Armas MD> Date Francesco Armas MD Cosigner Signature: Date (if applicable) CC: HEMOGLOBIN A1C Collected: 02/01/2018 Status: F Source: [place] 1:16 PM [facility] REPOSITORY TYPE CODE TESTS RESULT OUT OF RANGE REFERENCE UNITS LAB L501.9985 4.2-6.3 % Normal HGB A1C 6.1 Performed By: #### L501.9985, L500.4050, L501.9520, L506.0400 #### [facility] [address] [place], [address] COMPREHENSIVE METABOLIC Collected: 02/01/2018 Status: F Source: [place] [facility] [...] By: #### L501.9985, L500.4050, L501.9520, L506.0400 #### [facility] [address] [facility] [place], [address] THYROID STIM HORMONE Collected: 02/01/2018 Status: F Source: [place] (TSH) 1:16 PM [facility] REPOSITORY TYPE CODE TESTS RESULT OUT OF RANGE REFERENCE UNITS LAB L501.9520 0.358-3.74 uIU/mL Normal TSH 3.74 Performed By: #### L501.9985, L500.4050, L501.9520, L506.0400 #### [facility] [address] [facility] [place], [address] T4 FREE DIRECT Collected: 02/01/2018 Status: F Source: [place] 1:16 PM [facility] REPOSITORY TYPE CODE TESTS RESULT OUT OF RANGE REFERENCE UNITS LAB L506.0400 0.76-1.46 ng/dL Normal T4 FREE 1.05 DIRECT Performed By: #### L501.9985, L500.4050, L501.9520, L506.0400 #### [facility] [address] [facility] [place], [address] CBC W/DIFF, AUTOMATED Collected: 02/01/2018 Status: F Source: [place] 1:13 PM [facility] REPOSITORY Order Comment: Reason for Laboratory Test [...] Lymph 1.93 Performed By: #### L100.0100 #### [facility] [address] [place] [address]. [place], [place], [address] IRON+IRON BINDING Collected: 02/01/2018 Status: F Source: [place] CAPACITY 1:13 PM [facility] REPOSITORY Order Comment: Reason for Laboratory Test . TYPE CODE TESTS RESULT OUT OF RANGE REFERENCE UNITS LAB L503.6075 250-450 ug/dL TIBC Normal 281 LAB L503.6150 50-170 ug/dL Low IRON 38 LAB L503.6250 15.0-55.0 % Low IRON SATURATION 13.5 Performed By: #### L503.6030, L503.6550 #### [facility] [address] [place], [place], [address] FERRITIN Collected: 02/01/2018 Status: F Source: [place] 1:13 PM [facility] REPOSITORY Order Comment: Reason for Laboratory Test . TYPE CODE TESTS RESULT OUT OF REFERENCE UNITS RANGE LAB L503.6550 8-252 ng/mL High [place] 364 Performed By: #### L503.6030, L503.6550 #### [facility] [address] [place], [place], [address] EXTREMITY UPPER Observed: 01/18/2018 Status: F Source: [place] WITHOUT CONTRA 3:47 PM [facility] REPOSITORY [facility] Imaging Services [address] [place] [address] Extremity Upper without Contra MR#: [id number] Acct: [id number] Name: CELINA GALINDO Rep #: [id number] : 1935 F 82 From: Rex Raines MD PCP: Ozzy BENITEZ,Mylene Status: REG CLI Study: Extremity Upper without Contra Date of Exam: 01/18/18 Exam# [id number] Ordering Dr: Rj Colon MD STUDY: CT RIGHT SHOULDER REASON FOR [...] of a rotator cuff surgery. Electronically Signed: Rex Raines MD at 10:42 EDT Tel [phone], Service support , CC: Mylene Preciado MD; Rj Colon MD Car Knocker: Signed INITAL EVALUATION (1) Observed: 01/09/2018 Status: F Source: [place] - PT 12:46 PM [facility] REPOSITORY [facility] [address] [place] [address] Fax REHABILITATION SERVICES INITIAL EVALUATION MR#: [id number] Acct: [id number] Name: CELINA GALINDO Rep #: [id number] : 1935 82 From: Jass Phillips PT, ATC Referring Dr.: Rj Colon MD Status: REG RCR Insurance: [facility] MEDICARE PPO SELF PAY INSURANCE [...] to be FAXED BACK to us at [phone] for Medicare purposes. Please let me know if there are questions or concerns regarding this plan of care. Physician Signature: Date: <Electronically signed by Jass Phillips PT, ATC> 01/09/18 1246 CC: Mylene Preciado MD; Rj Colon MD [facility] Signed For Medicare only, by signing this I certify the plan of care. Physicians Signature Date ONCOLOGY VISIT REPORT Observed: 01/04/2018 Status: F Source: [place]KO 2:47 PM [facility] REPOSITORY [facility] [place] [address] OFFICE VISIT Date of Service: 01/04/18 1425 MR#: [id number] Acct: [id number] Name: CELINA GALINDO Rep #: [id number] : 1935 From: Francesco Armas MD Age/Sex: [...] Chronic Code Visit Office Visits / Consults: 02038 OV L3 Est 01/04/18 1447 <Electronically signed by Francesco Armas MD> Date Francesco Armas MD Cosigner Signature: Date (if applicable) CC: Mylene Preciado MD CBC W/DIFF, AUTOMATED Collected: 12/30/2017 Status: F Source: [place]KO 8:14 AM [facility] REPOSITORY TYPE CODE TESTS RESULT OUT OF [...] Lymph 2.07 Performed By: #### L100.0100 #### [facility] [address] [place], [address] COMPREHENSIVE METABOLIC Collected: 12/30/2017 Status: F Source: [facility] 8:11 AM [facility] REPOSITORY Order Comment: OZZY MARROQUIN GETS CMP, [...] GAP 6 Performed By: #### L500.4050 #### [facility] [address] [facility]. [place], [place], [address] CBC W/DIFF, AUTOMATED Collected: 12/29/2017 Status: F Source: [place] 8:16 AM [facility] REPOSITORY Order Comment: Reason for Laboratory Test [...] Lymph 2.19 Performed By: #### L100.0100 #### [facility] [address] [place], [address] COMPREHENSIVE METABOLIC Collected: 12/29/2017 Status: F Source: [facility] 8:16 AM [facility] REPOSITORY Order Comment: Reason for Laboratory Test [...] By: #### L500.4050, L503.6075, L503.6150, L503.6550 #### [facility] [address] [place], [place], [address] IRON BINDING Collected: 12/29/2017 Status: F Source: [facility] 8:16 AM [facility] REPOSITORY Order Comment: Reason for Laboratory Test . TYPE CODE TESTS RESULT OUT OF RANGE REFERENCE UNITS LAB L503.6075 250-450 ug/dL Normal TIBC 321 Performed By: #### L500.4050, L503.6075, L503.6150, L503.6550 #### [facility] [address] [place], [place], [address] IRON Collected: 12/29/2017 Status: F Source: [place] 8:16 AM [facility] REPOSITORY Order Comment: Reason for Laboratory Test . TYPE CODE TESTS RESULT OUT OF RANGE REFERENCE UNITS LAB L503.6150 50-170 ug/dL Low IRON 46 Performed By: #### L500.4050, L503.6075, L503.6150, L503.6550 #### [facility] [address] [place], [address] FERRITIN Collected: 12/29/2017 Status: F Source: [facility] 8:16 AM [facility] REPOSITORY Order Comment: Reason for Laboratory Test . TYPE CODE TESTS RESULT OUT OF RANGE REFERENCE UNITS LAB L503.6550 8-252 ng/mL Normal [place] 106 Performed By: #### L500.4050, L503.6075, L503.6150, L503.6550 #### [facility] [address] [place], [address] CBC W/DIFF, AUTOMATED Collected: 10/21/2017 Status: F Source: [place] 8:02 AM [facility] REPOSITORY Order Comment: Order Date: 10/20/17 Order [...] L100.0100, L500.4050, L500.4100, L503.6550, L503.0105, L501.9985 #### [facility] [address] [place], [place], [address] COMPREHENSIVE METABOLIC Collected: 10/21/2017 Status: F Source: [facility] 8:02 AM [facility] REPOSITORY Order Comment: PLEASE SEND COPIES TO DR.KEN UPTON Order Date: 10/20/17 Order Info: [id number] - CMP Order Info: [id number] - LIPID Order Info: [id number] - KEEGAN [...] L100.0100, L500.4050, L500.4100, L503.6550, L503.0105, L501.9985 #### [facility] [address] [place] [place], [address] LIPID PROFILE Collected: 10/21/2017 Status: F Source: [place] 8:02 AM [facility] REPOSITORY Order Comment: PLEASE SEND COPIES TO DR.KEN UPTON Order Date: 10/20/17 Order Info: [id number] - CMP Order Info: [id number] - LIPID Order Info: [id number] - KEEGAN [...] L100.0100, L500.4050, L500.4100, L503.6550, L503.0105, L501.9985 #### [facility] [address] [place], [place], [address] [place] Collected: 10/21/2017 Status: F Source: [place] 8:02 AM [facility] REPOSITORY Order Comment: PLEASE SEND COPIES TO DR.KEN UPTON Order Date: 10/20/17 Order Info: [id number] - CMP Order Info: [id number] - LIPID Order Info: [id number] - KEEGAN TYPE CODE TESTS RESULT OUT OF RANGE REFERENCE UNITS LAB L503.6550 8-252 ng/mL Normal [place] 136 Performed By: #### L100.0100, L500.4050, L500.4100, L503.6550, L503.0105, L501.9985 #### [facility] [facility] [address] [place], [place], [address] VITAMIN B12 Collected: 10/21/2017 Status: F Source: [place] 8:02 AM [facility] REPOSITORY Order Comment: Order Date: 10/20/17 [address] S[address] COPIES TO DR[address]KEN UPTON Order Info: 2 132-9 - B12 TYPE CODE TESTS RESULT OUT OF RANGE REFERENCE UNITS LAB L503.0105 211-911 pg/mL Normal Vitamin B12 910 Performed By: #### L100.0100, L500.4050, L500.4100, L503.6550, L503.0105, L501.9985 #### [facility] [address] [place], [place], [address] HEMOGLOBIN A1C Collected: 10/21/2017 Status: F Source: [place] 8:02 AM [facility] REPOSITORY Order Comment: PLEASE SEND COPIES TO DR.KEN UPTON Order Date: 10/20/17 Order Info: [id number] - A1C TYPE CODE TESTS RESULT OUT OF RANGE REFERENCE UNITS LAB L501.9985 4.2-6.3 % Normal HGB A1C 5.6 Performed By: #### L100.0100, L500.4050, L500.4100, L503.6550, L503.0105, L501.9985 #### [facility] [address] [place], [address] ORTHOPEDIC VISIT Observed: 09/19/2017 Status: F Source: [place] REPORT 10:32 AM [facility] REPOSITORY [facility] [address] [place] [address] OFFICE VISIT Date of Service: 08/31/17 MR#: [id number] Acct: [id number] Name: CELINA GALINDO Rep #: [id number] : 1935 Provider: Mario Alberto Garcia DO Age/Sex: 82/F Location: [facility] Status: Signed Intake Intake Visit Reasons: RIGHT [...] Route Admin Location Lot Number Expiration DateNDC Political Consultant 2 mg Intra-Articularright shoulder AAU 3232 08/02/18 8214-2309-40 [employer] Assessment AND Plan Problems 1. Rotator cuff tear arthropathy of right shoulder M75.101; M12.811 2. Chronic right shoulder pain M25.511; G89.29 Plan Assessment: Right shoulder rotator cuff arthropathy right shoulder pain. Plan: 1 time of proceeding with a right shoulder injection per the patient's request. I will also refer her to Dr. Colon at [facility] for possible surgical intervention the patient will [...] pain M25.511; G89.29 Chronicity: chronic Additional Codes manager paid.sub ([id number]) 09/19/17 1032 <Electronically signed by Mario Alberto Garcia DO> Date Mario Alberto Garcia DO Cosigner Signature: Date (if applicable) CC: PROGRESS Observed: 08/25/2017 Status: COMPLETED Source: [place] 10:54 AM [facility] [place] REPOSITORY O ID: [id number] Author: Juan Upton Service: (none) Author Type: [...] anemia Beta emil for ASHD with prior KS or prior LVEF<40 (NQF 0070) - N/A [...] rhythm. There is evidence of previous inferior KS. Poor R-wave progression is noted. There is [...] MD CNOV Observed: 08/25/2017 Status: COMPLETED Source: [place] 10:30 AM [facility] REPOSITORY Office Visit (VAWSTR) CELINA GALINDO ([id number]) 1935 F Date Time Provider Department 08/25/17 [...] anemia Beta emil for ASHD with prior KS or prior LVEF<40 (NQF 0070) - N/A [...] rhythm. There is evidence of previous inferior KS. Poor R-wave progression is noted. There is [...] the following areas and commit to making senior care changes. EAT A WHOLE FOOD, PLANT BASED [...] in your area. Referring Provider: JUAN UPTON [[id number]] Allergies As of Date: 08/25/2017 Noted Allergy Reaction SEASONAL ALLERGIES 12/05/2014 16 - Unknown TAPE [Other] 11/04/2004 Date Reviewed: 08/25/2017 Reviewed by: Nancy Tma RN - Fully Assessed Reason for Visit: Recheck [92] Primary Visit Diagnosis:Essential hypertension [I10] Other Visit Diagnosis:ASHD (arteriosclerotic heart disease) [I25.10] Order(s):ECG COMPLETE W INTERPRETATION [ECG01] Order #: [id number] FUTURE Prescriptions as of 08/25/2017 Sig: FUROSEMIDE [...] the following areas and commit to making senior care changes. EAT A WHOLE FOOD, PLANT BASED [...] VISIT REPORT Observed: 07/06/2017 Status: F Source: [place] 1:35 PM [facility] REPOSITORY [facility] [place] [address] OFFICE VISIT Date of Service: 07/06/17 1323 MR#: [id number] Acct: [id number] Name: CELINA GALINDO Rep #: [id number] : 1935 From: Francesco Armas MD Age/Sex: 82/F Location: [facility] Status: Signed Subjective - Date of Service Date of Service:: 07/06/17 - Chief Complaint F/u for anemia. - History of Present Illness Ms. Celian Galindo is a very pleasant 81y.o.woman with [...] Chronic Code Visit Office Visits / Consults: 64095 OV L3 Est 07/06/17 1335 <Electronically signed by Francesco Armas MD> Date Francesco Armas MD Cosigner Signature: Date (if applicable) CC: CBC W/DIFF, AUTOMATED Collected: 06/24/2017 Status: F Source: [facility] 9:44 AM [facility] REPOSITORY Order Comment: Reason for Laboratory Test [...] Lymph 1.93 Performed By: #### L100.0100 #### [facility] [address] [place], [address] VITAMIN B12 Collected: 06/24/2017 Status: F Source: [place] 9:44 AM [facility] REPOSITORY Order Comment: Reason for Laboratory Test OV TYPE CODE TESTS RESULT OUT OF RANGE REFERENCE UNITS LAB L503.0105 211-911 pg/mL Normal Vitamin B12 889 Performed By: #### L503.0105 #### [facility] [address] [place], [address] COMPREHENSIVE METABOLIC Collected: 06/24/2017 Status: F Source: [facility] 9:44 AM [facility] REPOSITORY Order Comment: Reason for Laboratory Test [...] #### L500.4050, L503.6075, L503.6150, L503.6550, L506.0250 #### [facility] [address] [facility] [place], [address] IRON BINDING Collected: 06/24/2017 Status: F Source: [facility] 9:44 AM [facility] REPOSITORY Order Comment: Reason for Laboratory Test OV Is Patient Taking Vitamins or Folic Acid Supplements? N TYPE CODE TESTS RESULT OUT OF RANGE REFERENCE UNITS LAB L503.6075 250-450 ug/dL Normal TIBC 310 Performed By: #### L500.4050, L503.6075, L503.6150, L503.6550, L506.0250 #### [facility] [address] [facility] [place], [address] IRON Collected: 06/24/2017 Status: F Source: [place] 9:44 AM [facility] REPOSITORY Order Comment: Reason for Laboratory Test OV Is Patient Taking Vitamins or Folic Acid Supplements? N TYPE CODE TESTS RESULT OUT OF RANGE REFERENCE UNITS LAB L503.6150 50-170 ug/dL Normal IRON 59 Performed By: #### L500.4050, L503.6075, L503.6150, L503.6550, L506.0250 #### [facility] [address] [place], [address] FERRITIN Collected: 06/24/2017 Status: F Source: [place] 9:44 AM [facility] REPOSITORY Order Comment: Reason for Laboratory Test OV Is Patient Taking Vitamins or Folic Acid Supplements? N TYPE CODE TESTS RESULT OUT OF RANGE REFERENCE UNITS LAB L503.6550 8-252 ng/mL Normal FERRITIN 173 Performed By: #### L500.4050, L503.6075, L503.6150, L503.6550, L506.0250 #### [facility] [address] [place], [address] FOLATES, (FOLIC ACID) Collected: 06/24/2017 Status: F Source: [place] 9:44 AM [facility] REPOSITORY Order Comment: Reason for Laboratory Test OV Is Patient Taking Vitamins or Folic Acid Supplements? N TYPE CODE TESTS RESULT OUT OF REFERENCE UNITS RANGE LAB L506.0250 3.1-55.4 ng/mL High FOLATES 62.00 Performed By: #### L500.4050, L503.6075, L503.6150, L503.6550, L506.0250 #### [facility] [address] [place], [address] ORTHOPEDIC VISIT Observed: 05/23/2017 Status: F Source: [place] REPORT 1:41 PM [facility] REPOSITORY [facility] [address] [place] [address] [address] [place] [address] OFFICE VISIT Date of Service: 05/16/17 MR#: [id number] Acct: [id number] Name: CELINA GALINDO Rep #: [id number] : 1935 Provider: Mario Alberto Garcia DO Age/Sex: 82/F Location: [facility] Status: Signed Intake Vital Signs05/16/17 Height 5 [...] 05/16/2017 Status: F Source: [place] 1:20 PM [facility] REPOSITORY [facility] Imaging Services [address] [place] [address] Shoulder min 2 Views MR#: [id number] Acct: [id number] Name: CELINA GALINDO Rep #: [id number] : 1935 F 82 From: Dimas Fitch MD PCP: Mylene Preciado MD Status: REG CLI Study: Shoulder min 2 Views Date of Exam: 05/16/17 Exam# [id number] Ordering Dr: Mario Alberto Garcia DO STUDY: [...] Mylene Preciado MD; Mario Alberto Garcia DO Car Knocker: Signed CBC W/DIFF, AUTOMATED Collected: 04/25/2017 Status: F Source: [place] 3:38 PM [facility] REPOSITORY TYPE CODE TESTS RESULT OUT OF [...] Lymph 2.44 Performed By: #### L100.0100 #### [facility] [address] [facility] [place], [place], [address] VITAMIN B12 Collected: 04/25/2017 Status: F Source: [place] 3:38 PM [facility] REPOSITORY TYPE CODE TESTS RESULT OUT OF RANGE REFERENCE UNITS LAB L503.0105 211-911 pg/mL Normal Vitamin B12 585 Performed By: #### L503.0105 #### [facility] [address] [place], [address] COMPREHENSIVE METABOLIC Collected: 04/25/2017 Status: F Source: [facility] 3:38 PM [facility] REPOSITORY TYPE CODE TESTS RESULT OUT OF [...] GAP 8 Performed By: #### L500.4050, L501.9520, L503.6545 #### [facility] [address] [place], [address] THYROID STIM HORMONE Collected: 04/25/2017 Status: F Source: [place] (TSH) 3:38 PM [facility] REPOSITORY TYPE CODE TESTS RESULT OUT OF RANGE REFERENCE UNITS LAB L501.9520 0.358-3.74 uIU/mL Normal TSH 2.83 Performed By: #### L500.4050, L501.9520, L503.6550 #### [facility] [address] [place], [address] FERRITIN Collected: 04/25/2017 Status: F Source: [place] 3:38 PM [facility] REPOSITORY TYPE CODE TESTS RESULT OUT OF REFERENCE UNITS RANGE LAB L503.6550 8-252 ng/mL High FERRITIN 254 Performed By: #### L500.4050, L501.9520, L503.6550 #### [facility] [address], [address] MICROALB:CREAT Collected: 04/25/2017 Status: F Source: [place] RATIO,RANDOM UR 3:38 PM [facility] REPOSITORY TYPE CODE TESTS RESULT OUT OF RANGE REFERENCE UNITS LAB L501.1200 NO RANGE EST. mg/dL 33.30 Normal UR CREAT LAB L502.0500 NO RANGE EST. mg/L < 5.0 Normal MICROALBUMI N,UR LAB L502.0600 <30 mg/g CRE mg/g CRE Test Normal not performed MALB:CREAT Performed By: #### L502.0250 #### [facility] [address] [place], [address] HEMOGLOBIN A1C Collected: 04/25/2017 Status: F Source: [place] 3:38 PM [facility] REPOSITORY TYPE CODE TESTS RESULT OUT OF RANGE REFERENCE UNITS LAB L501.9985 4.2-6.3 % Normal HGB A1C 5.6 Performed By: #### L501.9985 #### [facility] [address] [place], [address] ALLERGIES ALLERGIES DATE TYPE / CODE NAME / CODE REACTION SEVERITY SOURCE 03/01/2018 Drug No Known Unknown [place] Allergy/[id number](S Allergies/F[facility] [place]) [address](RXNORM) Hospital Repository 12/05/2014 Environ/[id number](S SEASONAL UNKNOWN [place] NOMED CT) ALLERGIES [facility] [place] Repository 11/04/2004 Miscellaneous OTHER [place] Allergy/701994423(S [facility] Main NOMED CT) [place] Repository NG/[id number](SNOMED SEASONAL [facility]) ALLERGIES Health System Repository [id number](SNOMED OTHER [facility]) [facility] Repository ENCOUNTERS ENCOUNTERS ADMIT/DISCHARGE ACCOUNT NUMBER ADMITTING ENCOUNTER LOCATION SOURCE CLASS 03/13/2018/03/13/20 [id number] Ambulatory BMSBuilding: [place] [facility] BMS.CF.Critical access hospital Repository 03/13/2018/03/13/20 [id number] Ambulatory [address] ding:ENRoom: Repository AC02 03/11/2018/03/11/20 [id number] Ambulatory [place] [facility] [address] [place] [address] ding:MS3OUT Repository 03/03/2018 [id number] Wesley Godoy Chi Inpatient [place] [facility] ding:TCURoom Repository : CKU53Dyq: 1 03/03/2018 [id number] Wesley Godoy Chi Ambulatory BMSBuilding: [facility] BMS.CF.Critical access hospital Repository 03/01/2018/03/03/20 [id number] Ariel, Inpatient [place] [facility] 18 Rj Encounter [facility] ding:GD0Fnov Repository : IE497Wvj: 1 02/27/2018/02/28/20 [id number] Ambulatory [address] Repository 02/27/2018 [id number] Ambulatory [facility] ding:ONC Repository 02/21/2018 [id number] Ambulatory BMSBuilding: [place] BMS.CF.[facility] Repository 02/15/2018 [id number] Ambulatory BMSBuilding: [place] [facility] Repository 02/08/2018/02/09/20 [id number] Ambulatory [facility] [address] [place] [address] ding:PT Repository 02/01/2018 [id number] Ambulatory BMSBuilding: [place] BMS.CF.[facility] Repository 01/18/2018 [id number] Ambulatory [facility] ding:CT Repository 01/04/2018 [id number] Ambulatory BMSBuilding: [place] BMS.CF.[facility] Repository 12/30/2017 [id number] Ambulatory [facility] ding:LAB Repository 10/21/2017 [id number] Ambulatory [facility] ding:MFPLAB Repository 08/31/2017/09/01/19 [id number] Ambulatory BMSBuilding: [place] 18 BMS.[facility] Repository 08/25/2017/08/26/19 [id number] Ambulatory [address] Repository 08/25/2017 [id number] Ambulatory [facility] Repository CENTERBuildi ng:CAGWS 07/06/2017 [id number] Ambulatory BMSBuilding: [place] BMS.CF.[facility] Repository 05/16/2017 [id number] Ambulatory [facility] ding:HPRAD Repository 05/16/2017/05/16/19 [id number] Ambulatory BMSBuilding: [facility] 18 BMS.[facility] Repository 04/25/2017 [id number] Ambulatory [facility] ding:MFPLAB Repository PAYERS PAYERS ENCOUNTER GUARANTOR PAYER SUBSCRIBER SOURCE 03/13/2018 CELINA Pollack Primary CELINA Min [id number] Insurance:ITZEL CAMPBELL: [id number] Number: Repository [phone]: [phone]) [id number] [phone] Date:3357-78-08Dk[address] [address]VV: 03/13/2018 Secondary NOT GIVENUNK [place] Insurance:SELF PAY [facility] Number: Effective Repository Date:2018-03-13 03/13/2018 CELINA Pollack Primary CELINA Pollack [facility] [id number] Insurance:ITZEL CAMPBELL: Community [place] PPOP[place] [id number] [place] Number: Repository [phone]: (330) [id number] [phone]) Date:9333-07-72Jj [address] [address]BD: 03/13/2018 Secondary NOT GIVENUNK [place] Insurance:SELF PAY [facility] Number: Effective Repository Date:2018-03-13 03/11/2018 CELINA D Primary CELINA D [place] [id number] Insurance:ANTHEM BILLHEIMERDOB: Community [place] PPOPolicy [id number] [place] Number: Repository 56[address]Ijk: (330) [id number] [phone]) Date:0063-19-42[address]Gbqkvpd, [place] [address]LR: 03/11/2018 Secondary NOT GIVENUNK [place] Insurance:SELF PAY [facility] Number: Effective Repository Date:2018-03-11 03/03/2018 CELINA D Primary CELINA D [facility] [id number] Insurance:ANTHEM BILLHEIMERDOB: Community [place] PPOP[place] [id number] [place] Number: Repository [address]Rpm: (330) [id number] [phone]) Date:9647-46-24St [address] [address]CT: 03/03/2018 Secondary NOT GIVENUNK [place] Insurance:SELF PAY [facility] Number: Effective Repository Date:2018-03-03 03/03/2018 CELINA D Primary CELINA D [place] [id number] Insurance:ANTHEM BILLHEIMERDOB: Community [place] PPOP[place] [id number] [facility] [place] Number: Repository [address]25[address]Wtr: (330) [id number] [phone]) Date:7428-85-52Dw [address]TwdqslpALEX Watkins [address]SC: 03/03/2018 Secondary NOT GIVENUNK [place] Insurance:SELF PAY [facility] Number: Effective Repository Date:2018-03-03 03/01/2018 CELINA D Primary CELINA D [place] [id number] Insurance:ANTHEM BILLHEIMERDOB: Community [place] PP[place]icy [id number] Number: Repository [address]Qbi: (330 [id number] [phone] () Date:2864-11-24If [address] [place] [address]FT: 03/01/2018 Secondary NOT GIVENUNK [place] Insurance:SELF PAY [facility] Number: Effective Repository Date:2018-01-02 02/27/2018 CELINA D Primary CELINA D [place] [id number] Insurance:ANTHEM BILLHEIMERDOB: Community [place] PP[place]icy [id number][place] Number: Repository [address]Nxt: (330 [id number] [phone] () Date:7699-30-74Bh [address] [place] [address]WO: 02/27/2018 Secondary NOT GIVENUNK [place] Insurance:SELF PAY [facility] Number: Effective Repository Date:2016-09-09 02/21/2018 CELINA D Primary CELINA D [place] [id number] Insurance:ANTHEM BILLHEIMERDOB: Community [place] PP[place]icy [id number] Number: Repository 768[address]Ppk: (330) [id number] [phone]) Date:9218-92-93Cw [address]Secfnlt, [place] [address]OE: 02/21/2018 Secondary NOT GIVENUNK [place] Insurance:SELF PAY [facility] Number: Effective Repository Date:2018-02-21 02/15/2018 CELINA D Primary CELINA D [place] [id number] Insurance:ANTHEM BILLHEIMERDOB: Community [place] PP[place]icy [id number][place] Number: Repository [address]Akl: (330) [id number] [phone]) Date:4457-80-55Sb [address]Hcugfqc [place] [address]QN: 02/15/2018 Secondary NOT GIVENUNK [place] Insurance:SELF PAY [facility] Number: Effective Repository Date:2018-02-15 02/08/2018 CELINA D Primary CELINA D [place] [id number] Insurance:ANTHEM BILLHEIMERDOB: Community [place] PPOP[place] [id number] [facility] [place] Number: Repository [address]Lrh: (330) [id number] [phone]) Date:1187-06-38Vh [address]Gkzptcr, [place] [address]IS: 02/08/2018 Secondary NOT GIVENUNK [place] Insurance:SELF PAY [facility] Number: Effective Repository Date:2017-12-30 02/01/2018 CELINA D Primary CELINA D [facility] [id number] Insurance:ANTHEM BILLHEIMERDOB: Community [place] PP[place] [id number] [facility] [place] Number: Repository [address]Orv: (330) [id number] [phone]) Date:3667-15-29Ua [address]Xmkyobz [place] [address]AN: 02/01/2018 Secondary NOT GIVENUNK [place] Insurance:SELF PAY [facility] Number: Effective Repository Date:2018-02-01 01/18/2018 CELINA D Primary CELINA D [place] [id number] Insurance:ANTHEM BILLHEIMERDOB: Community [place] PPOPolicy [id number]. [facility] Number: Repository [address]Ozb: (330) [id number] [phone]) Date:4409-40-76Tr [address]Pfbnnib, [place] [address]XY: 01/18/2018 Secondary NOT GIVENUNK [place] Insurance:SELF PAY [facility] Number: Effective Repository Date:2017-12-29 01/04/2018 CELINA D Primary CELINA D [place] [id number] Insurance:ANTHEM BILLHEIMERDOB: Community [place] PPOPolicy [id number] Number: Repository [address]Oai: (330) [id number] [phone] (HP) Date:7335-83-48Sf [address] [place] [address]LU: 01/04/2018 Secondary NOT GIVENUNK [place] Insurance:SELF PAY [facility] Number: Effective Repository Date:2018-01-04 12/30/2017 CELINA D Primary CELINA D [place] [id number] Insurance:ANTHEM BILLHEIMERDOB: Community [place] PPOPolicy [id number] Number: Repository [address]Ohp: (330) [id number] [phone]) Date:2725-25-51Gm [address] [place] [address] 297[address]PT: 12/30/2017 Secondary NOT GIVENUNK [place] Insurance:SELF PAY [facility] Number: Effective Repository Date:2017-12-30 10/21/2017 CELINA D Primary CELINA D [place] [id number] Insurance:ANTHEM BILLHEIMERDOB: Community [place] PPOPolicy [id number] [place] Number: Repository [address]Upl: (330) [id number] [phone]) Date:8960-80-20Zx [address]Xyhyujs[address] [place] [address] 376[address]HC: 10/21/2017 Secondary NOT GIVENUNK [place] Insurance:SELF PAY [facility] Number: Effective Repository Date:2017-10-21 08/31/2017 CELINA D Primary CELINA D [place] [id number] Insurance:ANTHEM BILLHEIMERDOB: Community [place] PPOPolicy [id number] [place] Number: Repository [address]Yha: (330) [id number] [phone]) Date:4576-87-01Bj [address]Dxtlart, [place] [address]JS: 08/31/2017 Secondary NOT GIVENUNK [place] Insurance:SELF PAY [facility] Number: Effective Repository Date:2017-08-31 08/25/2017 CELINA D Primary CELINA D [facility] BILLHEIMERDOB: Insurance:ANTHEM BILLHEIMERDOB: Health System MEDIBLUE ACCESS [id number] [place], [place] Number: [id number]: (330) [id number] [phone] (HP) Date: 07/06/2017 CELINA D Primary CELINA D [place] [id number] Insurance:ANTHEM BILLHEIMERDOB: Community [place] PP[place]icy [id number] Number: Repository [address]Bcn: (330) [id number] [phone]) Date:8988-46-61Nn [address]xh[address] [place] [address]UI: 07/06/2017 Secondary NOT GIVENUNK [place] Insurance:SELF PAY [facility] Number: Effective Repository Date:2017-07-06 05/16/2017 CELINA D Primary CELINA D [place] [id number] Insurance:ANTHEM BILLHEIMERDOB: Community [place] [id number] Hospital Number: Repository 070[address]Xvz: (330) [id number] [phone]) Date:1744-57-65KI [address]AMVYTFC, [place] [address]VA: 05/16/2017 Secondary NOT GIVENUNK [place] Insurance:SELF PAY [facility] Number: Effective Repository Date:2017-05-16 05/16/2017 CELINA D Primary CELINA D [place] [id number] Insurance:ANTHEM BILLHEIMERDOB: Community [place] [id number] Number: Repository [phone]: (330 [id number] [phone] () Date:7228-21-46PJ [address]XIVMYJC, [place] [address]SE: 05/16/2017 Secondary NOT GIVENUNK [place] Insurance:SELF PAY [facility] Number: Effective Repository Date:2017-04-28 04/25/2017 Celina D Primary Celina [id number] Insurance:ITZEL Campbell: [place] [id number] Hospital Number: Repository [address]Lzm: 330 [id number] [phone] () Date:6169-05-79NV [address]HPSSQDA, [place] [address]PM: 04/25/2017 Secondary NOT GIVENUNK [place] Insurance:SELF PAY [facility] Number: Effective Repository Date:2017-04-25
== END 2018-03-22 10:30 | disposition home or self-care (01) | DRG 561 ==
PROVIDERS: Surgery; Admitting Provider Family Medicine Geriatric Medicine; Family Provider Family Medicine; PCP Family Medicine; Referring Provider Family Medicine Geriatric Medicine; Visit Provider Internal Medicine
DX: Z47.1 Aftercare following joint replacement surgery (principal); Z96.611 Presence of right artificial shoulder joint; K21.9 Gastro-esophageal reflux disease without esophagitis; J45.909 Unspecified asthma, uncomplicated; E78.5 Hyperlipidemia, unspecified; E03.9 Hypothyroidism, unspecified; D50.9 Iron deficiency anemia, unspecified; E55.9 Vitamin D deficiency, unspecified; I10 Essential (primary) hypertension; G47.33 Obstructive sleep apnea (adult) (pediatric); F41.9 Anxiety disorder, unspecified; M75.101 Unspecified rotator cuff tear or rupture of right shoulder, not specified as traumatic; M16.12 Unilateral primary osteoarthritis, left hip
CPT/HCPCS: 36415; 74018; 80048; 81001; 82274; 85014; 85018; 85025; 86850; 86900; 86922; 97110; 97116; 97162; 97166; 97530; 97535; 97802; A4216; J3490

== ENCOUNTER 2018-03-11 10:47 | Outpatient (CLI) | payer MEDICARE, SELFPAY ==
[2018-03-11] VITALS (11 sets, daily range): BP systolic 109–136; BP diastolic 41–63; PULSE 73–101; RESP 16–18; TEMP 36.3–37.1; O2SAT 91–99
[2018-03-11] MEDS: Furosemide 20 MG/2 ML VIAL IV (16:57)
[2018-03-11] MEDS: 0.9% NaCl Peripheral Flush Adult/Peds IV (20:48)
== END 2018-03-11 20:53 ==
LOC: MS3OUT 10:48 → MS3 10:49
PROVIDERS: Family Provider Family Medicine; PCP Family Medicine; Referring Provider Family Medicine Geriatric Medicine; Visit Provider Family Medicine Geriatric Medicine
DX: D50.9 Iron deficiency anemia, unspecified (principal)
CPT/HCPCS: 36430; 86850; 86900; 86920; 86922; J7040; P9016; A4216; J1940

== ENCOUNTER 2018-03-13 09:21 | Day surgery (SDC) | payer MEDICARE, SELFPAY ==
--- NOTE | 2018-03-13 | GASB_PTH ---
PATIENT: CELINA GALINDO LOC: EN U#:[id number] AGE/SX: 82/F ROOM: RE03/13/[address]: Dr. Candy Hinkle MD : 1935 BED: DIS: 03/13/2018 SPEC #: [id number] RECD: 03/13/18 13:53 STATUS: HELLEN SANDOR #: [id number] LIZZY: 03/13/18 00:[address]: Candy Hinkle DEPT: SURGICAL PATHOLOGY RECD BY: Nazario Lynn ENTERED: 03/13/18 13:53 SP TYPE: Gastric Bx OTHR DR: Dr. Esvin Preciado MD Tissues: Gastric mucous membrane Procedures: Surgery Specimen Level IV HEADER OPERATION: EGD ([facility] [place]) PRE-OP DIAGNOSIS: Anemia TISSUE SUBMITTED: Antral biopsy for H. pylori and pathology MICROSCOPIC DIAGNOSIS Antral biopsy: Mild gastritis. See microscopic description and comment. SJ:dajuan 03/14/18 COMMENT The results of immunohistochemistry for Helicobacter pylori will be reported separately ([id number]). MICROSCOPIC DESCRIPTION Slides are reviewed. The specimen shows fragments of gastric mucosa with chronic inflammatory cell infiltrates in the lamina propria consisting of lymphocytes and plasma cells, consistent with mild chronic gastritis. GROSS DESCRIPTION Received in fixative is one container labeled with the patient's name and designated antral biopsy. The specimen consists of one irregular fragment of light milligan soft tissue that measures 0.4 x 0.3 x 0.1 cm. The specimen is totally submitted in one cassette. / SJ:rg 03/13/18 TC:3 CPT: 38083
[2018-03-13 09:49] VITALS: BP 155/59; PULSE 87; RESP 16; TEMP 37.7; O2SAT 93; BMI 37.8
[2018-03-13 10:16] LABS: Hematocrit 34.2 % (37-47); Hemoglobin 10.1 g/dl (12.0-15.0)
[2018-03-13 10:33] VITALS: BP 123/57; BP 155/59; PULSE 87; RESP 16; TEMP 36.3; O2SAT 93
--- NOTE | 2018-03-13 10:34 | OP.ENDO_ITS ---
Patient Name: Shira Lal Procedure Date: 03/13/2018 10:17 AM Date of : 1935 Age: 82 Procedure: Upper GI endoscopy Indications: Iron deficiency anemia Providers: Candy Hinkle MD Medicines: Monitored Anesthesia Care Patient Profile: This is an 82 year old female. Patient has symptoms. Complications: No immediate complications. Procedure: Pre-Anesthesia Assessment: - Prior to the procedure, a History and Physical was performed, and patient medications and allergies were reviewed. The patient's tolerance of previous anesthesia was also reviewed. The risks and benefits of the procedure and the sedation options and risks were discussed with the patient. All questions were answered, and informed consent was obtained. Prior Anticoagulants: The patient has taken no previous anticoagulant or antiplatelet agents. ASA Grade Assessment: II - A patient with mild systemic disease. After reviewing the risks and benefits, the patient was deemed in satisfactory condition to undergo the procedure. After obtaining informed consent, the endoscope was passed under direct vision. Throughout the procedure, the patient's blood pressure, pulse, and oxygen saturations were monitored continuously. The gastroscope was introduced through the mouth, and advanced to the second part of duodenum. The upper GI endoscopy was accomplished without difficulty. The patient tolerated the procedure well. Scope In: 10:22:20 AM Scope Out: 10:28:10 AM Total Procedure Duration Time 0 hours 5 minutes 50 seconds Findings: A medium-sized hiatal hernia was present. Mild inflammation characterized by erythema was found in the gastric antrum. Biopsies were taken with a cold forceps for histology. Biopsies were taken with a cold forceps for Helicobacter pylori cultures. The examined duodenum was normal. The examined esophagus was normal. Impression: - Medium-sized hiatal hernia. - Gastritis. Biopsied. - Normal examined duodenum. - Normal esophagus. Recommendation: - Await pathology results. - Use Protonix (pantoprazole) 40 mg IV daily. - Use sucralfate tablets 1 gram PO QID. - Continue present medications. Procedure Code(s): --- Professional --- 95966, Esophagogastroduodenoscopy, flexible, transoral; with biopsy, single or multiple Diagnosis Code(s): --- Professional --- K44.9, Diaphragmatic hernia without obstruction or gangrene K29.70, Gastritis, unspecified, without bleeding D50.9, Iron deficiency anemia, unspecified CPT copyright 2017 [employer]. All rights reserved. The codes documented in this report are preliminary and upon icd 9 coder review may be revised to meet current compliance requirements. MD Candy Ramos MD 03/13/2018 10:33:30 AM This report has been signed electronically. Number of Addenda: 0 Note Initiated On: 03/13/2018 10:17 AM
[2018-03-13 10:40] VITALS: BP 119/94; BP 155/59; PULSE 84; RESP 18; O2SAT 92
[2018-03-13 10:45] VITALS: BP 139/60; BP 155/59; PULSE 77; RESP 18; O2SAT 99
--- NOTE | 2018-03-13 10:45 | IMM_PTH ---
PATIENT: CELINA GALINDO LOC: EN U#:[id number] AGE/SX: 82/F ROOM: RE03/13/[address]: Dr. Candy Hinkle MD : 1935 BED: DIS: 03/13/2018 SPEC #: [id number] RECD: 03/13/18 14:17 STATUS: HELLEN REQ #: [id number] LIZZY: 03/13/18 10:[address]: Candy Hinkle DEPT: IMMUNOHISTOCHEMISTRY RECD BY: Siobhan Sargent ENTERED: 03/13/18 14:17 SP TYPE: IMMUNO OTHR DR: Dr. Esvin Preciado MD Tissues: Stomach, NOS Procedures: H Pylori (initial) PHYSICIAN & INSTITUTION [place] [id number] SPECIMEN INFORMATION: Tissue Source: Antral biopsy Clinical Info: Anemia Specimen Number: [id number] CPT code: 85604 METHODOLOGY: Deparaffinized sections of prefer/formalin-fixed tissue or PAP/DQ stained slides are incubated with monoclonal/polyclonal antibodies/oligonucleotide probes. Localization is made via biotin free immunoperoxidase method. Appropriate controls are performed and reacted as expected. Results on target cell population are indicated in the following table: RESULTS: ANTIBODY / CLONE RESULT H Pylori (polyclonal) negative These tests were developed and their performance characteristics determined by [facility]. They may not have been cleared or approved by the U.S. Food and Drug Administration. The FDA has determined that such clearance or approval is not necessary. INTERPRETATION: Antral biopsy: Negative for Helicobacter pylori organisms. SJ:dajuan 03/14/18
[2018-03-13 10:50] VITALS: BP 147/63; BP 155/59; PULSE 78; RESP 17; TEMP 36.3; O2SAT 97
== END 2018-03-13 11:00 | disposition skilled nursing facility (03) ==
LOC: EN 09:24 → AC 09:24
PROVIDERS: Family Provider Family Medicine; PCP Family Medicine; Referring Provider Surgery; Visit Provider Surgery
PROC: 0DJ08ZZ Inspection of Upper Intestinal Tract, Via Natural or Artificial Opening Endoscopic (ICD-10-PCS; CPT 43235; principal; 2018-03-13 10:40)
DX: K44.9 Diaphragmatic hernia without obstruction or gangrene (principal); K21.9 Gastro-esophageal reflux disease without esophagitis; K29.70 Gastritis, unspecified, without bleeding; D50.9 Iron deficiency anemia, unspecified; I10 Essential (primary) hypertension; E78.5 Hyperlipidemia, unspecified; G47.33 Obstructive sleep apnea (adult) (pediatric); E03.9 Hypothyroidism, unspecified; M16.12 Unilateral primary osteoarthritis, left hip; Z77.22 Contact with and (suspected) exposure to environmental tobacco smoke (acute) (chronic); Z79.899 Other long term (current) drug therapy; Z79.82 Long term (current) use of aspirin
CPT/HCPCS: 43239; 36415; 85014; 85018; 88305; 88342; J7120

== ENCOUNTER → 2018-08-21 12:03 | Outpatient (CLI) | payer MEDICARE, SELFPAY ==
[2018-06-28 12:59] VITALS: BMI 37.5
[2018-08-21 14:19] LABS: Absolute Lymphocyte Count 1.21 X10^3/ul (0.83-4.51); Absolute Neutrophil Count 5.4 X10^3/uL (2.0-7.7); Basophil# 0.01 X10^3/uL; Basophil% 0.1 % (0-1); Eosinophil# 0.25 X10^3/uL; Eosinophils% 3.3 % (0-5); Hematocrit 33.7 % (37-47); Hemoglobin 10.2 g/dl (12.0-15.0); Lymphocyte # 1.21 X10^3/ul (4.0); Lymphocyte % 16.2 % (19-41); Mean Corp Hgb Conc 30.3 g/gl (32-36); Mean Corpuscular Hgb 28.7 pg (27.0-32.0); Mean Corpuscular Volume 94.9 fL (81-99); Mean Platelet Vol. 10.7 fl (6.2-12.0); Monocyte# 0.61 X10^3/uL; Monocyte% 8.2 % (0-10); Neutrophil # 5.38 X10^3/uL (2.7-7.7); Neutrophil % 72.1 % (47-70); Platelet Count 262 K/mm3 (150-450); RBC Distribution Width CV 14.2 % (11.6-14.6); RBC Distribution Width SD 46.4 fl (35.1-43.9); Red Blood Count 3.55 M/mm3 (4.2-5.4); White Blood Count 7.5 K/mm3 (4.4-11.0)
[2018-08-21 14:28] LABS: POSITIVE COUNT NO; POSITIVE DIFFERENTIAL NO; POSITIVE MORPHOLOGY NO
[2018-08-21 14:31] LABS: ALB/GLOB Ratio 0.7 RATIO (0.9-2.4); AST(SGOT) 11 U/L (15-37); Alanine Aminotransfer ALT/SGPT 11 U/L (13-56); Albumin, Serum 2.9 g/dL (3.2-5.0); Alkaline Phosphatase 166 U/L (45-117); Anion Gap 7 (5-15); BUN 33 mg/dL (7-18); Calcium,Total 9.1 mg/dL (8.5-10.1); Chloride 107 mmol/L (98-107); EST Glomerular Filtration Rate 57 mL/min (>60); Est Glom Filt Rate - Afr Amer 68 mL/min (>60); Globulin 4.2 g/dL (2.2-4.2); Glucose 87 mg/dL (74-106); Protein, Total 7.1 g/dL (6.4-8.2); Sodium Level 143 mmol/L (136-145); Thyroid Stim Hormone (TSH) 2.07 uIU/mL (0.358-3.74)
[2018-08-21 14:33] LABS: BNP,B-Type NATRIURETIC PEPTIDE 185.4 pg/mL (0-100)
== END ==
PROVIDERS: Family Provider Family Medicine; PCP Family Medicine; Visit Provider Family Medicine
DX: M79.89 Other specified soft tissue disorders (principal)
CPT/HCPCS: 36415; 80053; 83880; 84443; 85025

== ENCOUNTER → 2018-08-30 08:26 | Outpatient (CLI) | payer MEDICARE, SELFPAY ==
[2018-06-28 12:59] VITALS: BMI 37.5
[2018-08-30 10:32] LABS: ALB/GLOB Ratio 0.8 RATIO (0.9-2.4); AST(SGOT) 12 U/L (15-37); Alanine Aminotransfer ALT/SGPT 13 U/L (13-56); Albumin, Serum 3.1 g/dL (3.2-5.0); Alkaline Phosphatase 170 U/L (45-117); Anion Gap 9 (5-15); BUN 46 mg/dL (7-18); Calcium,Total 9.1 mg/dL (8.5-10.1); Chloride 103 mmol/L (98-107); Creatinine, Serum 1.21 mg/dL (0.55-1.02); EST Glomerular Filtration Rate 45 mL/min (>60); Est Glom Filt Rate - Afr Amer 55 mL/min (>60); Globulin 3.7 g/dL (2.2-4.2); Glucose 85 mg/dL (74-106); Magnesium 1.9 mg/dL (1.6-2.6); Potassium 4.4 mmol/L (3.5-5.1); Protein, Total 6.8 g/dL (6.4-8.2); Sodium Level 143 mmol/L (136-145)
[2018-08-30 10:38] LABS: BNP,B-Type NATRIURETIC PEPTIDE 92.1 pg/mL (0-100)
== END ==
PROVIDERS: Family Provider Family Medicine; PCP Family Medicine; Referring Provider Family Medicine; Visit Provider Family Medicine
DX: M79.89 Other specified soft tissue disorders (principal)
CPT/HCPCS: 36415; 80053; 83735; 83880

== ENCOUNTER 2018-09-05 10:50 | Outpatient (RCR) | payer MEDICARE, SELFPAY ==
[2018-06-28 12:59] VITALS: BMI 37.5
--- NOTE | 2018-09-07 17:09 | HP.OTEVAL ---
Patient's Visit Information CELINA GLAINDO is a 83 year old F, referred to Occupational Therapy by Esvin Preciado MD, with a diagnosis of bilaterl lymphedema. Date of Evaluation: 09/05/18 Occupational Therapist: ALEX Jiang/Demetrius, CHT - Subjective Subjective: This 83 year old female was seen for initial OT eval- with orders of dx of LE lymphedema pt arrives with order for custom compression socks. Pt states she began having swelling a few weeks ago- states her legs are better but would like her to have compression socks. - Lymphedema (Circumferential Measure) Mid-foot: right 22cm left 22cm Ankle: right 34cm left 31cm Lower calf: right 40cm left 39 cm Largest calf: right 47 cm left 46 cm Below knee: right 45cm left 47cm - Lower Limb Functional Index Lower Extremity Functional Score: 44 - Goals Demonstrate a 20% reduction in edema by d/c: Yes Demonstrate adequate knowledge skin care/prec by 2nd week: Yes Demonstrate adequate knowledge therapeutic exercises by d/c: Yes Select approp compression garment w/donning/care/wear by d/c: Yes Voice need to replace compression garment every 4-6mo by dc: Yes - Rehabilitation General Assessment: Pt demo with bilateral LE edema- and due to limb size would benefit form custom compression socks. pt fitted for custom compression socks this session- order will be sent to [facility] for ordering. pt to return if she needs a fitting. pt also ed. on lymph ex, skin care and precaustion. pt demo understanding and agree to POC. Rehabilitation Potential: Good - Anticipated Interventions Anticipated Interventions: Education re assistive Equipment, Education re Diagnosis, Education re Skin Care and Precautions, Education re Self Massage Techniques, Education re Correct Donning Tech,Care&Wearing Sched Comp Garments, Home Program - Visit Plan Frequency: 1x/Week Duration: 1 Week TEXT: Thank you for the opportunity to evaluate your patient. For Medicare and Medicare HMO plans, please review the plan of care and approve it. It will need to be FAXED BACK to us at [phone] for Medicare purposes. Please let me know if there are questions or concerns regarding this plan of care. Physician Signature: Date:
--- NOTE | 2018-11-01 16:24 | HP.OT.NRP ---
HP - Discharge Summary - Patient Information CELINA GALINDO was seen in my office for initial evaluation on 09/05/18. The following Plan of Care was established for this patient: Initial Frequency: 1x/Week Initial Duration: 1 Week - Anticipated Interventions Anticipated Interventions: Education re assistive Equipment, Education re Diagnosis, Education re Skin Care and Precautions, Education re Self Massage Techniques, Education re Correct Donning Tech,Care&Wearing Sched Comp Garments, Home Program This patient was last seen in our office 09/05/18. Pertinent comments regarding their Occupational therapy will appear below: Pt was seen for OT eval only for compression socks- pt called in to let therapist know she was going with the velcro closure compression garments- pt has not scheduled any further aps and is D/C at this time. At this point I will be discontinuing this patient from occupational therapy. I would be happy to see this patient again in the future if found appropriate by the physician. Thank you! Parul Carlos, OTR/L, CHT
== END 2018-09-05 19:00 | disposition home or self-care (01) ==
LOC: OT 10:50
PROVIDERS: Family Provider Family Medicine; PCP Family Medicine; Visit Provider Family Medicine
DX: I89.0 Lymphedema, not elsewhere classified (principal)
CPT/HCPCS: 97166

== ENCOUNTER 2019-02-11 10:34 | Emergency (ER) | payer MEDICARE, SELFPAY ==
[2018-12-27 09:12] VITALS: BMI 37.7
[2019-02-11 10:35] VITALS: BP 160/97; PULSE 63; RESP 17; TEMP 36.9; O2SAT 96; BMI 35.9
--- NOTE | 2019-02-11 10:50 | EKG12_ITS ---
Test Reason : DIZZINESS Blood Pressure : / mmHG Vent. Rate : 060 BPM Atrial Rate : 060 BPM P-R Int : 148 ms QRS Dur : 080 ms QT Int : 396 ms P-R-T Axes : 037 065 033 degrees QTc Int : 396 ms Normal sinus rhythm Normal ECG Confirmed by MARGARITA BENITEZ, HERMILA ([id number]), business editor DARCIE CARBAJAL ([id number]) on 02/13/2019 2:26:02 PM Referred By: CLAUDINE Confirmed By:HERMILA AVILA MD
[2019-02-11 11:10] LABS: Absolute Lymphocyte Count 1.42 X10^3/uL (0.83-4.51); Absolute Neutrophil Count 5.7 X10^3/uL (2.0-7.7); Basophil# 0.06 X10^3/uL; Basophil% 0.7 % (0-1); Eosinophil# 0.27 X10^3/uL; Eosinophils% 3.3 % (0-5); Hematocrit 34.2 % (37-47); Hemoglobin 10.2 g/dL (12.0-15.0); Lymphocyte # 1.42 X10^3/ul (4.0); Lymphocyte % 17.5 % (19-41); Mean Corp Hgb Conc 29.8 g/dL (32-36); Mean Corpuscular Hgb 27.7 pg (27.0-32.0); Mean Corpuscular Volume 92.9 fL (81-99); Mean Platelet Vol. 10.6 fl (6.2-12.0); Monocyte# 0.66 X10^3/uL; Monocyte% 8.1 % (0-10); NRBC Flagged by Analyzer 0 % (0-5); Neutrophil # 5.68 X10^3/uL (2.7-7.7); Neutrophil % 70.2 % (47-70); Platelet Count 287 K/mm3 (150-450); RBC Distribution Width CV 14.2 % (11.6-14.6); RBC Distribution Width SD 48.4 fl (35.1-43.9); Red Blood Count 3.68 M/mm3 (4.2-5.4); White Blood Count 8.1 K/mm3 (4.4-11.0)
--- NOTE | 2019-02-11 11:10 | RAD_ITS ---
STUDY: X-RAY CHEST REASON FOR EXAM: Female, 83 years old. Dizziness and weakness. TECHNIQUE: Single AP portable view of the chest. COMPARISON: 12/10/2015. FINDINGS: There again is elevation of the right hemidiaphragm. No focal infiltrate is seen. There is no demonstrated pleural abnormality. Sternal cerclage wires are present from a prior sternotomy. The cardiac silhouette remains enlarged. Normal mediastinum and radha. Normal visualized pulmonary arteries. There is atherosclerotic calcification of the aortic arch with tortuosity. There is demineralization of the osseous structures. 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 There is hiatal hernia. RAD/Chest 1 View (Portable) IMPRESSION: Cardiomegaly. No new infiltrate is seen. Electronically Signed: Lyle Pak MD at 11:32 EST Tel , Service support ,
[2019-02-11] MEDS: 0.9% Normal Saline 1,000 ML 150 ML IV (11:14)
[2019-02-11 11:25] LABS: Anion Gap 6 (5-15); BUN 25 mg/dL (7-18); BUN/Creat Ratio 22.9 RATIO (10-20); Calcium,Total 8.9 mg/dL (8.5-10.1); Chloride 104 mmol/L (98-107); Creatinine, Serum 1.09 mg/dL (0.55-1.02); EST Glomerular Filtration Rate 51 mL/min (>60); Est Glom Filt Rate - Afr Amer 62 mL/min (>60); Estimated Creatinine Clearance 30.54 ml/min; Glucose 115 mg/dL (74-106); Potassium 3.9 mmol/L (3.5-5.1); Sodium Level 139 mmol/L (136-145)
[2019-02-11 11:26] VITALS: BP 153/71; BP 172/69; BP 189/69; PULSE 71; PULSE 74
[2019-02-11 11:39] LABS: Bacteria 0 SEEN /hpf (None Seen); Mucous, Urine 0 SEEN /hpf (<or=2+); Red Blood Cells-Urine 0 SEEN /hpf (0-5); Squamous Epithelial Cells - UA 0 SEEN /hpf (5-10); White Blood Cells 0 SEEN /hpf (0-5)
[2019-02-11 11:45] LABS: Color, Urine Yellow (Yellow); Glucose, Dipstick Normal (Normal); Ketone-Dipstick Negative (Negative); Leukocyte Esterase-Dipstick Negative /ul (Negative); Nitrite-Dipstick Negative (Negative); Occult Blood-Urine Negative /ul (Negative); Protein-Dipstick 15 mg/dl (Negative); Specific Gravity, Urine 1.005 (1.002-1.030); Urine Bilirubin Dipstick Negative (Negative); Urine Clarity Clear (Clear); Urine Urobilinogen Normal (Normal)
--- NOTE | 2019-02-11 12:11 | ED.DCSUM_ITS ---
- ER Visit Summary Date of Service: 02/11/19 Chief Complaint: [Dizziness and nausea and vomiting] History of Present Illness: The patient is a 83 F [presents the emergency department stating that she woke up this morning and drank some coffee and took her medications which then caused her to vomit x1. Patient then subsequently started feeling lightheaded. Patient has had feelings of lightheadedness intermittently throughout the morning. She did end up going to [facility] and it [facility] felt lightheaded so she was evaluated by folks there. Patient was referred to the emergency department. She denies any headache. She denies recent illness. She denies chest pain or shortness of breath. Patient normally walks with a walker. She denies any vertiginous symptoms. Denies any ringing in her ears. She denies any falls or head injury. She denies any syncopal episodes.] Physical Examination: [HEENT-PERRLA, EOMI. Cranial nerves II through XII grossly intact. TMs clear. Mucous membranes moist. No adenopathy. Cardiovascular-regular rate and rhythm without murmur or ectopy Lungs-clear to auscultation, chest wall stable without crepitus or subcu emphysema Abdomen-normoactive bowel sounds, soft, nontender, no rebound or rigidity, no peritoneal signs. Neuro exam-under the nose and heel cortez testing within normal limits, negative Romberg, negative pronator drift, fundi benign. Hallpike maneuver was negative for nystagmus. Extremities-intact ?4, normal range of motion, normal pulses, atraumatic] Test Results: [EKG obtained on arrival shows sinus rhythm with a ventricular rate of 60 bpm with no acute ST segment changes. CBC with differential obtained showing of 8.1, hemoglobin 10, hematocrit 34, platelets 287. Chemistries unremarkable. BUN was 25 and creatinine 1.09. Urinalysis was normal. Troponin was less than 0.015. Orthostatic vital signs were negative. Chest x-ray obtained showed some cardiomegaly otherwise nothing acute.] Emergency Department Course and Treatment: [Patient received normal saline on arrival to the emergency department. Patient was able to ambulate in the department without any difficulty.] Treatment Plan: [Patient will be discharged home with advised to rest today and push fluids. Patient to follow-up with her primary care physician within next 3 to 5 days. Patient advised to return if chest pain, syncope, persistent dizzy episodes, or conditions worsen anyway.] Disposition: [Discharged home in stable condition.] Impression: [Dizziness-etiology uncertain-resolved] This note was generated with [employer] dictation software. It may contain incorrect words, spelling, and punctuation that were not noted in review of the chart prior to signing ED Disposition - Plan for ED Patient: Referrals: Esvin Preciado MD [Primary Care Provider] -
--- NOTE | 2019-02-11 12:14 | ED.DEP ---
ED Disposition - Plan for ED Patient: Instructions: DIZZINESS, Unk Cause Referrals: Esvin Preciado MD [Primary Care Provider] - 3-5 Days
[2019-02-11 12:32] VITALS: BP 179/56; PULSE 86; RESP 24; O2SAT 97
== END 2019-02-11 12:33 | disposition home or self-care (01) ==
LOC: ED 10:57
PROVIDERS: Emergency Provider Emergency Medicine; Family Provider Family Medicine; PCP Family Medicine
DX: R42 Dizziness and giddiness (principal); I51.7 Cardiomegaly; R11.2 Nausea with vomiting, unspecified; R05 Cough; I10 Essential (primary) hypertension; E78.00 Pure hypercholesterolemia, unspecified
CPT/HCPCS: 71045; 80048; 81001; 84484; 85025; 93005; 99285; J7030; P9612; A4216

== ENCOUNTER → 2019-08-28 14:49 | Outpatient (CLI) | payer MEDICARE, SELFPAY ==
[2019-04-05 12:53] VITALS: BMI 35.9
[2019-08-28 18:48] LABS: Uric Acid 10.2 mg/dL (2.6-6.0)
[2019-08-29 11:29] LABS: Iron 21 ug/dL (50-170); Iron Binding Capacity,Total 307 ug/dL (250-450); PERCENT IRON SATURATION 6.8 % (15.0-55.0)
[2020-01-11 14:02] VITALS: BMI 36.6
== END ==
PROVIDERS: Internal Medicine Medical Oncology; PCP Family Medicine; Referring Provider Family Medicine; Visit Provider Family Medicine
DX: M25.841 Other specified joint disorders, right hand (principal)
CPT/HCPCS: 36415; 83540; 83550; 84550

== ENCOUNTER → 2019-10-15 09:07 | Outpatient (CLI) | payer MEDICARE, SELFPAY ==
[2019-08-29 10:44] VITALS: BMI 34.9
[2019-10-15 10:31] LABS: Absolute Lymphocyte Count 1.36 X10^3/uL (0.83-4.51); Absolute Neutrophil Count 5.6 X10^3/uL (2.0-7.7); Basophil# 0.08 X10^3/uL; Eosinophil# 0.41 X10^3/uL; Eosinophils% 5.1 % (0-5); Hematocrit 35.5 % (37-47); Hemoglobin 10.5 g/dL (12.0-15.0); Lymphocyte # 1.36 X10^3/ul (4.0); Lymphocyte % 16.8 % (19-41); Mean Corp Hgb Conc 29.6 g/dL (32-36); Mean Corpuscular Hgb 28.4 pg (27.0-32.0); Mean Corpuscular Volume 95.9 fL (81-99); Mean Platelet Vol. 11.1 fl (6.2-12.0); Monocyte# 0.62 X10^3/uL; Monocyte% 7.7 % (0-10); NRBC Flagged by Analyzer 0 % (0-5); Neutrophil # 5.61 X10^3/uL (2.7-7.7); Neutrophil % 69.2 % (47-70); Platelet Count 271 K/mm3 (150-450); RBC Distribution Width CV 15.1 % (11.6-14.6); RBC Distribution Width SD 51.5 fl (35.1-43.9); White Blood Count 8.1 K/mm3 (4.4-11.0)
[2019-10-15 10:57] LABS: ALB/GLOB Ratio 0.7 RATIO (0.9-2.4); AST(SGOT) 16 U/L (15-37); Alanine Aminotransfer ALT/SGPT 14 U/L (13-56); Alkaline Phosphatase 111 U/L (45-117); Anion Gap 4 (5-15); BUN 62 mg/dL (7-18); Calcium,Total 9.2 mg/dL (8.5-10.1); Chloride 104 mmol/L (98-107); Creatinine, Serum 1.41 mg/dL (0.55-1.02); EST Glomerular Filtration Rate 38 mL/min (>60); Est Glom Filt Rate - Afr Amer 46 mL/min (>60); Globulin 4.5 g/dL (2.2-4.2); Glucose 94 mg/dL (74-106); Magnesium 1.9 mg/dL (1.6-2.6); Potassium 4.7 mmol/L (3.5-5.1); Protein, Total 7.5 g/dL (6.4-8.2); Sodium Level 138 mmol/L (136-145)
== END ==
PROVIDERS: PCP Family Medicine; Referring Provider Family Medicine; Visit Provider Family Medicine
DX: M79.89 Other specified soft tissue disorders (principal)
CPT/HCPCS: 36415; 80053; 83735; 85025

== ENCOUNTER → 2019-11-12 09:33 | Outpatient (CLI) | payer MEDICARE, SELFPAY ==
[2019-08-29 10:44] VITALS: BMI 34.9
[2019-11-12 13:06] LABS: ALB/GLOB Ratio 0.8 RATIO (0.9-2.4); AST(SGOT) 17 U/L (15-37); Alanine Aminotransfer ALT/SGPT 19 U/L (13-56); Albumin, Serum 3.1 g/dL (3.2-5.0); Alkaline Phosphatase 113 U/L (45-117); Anion Gap 8 (5-15); BUN 57 mg/dL (7-18); BUN/Creat Ratio 37.5 RATIO (10-20); Calcium,Total 9.2 mg/dL (8.5-10.1); Chloride 103 mmol/L (98-107); Creatinine, Serum 1.52 mg/dL (0.55-1.02); EST Glomerular Filtration Rate 35 mL/min (>60); Est Glom Filt Rate - Afr Amer 42 mL/min (>60); Globulin 4.1 g/dL (2.2-4.2); Glucose 108 mg/dL (74-106); Potassium 4.2 mmol/L (3.5-5.1); Protein, Total 7.2 g/dL (6.4-8.2); Sodium Level 139 mmol/L (136-145)
== END ==
PROVIDERS: PCP Family Medicine; Visit Provider Family Medicine
DX: E88.09 Other disorders of plasma-protein metabolism, not elsewhere classified (principal)
CPT/HCPCS: 36415; 80053

== ENCOUNTER → 2019-11-16 08:01 | Outpatient (CLI) | payer MEDICARE, SELFPAY ==
[2019-08-29 10:44] VITALS: BMI 34.9
[2019-11-16 09:58] LABS: Anion Gap 5 (5-15); BUN 64 mg/dL (7-18); BUN/Creat Ratio 45.4 RATIO (10-20); Calcium,Total 9.1 mg/dL (8.5-10.1); Chloride 109 mmol/L (98-107); Creatinine, Serum 1.41 mg/dL (0.55-1.02); EST Glomerular Filtration Rate 38 mL/min (>60); Est Glom Filt Rate - Afr Amer 46 mL/min (>60); Glucose 96 mg/dL (74-106); Potassium 4.3 mmol/L (3.5-5.1); Sodium Level 141 mmol/L (136-145)
== END ==
PROVIDERS: PCP Family Medicine; Referring Provider Family Medicine; Visit Provider Family Medicine
DX: D64.9 Anemia, unspecified (principal)
CPT/HCPCS: 36415; 80048

== ENCOUNTER → 2020-02-11 11:35 | Outpatient (CLI) | payer MEDICARE, SELFPAY ==
[2020-01-11 14:02] VITALS: BMI 36.6
[2020-02-11 15:15] LABS: Absolute Lymphocyte Count 1.25 X10^3/uL (0.83-4.51); Absolute Neutrophil Count 6.1 X10^3/uL (2.0-7.7); Basophil# 0.06 X10^3/uL; Basophil% 0.7 % (0-1); Eosinophil# 0.37 X10^3/uL; Eosinophils% 4.3 % (0-5); Hematocrit 36.9 % (37-47); Hemoglobin 10.8 g/dL (12.0-15.0); Lymphocyte # 1.25 X10^3/ul (4.0); Lymphocyte % 14.5 % (19-41); Mean Corp Hgb Conc 29.3 g/dL (32-36); Mean Corpuscular Hgb 29.8 pg (27.0-32.0); Mean Corpuscular Volume 101.7 fL (81-99); Mean Platelet Vol. 11.9 fl (6.2-12.0); Monocyte# 0.84 X10^3/uL; Monocyte% 9.8 % (0-10); NRBC Flagged by Analyzer 0 % (0-5); Neutrophil # 6.05 X10^3/uL (2.7-7.7); Neutrophil % 70.4 % (47-70); Platelet Count 218 K/mm3 (150-450); RBC Distribution Width CV 14.8 % (11.6-14.6); RBC Distribution Width SD 55.8 fl (35.1-43.9); Red Blood Count 3.63 M/mm3 (4.2-5.4); White Blood Count 8.6 K/mm3 (4.4-11.0)
[2020-02-11 15:37] LABS: AST(SGOT) 16 U/L (15-37); Alanine Aminotransfer ALT/SGPT 17 U/L (13-56); Albumin, Serum 3.3 g/dL (3.2-5.0); Alkaline Phosphatase 150 U/L (45-117); Anion Gap 5 (5-15); BUN 57 mg/dL (7-18); BUN/Creat Ratio 40.1 RATIO (10-20); Calcium,Total 9.3 mg/dL (8.5-10.1); Chloride 105 mmol/L (98-107); Creatinine, Serum 1.42 mg/dL (0.55-1.02); EST Glomerular Filtration Rate 38 mL/min (>60); Est Glom Filt Rate - Afr Amer 46 mL/min (>60); Globulin 3.4 g/dL (2.2-4.2); Glucose 89 mg/dL (74-106); Potassium 4.8 mmol/L (3.5-5.1); Protein, Total 6.7 g/dL (6.4-8.2); Sodium Level 139 mmol/L (136-145); Thyroid Stim Hormone (TSH) 3.98 uIU/mL (0.358-3.74)
== END ==
PROVIDERS: PCP Family Medicine; Referring Provider Family Medicine; Visit Provider Family Medicine
DX: N18.30 Chronic kidney disease, stage 3 unspecified (principal); E03.9 Hypothyroidism, unspecified
CPT/HCPCS: 36415; 80053; 83735; 84443; 85025

== ENCOUNTER → 2020-02-27 09:38 | Outpatient (CLI) | payer MEDICARE, SELFPAY ==
[2020-01-11 14:02] VITALS: BMI 36.6
--- NOTE | 2020-02-27 10:06 | CDU_ITS ---
Reason For Study: CAROTID BRUIT Rt. Velocities/BP Lt. Velocities/BP Prox CCA 127.1/10.2 cm/sec. Prox CCA 261.6/0.0 cm/sec. Mid CCA 105.2/12.1 cm/sec. Mid CCA 104.1/16.1 cm/sec. Dist CCA 85.7/18.1 cm/sec. Dist CCA 66.3/11.4 cm/sec. Prox ICA 88.3/8.5 cm/sec. Prox ICA 121.1/18.0 cm/sec. Mid ICA 155.6/26.1 cm/sec. Mid ICA 125.5/18.0 cm/sec. Dist ICA 190.0/32.0 cm/sec. Dist ICA 132.1/20.2 cm/sec. Rt. ICA/CCA = 190.0/127.1=1.5. Lt. ICA/CCA = 132.1/104.1=1.3. Prox ECA 131.5/12.9 cm/sec. Prox ECA 136.5/0.0 cm/sec. Rt. Vert. 65.6/10.8 cm/sec. Lt. Vert. 48.1/11.3 cm/sec. Right Extracranial There is intimal thickening but no significant atherosclerotic plaque noted in the right common carotid artery. There is homogeneous, smooth atherosclerotic plaque noted in the right internal carotid artery. The tortuous nature of the right internal carotid artery may result in flow velocities overestimating the degree of stenosis. There is homogeneous, smooth atherosclerotic plaque noted in the right external carotid artery. Antegrade flow is noted in the right vertebral artery. There is heterogeneous, irregular atherosclerotic plaque noted in the right bulb. Left Extracranial There is homogeneous, smooth atherosclerotic plaque noted in the left common carotid artery. Proximal CCA is very tortuous. There is homogeneous, smooth atherosclerotic plaque noted in the left internal carotid artery. The tortuous nature of the left internal carotid artery may result in flow velocities overestimating the degree of stenosis. There is homogeneous, smooth atherosclerotic plaque noted in the left external carotid artery. Antegrade flow is noted in the left vertebral artery. There is heterogeneous, irregular atherosclerotic plaque noted in the left bulb. Procedure Carotid Duplex 46929. The study was technically difficult. Due to tortuousity. Exam performed in department. Interpretation Summary Mild (<50%) stenosis right extracranial internal carotid. Mild (<50%) stenosis left extracranial internal carotid. Mildly elevated velocities in the internal carotid arteries bilaterally appear to be due to tortuosity. Flow within the vertebral arteries is antegrade bilaterally. Heterogeneous, irregular atherosclerotic plaque is noted in the carotid bulbs bilaterally, which does not appear to be hemodynamically significant. Ordering Physician: Esvin Preciado Referring Physician: Esvin Preciado Performed By: Karie Taylor, MERT, RVT
== END ==
PROVIDERS: PCP Family Medicine; Referring Provider Family Medicine; Visit Provider Family Medicine
DX: R09.89 Other specified symptoms and signs involving the circulatory and respiratory systems (principal)
CPT/HCPCS: 93880

== ENCOUNTER → 2020-07-31 14:29 | Outpatient (CLI) | payer MEDICARE, SELFPAY ==
[2020-06-24 13:15] VITALS: BMI 35.4
[2020-07-31 18:09] LABS: Anion Gap 4 (5-15); BUN 51 mg/dL (7-18); BUN/Creat Ratio 45.5 RATIO (10-20); Calcium,Total 9.4 mg/dL (8.5-10.1); Chloride 107 mmol/L (98-107); Creatinine, Serum 1.12 mg/dL (0.55-1.02); EST Glomerular Filtration Rate 49 mL/min (>60); Est Glom Filt Rate - Afr Amer 60 mL/min (>60); Glucose 110 mg/dL (74-106); Potassium 4.4 mmol/L (3.5-5.1); Sodium Level 141 mmol/L (136-145)
[2020-07-31 18:46] LABS: BNP,B-Type NATRIURETIC PEPTIDE 310.3 pg/mL (0-100)
== END ==
PROVIDERS: PCP Family Medicine; Referring Provider Family Medicine; Visit Provider Family Medicine
DX: R60.9 Edema, unspecified (principal)
CPT/HCPCS: 36415; 80048; 83880

== ENCOUNTER → 2020-08-12 10:12 | Outpatient (CLI) | payer MEDICARE, SELFPAY ==
[2020-06-24 13:15] VITALS: BMI 35.4
[2020-08-12 12:28] LABS: Absolute Lymphocyte Count 1.47 X10^3/uL (0.83-4.51); Absolute Neutrophil Count 4.9 X10^3/uL (2.0-7.7); Basophil# 0.05 X10^3/uL; Basophil% 0.7 % (0-1); Eosinophil# 0.43 X10^3/uL; Eosinophils% 5.7 % (0-5); Hematocrit 36.6 % (37-47); Hemoglobin 10.7 g/dL (12.0-15.0); Lymphocyte # 1.47 X10^3/ul (0.83-4.51); Lymphocyte % 19.6 % (19-41); Mean Corp Hgb Conc 29.2 g/dL (32-36); Mean Corpuscular Hgb 28.2 pg (27.0-32.0); Mean Corpuscular Volume 96.3 fL (81-99); Mean Platelet Vol. 11.5 fl (6.2-12.0); Monocyte# 0.67 X10^3/uL; Monocyte% 8.9 % (0-10); NRBC Flagged by Analyzer 0 % (0-5); Neutrophil # 4.85 X10^3/uL (2.7-7.7); Neutrophil % 64.7 % (47-70); Platelet Count 262 K/mm3 (150-450); RBC Distribution Width CV 13.9 % (11.6-14.6); RBC Distribution Width SD 49.2 fl (35.1-43.9); White Blood Count 7.5 K/mm3 (4.4-11.0)
[2020-08-12 12:38] LABS: Anion Gap 7 (5-15); BUN 72 mg/dL (7-18); BUN/Creat Ratio 53.3 RATIO (10-20); Calcium,Total 9.5 mg/dL (8.5-10.1); Chloride 102 mmol/L (98-107); Creatinine, Serum 1.35 mg/dL (0.55-1.02); EST Glomerular Filtration Rate 40 mL/min (>60); Est Glom Filt Rate - Afr Amer 48 mL/min (>60); Glucose 93 mg/dL (74-106); Magnesium 1.9 mg/dL (1.6-2.6); Potassium 4.5 mmol/L (3.5-5.1); Sodium Level 137 mmol/L (136-145)
[2020-08-12 12:47] LABS: Hemoglobin A1c 5.7 % (3.8-5.6)
== END ==
PROVIDERS: PCP Family Medicine; Referring Provider Family Medicine; Visit Provider Family Medicine
DX: I73.9 Peripheral vascular disease, unspecified (principal); E11.22 Type 2 diabetes mellitus with diabetic chronic kidney disease; N18.9 Chronic kidney disease, unspecified; J44.9 Chronic obstructive pulmonary disease, unspecified
CPT/HCPCS: 36415; 80048; 83036; 83735; 85025

== ENCOUNTER → 2020-08-18 09:19 | Outpatient (CLI) | payer MEDICARE, SELFPAY ==
[2020-06-24 13:15] VITALS: BMI 35.4
[2020-08-18 11:09] LABS: Anion Gap 5 (5-15); BUN 71 mg/dL (7-18); BUN/Creat Ratio 52.6 RATIO (10-20); Calcium,Total 9.7 mg/dL (8.5-10.1); Chloride 104 mmol/L (98-107); Creatinine, Serum 1.35 mg/dL (0.55-1.02); EST Glomerular Filtration Rate 40 mL/min (>60); Est Glom Filt Rate - Afr Amer 48 mL/min (>60); Glucose 86 mg/dL (74-106); Potassium 4.2 mmol/L (3.5-5.1); Sodium Level 138 mmol/L (136-145)
== END ==
PROVIDERS: PCP Family Medicine; Visit Provider Family Medicine
DX: N18.30 Chronic kidney disease, stage 3 unspecified (principal)
CPT/HCPCS: 36415; 80048

== ENCOUNTER → 2020-08-25 08:50 | Outpatient (CLI) | payer MEDICARE, SELFPAY ==
[2020-06-24 13:15] VITALS: BMI 35.4
[2020-08-25 13:07] LABS: Iron 35 ug/dL (50-170); Iron Binding Capacity,Total 329 ug/dL (250-450); PERCENT IRON SATURATION 10.6 % (15.0-55.0)
[2020-08-25 14:23] LABS: Anion Gap 5 (5-15); BUN 55 mg/dL (7-18); BUN/Creat Ratio 46.6 RATIO (10-20); Calcium,Total 9.5 mg/dL (8.5-10.1); Chloride 104 mmol/L (98-107); Creatinine, Serum 1.18 mg/dL (0.55-1.02); EST Glomerular Filtration Rate 47 mL/min (>60); Est Glom Filt Rate - Afr Amer 56 mL/min (>60); Glucose 85 mg/dL (74-106); Sodium Level 137 mmol/L (136-145)
== END ==
PROVIDERS: Internal Medicine Medical Oncology; PCP Family Medicine; Visit Provider Family Medicine
DX: I89.0 Lymphedema, not elsewhere classified (principal); D50.9 Iron deficiency anemia, unspecified
CPT/HCPCS: 36415; 80048; 83540; 83550

== ENCOUNTER → 2020-11-24 08:55 | Outpatient (CLI) | payer MEDICARE, SELFPAY ==
[2020-11-24 10:18] LABS: Absolute Lymphocyte Count 1.33 X10^3/uL (0.83-4.51); Absolute Neutrophil Count 5.3 X10^3/uL (2.0-7.7); Basophil# 0.05 X10^3/uL; Basophil% 0.6 % (0-1); Eosinophil# 0.44 X10^3/uL; Eosinophils% 5.6 % (0-5); Hematocrit 37.3 % (37-47); Lymphocyte # 1.33 X10^3/ul (0.83-4.51); Lymphocyte % 17.1 % (19-41); Mean Corp Hgb Conc 29.5 g/dL (32-36); Mean Corpuscular Hgb 28.3 pg (27.0-32.0); Mean Corpuscular Volume 95.9 fL (81-99); Mean Platelet Vol. 11.4 fl (6.2-12.0); Monocyte# 0.65 X10^3/uL; Monocyte% 8.3 % (0-10); NRBC Flagged by Analyzer 0 % (0-5); Neutrophil # 5.29 X10^3/uL (2.7-7.7); Platelet Count 240 K/mm3 (150-450); RBC Distribution Width CV 14.5 % (11.6-14.6); RBC Distribution Width SD 51.1 fl (35.1-43.9); Red Blood Count 3.89 M/mm3 (4.2-5.4); White Blood Count 7.8 K/mm3 (4.4-11.0)
[2020-11-24 10:47] LABS: ALB/GLOB Ratio 0.8 RATIO (0.9-2.4); AST(SGOT) 13 U/L (15-37); Alanine Aminotransfer ALT/SGPT 15 U/L (13-56); Albumin, Serum 3.2 g/dL (3.2-5.0); Alkaline Phosphatase 132 U/L (45-117); Anion Gap 7 (5-15); BUN 51 mg/dL (7-18); Calcium,Total 9.2 mg/dL (8.5-10.1); Chloride 102 mmol/L (98-107); Creatinine, Serum 1.38 mg/dL (0.55-1.02); EST Glomerular Filtration Rate 39 mL/min (>60); Est Glom Filt Rate - Afr Amer 47 mL/min (>60); Glucose 136 mg/dL (74-106); Potassium 4.2 mmol/L (3.5-5.1); Protein, Total 7.2 g/dL (6.4-8.2); Sodium Level 139 mmol/L (136-145); Uric Acid 6.8 mg/dL (2.6-6.0)
== END ==
PROVIDERS: PCP Family Medicine; Referring Provider Family Medicine; Visit Provider Family Medicine
DX: M1A.9XX1 Chronic gout, unspecified, with tophus (tophi) (principal); N18.30 Chronic kidney disease, stage 3 unspecified; M79.606 Pain in leg, unspecified
CPT/HCPCS: 36415; 80053; 84550; 85025

== ENCOUNTER → 2021-01-27 10:51 | Outpatient (CLI) | payer MEDICARE, SELFPAY ==
[2021-01-27 12:20] LABS: Absolute Lymphocyte Count 1.18 X10^3/uL (0.83-4.51); Absolute Neutrophil Count 5.3 X10^3/uL (2.0-7.7); Basophil# 0.05 X10^3/uL; Basophil% 0.6 % (0-1); Eosinophil# 0.45 X10^3/uL; Eosinophils% 5.8 % (0-5); Hemoglobin 10.5 g/dL (12.0-15.0); Lymphocyte # 1.18 X10^3/ul (0.83-4.51); Lymphocyte % 15.2 % (19-41); Mean Corpuscular Volume 96.7 fL (81-99); Mean Platelet Vol. 11.6 fl (6.2-12.0); Monocyte# 0.76 X10^3/uL; Monocyte% 9.8 % (0-10); NRBC Flagged by Analyzer 0 % (0-5); Neutrophil # 5.32 X10^3/uL (2.7-7.7); Neutrophil % 68.3 % (47-70); Platelet Count 224 K/mm3 (150-450); RBC Distribution Width CV 14.9 % (11.6-14.6); RBC Distribution Width SD 52.4 fl (35.1-43.9); Red Blood Count 3.62 M/mm3 (4.2-5.4); White Blood Count 7.8 K/mm3 (4.4-11.0)
[2021-01-27 12:52] LABS: Anion Gap 8 (5-15); BUN 66 mg/dL (7-18); BUN/Creat Ratio 45.8 RATIO (10-20); Calcium,Total 9.8 mg/dL (8.5-10.1); Chloride 101 mmol/L (98-107); Creatinine, Serum 1.44 mg/dL (0.55-1.02); EST Glomerular Filtration Rate 37 mL/min (>60); Est Glom Filt Rate - Afr Amer 45 mL/min (>60); Glucose 106 mg/dL (74-106); Potassium 4.7 mmol/L (3.5-5.1); Sodium Level 139 mmol/L (136-145)
== END ==
PROVIDERS: PCP Family Medicine; Referring Provider Family Medicine; Visit Provider Registered Nurse
DX: I73.9 Peripheral vascular disease, unspecified (principal)
CPT/HCPCS: 36415; 80048; 85025

== ENCOUNTER 2021-05-01 14:24 | Outpatient (CLI) | payer MEDICARE, SELFPAY ==
[2021-05-01 17:53] LABS: Absolute Lymphocyte Count 1.47 X10^3/uL (0.83-4.51); Absolute Neutrophil Count 5.1 X10^3/uL (2.0-7.7); Basophil# 0.05 X10^3/uL; Basophil% 0.6 % (0-1); Eosinophil# 0.35 X10^3/uL; Eosinophils% 4.5 % (0-5); Hematocrit 35.6 % (37-47); Hemoglobin 10.7 g/dL (12.0-15.0); Lymphocyte # 1.47 X10^3/ul (0.83-4.51); Mean Corp Hgb Conc 30.1 g/dL (32-36); Mean Corpuscular Hgb 28.9 pg (27.0-32.0); Mean Corpuscular Volume 96.2 fL (81-99); Mean Platelet Vol. 11.8 fl (6.2-12.0); Monocyte# 0.78 X10^3/uL; Monocyte% 10.1 % (0-10); NRBC Flagged by Analyzer 0 % (0-5); Neutrophil # 5.08 X10^3/uL (2.7-7.7); Neutrophil % 65.7 % (47-70); Platelet Count 217 K/mm3 (150-450); RBC Distribution Width CV 15.1 % (11.6-14.6); RBC Distribution Width SD 53.9 fl (35.1-43.9); White Blood Count 7.7 K/mm3 (4.4-11.0)
[2021-05-01 18:18] LABS: ALB/GLOB Ratio 0.8 RATIO (0.9-2.4); AST(SGOT) 14 U/L (15-37); Alanine Aminotransfer ALT/SGPT 13 U/L (13-56); Albumin, Serum 3.3 g/dL (3.2-5.0); Alkaline Phosphatase 130 U/L (45-117); Anion Gap 5 (5-15); BUN 59 mg/dL (7-18); BUN/Creat Ratio 43.1 RATIO (10-20); Calcium,Total 9.3 mg/dL (8.5-10.1); Chloride 105 mmol/L (98-107); Creatinine, Serum 1.37 mg/dL (0.55-1.02); EST Glomerular Filtration Rate 39 mL/min (>60); Est Glom Filt Rate - Afr Amer 47 mL/min (>60); Globulin 4.1 g/dL (2.2-4.2); Glucose 93 mg/dL (74-106); Potassium 4.8 mmol/L (3.5-5.1); Protein, Total 7.4 g/dL (6.4-8.2); Sodium Level 138 mmol/L (136-145); Thyroid Stim Hormone (TSH) 3.74 uIU/mL (0.358-3.74)
== END 2021-05-01 23:59 | disposition short-term general hospital (02) ==
LOC: MFPLAB 14:29
PROVIDERS: PCP Family Medicine; Referring Provider Family Medicine; Visit Provider Registered Nurse
DX: J44.9 Chronic obstructive pulmonary disease, unspecified (principal); E11.22 Type 2 diabetes mellitus with diabetic chronic kidney disease; E03.9 Hypothyroidism, unspecified; N18.9 Chronic kidney disease, unspecified
CPT/HCPCS: 36415; 80053; 83036; 84443; 85025

== ENCOUNTER 2021-06-15 12:20 | Outpatient (CLI) | payer MEDICARE, SELFPAY ==
[2021-06-15 16:10] LABS: Vitamin D,25 Hydroxy 46.5 ng/mL
[2021-06-15 16:15] LABS: ALB/GLOB Ratio 0.8 RATIO (0.9-2.4); AST(SGOT) 17 U/L (15-37); Alanine Aminotransfer ALT/SGPT 17 U/L (13-56); Albumin, Serum 3.5 g/dL (3.2-5.0); Alkaline Phosphatase 135 U/L (45-117); Anion Gap 7 (5-15); BUN 60 mg/dL (7-18); BUN/Creat Ratio 38.2 RATIO (10-20); Calcium,Total 9.7 mg/dL (8.5-10.1); Chloride 103 mmol/L (98-107); Creatinine, Serum 1.57 mg/dL (0.55-1.02); EST Glomerular Filtration Rate 33 mL/min (>60); Est Glom Filt Rate - Afr Amer 40 mL/min (>60); Globulin 4.3 g/dL (2.2-4.2); Glucose 114 mg/dL (74-106); Potassium 4.9 mmol/L (3.5-5.1); Protein, Total 7.8 g/dL (6.4-8.2); Sodium Level 139 mmol/L (136-145)
== END 2021-06-15 23:59 | disposition home or self-care (01) ==
LOC: MFPLAB 12:21
PROVIDERS: PCP Family Medicine; Visit Provider Family Medicine
DX: E11.22 Type 2 diabetes mellitus with diabetic chronic kidney disease (principal); N18.30 Chronic kidney disease, stage 3 unspecified
CPT/HCPCS: 36415; 80053; 82306; 83036

== ENCOUNTER → 2021-09-21 | Outpatient (CLI) | payer MEDICARE, SELFPAY ==
[2021-09-21 10:34] LABS: Absolute Lymphocyte Count 0.81 X10^3/uL (0.83-4.51); Basophil# 0.03 X10^3/uL; Basophil% 0.5 % (0-1); Eosinophil# 0.33 X10^3/uL; Eosinophils% 5.8 % (0-5); Hematocrit 39.1 % (37-47); Hemoglobin 11.5 g/dL (12.0-15.0); Lymphocyte # 0.81 X10^3/ul (0.83-4.51); Lymphocyte % 14.2 % (19-41); Mean Corp Hgb Conc 29.4 g/dL (32-36); Mean Corpuscular Hgb 29.6 pg (27.0-32.0); Mean Corpuscular Volume 100.5 fL (81-99); Mean Platelet Vol. 11.6 fl (6.2-12.0); Monocyte# 0.52 X10^3/uL; Monocyte% 9.1 % (0-10); NRBC Flagged by Analyzer 0 % (0-5); Neutrophil # 3.99 X10^3/uL (2.7-7.7); Neutrophil % 70.2 % (47-70); Platelet Count 177 K/mm3 (150-450); RBC Distribution Width CV 16.6 % (11.6-14.6); RBC Distribution Width SD 59.7 fl (35.1-43.9); Red Blood Count 3.89 M/mm3 (4.2-5.4); White Blood Count 5.7 K/mm3 (4.4-11.0)
[2021-09-21 11:16] LABS: ALB/GLOB Ratio 0.9 RATIO (0.9-2.4); AST(SGOT) 14 U/L (15-37); Alanine Aminotransfer ALT/SGPT 24 U/L (13-56); Albumin, Serum 3.3 g/dL (3.2-5.0); Alkaline Phosphatase 147 U/L (45-117); Anion Gap 4 (5-15); BUN 67 mg/dL (7-18); BUN/Creat Ratio 43.8 RATIO (10-20); Calcium,Total 9.3 mg/dL (8.5-10.1); Chloride 102 mmol/L (98-107); Creatinine, Serum 1.53 mg/dL (0.55-1.02); EST Glomerular Filtration Rate 34 mL/min (>60); Est Glom Filt Rate - Afr Amer 42 mL/min (>60); Globulin 3.6 g/dL (2.2-4.2); Glucose 125 mg/dL (74-106); Magnesium 1.8 mg/dL (1.6-2.6); Potassium 4.4 mmol/L (3.5-5.1); Protein, Total 6.9 g/dL (6.4-8.2); Sodium Level 139 mmol/L (136-145)
[2021-09-21 11:19] LABS: Ferritin 95 ng/mL (8-252); Iron 40 ug/dL (50-170); Iron Binding Capacity,Total 359 ug/dL (250-450); LDH 165 U/L (84-246); PERCENT IRON SATURATION 11.1 % (15.0-55.0)
== END | disposition home or self-care (01) ==
LOC: MFPLAB 09:14
PROVIDERS: Internal Medicine Medical Oncology; PCP Family Medicine; Visit Provider Family Medicine
DX: I10 Essential (primary) hypertension (principal); E11.22 Type 2 diabetes mellitus with diabetic chronic kidney disease; I89.0 Lymphedema, not elsewhere classified; N18.9 Chronic kidney disease, unspecified
CPT/HCPCS: 36415; 80053; 82728; 83036; 83540; 83550; 83615; 83735; 83880; 85025

== ENCOUNTER 2021-09-29 09:58 | Outpatient (RCR) | payer MEDICARE, SELFPAY ==
[2021-09-29 10:10] VITALS: BP 146/103; PULSE 61; RESP 16; TEMP 35.9
--- NOTE | 2021-09-29 10:42 | PCM.WC.HP ---
History of Present Illness Date of Service: 09/29/21 Chief Complaint: Bilateral lymphedema, mild blister formation proximal lateral tibia Progress of Wound: Patient denies any constitutional symptoms. Patient 86-year-old female ambulatory lives at home alone. Patient has minimal family support brought here today by her friend who lives down the street. Patient denies any constitutional symptoms. Patient denies any chest pain, calf pain, shortness of breath. Notes swelling to bilateral legs present for years worsening over time, nonpainful. Denies any real treatment at this time other than diuretics per her primary care physician. Patient has no other complaints. [facility] Medical History Anemia History of blood transfusion Thyroid disease Home Medications cholecalciferol (vitamin D3) 25 mcg (1,000 unit) tablet (Vitamin D3) 1,000 unit PO DAILY supplement 05/24/16 [History Last Taken Unknown] furosemide 40 mg tablet 20 mg PO BID water pill 05/24/16 [History Last Taken Unknown] levothyroxine 50 mcg tablet 50 mcg PO DAILY thyroid 05/24/16 [History Last Taken 03/01/18] metoprolol tartrate 25 mg tablet 25 mg PO BID bp 05/24/16 [History Last Taken 03/13/18 05:30 25 MG] pantoprazole 40 mg tablet,delayed release 40 mg PO DAILY gerd 05/24/16 [History Last Taken 03/01/18] pravastatin 40 mg tablet 40 mg PO QHS cholesterol 05/24/16 [History Last Taken Unknown] albuterol sulfate 90 mcg/actuation aerosol inhaler (ProAir HFA) 1 - 2 puff inhalation Q4H PRN PRN Wheezing ##1 07/27/16 [Rx Last Taken Unknown] Dulera 200 Mcg/5 Mcg Inhaler 200 mcg inhalation BID PRN Sob &/Or Wheezing 08/24/16 [History Last Taken 03/13/18 05:30 200 MCG] acetaminophen 500 mg tablet 1,000 mg PO Q8 PRN Pain Or Fever 03/03/18 [History Last Taken Unknown] albuterol sulfate 90 mcg/actuation aerosol inhaler (Ventolin HFA) 2 puff inhalation Q4H PRN PRN COUGH 03/20/18 [Rx Last Taken Unknown] nystatin 100,000 unit/gram topical powder (Nyamyc) 1 applic topical 0600,2200 03/20/18 [Rx Last Taken Unknown] tramadol 50 mg tablet 50 mg PO Q6H PRN PRN Pain Score 1-10 06/24/20 [History Last Taken Unknown] allopurinol 100 mg tablet 100 mg PO TID 12/17/20 [History Last Taken Unknown] ascorbic acid (vitamin C) 500 mg capsule mg PO 06/24/21 [History Last Taken Unknown] spironolactone 25 mg tablet 25 mg PO DAILY 06/24/21 [History Last Taken Unknown] tiotropium bromide 2.5 mcg/actuation mist for inhalation (Spiriva Respimat) 2 inh inhalation QAM 06/24/21 [History Last Taken Unknown] Allergy/AdvReac Type Severity Reaction Status Date / Time pramoxine Allergy Severe Hives Verified 09/29/21 10:25 [From [facility] Itch Relief] Family History Father CVA (cerebral vascular accident) Mother Heart disease Surgical History H/O right knee surgery History of carpal tunnel repair History of repair of rotator cuff History of total left hip arthroplasty History of total replacement of left shoulder joint Social History Smoking Status: Never smoker ROS Constitutional Constitutional: Denies anorexia, daytime sleepiness or difficulty sleeping Eyes Eyes: Denies acute decrease in peripheral vision, blindness or change in vision ENT HEENT: Reports hearing loss; Denies change in voice or headache(s) Cardiovascular Cardiovascular: Denies abdominal edema, abdominal pain or chest pain at rest Respiratory/Chest Respiratory/Chest: Denies dusky skin, dyspnea or inability to speak Gastrointestinal Gastrointestinal: Denies belching, bloating or change in bowel habits Genitourinary Genitourinary: Denies burning urination, change in urinary stream or dribbling Vital Signs Vital Signs Vital Signs: 09/29/21 10:10 Temperature 96.6 F L Temperature Source Temporal Pulse Rate 61 Respiratory Rate 16 Blood Pressure 146/103 H Blood Pressure Mean 117 Blood Pressure Source Monitor Blood Pressure Position Sitting Blood Pressure Location Left Forearm Oxygen Delivery Method Room Air Physical Exam Narrative Patient alert oriented to person place and time. Patient ambulatory without assistance at this time. Vascular: Dorsalis pedis posterior tibial pulses noted to be triphasic upon Doppler examination. +3 pitting edema noted to bilateral lower extremity extending from the forefoot into proximal leg and thigh. No evidence of varicosities at this time. No focal increases in warmth. Neurologic: Light touch protective sensation intact to bilateral feet. Dermatologic: No open skin lesions at this time mild hyperkeratotic plaque noted to the plantar midfoot region. This on the right side. No other issues. Mild serous bullous formation along the anterior lateral leg with a cluster of 4-5 vesicles. These were left intact. No signs of infection. Musculoskeletal: No pain with palpation of the calf with calf squeeze of 4 popliteal fossa bilaterally. No gross musculoskeletal deformity contributing to any wound formation. Muscular strength 5 out of 5 to bilateral lower extremity compartments. Debridement Note Debridement Note Post-Debridement Measurements and Additional Note: Post-Debridement Measurements/Treatment - Nurse 1 - General Ulcer Assessment Start: 09/29/21 10:05 Freq: Status: Active Protocol: CLEMENT Activity Type Activity Date Activity User E-sign Co-sign Detail Recorded Client Recorded Date Recorded By Document 09/29/21 10:10 [facility] [id number] 09/29/21 10:22 [facility] 09/29/21 10:10 - Today's Visit Information Type of service Initial Visit Arrival Mode Wheelchair Transfer Assistance Other Transfer Assist (Other) 3 Accompanied by FRIEND Patient Identification Verified (Name & Yes ) Patient Requires Transmission-Based No Precautions Vital Signs Temperature (97.8 F-99.1 F) 96.6 F L Temperature Source Temporal Pulse Rate (60-100) 61 Pulse Location Monitor Respiratory Rate (12-18) 16 Respiratory rate source Observation Oxygen Delivery Method Room Air Blood Pressure (90/60-120/80) 146/103 H Blood Pressure Mean 117 Source Monitor Position Sitting Blood Pressure Location Left Forearm History Since Last Visit- (Skip if this is Patient's initial visit) Left Footwear Regular Shoe Right Footwear Regular Shoe Pain Scale: 0-10 Numeric Is Patient Pain Free? Yes Lower Extremity Assessment/ Foot Assessment/ Toe Nail Assessment Right -Hair Growth on Legs No -Hair Growth on Toes No -Temperature of Extremity Cool -Other Deformity No -Prior Foot Ulcer No -Charcot Joint No -Prior Amputation No -Thick Yes -Discolored No -Deformed No -Improper Length & Hygeine No Left -Hair Growth on Legs No -Hair Growth on Toes No -Temperature of Extremity Cool -Thick Yes -Discolored No -Deformed No -Improper Length & Hygeine No Communication Assessment Preferred language Salvadorean Dining Room Busser Required No Able to Read Yes Able to Write Yes Communication Tools None Right Hearing Abillity Hard of Hearing ,Use of Hearing Aid Left Hearing Abillity Hard of Hearing ,Use of Hearing Aid Visual Assistive Devices Glasses Teaching Assessment Preferences Verbal,Written, Audio/Visual, Demonstration Barriers to Learning None Readiness To Learn Excellent Willingness to Engage in Self Management High Activies Readiness to Engage in Self Management High Activities Anxiety Level Calm Cooperation Cooperative Perception Coherent Interest in Health Problem Asks Questions Education Importance Acknowledges Need Does Patient Smoke tobacco or other No substances 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[employer] Cultural/Buddhist Needs that may affect No Treatment Plan Teaching: Wound Center *Welcome to the Wound Center -Person Taught Patient -Teaching Method Discussion -Response to teaching Verbalize understanding Welcome to the Wound Care Center Salvadorean - Nurse 1 - General Ulcer Measurement Start: 09/29/21 10:05 Freq: Status: Active Protocol: Activity Type Activity Date Activity User E-sign Co-sign Detail Recorded Client Recorded Date Recorded By Document 09/29/21 10:10 [facility] [id number] 09/29/21 10:22 [facility] 09/29/21 10:10 Wound Center Nurse 1 Lower Limb Edema Present Yes Right Calf (cm) 58.6 Right Ankle (cm) 36.5 Left Calf (cm) 59.2 Left Ankle (cm) 34.6 - Nurse 2 - General Ulcer CM Notes Start: 09/29/21 10:05 Freq: Status: Active Protocol: Activity Type Activity Date Activity User E-sign Co-sign Detail Recorded Client Recorded Date Recorded By Document 09/29/21 10:31 [id number] 09/29/21 10:37 09/29/21 10:31 Pain Scale: 0-10 Numeric Is Patient Pain Free? Yes Assessment/Plan Assessment/Plan (1) Peripheral vascular disease, unspecified: CODE(S): I73.9 - Peripheral vascular disease, unspecified (2) Lymphedema: CODE(S): I89.0 - Lymphedema, not elsewhere classified PLAN: Patient examined evaluated, all findings cussed with patient in great detail. Due to diffuse swelling we have ordered venous and arterial studies to further evaluate bilateral lower extremity. At this time we plan to wrap bilateral lower extremity with 3M compression wraps. We have ordered home health care to perform these dressing changes 3 times a week. Due to lymphedema status I have recommended referral over to the lymphedema clinic at [facility]. Until that time we will continue to monitor the patient closely on a weekly basis with application of 3M compression wraps. Patient should notify us if she notes any shortness of breath chest pain calf pain. Patient will follow up in 1 week at which time we will re-evaluate.
== END 2021-10-01 23:59 | disposition home or self-care (01) ==
LOC: WC 09:58
PROVIDERS: PCP Family Medicine; Visit Provider Podiatrist
DX: I73.9 Peripheral vascular disease, unspecified (principal); R60.0 Localized edema; I89.0 Lymphedema, not elsewhere classified
CPT/HCPCS: 29581; 99213; G0463

== ENCOUNTER 2021-10-01 14:02 | Inpatient (IN) | payer MEDICARE, SELFPAY ==
[2021-10-01] VITALS (23 sets, daily range): BP systolic 100–130; BP diastolic 45–102; PULSE 56–89; RESP 12–32; TEMP 36–36.6; O2SAT 86–100; BMI 45.1; BMI 45.3
--- NOTE | 2021-10-01 14:18 | EKG12_ITS ---
Test Reason : WEAKNESS Blood Pressure : / mmHG Vent. Rate : 085 BPM Atrial Rate : 085 BPM P-R Int : 202 ms QRS Dur : 086 ms QT Int : 368 ms P-R-T Axes : 000 160 -03 degrees QTc Int : 437 ms Normal sinus rhythm Poor R wave progression Nonspecific T wave abnormality Confirmed by FLOR BENITEZ, ALYSON ([id number]), order editor SARA GUZMAN ([id number]) on 10/06/2021 10:16:45 AM Referred By: MINDI Confirmed By:ALYSON RAY MD
--- NOTE | 2021-10-01 14:25 | EDS_ITS ---
HPI <GUILHERME Donohue - Last Filed: 10/01/21 15:20> History of Present Illness Chief Complaint: Edema Narrative Narrative: 3-vwtt-kaf-year-old female with history of congestive heart failure, bilateral lower leg lymphedema, hypertension, hyperlipidemia presents to the emergency department with ongoing weakness for the last 3 to 4 days as well as hypoxia today. Patient was having difficulty breathing with any sort of movement, ambulance was called. EMS stated that her pulse oxygenation was 66% on room air, she responded well to nasal cannula oxygen. Patient denies any pain, patient denies any feeling of fever or chills however states she just feels weak. She also complains of decreased urine output lately. Patient does take Lasix 80 mg, states that she usually urinates quite a bit however lately she has not PFSH <GUILHERME Donohue - Last Filed: 10/01/21 15:20> [facility] Medical History Anemia History of blood transfusion Thyroid disease Home Medications pantoprazole 40 mg tablet,delayed release 40 mg PO DAILY gerd 05/24/16 [History Last Taken 10/01/21] pravastatin 40 mg tablet 40 mg PO QHS cholesterol 05/24/16 [History Last Taken 10/01/21] acetaminophen 500 mg tablet 500 mg PO DAILY 03/03/18 [History Last Taken 10/01/21] metoprolol tartrate 25 mg tablet 25 mg PO BID 09/29/21 [History Last Taken 10/01/21] allopurinol 300 mg tablet 300 mg PO DAILY GOUT 10/01/21 [History Last Taken 10/01/21] cholecalciferol (vitamin D3) 50 mcg (2,000 unit) capsule 50 mcg PO DAILY SUPPLEMENT 10/01/21 [History Last Taken 10/01/21] furosemide 80 mg tablet 80 mg PO DAILY FLUID 10/01/21 [History Last Taken 10/01/21] levothyroxine 75 mcg tablet 75 mcg PO DAILY THYROID 10/01/21 [History Last Taken 10/01/21] spironolactone 25 mg tablet 12.5 mg PO DAILY FLUID 10/01/21 [History Last Taken 10/01/21] Allergy/AdvReac Type Severity Reaction Status Date / Time pramoxine Allergy Severe Hives Verified 10/01/21 14:06 [From [facility] Itch Relief] Family History Father CVA (cerebral vascular accident) Mother Heart disease Surgical History H/O right knee surgery History of carpal tunnel repair History of repair of rotator cuff History of total left hip arthroplasty History of total replacement of left shoulder joint Social History (Updated 10/01/21 @ 15:50 by Estella Trammell NP, CENTRAL STERILIZATION TECHNICIAN-C) household members: none Smoking Status: Never smoker alcohol intake: never substance use type: does not use ROS <GUILHERME Donohue - Last Filed: 10/01/21 15:20> ROS ED ROS Narrative Constitutional: Negative for fever, chills, weight loss. Positive for generalized weakness Eyes: Negative for vision loss, vision change, double vision ENT: Negative for any sore throat, ear pain, congestion Cardiovascular: Negative for any chest pain, tightness, palpitations Respiratory: Negative for any sputum production, hemoptysis. Positive for cough, dyspnea, dyspnea on exertion, orthopnea Gastrointestinal: Negative for any abdominal pain, nausea, vomiting, diarrhea, constipation, blood in stool, blood in vomit : Negative for any urinary frequency, dysuria, retention, blood in urine Muscle skeletal: Negative for any muscle joint pain, stiffness, myalgias, arthralgias, neck pain, back pain Neurological: Negative for any headache, syncope, numbness or tingling, dizziness Skin: Negative for any rashes, lumps, itching, abrasions, lacerations Psychiatric: Negative for any depression, anxiety, stress, suicidal ideation, homicidal ideation Hematologic: Negative for any easy bruising, excessive bruising, easy bleeding Allergies: Negative for any eczema, hives, rash EXAM <GUILHERME Donohue - Last Filed: 10/01/21 15:20> Physical Exam Narrative Exam Narrative: Vital signs reviewed. Patient was 66 on room air, 88% on 4 L needing to be brought up to 6 L. HEET: Head normocephalic atraumatic, TMs clear bilaterally. Posterior pharynx is clear, moist mucous membranes. Nares clear bilaterally. Neck: Supple with no lymphadenopathy or tenderness. No signs of meningismus, negative jolt sign. Cardiac: Regular rate and rhythm no murmurs gallops or rubs, equal peripheral pulses bilaterally. Positive for JVD bilaterally Respiratory: Patient has rales, decreased lung sounds bilaterally. No chest tenderness. Abdomen: Soft, nontender, nondistended. No abdominal bruit or pulsatile masses. No hepatosplenomegaly Extremities: Patient has grossly edematous legs secondary to lymphedema. Patient states that these are actually improvements. She gets them wrapped weekly. Neuro: Cranial nerves II through XII intact, no focal neurological deficits. Skin: Clean dry and intact with no rash, purpura, petechiae, vesicles or pustules. Backs/flank: No CVA tenderness, no midline spinal tenderness, no deformity. Psych: Normal mood and affect. No SI, HI or acute psychosis. Const Vital Signs: 10/01/21 14:04 10/01/21 14:08 10/01/21 14:10 Temperature 97 F L Temperature Source Temporal Pulse Rate 63 Respiratory Rate 32 H Respiratory Effort Short of Breath Respiratory Pattern Tachypnea Blood Pressure 126/58 H Blood Pressure Mean 80 Pulse Ox 86 94 Oxygen Delivery Method Room Air Nasal Cannula Oxygen Flow Rate (L/min) 4 10/01/21 14:52 Temperature Temperature Source Pulse Rate Respiratory Rate Respiratory Effort Respiratory Pattern Blood Pressure Blood Pressure Mean Pulse Ox Oxygen Delivery Method Nasal Cannula Oxygen Flow Rate (L/min) 4 <Dr. Travon Melvin MD - Last Filed: 10/01/21 16:02> Physical Exam Const Vital Signs: 10/01/21 14:04 10/01/21 14:08 10/01/21 14:10 Temperature 97 F L Temperature Source Temporal Pulse Rate 63 Respiratory Rate 32 H Respiratory Effort Short of Breath Respiratory Pattern Tachypnea Blood Pressure 126/58 H Blood Pressure Mean 80 Pulse Ox 86 94 Oxygen Delivery Method Room Air Nasal Cannula Oxygen Flow Rate (L/min) 4 10/01/21 14:52 Temperature Temperature Source Pulse Rate Respiratory Rate Respiratory Effort Respiratory Pattern Blood Pressure Blood Pressure Mean Pulse Ox Oxygen Delivery Method Nasal Cannula Oxygen Flow Rate (L/min) 4 [facility] <GUILHERME Donohue - Last Filed: 10/01/21 15:20> [facility] Lab Data Labs: Laboratory Results - last 24 hr 10/01/21 10/01/21 10/01/21 14:25 14:25 14:25 WBC 7.6 RBC 4.08 L Hgb 12.1 Hct 42.3 MCV 103.7 H MCH 29.7 MCHC 28.6 L RDW Std Deviation 65.0 H RDW Coeff of Steven 17.6 H Plt Count 174 MPV 12.1 H Immature Gran % (Auto) 0.400 Neut % (Auto) 79.6 H Lymph % (Auto) 10.0 L [place] % (Auto) 8.0 Eos % (Auto) 1.7 Baso % (Auto) 0.3 Absolute Neuts (auto) 6.1 Absolute Lymphs (auto) 0.76 L Nucleated RBC % 0.4 PT INR Sodium 138 Potassium 5.4 H Chloride 102 Carbon Dioxide 32.0 Anion Gap 4 L BUN 102 H* Creatinine 2.15 H Estim Creat Clear Calc 14.70 Est GFR (MDRD) Af Amer 28 L Est GFR (MDRD) Non-Af 23 L BUN/Creatinine Ratio 47.4 H Glucose 143 H Calcium 9.2 Troponin I High Sens 173 H* B-Natriuretic Peptide 1632.2 H 10/01/21 14:25 WBC RBC Hgb Hct MCV MCH MCHC RDW Std Deviation RDW Coeff of Steven Plt Count MPV Immature Gran % (Auto) Neut % (Auto) Lymph % (Auto) [place] % (Auto) Eos % (Auto) Baso % (Auto) Absolute Neuts (auto) Absolute Lymphs (auto) Nucleated RBC % PT 13.1 INR 1.0 Sodium Potassium Chloride Carbon Dioxide Anion Gap BUN Creatinine Estim Creat Clear Calc Est GFR (MDRD) Af Amer Est GFR (MDRD) Non-Af BUN/Creatinine Ratio Glucose Calcium Troponin I High Sens B-Natriuretic Peptide ABG Data ABG results: ABG 10/01/21 14:59 Specimen Type RICHARD VBG pH 7.19 L* VBG pO2 60 H VBG HCO3 31 H VBG Total CO2 34 H VBG O2 Sat (Calc) 83 H VBG Base Excess 3 POC Mix VBG pCO2 Pt Tmp 81.3 H* Crit Call To/Read Back Yes Radiography Diagnostic Testing: Clinical Impression(s) from Imaging Studies Chest X-Ray 10/01/21 14:30 IMPRESSION: Consolidation in the left hemithorax. Elevation of the right hemidiaphragm. Electronically Signed: Rex Raines MD at 14:54 EDT , EKG Normal sinus rhythm: Attestation: I personally reviewed and interpreted this EKG as follows: Interpretation: Sinus Rhythm Comments: Normal sinus rhythm, rate of 85 bpm, MD interval 202 ms, QRS duration 86 ms, no acute ST elevation, no acute infarct noted. Treatment and Re-Evaluation Narrative: Patient arrives in mild respiratory distress, patient presents to the emergency department with increased shortness of breath, difficulty ambulating. Patient was 66% on room air, she was 93% on 4 L. Patient's physical examination is consistent with fluid overload. Patient's chest x-ray shows consolidation of the left hemothorax. Patient CBC was unremarkable, chemistries showed an elevated BUN at 102 with a increased creatinine at 2.15, this is abnormal for the patient. Patient's troponin was 173 with a BNP of 1600. Patient did receive VBG, was hypercapnic, BiPAP will be ordered. She will be given IV Lasix, and admitted to the hospital to the ICU. <Dr. Travon Melvin MD - Last Filed: 10/01/21 16:02> [facility] Narrative Medical decision making narrative: I have personally performed a face to face assessment of the patient and have reviewed the BOBO Note. I performed a substantive portion of the visit including all aspects of the following. My herrera findings include: History is patient presents because her friend called the ambulance. She was having trouble breathing. She was recently diagnosed with heart failure. She has had increasing swelling of her legs over the past 3 months. She has orthopnea. She has not had PND. She denies history of coronary disease. She denies chest pain. Patient and friend states she has been compliant with her me dication and diet. There has been no complaint of fever, chills night sweats. Patient does not weigh herself daily. She was recently seen at the wound center for her leg swelling. She denies visual, ocular auditory symptoms. She denies GI symptoms. She denies dysuria, frequency, urgency or hematuria. Exam is patient with significant hypoxia. She was hypoxic on 4 L at 86% initially. Her saturation now is 94%. Patient appears pale. HEENT exams remarkable for pale conjunctive a. There is evidence of JVD to the angle of mandible at 90 degrees. Trachea is midline. Rales noted bilaterally 1-2/3 up her back bilaterally. Heart is regular. Heart tones are distant. There is no obvious murmur, gallop or rub. Patient has significant pitting edema with venous stasis dermatitis of lower extremity. Scar noted right knee due to total knee arthroplasty. There is minimal pitting edema of the sacrum. Patient is very hard of hearing. She is alert and oriented. She moves all her extre mities. Medical Decision Making clinically patient is fluid overloaded and in heart failure with respiratory distress failure. EKG, chest x-ray and appropriate labs were obtained. She was administered 80 mg of Lasix. Other additions or changes: Patient's blood gas reveals a respiratory failure with acute on chronic hypercapnia and hypoxia. Patient was ordered BiPAP. Nitro glycerin drip was ordered. Lab Data Attestation: I reviewed the patient's lab results. Labs: Laboratory Results - last 24 hr 10/01/21 10/01/21 10/01/21 14:25 14:25 14:25 WBC 7.6 RBC 4.08 L Hgb 12.1 Hct 42.3 MCV 103.7 H MCH 29.7 MCHC 28.6 L RDW Std Deviation 65.0 H RDW Coeff of Steven 17.6 H Plt Count 174 MPV 12.1 H Immature Gran % (Auto) 0.400 Neut % (Auto) 79.6 H Lymph % (Auto) 10.0 L [place] % (Auto) 8.0 Eos % (Auto) 1.7 Baso % (Auto) 0.3 Absolute Neuts (auto) 6.1 Absolute Lymphs (auto) 0.76 L Nucleated RBC % 0.4 PT INR Sodium 138 Potassium 5.4 H Chloride 102 Carbon Dioxide 32.0 Anion Gap 4 L BUN 102 H* Creatinine 2.15 H Estim Creat Clear Calc 14.70 Est GFR (MDRD) Af Amer 28 L Est GFR (MDRD) Non-Af 23 L BUN/Creatinine Ratio 47.4 H Glucose 143 H Calcium 9.2 Troponin I High Sens 173 H* B-Natriuretic Peptide 1632.2 H 10/01/21 14:25 WBC RBC Hgb Hct MCV MCH MCHC RDW Std Deviation RDW Coeff of Steven Plt Count MPV Immature Gran % (Auto) Neut % (Auto) Lymph % (Auto) [place] % (Auto) Eos % (Auto) Baso % (Auto) Absolute Neuts (auto) Absolute Lymphs (auto) Nucleated RBC % PT 13.1 INR 1.0 Sodium Potassium Chloride Carbon Dioxide Anion Gap BUN Creatinine Estim Creat Clear Calc Est GFR (MDRD) Af Amer Est GFR (MDRD) Non-Af BUN/Creatinine Ratio Glucose Calcium Troponin I High Sens B-Natriuretic Peptide ABG Data ABG results: ABG 10/01/21 14:59 Specimen Type RICHARD VBG pH 7.19 L* VBG pO2 60 H VBG HCO3 31 H VBG Total CO2 34 H VBG O2 Sat (Calc) 83 H VBG Base Excess 3 POC Mix VBG pCO2 Pt Tmp 81.3 H* Crit Call To/Read Back Yes Radiography Diagnostic Testing: Clinical Impression(s) from Imaging Studies Chest X-Ray 10/01/21 14:30 IMPRESSION: Consolidation in the left hemithorax. Elevation of the right hemidiaphragm. Electronically Signed: Rex Raines MD at 14:54 EDT , <Dr. Travon Melvin MD - Last Filed: 10/01/21 16:02> Critical Care Time Critical Care Time: Yes Critical care time (excluding procedures): 30-74 minutes (37 minutes), Including time spent: (History, physical, documentation, interpretation laboratory results and chest x-ray. Initiation of therapy, respiratory support, noninvasive ventilation), Discussing w/Patient &/or Family/Ironworker, Discussing w/Consultants and Arranging Admission or Transfer Discharge Plan Dx/Rx/DC Orders Clinical Impression: Acute respiratory failure with hypoxia and hypercapnia, Iron deficiency anemia, Congestive heart failure (CHF), Non-ST elevated myocardial infarction (non- STEMI), Uremia, Acute on chronic kidney failure, Anasarca Disposition Disposition: Acute Care [facility]
--- NOTE | 2021-10-01 14:30 | RAD_ITS ---
STUDY: X-RAY CHEST REASON FOR EXAM: Female, 86 years old. SOB TECHNIQUE: Single AP portable view of the chest. COMPARISON: Comparison is made with prior study dated 02/11/2019. FINDINGS: EKG electrodes are seen. Elevation of the right hemidiaphragm. Consolidation in the left hemithorax. Radiographic follow-up is suggested. Blunting of the left costophrenic angle. Sternal cerclage wires and vascular clips are present from a prior sternotomy and coronary artery bypass graft procedure (CABG). Normal mediastinum and radha. Normal visualized pulmonary arteries. There is atherosclerotic calcification of the aortic arch with tortuosity. There are diffuse degenerative changes of the visualized thoracic spine. Bilateral shoulder replacement. There is no demonstrated abnormality of the visualized soft tissue structures of the upper abdomen. RAD/Chest 1 View (Portable) IMPRESSION: Consolidation in the left hemithorax. Elevation of the right hemidiaphragm. Electronically Signed: Rex Raines MD at 14:54 EDT ,
[2021-10-01 14:39] LABS: Absolute Lymphocyte Count 0.76 X10^3/uL (0.83-4.51); Absolute Neutrophil Count 6.1 X10^3/uL (2.0-7.7); Basophil# 0.02 X10^3/uL; Basophil% 0.3 % (0-1); Eosinophil# 0.13 X10^3/uL; Eosinophils% 1.7 % (0-5); Hematocrit 42.3 % (37-47); Hemoglobin 12.1 g/dL (12.0-15.0); Lymphocyte # 0.76 X10^3/ul (0.83-4.51); Mean Corp Hgb Conc 28.6 g/dL (32-36); Mean Corpuscular Hgb 29.7 pg (27.0-32.0); Mean Corpuscular Volume 103.7 fL (81-99); Mean Platelet Vol. 12.1 fl (6.2-12.0); Monocyte# 0.61 X10^3/uL; NRBC Flagged by Analyzer 0.4 % (0-5); Neutrophil # 6.05 X10^3/uL (2.7-7.7); Neutrophil % 79.6 % (47-70); Platelet Count 174 K/mm3 (150-450); RBC Distribution Width CV 17.6 % (11.6-14.6); Red Blood Count 4.08 M/mm3 (4.2-5.4); White Blood Count 7.6 K/mm3 (4.4-11.0)
[2021-10-01 14:50] LABS: Prothrombin Time (Protime)PT. 13.1 SECONDS (11.7-14.9)
[2021-10-01 15:00] LABS: Anion Gap 4 (5-15); BUN 102 mg/dL (7-18); BUN/Creat Ratio 47.4 RATIO (10-20); Calcium,Total 9.2 mg/dL (8.5-10.1); Chloride 102 mmol/L (98-107); Creatinine, Serum 2.15 mg/dL (0.55-1.02); EST Glomerular Filtration Rate 23 mL/min (>60); Est Glom Filt Rate - Afr Amer 28 mL/min (>60); Glucose 143 mg/dL (74-106); Potassium 5.4 mmol/L (3.5-5.1); Sodium Level 138 mmol/L (136-145); Troponin-I HS 173 pg/mL (3.0-54.0)
[2021-10-01 15:06] LABS: Blood Gas Specimen Type VEN; VBG BASE EXCESS 3 mmol/L (-1.0-3.5); VBG Bicarbonate 31 mmol/L (22-26); VBG PO2 60 mmHg (25-40); VBG SO2 83 % (50-70); VBG TCO2 34 mmol/L (23-33); VBG pCO2 81.3 mmHg (41-51); VBG pH 7.19 (7.32-7.42)
[2021-10-01] MEDS: Furosemide 100 MG/10 ML Vial 80 MG IV (15:10)
--- NOTE | 2021-10-01 15:10 | CPS ---
Critical VBG results shown to CASSIA Quiroz and Dr. Melvin.
[2021-10-01] MEDS: Nitroglycerin Infusion 250 ML 6 MG CONT INF (15:25)
[2021-10-01 15:33] LABS: Mucous, Urine 0 SEEN /hpf (<or=2+); Red Blood Cells-Urine 0 SEEN /hpf (0-5)
[2021-10-01 15:40] LABS: Color, Urine Yellow (Yellow); Glucose, Dipstick Normal (Normal); Ketone-Dipstick Negative (Negative); Leukocyte Esterase-Dipstick 25 /ul (Negative); Nitrite-Dipstick Negative (Negative); Occult Blood-Urine Negative /ul (Negative); Protein-Dipstick Negative (Negative); Urine Bilirubin Dipstick Negative (Negative); Urine Clarity Clear (Clear); Urine Urobilinogen Normal (Normal)
--- NOTE | 2021-10-01 15:43 | ED.RN ---
bp 100/54, dr aparicio in room. verbal order to stop nitro drip.
--- NOTE | 2021-10-01 15:44 | PCM.HP.STD ---
Documented by User: Estella Trammell NP, RECRUITMENT ASSISTANT-C 10/01/21 16:05 HPI - General General Date of Admission: 10/01/21 Date of Service: 10/01/21 Chief Complaint: Shortness of breath, increased lower extremity swelling. HPI Narrative CELINA GALINDO, is a 86 F who presents to the emergency room due to shortness of breath and increased lower extremity swelling. Patient on BiPAP during assessment and hard of hearing. Caregiver, Sol at bedside provides much of HPI. Caregiver states patient has had worsening lymphedema for the past 4 to 5 months and has been following with PCP as well as wound center. Her Lasix was increased to 80 mg daily 09/21/21 without improvement in swelling. Over the past 2 days, patient has had increased shortness of breath. She is not on oxygen at home. She denies history of heart failure or other cardiac history. Patient does state her urine output has decreased recently. She does not follow with nephrology. Patient denies chest pain. Reports fatigue. Denies other associated symptoms or complaints. She has a past medical history of lymphedema, hyperlipidemia, gout, hypothyroidism, chronic anemia. [facility] Medical History Anemia History of blood transfusion Thyroid disease Home Medications pantoprazole 40 mg tablet,delayed release 40 mg PO DAILY gerd 05/24/16 [History Last Taken 10/01/21] pravastatin 40 mg tablet 40 mg PO QHS cholesterol 05/24/16 [History Last Taken 10/01/21] acetaminophen 500 mg tablet 500 mg PO DAILY 03/03/18 [History Last Taken 10/01/21] metoprolol tartrate 25 mg tablet 25 mg PO BID 09/29/21 [History Last Taken 10/01/21] allopurinol 300 mg tablet 300 mg PO DAILY GOUT 10/01/21 [History Last Taken 10/01/21] cholecalciferol (vitamin D3) 50 mcg (2,000 unit) capsule 50 mcg PO DAILY SUPPLEMENT 10/01/21 [History Last Taken 10/01/21] furosemide 80 mg tablet 80 mg PO DAILY FLUID 10/01/21 [History Last Taken 10/01/21] levothyroxine 75 mcg tablet 75 mcg PO DAILY THYROID 10/01/21 [History Last Taken 10/01/21] spironolactone 25 mg tablet 12.5 mg PO DAILY FLUID 10/01/21 [History Last Taken 10/01/21] Allergy/AdvReac Type Severity Reaction Status Date / Time pramoxine Allergy Severe Hives Verified 10/01/21 14:06 [From [facility] Itch Relief] Family History Father CVA (cerebral vascular accident) Mother Heart disease Surgical History H/O right knee surgery History of carpal tunnel repair History of repair of rotator cuff History of total left hip arthroplasty History of total replacement of left shoulder joint Social History (Updated 10/01/21 @ 15:50 by Estella Trammell NP, RECRUITMENT ASSISTANT-C) household members: none Smoking Status: Never smoker alcohol intake: never substance use type: does not use ROS Constitutional Constitutional: Reports fatigue, weakness and other Details: Weight gain, unknown amount ; Denies chills or fever(s) Cardiovascular Cardiovascular: Reports edema; Denies chest pain, lightheadedness, palpitations or syncope Respiratory/Chest Respiratory/Chest: Reports dyspnea; Denies cough, productive cough or wheezing Gastrointestinal Gastrointestinal: Denies abdominal pain, constipation, diarrhea, nausea or vomiting Genitourinary Genitourinary: Reports other Details: Decreased urine output ; Denies burning urination, difficulty urinating, dysuria, hematuria, urinary frequency, urinary incontinence or urinary urgency Musculoskeletal Musculoskeletal: Denies back pain, joint pain or muscle weakness Integumentary Integumentary: Reports other Details: Superficial blisters bilateral lower extremities secondary to increased swelling ; Denies erythema, lesions, rash or wounds Neurologic Neurologic: Denies abnormal speech, confusion, dizziness, focal weakness, numbness, paresthesias, seizure-like activity or syncope Psychiatric Psychiatric: Denies anxiety or depression Hematologic/Lymphatic Hematologic/Lymphatic: Denies anemia, easy bleeding or easy bruising Allergic/Immunologic Allergic/Immunologic: Denies hives or asthma Vital Signs Vital Signs Vital Signs: 10/01/21 14:04 10/01/21 14:08 10/01/21 14:10 Temperature 97 F L Temperature Source Temporal Pulse Rate 63 Respiratory Rate 32 H Respiratory Effort Short of Breath Respiratory Pattern Tachypnea Blood Pressure 126/58 H Blood Pressure Mean 80 Blood Pressure Source Blood Pressure Position Blood Pressure Location Pulse Ox 86 94 Oxygen Delivery Method Room Air Nasal Cannula Oxygen Flow Rate (L/min) 4 Fraction of Inspired Oxygen (FIO2) 10/01/21 14:52 10/01/21 15:25 10/01/21 15:27 Temperature Temperature Source Pulse Rate 62 62 Respiratory Rate 23 H Respiratory Effort Respiratory Pattern Blood Pressure 112/63 Blood Pressure Mean 79 Blood Pressure Source Monitor Blood Pressure Position Semi-Fowlers Blood Pressure Location Right Arm Pulse Ox 97 Oxygen Delivery Method Nasal Cannula Oxygen Flow Rate (L/min) 4 Fraction of Inspired Oxygen (FIO2) 30 10/01/21 15:43 Temperature Temperature Source Pulse Rate Respiratory Rate Respiratory Effort Respiratory Pattern Blood Pressure 100/54 L Blood Pressure Mean 69 Blood Pressure Source Blood Pressure Position Blood Pressure Location Pulse Ox Oxygen Delivery Method Oxygen Flow Rate (L/min) Fraction of Inspired Oxygen (FIO2) Weight Weight: 239 lb 3.225 oz Body Mass Index (BMI) 45.1 Physical Exam Const alert and oriented x3 Constitutional Narrative: Hard of hearing, dyspneic. BiPAP in place. Orientation / Consciousness: awake, oriented to person, oriented to place and oriented to time HEENT normocephalic Mouth: dry mucous membranes Eyes PERRL, EOMs intact bilaterally and conjunctivae normal Neck no lymphadenopathy Resp Resp Narrative: On BIPAP Effort and Inspection: tachypneic Auscultation: rales and diminished lung sounds Cardio regular rate, regular rhythm and no murmurs Peripheral Pulses: pulses 2+ throughout GI normal to inspection, nondistended, normoactive bowel sounds, non-tender and non-distended Extremity normal to inspection General Extremity: edema bilateral lower extremity (Lymphedema. Wraps in place. Edema extending up to abdomen.) Skin no rashes or lesions noted Skin Narrative: Superficial blisters bilateral lower extremities Lesions: no lesions Rashes: no rashes Trauma: no lacerations or abrasions Neuro CN's II-XII intact bilaterally, no focal motor deficits, no sensory deficits noted and deep tendon reflexes 2+ bilaterally Psych mental status grossly normal and affect normal Results Lab / Micro Data Result Diagrams: 10/01/21 14:25 10/01/21 14:25 Labs: Laboratory Results - last 24 hr 10/01/21 14:25: WBC 7.6, RBC 4.08 L, Hgb 12.1, Hct 42.3, MCV 103.7 H, MCH 29.7, MCHC 28.6 L, RDW Std Deviation 65.0 H, RDW Coeff of Steven 17.6 H, Plt Count 174, MPV 12.1 H, Immature Gran % (Auto) 0.400, Neut % (Auto) 79.6 H, Lymph % (Auto) 10.0 L, [place] % (Auto) 8.0, Eos % (Auto) 1.7, Baso % (Auto) 0.3, Absolute Neuts (auto) 6.1, Absolute Lymphs (auto) 0.76 L, Nucleated RBC % 0.4 10/01/21 14:25: Sodium 138, Potassium 5.4 H, Chloride 102, Carbon Dioxide 32.0, Anion Gap 4 L, BUN 102 H*, Creatinine 2.15 H, Estim Creat Clear Calc 14.70, Est GFR (MDRD) Af Amer 28 L, Est GFR (MDRD) Non-Af 23 L, BUN/Creatinine Ratio 47.4 H, Glucose 143 H, Calcium 9.2, Troponin I High Sens 173 H* 10/01/21 14:25: B-Natriuretic Peptide 1632.2 H 10/01/21 14:25: PT 13.1, INR 1.0 10/01/21 15:25: Urine Color Yellow, Urine Clarity Clear, Urine pH 5.0, Ur Specific [place] 1.020, Urine Protein Negative, Urine Glucose (UA) Normal, Urine Ketones Negative, Urine Occult Blood Negative, Urine Nitrite Negative, Urine Bilirubin Negative, Urine Urobilinogen Normal, Ur Leukocyte Esterase 25 H Micro: Microbiology 10/01/21 14:50 Nasal Secretion SARS-CoV-2 & FLU Antigen (Rapid) - Final ABG Data ABG results: ABG 10/01/21 14:59 Specimen Type RICHARD VBG pH 7.19 L* VBG pO2 60 H VBG HCO3 31 H VBG Total CO2 34 H VBG O2 Sat (Calc) 83 H VBG Base Excess 3 POC Mix VBG pCO2 Pt Tmp 81.3 H* Crit Call To/Read Back Yes Radiology Impression Chest X-Ray 10/01/21 14:30 IMPRESSION: Consolidation in the left hemithorax. Elevation of the right hemidiaphragm. Electronically Signed: Rex Raines MD at 14:54 EDT , Assessment & Plan Assessment/Plan (1) Respiratory failure: (2) Acute exacerbation of congestive heart failure: (3) INDIRA (acute kidney injury): PLAN: Plan 1. Acute hypoxic respiratory failure secondary to acute heart failure, unknown subtype complicated by acute renal failure-patient documented to be hypoxic in the emergency room both by spot pulse ox and ABG. Notable tachypnea. Placed on BiPAP. Continue supplemental oxygen to maintain O2 sat above 90%. Treatment per below. 2. Acute heart failure, unknown subtype-BNP 1632. Chest x-ray consistent with congestion, consolidation in the left hemithorax. Strict I&O. Daily weight. Nicko wraps bilateral lower extremities. Obtain echo. Cardiology consult. Lasix drip. Trend enzymes. 3. Acute kidney injury on chronic kidney disease stage IIIb-Lasix drip per above. Strict I&O. Nephrology consult. Trend BMP. 4. Abnormal troponin-possibly demand ischemia secondary to #1. Trend enzymes. EKG without acute ST-T changes. Echocardiogram ordered. 5. Chronic Lymphedema-following at wound center. Lasix recently increased to 80 mg daily without improvement in symptoms. Nicko wraps bilateral lower extremities. Lasix drip per above. 6. CAD with history of CABG-on metoprolol, statin. 7. Hyperlipidemia-continue statin. 8. Gout-hold allopurinol. 9. Hypothyroidism-continue Synthroid regimen. Check TSH/T4. 10. Chronic anemia- follows with hematology. Appears stable. DVT prophylaxis- heparin sc This patient was seen by GUILHERME Escalante under the supervision of Dr. Hernandez. CODE STATUS: Discussed with patient differences between full code, DNR CCA and DNR CC. Patient elects full CODE STATUS with ongoing aggressive medical care and management. Time spent examining patient, reviewing data and subsequent management of care: 28 minutes Documented by User: Dr. Hernan Hernandez MD 10/01/21 16:31 HPI - General General Date of Admission: 10/01/21 HPI Narrative CELINA GALINDO, is a 86 F who presents to the emergency room due to shortness of breath and increased lower extremity swelling. Patient on BiPAP during assessment and hard of hearing. Caregiver, Sol at bedside provides much of HPI. Caregiver states patient has had worsening lymphedema for the past 4 to 5 months and has been following with PCP as well as wound center. Her Lasix was increased to 80 mg daily 09/21/21 without improvement in swelling. Over the past 2 days, patient has had increased shortness of breath. She is not on oxygen at home. She denies history of heart failure or other cardiac history. Patient does state her urine output has decreased recently. She does not follow with nephrology. Patient denies chest pain. Reports fatigue. Denies other associated symptoms or complaints. She has a past medical history of lymphedema, hyperlipidemia, gout, hypothyroidism, chronic anemia. HPI: 86-year-old female was brought in by EMS squad for progressive worsening of shortness of breath, generalized weakness, dyspnea at rest. Patient denies chest pain tightness or heaviness. Pulse ox was found 66% with cyanotic lips on room air. Patient initially put on 2 L and increased to 4 L by EMS. In ED patient remained short of breath was started on BiPAP. She also lethargic. Upon generalized swelling of lower extremity upper extremity abdomen. Chest x-ray shows bilateral lower lobes atelectasis, left more than right, elevation of right hemidiaphragm and consolidation of left hemithorax. As per caregiver, patient does not have fever or chills, cough, sputum production. Rapid SARS-CoV-2 and flu antigen negative. Patient was started on nitro drip by ED physician and given Lasix 80 mg IV and further admitted in ICU [facility] Medical History Anemia History of blood transfusion Thyroid disease Home Medications pantoprazole 40 mg tablet,delayed release 40 mg PO DAILY gerd 05/24/16 [History Last Taken 10/01/21] pravastatin 40 mg tablet 40 mg PO QHS cholesterol 05/24/16 [History Last Taken 10/01/21] acetaminophen 500 mg tablet 500 mg PO DAILY 03/03/18 [History Last Taken 10/01/21] metoprolol tartrate 25 mg tablet 25 mg PO BID 09/29/21 [History Last Taken 10/01/21] allopurinol 300 mg tablet 300 mg PO DAILY GOUT 10/01/21 [History Last Taken 10/01/21] cholecalciferol (vitamin D3) 50 mcg (2,000 unit) capsule 50 mcg PO DAILY SUPPLEMENT 10/01/21 [History Last Taken 10/01/21] furosemide 80 mg tablet 80 mg PO DAILY FLUID 10/01/21 [History Last Taken 10/01/21] levothyroxine 75 mcg tablet 75 mcg PO DAILY THYROID 10/01/21 [History Last Taken 10/01/21] spironolactone 25 mg tablet 12.5 mg PO DAILY FLUID 10/01/21 [History Last Taken 10/01/21] Allergy/AdvReac Type Severity Reaction Status Date / Time pramoxine Allergy Severe Hives Verified 10/01/21 14:06 [From [facility] Itch Relief] Family History Father CVA (cerebral vascular accident) Mother Heart disease Surgical History H/O right knee surgery History of carpal tunnel repair History of repair of rotator cuff History of total left hip arthroplasty History of total replacement of left shoulder joint Social History (Updated 10/01/21 @ 15:50 by Estella Trammell NP, RECRUITMENT ASSISTANT-C) household members: none Smoking Status: Never smoker alcohol intake: never substance use type: does not use ROS ROS Narrative 14 ROS reviewed with patient's caregiver Sol. Chronic lymphedema/bilateral lower extremity gotten worse last 6 months. Anasarca. Chronic dyspnea on exertion tiredness for last few months, getting progressively worse. Follows wound center for lower extremity lymphedema right leg superficial ulcer. Follows manager forms. Rest 14 ROS as mentioned below Physical Exam Narrative General: Awake, mild lethargy and tired. On BiPAP HEENT: Atraumatic, PERRLA, EOMI, Normocephalic Oral: On BiPAP, oropharyngeal exam could not be done. Neck: Supple, No JVD, Negative Carotid Bruits Lungs: Air entry severely diminished especially in lower half of left lung. Bilateral coarse crepitations. Severely hypoxic. Cardiovascular: Sinus rhythm , Normal S1, Normal S2, systolic murmur LLSB Abdomen: Bowel Sounds Present, Soft, Non Tender, Mild ascites. Abdomen distended : No renal angle tenderness. No suprapubic tenderness. Extremities: Anasarca. Bilateral lower extremity lymphedema. Capillary Refill Less than 3 Seconds Skin: Small superficial wound covered with a dressing. Below-knee Nicko wrap bandage. Musculoskeletal: Bilateral shoulder replacement. Bilateral TKR. Muscle strength 3+/5 at major joints. Neurological: Cranial nerves II-XII grossly intact, DTR 2+/4 Psych/Mental Status: Flat affect. Results Lab / Micro Data Result Diagrams: 10/01/21 14:25 10/01/21 14:25 Assessment & Plan Assessment/Plan (1) Respiratory failure: (2) Acute exacerbation of congestive heart failure: (3) INDIRA (acute kidney injury): PLAN: Plan 1. Acute hypoxic respiratory failure secondary to acute heart failure, unknown subtype complicated by acute renal failure-patient documented to be hypoxic in the emergency room both by spot pulse ox and ABG. Notable tachypnea. Placed on BiPAP. Continue supplemental oxygen to maintain O2 sat above 90%. Treatment per below. 2. Acute heart failure, unknown subtype-BNP 1632. Chest x-ray consistent with congestion, consolidation in the left hemithorax. Strict I&O. Daily weight. Nicko wraps bilateral lower extremities. Obtain echo. Cardiology consult. Lasix drip. Trend enzymes. 3. Acute kidney injury on chronic kidney disease stage IIIb-Lasix drip per above. Strict I&O. Nephrology consult. Trend BMP. 4. Abnormal troponin-possibly demand ischemia secondary to #1. Trend enzymes. EKG without acute ST-T changes. Echocardiogram ordered. 5. Chronic Lymphedema-following at [facility]. Lasix recently increased to 80 mg daily without improvement in symptoms. Nicko wraps bilateral lower extremities. Lasix drip per above. 6. CAD with history of CABG-on metoprolol, statin. 7. Hyperlipidemia-continue statin. 8. Gout-hold allopurinol. 9. Hypothyroidism-continue Synthroid regimen. Check TSH/T4. 10. Chronic anemia- follows with hematology. Appears stable. DVT prophylaxis- heparin sc This patient was seen by Estella Jp, RECRUITMENT ASSISTANT-C under the supervision of Dr. Hernandez. CODE STATUS: Discussed with patient differences between full code, DNR CCA and DNR CC. Patient elects full CODE STATUS with ongoing aggressive medical care and management. Time spent examining patient, reviewing data and subsequent management of care: 28 minutes This patient was seen in conjunction with RECRUITMENT ASSISTANT, Estella. I have independently interviewed and examined the patient and reviewed pertinent history, examination findings, laboratory and plan of management. I have reviewed the note and agree with the documented findings with the few additional points. In brief, patient was brought by EMS to ED for severe shortness of breath, dyspnea at rest and severe acute hypoxic and hypercarbic respiratory failure. Further assessment as below 1. Acute hypoxic and hypercarbic respiratory failure: As per caregiver and patient she is not on oxygen or breathing machine. Heating And Cooling Systems Engineer consulted. On BiPAP. Patient had VBG. ABG ordered. Treat the underlying disorder 2. Acute on chronic heart failure probably diastolic: Patient denies any history of coronary artery disease, ND, angina or cardiac stent/heart cath. On chest x-ray it looks patient had open heart surgery. Previous record shows patient had echo in November 2011 reported as EF 65%, moderate concentric LVH, mild LA enlargement, mild MR, RVSP 20 mmHg. Overall suggest she had chronic HFpEF. heart failure. She had negative pharmacological nuclear stress test. Started on furosemide drip. 2D echo ordered. Patient troponin BNP elevated. Troponin mildly elevated because of kidney failure, heart failure and hypoxia and patient does not have chest pain or tightness. Discussed with pickling grader and consulted. Hold beta-emil. 3. Abnormal chest x-ray with suspicion of possible pneumonia: Chest x-ray shows consolidation in left hemithorax which may be possible atelectasis or pneumonia. Since patient is very hypoxic on NIPPV, decided to start empirically antibiotic Zosyn. ABG ordered. Infectious work-up ordered including respiratory panel. 4. 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 Patient recently diuretic dose increased to 80 mg daily. Admitted with BUN/creatinine 102/2.5. Rib Chopper consulted. Other multiple comorbid include chronic iron deficiency anemia, patient follows hematology Dr. Mendoza and gets iron transfusion, hypothyroidism, gout, peripheral arterial disease and history of AAA repair Living will/advanced directive/end of life care: As per the patient's friend, she might have living will but was protective. Her niece is power of lunch wagon operator for health. After discussion of benefits/risks procedures involved with full code, DNR CC arrest and DNR CC, the patient states she full code but probably she might not have understood because of respiratory failure and BiPAP. Discussed with POA. For now full code Patient does want artificial life support including intubation, tube feed, ventilator and/chest compression, central venous catheter, vasopressor and DC shock if needed Total time spent in [id number] encounter in discussion of advanced directive 16 minutes. I have discussed my assessment with RECRUITMENT ASSISTANTEstella and orders have been reviewed. Clinical Impression(s) from Imaging Studies Chest X-Ray 10/01/21 14:30 IMPRESSION: Consolidation in the left hemithorax. Elevation of the right hemidiaphragm. Microbiology Past 72 Hours 10/01/21 14:50 Nasal Secretion SARS-CoV-2 & FLU Antigen (Rapid) - Final Charges/Coding Visit Charges Inpatient E&M: 97063 Init Hosp L3 Procedures Hospitalists Procedures: 78338 Advncd Care Plan 30 Min
[2021-10-01 15:51] LABS: White Blood Cells 0-5 SEEN /hpf (0-5)
[2021-10-01 15:52] LABS: Bacteria 1+ /hpf (None Seen); Squamous Epithelial Cells - UA 0-5 SEEN /hpf (5-10)
[2021-10-01 16:07] LABS: Magnesium 1.7 mg/dL (1.6-2.6); Phosphorus 5.1 mg/dL (2.5-4.9)
--- NOTE | 2021-10-01 17:06 | ECHOD_ITS ---
Reason For Study: HEART FAILURE Procedure This was a 2D Doppler, Color Flow transthoracic echocardiogram. Exam performed portable in patient room. Left Ventricle Normal LV size. The estimated ejection fraction is 55-60 %. Unable to assess diastolic dysfunction. No regional wall motion abnormalities noted. Right Ventricle Mildly dilated right ventricle. Normal systolic function. Atria The left atrium is mildly enlarged. The right atrium is mildly enlarged. No doppler evidence for ASD. Mitral Valve There is moderate mitral annular calcification. There is no mitral valve stenosis. Mild (1+) mitral valve insufficiency. Tricuspid Valve There is no tricuspid stenosis. Mild (1+) tricuspid valve insufficiency. Pulmonary artery systolic pressure is 50-55 mmHg. Aortic Valve Trisinus/trileaflet aortic valve. There is no aortic stenosis. Trivial aortic valve insufficiency. Pulmonic Valve There is no pulmonic valvular stenosis. Trivial pulmonic valve insufficiency. Great Vessels Normal aortic root. Pericardium/Pleural No pericardial effusion. MMode/2D Measurements & Calculations LVIDd: 5.0 cm IVSd: 1.3 cm Ao root diam: 3.2 cm LVIDs: 3.3 cm LVPWd: 1.1 cm RVDd: 4.2 cm FS: 33.4 % LAV(MOD-bp): 60.8 ml LVAd ap4: 27.8 cm2 SV(MOD-sp4): 60.6 ml LAV(MOD-bp) Indexed: 29.8 ml/m2 LVLd ap4: 6.8 cm LAV(MOD-sp2): 62.2 ml EDV(MOD-sp4): 92.5 ml LAV(MOD-sp4): 57.9 ml EDV(sp4-el): 96.9 ml LVAs ap4: 14.4 cm2 LVLs ap4: 5.5 cm ESV(MOD-sp4): 31.9 ml ESV(sp4-el): 31.6 ml EF(MOD-sp4): 65.5 % EF(sp4-el): 67.4 % SV(sp4-el): 65.2 ml LA A4 area: 19.8 cm2 LA dimension(2D): 4.4 cm RA A4 area: 17.3 cm2 Time Measurements MV dec time: 0.27 sec Doppler Measurements & Calculations MV E max bear: 130.7 cm/sec Lat Peak E' Bear: 10.5 cm/sec Med Peak E' Bear: 3.9 cm/sec MV A max bear: 111.8 cm/sec E/E' lat: 12.5 E/E' med: 33.1 MV E/A: 1.2 Ao V2 max: 174.3 cm/sec AI max bear: 374.7 cm/sec LV V1 max: 130.8 cm/sec Ao max P.2 mmHg AI max P.2 mmHg LV V1 max P.8 mmHg AI dec slope: 276.4 cm/sec2 AI P1/2t: 397.1 msec PA V2 max: 122.9 cm/sec TR max bear: 334.4 cm/sec TR max P.7 mmHg ECHO/Echo Complete Interpretation Summary The estimated ejection fraction is 55-60 %. Unable to assess diastolic dysfunction. Mildly dilated right ventricle. The left atrium is mildly enlarged. The right atrium is mildly enlarged. There is moderate mitral annular calcification. Mild (1+) mitral valve insufficiency. Mild (1+) tricuspid valve insufficiency. Pulmonary artery systolic pressure is 50-55 mmHg. Trivial aortic valve insufficiency. Trivial pulmonic valve insufficiency. Ordering Physician: Hernan Hernandez Referring Physician: MYLENE KRISHNA Performed By: Laura Banerjee RDCS
[2021-10-01 17:31] LABS: Base Excess 4 mmol/L (-2 to +2); Bicarbonate 31.2 mmol/L (22-26); Blood Gas Specimen Type ART; PO2 73 mmHG (75-100); SITE R Brach; SO2 90 % (95-99); Total Carbon Dioxide 34 mmol/L; pCO2 75.8 mmHg (35-45); pH 7.22 (7.35-7.45)
[2021-10-01] MEDS: Furosemide 500 MG in Empty Viaflex 50 mL 1 EACH CONT INF (17:51)
[2021-10-01 18:14] LABS: Thyroid Stim Hormone (TSH) 3.84 uIU/mL (0.358-3.74); Troponin-I HS 154 pg/mL (3.0-54.0)
[2021-10-01] MEDS: Heparin Injection 5,000 UNITS/ML Syringe 5000 UNITS SC (21:07)
--- NOTE | 2021-10-01 21:26 | PCM.CONS.R ---
Assessment & Plan Assessment/Plan (1) INDIRA (acute kidney injury): PLAN: CKD 3a. baseline creatinine around 1.5. now admitted with dyspnea. CXR read as consolidation. troponins are elevated. BNP high, could be from INDIRA itself. brandon in without much urine. Likely cardiorenal. lasix drip for today. dw family at bedside. PLAN: Plan CHF. lasix drip HPI Consult Data Date of Consult: 10/01/21 HPI Narrative Reason for Consultation: INDIRA HPI Narrative: CELINA GALINDO, is a 86 F who presents to ER with worsening dyspnea. renal consulted for INDIRA. history of CKD stage 3a. baseline creatinine around 1.5. LE edema for several weeks, worse recently. was using lasix PO. decreased urine output since last couple days despite lasix. currently on Bipap. ROS negative except above PFSH Medical History Anemia History of blood transfusion Thyroid disease Home Medications pantoprazole 40 mg tablet,delayed release 40 mg PO DAILY gerd 05/24/16 [History Last Taken 10/01/21] pravastatin 40 mg tablet 40 mg PO QHS cholesterol 05/24/16 [History Last Taken 10/01/21] acetaminophen 500 mg tablet 500 mg PO DAILY 03/03/18 [History Last Taken 10/01/21] metoprolol tartrate 25 mg tablet 25 mg PO BID 09/29/21 [History Last Taken 10/01/21] allopurinol 300 mg tablet 300 mg PO DAILY GOUT 10/01/21 [History Last Taken 10/01/21] cholecalciferol (vitamin D3) 50 mcg (2,000 unit) capsule 50 mcg PO DAILY SUPPLEMENT 10/01/21 [History Last Taken 10/01/21] furosemide 80 mg tablet 80 mg PO DAILY FLUID 10/01/21 [History Last Taken 10/01/21] levothyroxine 75 mcg tablet 75 mcg PO DAILY THYROID 10/01/21 [History Last Taken 10/01/21] spironolactone 25 mg tablet 12.5 mg PO DAILY FLUID 10/01/21 [History Last Taken 10/01/21] Allergy/AdvReac Type Severity Reaction Status Date / Time pramoxine Allergy Severe Hives Verified 10/01/21 14:06 [From [employer] Itch Relief] Family History (Reviewed 10/01/21 @ 15:49 by Estella Trammell [employer] ENGINEERING TEACHER, GENERAL ENGINEERING TEACHER-C) Father CVA (cerebral vascular accident) Mother Heart disease Surgical History H/O right knee surgery History of carpal tunnel repair History of repair of rotator cuff History of total left hip arthroplasty History of total replacement of left shoulder joint Social History (Updated 10/01/21 @ 15:50 by Estella Trammell [employer] ENGINEERING TEACHER, GENERAL ENGINEERING TEACHER-C) household members: none Smoking Status: Never smoker alcohol intake: never substance use type: does not use ROS ROS Narrative negative except above Physical Exam Narrative Alert awake no obvious distress no pallor no icterus no JVD s1s2 no murmurs lungs clear abdomen soft no organomegaly no edema no cyanosis brandon + Lab / Micro Data Result Diagrams: 10/01/21 14:25 10/01/21 14:25 Labs: Laboratory Results - last 24 hr 10/01/21 14:25: WBC 7.6, RBC 4.08 L, Hgb 12.1, Hct 42.3, MCV 103.7 H, MCH 29.7, MCHC 28.6 L, RDW Std Deviation 65.0 H, RDW Coeff of Steven 17.6 H, Plt Count 174, MPV 12.1 H, Immature Gran % (Auto) 0.400, Neut % (Auto) 79.6 H, Lymph % (Auto) 10.0 L, [place] % (Auto) 8.0, Eos % (Auto) 1.7, Baso % (Auto) 0.3, Absolute Neuts (auto) 6.1, Absolute Lymphs (auto) 0.76 L, Nucleated RBC % 0.4 10/01/21 14:25: Sodium 138, Potassium 5.4 H, Chloride 102, Carbon Dioxide 32.0, Anion Gap 4 L, BUN 102 H*, Creatinine 2.15 H, Estim Creat Clear Calc 14.70, Est GFR (MDRD) Af Amer 28 L, Est GFR (MDRD) Non-Af 23 L, BUN/Creatinine Ratio 47.4 H, Glucose 143 H, Calcium 9.2, Troponin I High Sens 173 H* 10/01/21 14:25: B-Natriuretic Peptide 1632.2 H 10/01/21 14:25: PT 13.1, INR 1.0 10/01/21 14:25: Phosphorus 5.1 H, Magnesium 1.7 10/01/21 15:25: Urine Color Yellow, Urine Clarity Clear, Urine pH 5.0, Ur Specific [place] 1.020, Urine Protein Negative, Urine Glucose (UA) Normal, Urine Ketones Negative, Urine Occult Blood Negative, Urine Nitrite Negative, Urine Bilirubin Negative, Urine Urobilinogen Normal, Ur Leukocyte Esterase 25 H, Urine RBC 0 SEEN, Urine WBC 0-5 SEEN, Ur Squamous Epith Cells 0-5 SEEN, Urine Bacteria 1+, Urine Mucus 0 SEEN 10/01/21 17:20: Troponin I High Sens 154 H*, TSH 3.84 H Micro: Microbiology 10/01/21 17:05 Mucosa - Nose Respiratory Panel (PCR) - Final 10/01/21 17:20 Urine Catheter - Brandon Legionella Antigen - Final 10/01/21 17:20 Urine Catheter - Brandon Streptococcus pneumoniae Antigen (M - Final 10/01/21 14:50 Nasal Secretion SARS-CoV-2 & FLU Antigen (Rapid) - Final ABG Data ABG results: ABG 10/01/21 10/01/21 14:59 17:26 Specimen Type RICHARD ART Sample Site R Brach pH 7.22 L Bicarbonate Actual 31.2 H Total CO2 34 Base Excess 4 H O2 Saturation 90 L ABG pCO2 75.8 H* ABG pO2 73 L VBG pH 7.19 L* VBG pO2 60 H VBG HCO3 31 H VBG Total CO2 34 H VBG O2 Sat (Calc) 83 H VBG Base Excess 3 POC Mix VBG pCO2 Pt Tmp 81.3 H* Liter Flow 2.0 Crit Call To/Read Back Yes Yes Blood Gas Notified Whom CHAN Radiology Impression Chest X-Ray 10/01/21 14:30 IMPRESSION: Consolidation in the left hemithorax. Elevation of the right hemidiaphragm. Electronically Signed: Rex Raines MD at 14:54 EDT ,
[2021-10-02] VITALS (24 sets, daily range): BP systolic 100–123; BP diastolic 44–57; PULSE 57–79; RESP 12–24; TEMP 36.1–36.6; O2SAT 88–100
[2021-10-02 03:05] LABS: Absolute Lymphocyte Count 0.94 X10^3/uL (0.83-4.51); Absolute Neutrophil Count 2.9 X10^3/uL (2.0-7.7); Basophil# 0.02 X10^3/uL; Basophil% 0.4 % (0-1); Eosinophil# 0.31 X10^3/uL; Eosinophils% 6.6 % (0-5); Hematocrit 36.1 % (37-47); Hemoglobin 10.6 g/dL (12.0-15.0); Lymphocyte # 0.94 X10^3/ul (0.83-4.51); Lymphocyte % 19.9 % (19-41); Mean Corp Hgb Conc 29.4 g/dL (32-36); Mean Corpuscular Hgb 29.8 pg (27.0-32.0); Mean Corpuscular Volume 101.4 fL (81-99); Mean Platelet Vol. 11.4 fl (6.2-12.0); Monocyte# 0.52 X10^3/uL; NRBC Flagged by Analyzer 0.4 % (0-5); Neutrophil # 2.93 X10^3/uL (2.7-7.7); Neutrophil % 61.9 % (47-70); Platelet Count 138 K/mm3 (150-450); RBC Distribution Width CV 17.2 % (11.6-14.6); RBC Distribution Width SD 62.1 fl (35.1-43.9); Red Blood Count 3.56 M/mm3 (4.2-5.4); White Blood Count 4.7 K/mm3 (4.4-11.0)
[2021-10-02 03:25] LABS: Anion Gap 7 (5-15); BUN 94 mg/dL (7-18); BUN/Creat Ratio 49.2 RATIO (10-20); Calcium,Total 8.6 mg/dL (8.5-10.1); Chloride 103 mmol/L (98-107); Cholesterol 116 mg/dL (200); Creatinine, Serum 1.91 mg/dL (0.55-1.02); EST Glomerular Filtration Rate 27 mL/min (>60); Est Glom Filt Rate - Afr Amer 32 mL/min (>60); Estimated Creatinine Clearance 16.55 ml/min; Glucose 85 mg/dL (74-106); High Density Lipoprotein 68 mg/dL; Potassium 5.1 mmol/L (3.5-5.1); Sodium Level 141 mmol/L (136-145); Triglycerides 45 mg/dL; Very Low Density Lipoprotein 9 mg/dL (5-40)
[2021-10-02 04:36] LABS: Troponin-I HS 196 pg/mL (3.0-54.0)
--- NOTE | 2021-10-02 05:48 | RAD_ITS ---
STUDY: X-RAY CHEST REASON FOR EXAM: Female, 86 years old. Heart failure TECHNIQUE: Single AP portable view of the chest. COMPARISON: Comparison is made with prior study dated 10/01/2021. FINDINGS: EKG electrodes are seen. Stable elevation of the right hemidiaphragm. Residual vascular congestion and mild CHF although there has been moderate improvement. Sternal cerclage wires and vascular clips are present from a prior sternotomy and coronary artery bypass graft procedure (CABG). Normal mediastinum and radha. Normal visualized pulmonary arteries. There is atherosclerotic calcification of the aortic arch with tortuosity. Normal visualized thoracic spine. Bilateral total shoulder replacement. There is no demonstrated abnormality of the visualized soft tissue structures of the upper abdomen. RAD/Chest 1 View (Portable) IMPRESSION: Residual mild degree of CHF although there has been a moderate degree of improvement. Electronically Signed: Rex Raines MD at 13:25 EDT ,
--- NOTE | 2021-10-02 06:12 | CON.PCM.CC_ITS ---
Assessment & Plan Assessment/Plan (1) Acute respiratory failure with hypoxia and hypercapnia: PLAN: Plan RECOMMENDATIONS: 1. Wean supplemental oxygen to maintain saturations at or above 90%. 2. Continue diuresis as tolerated by hemodynamics and renal function. 3. Continue empiric antimicrobials. 4. Continue heparin infusion, pending evaluation by cardiology. 5. Echocardiogram is pending. 6. Encourage incentive spirometer use and mobilize patient as tolerated. 7. The patient is medically stable for transfer out of the intensive care unit. IMPRESSIONS: 1. Acute combined respiratory failure The patient initially presented to the hospital with shortness of breath with radiographic findings concerning for pneumonia and/or decompensated heart failure. The patient responded avidly to the use of diuretics and noninvasive positive pressure ventilatory support, which certainly suggests decompensated heart failure as the etiology for her presentation. She is currently requiring minimal supplemental oxygen to maintain saturations. Plan to continue volume optimization with IV diuretic therapy as tolerated by hemodynamics and renal function. In addition, empiric antimicrobials will be continued. Supplemental oxygen will be weaned to maintain saturations at or above 90%. Echocardiogram is pending. 2. Acute on chronic kidney disease Clinical concern for cardiorenal etiology. The patient has already been evaluated by nephrology. Creatinine is improving with volume optimization. Continue to monitor urine output. No current indication for renal replacement therapy. 3. Troponin elevation Suspect related to demand ischemia. However, echocardiogram and cardiology evaluation are still pending. 4. History of coronary artery disease/chronic lymphedema/hypothyroidism/anemia Complicates care, management, recovery and prognosis. Continue home medications as indicated. This note was generated with [employer] dictation software. It may contain incorrect words, spelling, and punctuation that were not noted in checking the note before signing. HPI Consult Data Date of Consult: 10/02/21 HPI Narrative Reason for Consultation: Acute combined respiratory failure HPI Narrative: The patient is an 86-year-old female, with a history as outlined below, who presented to the emergency department via EMS on October 01 with shortness of breath and lower extremity edema. The patient does not utilize supplemental oxygen at her baseline. The patient's medical history is significant for gastritis, iron deficiency anemia, peripheral vascular disease, lower extremity lymphedema, hypothyroidism and hyperlipidemia. On presentation to the emergency department, the patient was noted to be afebrile hemodynamically stable. She was initially documented to be saturating 86% on room air. Initial laboratory evaluation revealed no evidence of a leukocytosis. Coagulation profile was within normal limits. Chemistry profile was notable for a creatinine of 5.4 with a BUN of 102 and creatinine of 2.15. Troponin was elevated at 173 with a BNP of 1632. Urine analysis was unremarkable. Arterial blood gas revealed a pH of 7.2 with a PCO2 of 75 and PO2 of 73. Initial chest x-ray was of extremely poor quality but revealed an elevated right hemidiaphragm with airspace opacity in the left lower lobe. The patient was initially placed on BiPAP therapy in the emergency department and provided with IV diuretics. She was subsequently transferred to the medical i ntensive care unit. Overnight, the patient was transition from BiPAP to AVAPS due to inadequate tid al volumes. She was placed on a continuous Lasix drip and provided with antimicrobial therapy. This morning, the patient has been weaned down to 3 L/min via nasal cannula. Cardiology consultation is pending. [facility] Medical History Anemia History of blood transfusion Thyroid disease Home Medications pantoprazole 40 mg tablet,delayed release 40 mg PO DAILY gerd 05/24/16 [History Last Taken 10/01/21] pravastatin 40 mg tablet 40 mg PO QHS cholesterol 05/24/16 [History Last Taken 10/01/21] acetaminophen 500 mg tablet 500 mg PO DAILY 03/03/18 [History Last Taken 10/01/21] metoprolol tartrate 25 mg tablet 25 mg PO BID 09/29/21 [History Last Taken 10/01/21] allopurinol 300 mg tablet 300 mg PO DAILY GOUT 10/01/21 [History Last Taken ] cholecalciferol (vitamin D3) 50 mcg (2,000 unit) capsule 50 mcg PO DAILY SUPPLEMENT 10/01/21 [History Last Taken 10/01/21] furosemide 80 mg tablet 80 mg PO DAILY FLUID 10/01/21 [History Last Taken 10/01/21] levothyroxine 75 mcg tablet 75 mcg PO DAILY THYROID 10/01/21 [History Last Taken 10/01/21] spironolactone 25 mg tablet 12.5 mg PO DAILY FLUID 10/01/21 [History Last Taken 10/01/21] Allergy/AdvReac Type Severity Reaction Status Date / Time pramoxine Allergy Severe Hives Verified 10/01/21 14:06 [From [facility] Itch Relief] Family History (Reviewed 10/01/21 @ 15:49 by Estella Trammell DIRECTOR ENTERPRISE SYSTEMS, DIRECTOR [employer]-C) Father CVA (cerebral vascular accident) Mother Heart disease Surgical History H/O right knee surgery History of carpal tunnel repair History of repair of rotator cuff History of total left hip arthroplasty History of total replacement of left shoulder joint Social History (Updated 10/01/21 @ 15:50 by Estella Trammell NP, DIRECTOR [employer]-C) household members: none Smoking Status: Never smoker alcohol intake: never substance use type: does not use ROS Constitutional Constitutional: Denies chills, fatigue or fever(s) Eyes Eyes: Denies blurry vision or change in vision ENT HEENT: Denies dizziness, dysphagia, epistaxis or headache(s) Cardiovascular Cardiovascular: Reports dyspnea, edema and irregular heart rhythm; Denies chest pain Respiratory/Chest Respiratory/Chest: Reports dyspnea Gastrointestinal Gastrointestinal: Denies abdominal pain, diarrhea, nausea or vomiting Genitourinary Genitourinary: Denies difficulty urinating Musculoskeletal Musculoskeletal: Denies arthralgias, back pain or joint pain Integumentary Integumentary: Denies rash Neurologic Neurologic: Denies abnormal gait or abnormal speech Psychiatric Psychiatric: Denies anxiety or depression Endocrine Endocrinology: Denies fatigue Hematologic/Lymphatic Hematologic/Lymphatic: Denies easy bleeding or easy bruising Physical Exam Const alert and no apparent distress General Appearance: cooperative Nutritional Appearance: morbidly obese HEENT normocephalic and head/scalp atraumatic General Ear: hearing grossly impaired Eyes PERRL, EOMs intact bilaterally and conjunctivae normal Neck supple General: trachea midline Resp Resp Narrative: Suboptimal inspiratory effort with faint left basilar rales. Cardio S1 normal heart sound and S2 normal heart sound Rhythm: abnormal rhythm GI normal to inspection, nondistended, normoactive bowel sounds Extremity General Extremity: edema bilateral lower extremity Skin Skin Narrative: Blisters present on lower extremities Neuro CN's II-XII intact bilaterally and no focal motor deficits Psych cooperative and affect normal Lab / Micro Data Result Diagrams: 10/02/21 02:58 10/02/21 02:58 Labs: Laboratory Results - last 24 hr 10/01/21 14:25: WBC 7.6, RBC 4.08 L, Hgb 12.1, Hct 42.3, MCV 103.7 H, MCH 29.7, MCHC 28.6 L, RDW Std Deviation 65.0 H, RDW Coeff of Steven 17.6 H, Plt Count 174, MPV 12.1 H, Immature Gran % (Auto) 0.400, Neut % (Auto) 79.6 H, Lymph % (Auto) 10.0 L, [place] % (Auto) 8.0, Eos % (Auto) 1.7, Baso % (Auto) 0.3, Absolute Neuts (auto) 6.1, Absolute Lymphs (auto) 0.76 L, Nucleated RBC % 0.4 10/01/21 14:25: Sodium 138, Potassium 5.4 H, Chloride 102, Carbon Dioxide 32.0, Anion Gap 4 L, BUN 102 H*, Creatinine 2.15 H, Estim Creat Clear Calc 14.70, Est GFR (MDRD) Af Amer 28 L, Est GFR (MDRD) Non-Af 23 L, BUN/Creatinine Ratio 47.4 H , Glucose 143 H, Calcium 9.2, Troponin I High Sens 173 H* 10/01/21 14:25: B-Natriuretic Peptide 1632.2 H 10/01/21 14:25: PT 13.1, INR 1.0 10/01/21 14:25: Phosphorus 5.1 H, Magnesium 1.7 10/01/21 15:25: Urine Color Yellow, Urine Clarity Clear, Urine pH 5.0, Ur Specific [place] 1.020, Urine Protein Negative, Urine Glucose (UA) Normal, Urine Ketones Negative, Urine Occult Blood Negative, Urine Nitrite Negative, Urine Bilirubin Negative, Urine Urobilinogen Normal, Ur Leukocyte Esterase 25 H, Urine RBC 0 SEEN, Urine WBC 0-5 SEEN, Ur Squamous Epith Cells 0-5 SEEN, Urine Bacteria 1+, Urine Mucus 0 SEEN 10/01/21 17:20: Troponin I High Sens 154 H*, TSH 3.84 H 10/02/21 02:58: WBC 4.7, RBC 3.56 L, Hgb 10.6 L, Hct 36.1 L, MCV 101.4 H, MCH 29.8, MCHC 29.4 L, RDW Std Deviation 62.1 H, RDW Coeff of Steven 17.2 H, Plt Count 138 L, MPV 11.4, Immature Gran % (Auto) 0.200, Neut % (Auto) 61.9, Lymph % (A uto) 19.9, [place] % (Auto) 11.0 H, Eos % (Auto) 6.6 H, Baso % (Auto) 0.4, Absolute Neuts (auto) 2.9, Absolute Lymphs (auto) 0.94, Nucleated RBC % 0.4 10/02/21 02:58: Sodium 141, Potassium 5.1, Chloride 103, Carbon Dioxide 31.0, Anion Gap 7, BUN 94 H, Creatinine 1.91 H, Estim Creat Clear Calc 16.55, Est GFR (MDRD) Af Amer 32 L, Est GFR (MDRD) Non-Af 27 L, BUN/Creatinine Ratio 49.2 H, Glucose 85, Calcium 8.6, Triglycerides 45, Cholesterol 116, LDL Cholesterol 39, VLDL Cholesterol 9, HDL Cholesterol 68 10/02/21 02:58: Troponin I High Sens 196 H* Micro: Microbiology 10/01/21 17:05 Mucosa - Nose Respiratory Panel (PCR) - Final 10/01/21 17:20 Urine Catheter - Velazquez Legionella Antigen - Final 10/01/21 17:20 Urine Catheter - Velazquez Streptococcus pneumoniae Antigen (M - Final 10/01/21 14:50 Nasal Secretion SARS-CoV-2 & FLU Antigen (Rapid) - Final ABG Data ABG results: ABG 10/01/21 10/01/21 14:59 17:26 Specimen Type RICHARD ART Sample Site R Brach pH 7.22 L Bicarbonate Actual 31.2 H Total CO2 34 Base Excess 4 H O2 Saturation 90 L ABG pCO2 75.8 H* ABG pO2 73 L VBG pH 7.19 L* VBG pO2 60 H VBG HCO3 31 H VBG Total CO2 34 H VBG O2 Sat (Calc) 83 H VBG Base Excess 3 POC Mix VBG pCO2 Pt Tmp 81.3 H* Liter Flow 2.0 Crit Call To/Read Back Yes Yes Blood Gas Notified Whom CHAN Radiology Impression Chest X-Ray 10/01/21 14:30 IMPRESSION: Consolidation in the left hemithorax. Elevation of the right hemidiaphragm. Electronically Signed: Rex Raines MD at 14:54 EDT , Charges/Coding Visit Charges Inpatient E&M: 04321 Init Hosp L3
--- NOTE | 2021-10-02 06:39 | PCM.HOSP.N ---
Hospitalist Note Trop continue to rise. Admitted with respiratory failure with CHF exacerbation, possibly demand. Continue asa, obtain FLP, obtain mag, transition from chemoprophylaxis heparin to heparin drip until enzymes trending down, continue to trend enzymes until anselmo, ECHO already ordered.
[2021-10-02 07:42] LABS: Magnesium 1.6 mg/dL (1.6-2.6)
[2021-10-02 08:00] LABS: Cholesterol 117 mg/dL (200); High Density Lipoprotein 69 mg/dL; Triglycerides 53 mg/dL; Very Low Density Lipoprotein 11 mg/dL (5-40)
[2021-10-02 08:03] LABS: Partial Thromboplast Time 29.4 Seconds (24.1-36.2)
[2021-10-02] MEDS: Heparin Injection (Vial) 5,000 UNIT/ML VIAL 8000 UNIT IV (08:16)
[2021-10-02] MEDS: HEPARIN/D5w 25,000 UNITS 25,000 UNITS/250 ML IV.SOLN. 15 UNITS CONT INF (08:17)
--- NOTE | 2021-10-02 08:49 | PCM.PN.HOSP ---
Subjective Subjective Follow-up for anasarca, heart failure exacerbation and possible left pneumonia. Patient shortness of breath overnight improved significantly. Patient off BiPAP. Patient feels much better. Has Velazquez catheter and had about 1 L urine output. Objective Data Objective Data Vital Signs: Vital Signs Temp Pulse Resp BP Pulse Ox O2 Del Method O2 Flow Rate 97 F L 65 21 H 114/46 L 99 Nasal Cannula 2 10/02/21 08:00 10/02/21 08:00 10/02/21 08:00 10/02/21 08:00 10/02/21 08:00 10/02/21 08:00 10/02/21 08:00 FiO2 30 10/02/21 05:00 Oxygen Flow Rate (L/min) 2 Oxygen Delivery Method Nasal Cannula Weight: 240 lb 8.389 oz Body Mass Index (BMI) 45.3 Intake & Output: Intake and Output for Last 24 Hours 09/30/21 10/01/21 10/02/21 23:59 23:59 23:59 Intake Total 51.8 / 51.8 Output Total 400 / 400 550 / 550 Balance -348.2 / -348.2 -550 / -550 Lab / Micro Data Result Diagrams: 10/02/21 02:58 10/02/21 02:58 Labs: Laboratory Results - last 24 hr 10/01/21 14:25: WBC 7.6, RBC 4.08 L, Hgb 12.1, Hct 42.3, MCV 103.7 H, MCH 29.7, MCHC 28.6 L, RDW Std Deviation 65.0 H, RDW Coeff of Steven 17.6 H, Plt Count 174, MPV 12.1 H, Immature Gran % (Auto) 0.400, Neut % (Auto) 79.6 H, Lymph % (Auto) 10.0 L, Upson % (Auto) 8.0, Eos % (Auto) 1.7, Baso % (Auto) 0.3, Absolute Neuts (auto) 6.1, Absolute Lymphs (auto) 0.76 L, Nucleated RBC % 0.4 10/01/21 14:25: Sodium 138, Potassium 5.4 H, Chloride 102, Carbon Dioxide 32.0, Anion Gap 4 L, BUN 102 H*, Creatinine 2.15 H, Estim Creat Clear Calc 14.70, Est GFR (MDRD) Af Amer 28 L, Est GFR (MDRD) Non-Af 23 L, BUN/Creatinine Ratio 47.4 H, Glucose 143 H, Calcium 9.2, Troponin I High Sens 173 H* 10/01/21 14:25: B-Natriuretic Peptide 1632.2 H 10/01/21 14:25: PT 13.1, INR 1.0 10/01/21 14:25: Phosphorus 5.1 H, Magnesium 1.7 10/01/21 15:25: Urine Color Yellow, Urine Clarity Clear, Urine pH 5.0, Ur Specific [place] 1.020, Urine Protein Negative, Urine Glucose (UA) Normal, Urine Ketones Negative, Urine Occult Blood Negative, Urine Nitrite Negative, Urine Bilirubin Negative, Urine Urobilinogen Normal, Ur Leukocyte Esterase 25 H, Urine RBC 0 SEEN, Urine WBC 0-5 SEEN, Ur Squamous Epith Cells 0-5 SEEN, Urine Bacteria 1+, Urine Mucus 0 SEEN 10/01/21 17:20: Troponin I High Sens 154 H*, TSH 3.84 H 10/02/21 02:58: WBC 4.7, RBC 3.56 L, Hgb 10.6 L, Hct 36.1 L, MCV 101.4 H, MCH 29.8, MCHC 29.4 L, RDW Std Deviation 62.1 H, RDW Coeff of Steven 17.2 H, Plt Count 138 L, MPV 11.4, Immature Gran % (Auto) 0.200, Neut % (Auto) 61.9, Lymph % (Auto) 19.9, Upson % (Auto) 11.0 H, Eos % (Auto) 6.6 H, Baso % (Auto) 0.4, Absolute Neuts (auto) 2.9, Absolute Lymphs (auto) 0.94, Nucleated RBC % 0.4 10/02/21 02:58: Sodium 141, Potassium 5.1, Chloride 103, Carbon Dioxide 31.0, Anion Gap 7, BUN 94 H, Creatinine 1.91 H, Estim Creat Clear Calc 16.55, Est GFR (MDRD) Af Amer 32 L, Est GFR (MDRD) Non-Af 27 L, BUN/Creatinine Ratio 49.2 H, Glucose 85, Calcium 8.6, Triglycerides 45, Cholesterol 116, LDL Cholesterol 39, VLDL Cholesterol 9, HDL Cholesterol 68 10/02/21 02:58: Troponin I High Sens 196 H* 10/02/21 06:55: Triglycerides 53, Cholesterol 117, LDL Cholesterol 37, VLDL Cholesterol 11, HDL Cholesterol 69 10/02/21 06:55: Magnesium 1.6 10/02/21 07:25: APTT 29.4 Micro: Microbiology 10/01/21 17:05 Mucosa - Nose Respiratory Panel (PCR) - Final 10/01/21 17:20 Urine Catheter - Velazquez Legionella Antigen - Final 10/01/21 17:20 Urine Catheter - Velazquez Streptococcus pneumoniae Antigen (M - Final 10/01/21 14:50 Nasal Secretion SARS-CoV-2 & FLU Antigen (Rapid) - Final ABG Data ABG results: ABG 10/01/21 10/01/21 14:59 17:26 Specimen Type RICHARD ART Sample Site R Brach pH 7.22 L Bicarbonate Actual 31.2 H Total CO2 34 Base Excess 4 H O2 Saturation 90 L ABG pCO2 75.8 H* ABG pO2 73 L VBG pH 7.19 L* VBG pO2 60 H VBG HCO3 31 H VBG Total CO2 34 H VBG O2 Sat (Calc) 83 H VBG Base Excess 3 POC Mix VBG pCO2 Pt Tmp 81.3 H* Liter Flow 2.0 Crit Call To/Read Back Yes Yes Blood Gas Notified Whom CHAN Radiography Diagnostic Testing: Radiology Impression Chest X-Ray 10/01/21 14:30 IMPRESSION: Consolidation in the left hemithorax. Elevation of the right hemidiaphragm. Physical Exam Narrative General: Awake, alert oriented x3. On nasal cannula. HEENT: Atraumatic, PERRLA, EOMI, Normocephalic Oral: On BiPAP, oropharyngeal exam could not be done. Neck: Supple, No JVD, Negative Carotid Bruits Lungs: Air entry severely diminished especially in lower half of left lung. Bilateral coarse crepitations improving. Cardiovascular: Sinus rhythm , Normal S1, Normal S2, systolic murmur LLSB Abdomen: Bowel Sounds Present, Soft, Non Tender, Mild ascites. : Velazquez catheter draining clear urine. No renal angle tenderness. No suprapubic tenderness. Extremities: Anasarca. Bilateral lower extremity lymphedema. Capillary Refill Less than 3 Seconds Skin: Small superficial blister right leg covered with a dressing. Below-knee Nicko wrap bandage. Musculoskeletal: Bilateral shoulder replacement. Bilateral TKR. Muscle strength 3+/5 at major joints. Neurological: Cranial nerves II-XII grossly intact, DTR 2+/4 Psych/Mental Status: Flat affect. Assessment & Plan Assessment/Plan (1) Respiratory failure: (2) Acute exacerbation of congestive heart failure: (3) INDIRA (acute kidney injury): PLAN: Plan The patient was brought by EMS to ED for severe shortness of breath, dyspnea at rest and severe acute hypoxic and hypercarbic respiratory failure and admitted in ICU on BiPAP. 1. Acute hypoxic and hypercarbic respiratory failure mostly due to CHF exacerbation and possible pneumonia: As per caregiver and patient she is not on oxygen or breathing machine. College Football Coach consult reviewed. Patient improved overnight on BiPAP. ABG showed 7.22/75/73 on 2 L of oxygen. BiPAP as needed. Transferred to PCU. Treat the underlying disorder as mentioned below 2. Acute on chronic heart failure probably diastolic: Patient denies any history of coronary artery disease, ND, angina or cardiac stent/heart cath but probably had surgery for aneurysm. On chest x-ray it looks patient had open heart surgery. Previous record shows patient had echo in November 2011 reported as EF 65%, moderate concentric LVH, mild LA enlargement, mild MR, RVSP 20 mmHg. Overall suggest she had chronic HFpEF. heart failure. She had negative pharmacological nuclear stress test. BNP high. Started on furosemide drip. 10/02: 2D echo is pending. Patient on IV heparin drip as troponin is high probably due to demand ischemia because of heart failure kidney failure and hypoxia. Low-dose beta-emil resumed. 3. Abnormal chest x-ray with suspicion of possible pneumonia: Chest x-ray shows consolidation in left hemithorax which may be possible atelectasis or pneumonia. Since patient is very hypoxic on NIPPV, decided to start empirically antibiotic Zosyn. Urinary antigens are negative. Respiratory panel negative. SARS-CoV-2 and flu rapid antigen negative. 4. 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 Patient recently diuretic dose increased to 80 mg daily. Admitted with BUN/creatinine 102/2.5. Optical Effects Camera Operator consulted. 10/02: Improvement in patient's creatinine. BUN 94/creatinine 1.91. Nephrology follow-up appreciated. INDIRA possible due to cardiorenal disease. Likely switch to Lasix intermittent tomorrow. 5 Abnormal troponin-possibly demand ischemia from heart failure, kidney injury and hypoxia on EKG without acute ST-T changes. Mild progressive elevation in serial troponin. On IV heparin 6. Chronic Lymphedema-following at wound center. Lasix recently increased to 80 mg daily without increase in urine output actually 8 dropped. Nicko wraps bilateral lower extremities. Lasix drip per above. 7. Patient history of open heart surgery. She had possible aneurysm but details unclear. Patient does not remember well, states surgery was done many years ago.-on metoprolol, statin. 8. Hyperlipidemia-continue statin. Lipid profile LDL 39, TC 116. Magnesium 1.6. 9. Gout-hold allopurinol. 10. Hypothyroidism-continue Synthroid regimen. TSH 3.84. 11. Chronic iron deficiency anemia- patient follows accounts payable administrator Dr. Mendoza and gets iron transfusion Total time of the visit including total time spent in counseling or coordination of care, (more than 50% of the total time, spent in obtaining medical information from nurses and other ancillary care providers,explaining to the patient about labs, imaging, diagnosis and management), discussion with multiple consultants, review of labs and imaging is 40 minutes. Living will/advanced directive/end of life care: As per the patient's friend, she might have living will but was protective. Her niece is power of insurance attorney for health. After discussion of benefits/risks procedures involved with full code, DNR CC arrest and DNR CC, the patient states she full code but probably she might not have understood because of respiratory failure and BiPAP. Discussed with POA. For now full code Patient does want artificial life support including intubation, tube feed, ventilator and/chest compression, central venous catheter, vasopressor and DC shock if needed Total time spent in [id number] encounter in discussion of advanced directive 16 minutes. Clinical Impression(s) from Imaging Studies Chest X-Ray 10/01/21 14:30 IMPRESSION: Consolidation in the left hemithorax. Elevation of the right hemidiaphragm. Microbiology Past 72 Hours 10/01/21 14:50 Nasal Secretion SARS-CoV-2 & FLU Antigen (Rapid) - Final Charges/Coding Visit Charges Inpatient E&M: 92197 Subs Hosp L3
--- NOTE | 2021-10-02 09:06 | PN.RENAL_ITS ---
Subjective Subjective no new complaints. She is currently off BiPAP. Urine output is better. He went and creatinine are better. Troponins increase overnight, currently on heparin drip. Objective Data Objective Data Vital Signs: Vital Signs Temp Pulse Resp BP Pulse Ox O2 Del Method O2 Flow Rate 97 F L 65 21 H 114/46 L 99 Nasal Cannula 2 10/02/21 08:00 10/02/21 08:00 10/02/21 08:00 10/02/21 08:00 10/02/21 08:00 10/02/21 08:00 10/02/21 08:00 FiO2 30 10/02/21 05:00 Oxygen Flow Rate (L/min) 2 Oxygen Delivery Method Nasal Cannula Weight: 109.1 kg Body Mass Index (BMI) 45.3 Intake & Output: Intake and Output for Last 24 Hours 09/30/21 10/01/21 10/02/21 23:59 23:59 23:59 Intake Total 51.8 / 51.8 Output Total 400 / 400 550 / 550 Balance -348.2 / -348.2 -550 / -550 Lab / Micro Data Result Diagrams: 10/02/21 02:58 10/02/21 02:58 Labs: Laboratory Results - last 24 hr 10/01/21 14:25: WBC 7.6, RBC 4.08 L, Hgb 12.1, Hct 42.3, MCV 103.7 H, MCH 29.7, MCHC 28.6 L, RDW Std Deviation 65.0 H, RDW Coeff of Steven 17.6 H, Plt Count 174, MPV 12.1 H, Immature Gran % (Auto) 0.400, Neut % (Auto) 79.6 H, Lymph % (Auto) 10.0 L, [place] % (Auto) 8.0, Eos % (Auto) 1.7, Baso % (Auto) 0.3, Absolute Neuts (auto) 6.1, Absolute Lymphs (auto) 0.76 L, Nucleated RBC % 0.4 10/01/21 14:25: Sodium 138, Potassium 5.4 H, Chloride 102, Carbon Dioxide 32.0, Anion Gap 4 L, BUN 102 H*, Creatinine 2.15 H, Estim Creat Clear Calc 14.70, Est GFR (MDRD) Af Amer 28 L, Est GFR (MDRD) Non-Af 23 L, BUN/Creatinine Ratio 47.4 H , Glucose 143 H, Calcium 9.2, Troponin I High Sens 173 H* 10/01/21 14:25: B-Natriuretic Peptide 1632.2 H 10/01/21 14:25: PT 13.1, INR 1.0 10/01/21 14:25: Phosphorus 5.1 H, Magnesium 1.7 10/01/21 15:25: Urine Color Yellow, Urine Clarity Clear, Urine pH 5.0, Ur Specific [place] 1.020, Urine Protein Negative, Urine Glucose (UA) Normal, Urine Ketones Negative, Urine Occult Blood Negative, Urine Nitrite Negative, Urine Bilirubin Negative, Urine Urobilinogen Normal, Ur Leukocyte Esterase 25 H, Urine RBC 0 SEEN, Urine WBC 0-5 SEEN, Ur Squamous Epith Cells 0-5 SEEN, Urine Bacteria 1+, Urine Mucus 0 SEEN 10/01/21 17:20: Troponin I High Sens 154 H*, TSH 3.84 H 10/02/21 02:58: WBC 4.7, RBC 3.56 L, Hgb 10.6 L, Hct 36.1 L, MCV 101.4 H, MCH 29.8, MCHC 29.4 L, RDW Std Deviation 62.1 H, RDW Coeff of Steven 17.2 H, Plt Count 138 L, MPV 11.4, Immature Gran % (Auto) 0.200, Neut % (Auto) 61.9, Lymph % (Auto) 19.9, Pender % (Auto) 11.0 H, Eos % (Auto) 6.6 H, Baso % (Auto) 0.4, Abs olute Neuts (auto) 2.9, Absolute Lymphs (auto) 0.94, Nucleated RBC % 0.4 10/02/21 02:58: Sodium 141, Potassium 5.1, Chloride 103, Carbon Dioxide 31.0, Anion Gap 7, BUN 94 H, Creatinine 1.91 H, Estim Creat Clear Calc 16.55, Est GFR (MDRD) Af Amer 32 L, Est GFR (MDRD) Non-Af 27 L, BUN/Creatinine Ratio 49.2 H, Glucose 85, Calcium 8.6, Triglycerides 45, Cholesterol 116, LDL Cholesterol 39, VLDL Cholesterol 9, HDL Cholesterol 68 10/02/21 02:58: Troponin I High Sens 196 H* 10/02/21 06:55: Triglycerides 53, Cholesterol 117, LDL Cholesterol 37, VLDL Cholesterol 11, HDL Cholesterol 69 10/02/21 06:55: Magnesium 1.6 10/02/21 07:25: APTT 29.4 Micro: Microbiology 10/01/21 17:05 Mucosa - Nose Respiratory Panel (PCR) - Final 10/01/21 17:20 Urine Catheter - Brandon Legionella Antigen - Final 10/01/21 17:20 Urine Catheter - Brandon Streptococcus pneumoniae Antigen (M - Final 10/01/21 14:50 Nasal Secretion SARS-CoV-2 & FLU Antigen (Rapid) - Final ABG Data ABG results: ABG 10/01/21 10/01/21 14:59 17:26 Specimen Type RICHARD ART Sample Site R Brach pH 7.22 L Bicarbonate Actual 31.2 H Total CO2 34 Base Excess 4 H O2 Saturation 90 L ABG pCO2 75.8 H* ABG pO2 73 L VBG pH 7.19 L* VBG pO2 60 H VBG HCO3 31 H VBG Total CO2 34 H VBG O2 Sat (Calc) 83 H VBG Base Excess 3 POC Mix VBG pCO2 Pt Tmp 81.3 H* Liter Flow 2.0 Crit Call To/Read Back Yes Yes Blood Gas Notified Whom CHAN Radiography Diagnostic Testing: Radiology Impression Chest X-Ray 10/01/21 14:30 IMPRESSION: Consolidation in the left hemithorax. Elevation of the right hemidiaphragm. Electronically Signed: Rex Raines MD at 14:54 EDT , Physical Exam Narrative Alert awake oriented x 3 no obvious distress no pallor no icterus no JVD s1s2 no murmurs lungs clear abdomen soft no organomegaly no edema no cyanosis brandon + Assessment & Plan Assessment/Plan (1) INDIRA (acute kidney injury): PLAN: CKD 3b. baseline creatinine around 1.5. now admitted with dyspnea. overnight received Lasix drip. Acute renal failure is likely cardiorenal syndr ome. BUN and creatinine are better. Tolerating Lasix drip well. Likely can switch to intermittent Lasix tomorrow. She is currently off BiPAP. PLAN: Plan CHF. lasix drip. troponins increased overnight. Currently on heparin drip. Cardiology in consult.
[2021-10-02] MEDS: Metoprolol Tartrate 25 MG Tablet 12.5 MG PO ×2 (09:43→22:09)
[2021-10-02] MEDS: Aspirin E.C. 81 MG Tablet PO (09:44)
[2021-10-02] MEDS: Pantoprazole Sodium 40 MG Tablet PO (09:44)
--- NOTE | 2021-10-02 11:44 | NURSING ---
This RN called pt's Ian DURANT for update.
--- NOTE | 2021-10-02 12:18 | CON.PCM.CA_ITS ---
Assessment & Plan Assessment/Plan (1) Acute exacerbation of congestive heart failure: PLAN: Improved on Lasix drip. Agree with continuing Lasix drip for another day. Could possibly switch to Lasix 40 mg IV twice daily tomorrow. Please check a 2D echo. If ejection fraction is depressed then we can change to metoprolol to Toprol-XL. VICTORINO inhibitor could be discussed with renal service if EF is depressed. Troponin is mildly elevated. This could be just from hypoxemia on presentation. If EF is decreased then we could consider ischemic evaluation with coronary angiography. HPI Consult Data Date of Consult: 10/02/21 HPI Narrative Reason for Consultation: CHF HPI Narrative: CELINA GALINDO, is a 86 F who presents with shortness of breath and worsening lower extremity edema. Patient was started on Lasix drip overnight. Patient's creatinine which had increased compared to her baseline has also come down today. Patient's shortness of breath has also significantly improved. She denies any chest pain. She denies any significant cardiac history in the past. [facility] Medical History Anemia History of blood transfusion Thyroid disease Home Medications pantoprazole 40 mg tablet,delayed release 40 mg PO DAILY gerd 05/24/16 [History Last Taken 10/01/21] pravastatin 40 mg tablet 40 mg PO QHS cholesterol 05/24/16 [History Last Taken 10/01/21] acetaminophen 500 mg tablet 500 mg PO DAILY 03/03/18 [History Last Taken 10/01/21] metoprolol tartrate 25 mg tablet 25 mg PO BID 09/29/21 [History Last Taken 10/01/21] allopurinol 300 mg tablet 300 mg PO DAILY GOUT 10/01/21 [History Last Taken 10/01/21] cholecalciferol (vitamin D3) 50 mcg (2,000 unit) capsule 50 mcg PO DAILY SUPPLEMENT 10/01/21 [History Last Taken 10/01/21] furosemide 80 mg tablet 80 mg PO DAILY FLUID 10/01/21 [History Last Taken 10/01/21] levothyroxine 75 mcg tablet 75 mcg PO DAILY THYROID 10/01/21 [History Last Taken 10/01/21] spironolactone 25 mg tablet 12.5 mg PO DAILY FLUID 10/01/21 [History Last Taken 10/01/21] Allergy/AdvReac Type Severity Reaction Status Date / Time pramoxine Allergy Severe Hives Verified 10/01/21 14:06 [From CeraVe Itch Relief] Family History Father CVA (cerebral vascular accident) Mother Heart disease Surgical History H/O right knee surgery History of carpal tunnel repair History of repair of rotator cuff History of total left hip arthroplasty History of total replacement of left shoulder joint Social History (Updated 10/01/21 @ 15:50 by Estella Trammell NP, DRIVER WHE[employer]) household members: none Smoking Status: Never smoker alcohol intake: never substance use type: does not use Physical Exam Const alert and oriented x3 HEENT normocephalic Eyes no scleral icterus Neck Neck Narrative: Positive JVD Resp normal respiratory effort Resp Narrative: Decreased bilateral air entry Cardio regular rate and regular rhythm Heart Sounds: S1 normal and S2 normal Extremity General Extremity: edema bilateral Psych mental status grossly normal Risk Stratification Risk Stratification Applicable: No Charges/Coding Visit Charges Inpatient E&M: 50177 Init Hosp L2 Objective Data Vital Signs: Vital Signs Temp Pulse Resp BP Pulse Ox O2 Del Method O2 Flow Rate 97.2 F L 72 18 100/57 L 96 Nasal Cannula 2 10/02/21 10:37 10/02/21 10:37 10/02/21 10:37 10/02/21 10:37 10/02/21 10:37 10/02/21 10:37 10/02/21 10:37 FiO2 30 10/02/21 05:00 Oxygen Flow Rate (L/min) 2 Oxygen Delivery Method Nasal Cannula Weight: 240 lb 8.389 oz Body Mass Index (BMI) 45.3 Intake & Output: Intake and Output for Last 24 Hours 09/30/21 10/01/21 10/02/21 23:59 23:59 23:59 Intake Total 51.8 / 51.8 Output Total 400 / 400 900 / 900 Balance -348.2 / -348.2 -900 / -900 Lab / Micro Data Result Diagrams: 10/02/21 02:58 10/02/21 02:58 Labs: Laboratory Results - last 24 hr 10/01/21 14:25: WBC 7.6, RBC 4.08 L, Hgb 12.1, Hct 42.3, MCV 103.7 H, MCH 29.7, MCHC 28.6 L, RDW Std Deviation 65.0 H, RDW Coeff of Steven 17.6 H, Plt Count 174, MPV 12.1 H, Immature Gran % (Auto) 0.400, Neut % (Auto) 79.6 H, Lymph % (Auto) 10.0 L, [place] % (Auto) 8.0, Eos % (Auto) 1.7, Baso % (Auto) 0.3, Absolute Neuts (auto) 6.1, Absolute Lymphs (auto) 0.76 L, Nucleated RBC % 0.4 10/01/21 14:25: Sodium 138, Potassium 5.4 H, Chloride 102, Carbon Dioxide 32.0, Anion Gap 4 L, BUN 102 H*, Creatinine 2.15 H, Estim Creat Clear Calc 14.70, Est GFR (MDRD) Af Amer 28 L, Est GFR (MDRD) Non-Af 23 L, BUN/Creatinine Ratio 47.4 H , Glucose 143 H, Calcium 9.2, Troponin I High Sens 173 H* 10/01/21 14:25: B-Natriuretic Peptide 1632.2 H 10/01/21 14:25: PT 13.1, INR 1.0 10/01/21 14:25: Phosphorus 5.1 H, Magnesium 1.7 10/01/21 15:25: Urine Color Yellow, Urine Clarity Clear, Urine pH 5.0, Ur Specific [place] 1.020, Urine Protein Negative, Urine Glucose (UA) Normal, Urine Ketones Negative, Urine Occult Blood Negative, Urine Nitrite Negative, Urine Bilirubin Negative, Urine Urobilinogen Normal, Ur Leukocyte Esterase 25 H, Urine RBC 0 SEEN, Urine WBC 0-5 SEEN, Ur Squamous Epith Cells 0-5 SEEN, Urine Bacteria 1+, Urine Mucus 0 SEEN 10/01/21 17:20: Troponin I High Sens 154 H*, TSH 3.84 H 10/02/21 02:58: WBC 4.7, RBC 3.56 L, Hgb 10.6 L, Hct 36.1 L, MCV 101.4 H, MCH 29.8, MCHC 29.4 L, RDW Std Deviation 62.1 H, RDW Coeff of Steven 17.2 H, Plt Count 138 L, MPV 11.4, Immature Gran % (Auto) 0.200, Neut % (Auto) 61.9, Lymph % (Auto) 19.9, [place] % (Auto) 11.0 H, Eos % (Auto) 6.6 H, Baso % (Auto) 0.4, Absolute Neuts (auto) 2.9, Absolute Lymphs (auto) 0.94, Nucleated RBC % 0.4 10/02/21 02:58: Sodium 141, Potassium 5.1, Chloride 103, Carbon Dioxide 31.0, Anion Gap 7, BUN 94 H, Creatinine 1.91 H, Estim Creat Clear Calc 16.55, Est GFR (MDRD) Af Amer 32 L, Est GFR (MDRD) Non-Af 27 L, BUN/Creatinine Ratio 49.2 H, Glucose 85, Calcium 8.6, Triglycerides 45, Cholesterol 116, LDL Cholesterol 39, VLDL Cholesterol 9, HDL Cholesterol 68 10/02/21 02:58: Troponin I High Sens 196 H* 10/02/21 06:55: Triglycerides 53, Cholesterol 117, LDL Cholesterol 37, VLDL Cholesterol 11, HDL Cholesterol 69 10/02/21 06:55: Magnesium 1.6 10/02/21 07:25: APTT 29.4 Micro: Microbiology 10/01/21 17:05 Mucosa - Nose Respiratory Panel (PCR) - Final 10/01/21 17:20 Urine Catheter - Velazquez Legionella Antigen - Final 10/01/21 17:20 Urine Catheter - Velazquez Streptococcus pneumoniae Antigen (M - Final 10/01/21 14:50 Nasal Secretion SARS-CoV-2 & FLU Antigen (Rapid) - Final ABG Data ABG results: ABG 10/01/21 10/01/21 14:59 17:26 Specimen Type RICHARD ART Sample Site R Brach pH 7.22 L Bicarbonate Actual 31.2 H Total CO2 34 Base Excess 4 H O2 Saturation 90 L ABG pCO2 75.8 H* ABG pO2 73 L VBG pH 7.19 L* VBG pO2 60 H VBG HCO3 31 H VBG Total CO2 34 H VBG O2 Sat (Calc) 83 H VBG Base Excess 3 POC Mix VBG pCO2 Pt Tmp 81.3 H* Liter Flow 2.0 Crit Call To/Read Back Yes Yes Blood Gas Notified Whom CHAN Cardiology Labs/Tests 10/01/21 14:25: WBC 7.6, RBC 4.08 L, Hgb 12.1, Hct 42.3, MCV 103.7 H, MCH 29.7, MCHC 28.6 L, Plt Count 174, MPV 12.1 H, Immature Gran % (Auto) 0.400, Neut % (Auto) 79.6 H, Lymph % (Auto) 10.0 L, [place] % (Auto) 8.0, Eos % (Auto) 1.7, Baso % (Auto) 0.3, Absolute Neuts (auto) 6.1, Nucleated RBC % 0.4 10/01/21 14:25: Sodium 138, Potassium 5.4 H, Chloride 102, Carbon Dioxide 32.0, Anion Gap 4 L, BUN 102 H*, Creatinine 2.15 H, Est GFR (MDRD) Af Amer 28 L, Est GFR (MDRD) Non-Af 23 L, BUN/Creatinine Ratio 47.4 H, Glucose 143 H, Calcium 9.2 10/01/21 14:25: B-Natriuretic Peptide 1632.2 H 10/01/21 14:25: PT 13.1, INR 1.0 10/01/21 14:25: Phosphorus 5.1 H, Magnesium 1.7 10/01/21 14:59: VBG pH 7.19 L*, VBG pO2 60 H, VBG HCO3 31 H, VBG O2 Sat (Calc) 83 H, VBG Base Excess 3 10/01/21 15:25: Urine Color Yellow, Urine Clarity Clear, Urine pH 5.0, Ur Specific [place] 1.020, Urine Protein Negative, Urine Glucose (UA) Normal, Urine Ketones Negative, Urine Occult Blood Negative, Urine Nitrite Negative, Urine Bilirubin Negative, Urine Urobilinogen Normal, Ur Leukocyte Esterase 25 H, Urine RBC 0 SEEN, Urine WBC 0-5 SEEN 10/01/21 17:26: pH 7.22 L, Bicarbonate Actual 31.2 H, Base Excess 4 H, O2 Satu ration 90 L, ABG pCO2 75.8 H*, ABG pO2 73 L 10/02/21 02:58: WBC 4.7, RBC 3.56 L, Hgb 10.6 L, Hct 36.1 L, MCV 101.4 H, MCH 29.8, MCHC 29.4 L, Plt Count 138 L, MPV 11.4, Immature Gran % (Auto) 0.200, Neut % (Auto) 61.9, Lymph % (Auto) 19.9, [place] % (Auto) 11.0 H, Eos % (Auto) 6.6 H, Baso % (Auto) 0.4, Absolute Neuts (auto) 2.9, Nucleated RBC % 0.4 10/02/21 02:58: Sodium 141, Potassium 5.1, Chloride 103, Carbon Dioxide 31.0, Anion Gap 7, BUN 94 H, Creatinine 1.91 H, Est GFR (MDRD) Af Amer 32 L, Est GFR (MDRD) Non-Af 27 L, BUN/Creatinine Ratio 49.2 H, Glucose 85, Calcium 8.6, Triglycerides 45, Cholesterol 116, LDL Cholesterol 39, VLDL Cholesterol 9, HDL Cholesterol 68 10/02/21 06:55: Triglycerides 53, Cholesterol 117, LDL Cholesterol 37, VLDL Cholesterol 11, HDL Cholesterol 69 10/02/21 06:55: Magnesium 1.6 10/02/21 07:25: APTT 29.4 Rhythm: EKG: ECHO: Stress Test: Cardiac Cath: PCI: CT Surgery: Holter monitor: EPS: PPM: CXR: Chest CT Scan: Radiography Diagnostic Testing: Radiology Impression Chest X-Ray 10/01/21 14:30 IMPRESSION: Consolidation in the left hemithorax. Elevation of the right hemidiaphragm. Electronically Signed: Rex Raines MD at 14:54 EDT ,
--- NOTE | 2021-10-02 12:18 | CASEMGMT ---
Pt placed on TCU list per pt request at this time as she is unsure if she would be able to go home at discharge. CM to follow. Ignacio MEYER CM
--- NOTE | 2021-10-02 12:19 | CASEMGMT ---
MITCH BHAKTA [employer] CM to room to meet with patient for initial transition planning/care coordination assessment. RN OYNY introduced self and role at [facility].? Pt voices understanding and consents to assessment at this time.? Pt resting in bed in no distress at this time.? Pt is A/O at this time and answers all questions appropriately.?[place].? Care providers, pharmacy, and demographics verified/updated at this time. PCP:Dr Esvin Preciado Specialists: Dr Mendoza--hematology. Wound Center Preferred Pharmacy: [facility] Insurance: [facility] Prescription Benefit: Yes? Living Will/HPOA:?Pt states she has LW and HPOA, who is her nieceIan LNOK: Niece/POAIan Living Arrangements:Lives alone in one-story home w/basement. 3-4 steps to enter. Pt states she recently needed help w/getting up the steps to get into her house, as she needed left w/lifting her legs up. Pt states she does not go to the basement. Has been sponge-bathing self d/t unable to get legs wet. Dresses self. Caregiver, Sol, and niece, Ian, get groceries for pt. Pt states she usually prepares her own meals and had been doing her own laundry, but Sol may start helping w/that. Sol takes her to her appts. Pt manages her own medications. Hires a cleaning lady monthly. Transportation:?Sol/caregiver DME: ?States has the following DME:?shower chair, RTS, grab bars, hospital bed, walker, BP machine, medical alert button. Has a rollator available, but does not use. Pt does not have home O2 and is not sure if she has a pulse ox. If pt able to return home and if O2 is needed, pt has no preference of DME co and is agreeable to [facility]. Pt was provided w/a list of local DME companies to review. HHC/SNF: Hx [facility] and has had HHC in the past. Pt states, if therapy recommends SNF, she would be agreeable and states and [facility] is her 1st choice. If pt is able to return home, [facility] would be her 1st choice. Pt was provided w/list of HHC providers including quality and resource use data and consistent w/pt's preferred geographic region and medical needs. CM to follow for further discharge planning/needs.? Pt voices no further concerns/needs at this time.? Advised pt to ask for CM if any further questions/concerns/needs arise.? Voices understanding. PLAN:??TBD by course of treatment and progress w/therapy. SNF vs Home w/HHC. PT/OT evals pending. Camilo CHINCHILLAN RN CM
[2021-10-02] MEDS: Allopurinol 300 MG Tablet PO (12:20)
[2021-10-02 14:34] LABS: Troponin-I HS 134 pg/mL (3.0-54.0)
[2021-10-02 15:28] LABS: Partial Thromboplast Time 85.3 Seconds (24.1-36.2)
[2021-10-02] MEDS: Furosemide 500 MG in Empty Viaflex 50 mL 1 EACH CONT INF (19:44)
[2021-10-02] MEDS: Nystatin Powder 15gm Bottle 1 APPLIC TOPICAL (22:08)
[2021-10-02 22:22] LABS: Partial Thromboplast Time 62.7 Seconds (24.1-36.2)
[2021-10-03] VITALS (11 sets, daily range): BP systolic 102–123; BP diastolic 45–55; PULSE 64–73; RESP 18–20; TEMP 36.4–36.6; O2SAT 96–100
[2021-10-03] MEDS: HEPARIN/D5w 25,000 UNITS 25,000 UNITS/250 ML IV.SOLN. 14 UNITS CONT INF ×2 (01:02→19:44)
[2021-10-03] MEDS: Pravastatin 40 MG Tablet PO ×2 (01:03→21:03)
[2021-10-03 03:26] LABS: Absolute Lymphocyte Count 0.94 X10^3/uL (0.83-4.51); Absolute Neutrophil Count 5.3 X10^3/uL (2.0-7.7); Basophil# 0.04 X10^3/uL; Basophil% 0.5 % (0-1); Eosinophil# 0.37 X10^3/uL; Eosinophils% 4.9 % (0-5); Hematocrit 37.1 % (37-47); Hemoglobin 10.5 g/dL (12.0-15.0); Lymphocyte # 0.94 X10^3/ul (0.83-4.51); Lymphocyte % 12.4 % (19-41); Mean Corp Hgb Conc 28.3 g/dL (32-36); Mean Corpuscular Hgb 29.3 pg (27.0-32.0); Mean Corpuscular Volume 103.6 fL (81-99); Mean Platelet Vol. 11.4 fl (6.2-12.0); Monocyte# 0.96 X10^3/uL; Monocyte% 12.6 % (0-10); NRBC Flagged by Analyzer 0.3 % (0-5); Neutrophil # 5.25 X10^3/uL (2.7-7.7); Neutrophil % 69.2 % (47-70); Platelet Count 138 K/mm3 (150-450); RBC Distribution Width CV 17.5 % (11.6-14.6); RBC Distribution Width SD 64.4 fl (35.1-43.9); Red Blood Count 3.58 M/mm3 (4.2-5.4); White Blood Count 7.6 K/mm3 (4.4-11.0)
[2021-10-03 04:04] LABS: Anion Gap 4 (5-15); BUN 108 mg/dL (7-18); BUN/Creat Ratio 56.8 RATIO (10-20); Calcium,Total 8.4 mg/dL (8.5-10.1); Chloride 103 mmol/L (98-107); EST Glomerular Filtration Rate 27 mL/min (>60); Est Glom Filt Rate - Afr Amer 32 mL/min (>60); Estimated Creatinine Clearance 16.63 ml/min; Glucose 126 mg/dL (74-106); Potassium 5.3 mmol/L (3.5-5.1); Sodium Level 140 mmol/L (136-145)
--- NOTE | 2021-10-03 04:19 | NURSING ---
Pts primary rn aware of bun of 108 at this time.
[2021-10-03 04:26] LABS: Partial Thromboplast Time 76.1 Seconds (24.1-36.2)
[2021-10-03] MEDS: Levothyroxine 75 MCG Tablet PO (05:49)
--- NOTE | 2021-10-03 05:54 | PCM.PN.INT ---
Assessment & Plan Assessment/Plan (1) Acute respiratory failure with hypoxia and hypercapnia: PLAN: Plan RECOMMENDATIONS: 1. Wean supplemental oxygen to maintain saturations at or above 90%. 2. Recommend discontinuation of Lasix drip with transition to intermittent boluses. 3. Continue antimicrobials. 4. Encourage incentive spirometer use and mobilize patient as tolerated. 5. Will sign off from a critical care perspective. Please call with any additional questions. IMPRESSIONS: 1. Acute combined respiratory failure The patient initially presented to the hospital with shortness of breath with radiographic findings concerning for pneumonia and/or decompensated heart failure. The patient responded avidly to the use of diuretics and noninvasive positive pressure ventilatory support, which certainly suggests decompensated heart failure as the etiology for her presentation. She is currently requiring minimal supplemental oxygen to maintain saturations. At this time, the patient's continuous Lasix infusion can likely be discontinued. I will defer the need for further IV diuretic therapy to cardiology. Given the questionable infiltrate noted on chest imaging at presentation, recommend empiric antibiotics to complete 7 days of therapy. Continue to wean oxygen to maintain saturations at or above 90%. Encourage incentive spirometer use and mobilize patient as tolerated. 2. Acute on chronic kidney disease Clinical concern for cardiorenal etiology. The patient has already been evaluated by nephrology. Continue to monitor urine output. No current indication for renal replacement therapy. 3. Troponin elevation Suspect related to demand ischemia. Echocardiogram revealed intact systolic function. Cardiology is following to assist with medical management. 4. History of coronary artery disease/chronic lymphedema/hypothyroidism/anemia Complicates care, management, recovery and prognosis. Continue home medications as indicated. This note was generated with [employer] dictation software. It may contain incorrect words, spelling, and punctuation that were not noted in checking the note before signing. Subjective Subjective The patient was seen and examined at the bedside this morning. Events from the last 24 hours have been reviewed. The patient is currently afebrile, hemodynamically stable and maintaining appropriate oxygen saturations on 2 L/min via nasal cannula. The patient is documented to be overall net -1.4 L for the hospitalization. She remains on a continuous Lasix drip and empiric antimicrobials. Chemistry profile this morning revealed a bicarbonate of 33 with a BUN of 108 and creatinine of 1.9. Objective Data Objective Data The patient's most recent lab work, culture data and imaging studies have all been personally reviewed. Surface echocardiogram demonstrated normal LV size with an ejection fraction of 55 to 60%. Pulmonary artery systolic pressure was noted to be 50 to 55 mmHg. Blood cultures are pending. Vital Signs: Vital Signs Temp Pulse Resp BP Pulse Ox O2 Del Method O2 Flow Rate 97.9 F 69 18 102/55 L 99 Nasal Cannula 2 10/03/21 03:16 10/03/21 03:16 10/03/21 03:16 10/03/21 03:16 10/03/21 03:16 10/03/21 03:16 10/03/21 03:16 FiO2 96 10/02/21 22:00 Oxygen Flow Rate (L/min) 2 Oxygen Delivery Method Nasal Cannula Weight: 240 lb 8.389 oz Body Mass Index (BMI) 45.3 Intake & Output: Intake and Output for Last 24 Hours 10/01/21 10/02/21 10/03/21 23:59 23:59 23:59 Intake Total 51.8 / 51.8 860 / 960 281.83 / 281.83 Output Total 400 / 400 1880 / 2000 345 / 345 Balance -348.2 / -348.2 -1020 / -1040 -63.17 / -63.17 Lab / Micro Data Attestation: I reviewed the patient's lab results. Result Diagrams: 10/03/21 03:16 10/03/21 03:16 Labs: Laboratory Results - last 24 hr 10/02/21 06:55: Triglycerides 53, Cholesterol 117, LDL Cholesterol 37, VLDL Cholesterol 11, HDL Cholesterol 69 10/02/21 06:55: Magnesium 1.6 10/02/21 07:25: APTT 29.4 10/02/21 14:05: Troponin I High Sens 134 H* 10/02/21 14:05: APTT Cancelled 10/02/21 15:07: APTT 85.3 H 10/02/21 21:45: APTT 62.7 H 10/03/21 03:16: WBC 7.6, RBC 3.58 L, Hgb 10.5 L, Hct 37.1, MCV 103.6 H, MCH 29.3, MCHC 28.3 L, RDW Std Deviation 64.4 H, RDW Coeff of Steven 17.5 H, Plt Count 138 L, MPV 11.4, Immature Gran % (Auto) 0.400, Neut % (Auto) 69.2, Lymph % (Auto) 12.4 L, [place] % (Auto) 12.6 H, Eos % (Auto) 4.9, Baso % (Auto) 0.5, Absolute Neuts (auto) 5.3, Absolute Lymphs (auto) 0.94, Nucleated RBC % 0.3 10/03/21 03:16: Sodium 140, Potassium 5.3 H, Chloride 103, Carbon Dioxide 33.0 H, Anion Gap 4 L, BUN 108 H*, Creatinine 1.90 H, Estim Creat Clear Calc 16.63, Est GFR (MDRD) Af Amer 32 L, Est GFR (MDRD) Non-Af 27 L, BUN/Creatinine Ratio 56.8 H, Glucose 126 H, Calcium 8.4 L 10/03/21 03:16: APTT 76.1 H Micro: Microbiology 10/01/21 17:05 Mucosa - Nose Respiratory Panel (PCR) - Final 10/01/21 17:20 Urine Catheter - Velazquez Legionella Antigen - Final 10/01/21 17:20 Urine Catheter - Velazquez Streptococcus pneumoniae Antigen (M - Final 10/01/21 14:50 Nasal Secretion SARS-CoV-2 & FLU Antigen (Rapid) - Final Radiography Diagnostic Testing: Radiology Impression Echocardiogram 10/01/21 17:06 Interpretation Summary The estimated ejection fraction is 55-60 %. Unable to assess diastolic dysfunction. Mildly dilated right ventricle. The left atrium is mildly enlarged. The right atrium is mildly enlarged. There is moderate mitral annular calcification. Mild (1+) mitral valve insufficiency. Mild (1+) tricuspid valve insufficiency. Pulmonary artery systolic pressure is 50-55 mmHg. Trivial aortic valve insufficiency. Trivial pulmonic valve insufficiency. Ordering Physician: Hernan Hernandez Referring Physician: MYLENE KRISHNA Performed By: Lavonne, Laura, RDCS Chest X-Ray 10/02/21 05:48 IMPRESSION: Residual mild degree of CHF although there has been a moderate degree of improvement. Electronically Signed: Rex Raines MD at 13:25 EDT , Physical Exam Const alert and no apparent distress General Appearance: cooperative Nutritional Appearance: morbidly obese HEENT normocephalic and head/scalp atraumatic General Ear: hearing grossly impaired Eyes PERRL, EOMs intact bilaterally and conjunctivae normal Neck supple General: trachea midline Resp Resp Narrative: Suboptimal inspiratory effort. Auscultation: diminished lung sounds Cardio regular rate, S1 normal heart sound and S2 normal heart sound GI normal to inspection, nondistended, normoactive bowel sounds Extremity General Extremity: edema bilateral lower extremity Skin Skin Narrative: Blisters present on lower extremities Neuro CN's II-XII intact bilaterally and no focal motor deficits Psych cooperative and affect normal Charges/Coding Visit Charges Inpatient E&M: 81935 Subs Hosp L2
--- NOTE | 2021-10-03 09:02 | PN.CARD_ITS ---
Subjective Subjective The patient is awake and alert. She believes she is breathing better overall. Objective Data Vital Signs: Vital Signs Temp Pulse Resp BP Pulse Ox O2 Del Method O2 Flow Rate 97.9 F 72 18 102/55 L 99 Nasal Cannula 2 10/03/21 03:16 10/03/21 06:58 10/03/21 03:16 10/03/21 03:16 10/03/21 03:16 10/03/21 03:16 10/03/21 03:16 FiO2 96 10/02/21 22:00 Oxygen Flow Rate (L/min) 2 Oxygen Delivery Method Nasal Cannula Weight: 231 lb 11.293 oz Body Mass Index (BMI) 45.3 Intake & Output: Intake and Output for Last 24 Hours 10/01/21 10/02/21 10/03/21 23:59 23:59 23:59 Intake Total 51.8 / 51.8 860 / 960 341.83 / 341.83 Output Total 400 / 400 1880 / 2000 465 / 465 Balance -348.2 / -348.2 -1020 / -1040 -123.17 / -123.17 Lab / Micro Data Result Diagrams: 10/03/21 03:16 10/03/21 03:16 Labs: Laboratory Results - last 24 hr 10/02/21 14:05: Troponin I High Sens 134 H* 10/02/21 14:05: APTT Cancelled 10/02/21 15:07: APTT 85.3 H 10/02/21 21:45: APTT 62.7 H 10/03/21 03:16: WBC 7.6, RBC 3.58 L, Hgb 10.5 L, Hct 37.1, MCV 103.6 H, MCH 29.3, MCHC 28.3 L, RDW Std Deviation 64.4 H, RDW Coeff of Steven 17.5 H, Plt Count 138 L, MPV 11.4, Immature Gran % (Auto) 0.400, Neut % (Auto) 69.2, Lymph % (Auto) 12.4 L, [place] % (Auto) 12.6 H, Eos % (Auto) 4.9, Baso % (Auto) 0.5, Absolute Neuts (auto) 5.3, Absolute Lymphs (auto) 0.94, Nucleated RBC % 0.3 10/03/21 03:16: Sodium 140, Potassium 5.3 H, Chloride 103, Carbon Dioxide 33.0 H , Anion Gap 4 L, BUN 108 H*, Creatinine 1.90 H, Estim Creat Clear Calc 16.63, Est GFR (MDRD) Af Amer 32 L, Est GFR (MDRD) Non-Af 27 L, BUN/Creatinine Ratio 56.8 H, Glucose 126 H, Calcium 8.4 L 10/03/21 03:16: APTT 76.1 H Cardiology Labs/Tests 10/02/21 14:05: APTT Cancelled 10/02/21 15:07: APTT 85.3 H 10/02/21 21:45: APTT 62.7 H 10/03/21 03:16: WBC 7.6, RBC 3.58 L, Hgb 10.5 L, Hct 37.1, MCV 103.6 H, MCH 29.3, MCHC 28.3 L, Plt Count 138 L, MPV 11.4, Immature Gran % (Auto) 0.400, Neut % (Auto) 69.2, Lymph % (Auto) 12.4 L, [place] % (Auto) 12.6 H, Eos % (Auto) 4.9, Baso % (Auto) 0.5, Absolute Neuts (auto) 5.3, Nucleated RBC % 0.3 10/03/21 03:16: Sodium 140, Potassium 5.3 H, Chloride 103, Carbon Dioxide 33.0 H , Anion Gap 4 L, BUN 108 H*, Creatinine 1.90 H, Est GFR (MDRD) Af Amer 32 L, Est GFR (MDRD) Non-Af 27 L, BUN/Creatinine Ratio 56.8 H, Glucose 126 H, Calcium 8.4 L 10/03/21 03:16: APTT 76.1 H Rhythm: Sinus rhythm ECHO: Interpretation Summary The estimated ejection fraction is 55-60 %. Unable to assess diastolic dysfunction. Mildly dilated right ventricle. The left atrium is mildly enlarged. The right atrium is mildly enlarged. There is moderate mitral annular calcification. Mild (1+) mitral valve insufficiency. Mild (1+) tricuspid valve insufficiency. Pulmonary artery systolic pressure is 50-55 mmHg. Trivial aortic valve insufficiency. Trivial pulmonic valve insufficiency. Radiography Diagnostic Testing: Radiology Impression Ordering Physician: Hernan Hernandez Referring Physician: MYLENE KRISHNA Performed By: Laura Banerjee RDCS Chest X-Ray 10/02/21 05:48 IMPRESSION: Residual mild degree of CHF although there has been a moderate degree of improvement. Electronically Signed: Rex Raines MD at 13:25 EDT , Physical Exam Const alert, oriented x3 and no apparent distress HEENT normocephalic and head/scalp atraumatic Eyes PERRL, conjunctivae normal and no scleral icterus Neck full ROM, supple and no JVD Resp Resp Narrative: Diminished inspiratory effort Auscultation: rhonchi throughout and diminished lung sounds bilateral lower Cardio regular rate, regular rhythm, S1 normal heart sound and S2 normal heart sound Extremity Extremity Narrative: Positive bilateral lower extremity peripheral pitting edema: Positive bilateral lower extremity Nicko wraps General Extremity: edema bilateral lower extremity Details: moderate Psych mental status grossly normal Assessment & Plan Assessment/Plan (1) Acute exacerbation of congestive heart failure: PLAN: The patient was evaluated by Dr. Traore with concerns of acute CHF [facility] ght to be related to heart failure with preserved ejection fraction based upon the transthoracic echocardiographic studies. The patient is being treated medically. This is included the addition of IV furosemide-continuous infusion. At the present time the patient believes her breathing is somewhat improved. However, on examination she appears to have scattered rhonchi and diminished breath sounds. At the present time she will continue to be monitored. She will continue her IV diuretic therapy. Her other medications will be optimized as tolerated. Depending upon her future clinical course consideration will be given as to whether or not she is a candidate for any additional noninvasive or invasive cardiovascular studies. (2) Lymphedema: PLAN: The patient is reported as having a history of lymphedema. She has been on medical therapy. She has been evaluated by the wound center. She has received bilateral lower extremity wound care and Nicko wraps. (3) INDIRA (acute kidney injury): PLAN: It appears the patient has had issues of acute on chronic renal insufficiency. Her creatinine level has improved somewhat. This will need to be followed as she goes through her medication adjustments. This would also have to be taken into consideration as to whether or not she would be a candidate for any type of invasive cardiovascular studies requiring IV contrast based upon concerns of IV contrast related nephropathy. (4) Hyperlipidemia: PLAN: The patient will continue lipid-lowering therapy. (5) Hypertension: PLAN: The patient's blood pressure will need to be followed with adjustment of her medications taken into consideration her clinical course, vital signs, and renal insufficiency. Addt'l Comments This note was generated using a voice recognition system and there may be incorrect words, spelling or punctuation that were not noted when reviewing the office note prior to saving.
--- NOTE | 2021-10-03 09:15 | CASEMGMT ---
MITCH BHAKTA received a call from [facility] on 10/03/21 stating they had been set up for SN for pt but pt came to hospital before SOC. So pt would need new referral/order at discharge if plan is to go home with [facility]. CM to follow. SStclaudette MEYER CM
[2021-10-03] MEDS: Cholecalciferol (VIT D3) 25 MCG TABLET (1,000 UNITS) 50 MCG PO (09:17)
[2021-10-03] MEDS: Nystatin Powder 15gm Bottle 1 APPLIC TOPICAL ×2 (09:17→21:04)
[2021-10-03] MEDS: Allopurinol 300 MG Tablet PO (09:17)
[2021-10-03] MEDS: Metoprolol Tartrate 25 MG Tablet 12.5 MG PO ×2 (09:17→21:01)
[2021-10-03] MEDS: Pantoprazole Sodium 40 MG Tablet PO (09:17)
[2021-10-03] MEDS: Aspirin E.C. 81 MG Tablet PO (09:29)
--- NOTE | 2021-10-03 12:35 | PCM.PN.REN ---
Subjective Subjective Following for acute kidney injury on chronic kidney disease. The patient denies chest pain, nausea, or shortness of breath at rest. She still has significant anasarca, especially lower extremity edema. Objective Data Objective Data Vital Signs: Vital Signs Temp Pulse Resp BP Pulse Ox O2 Del Method O2 Flow Rate 97.5 F L 70 18 108/45 L 96 Nasal Cannula 2.5 10/03/21 09:15 10/03/21 09:17 10/03/21 09:15 10/03/21 09:17 10/03/21 09:40 10/03/21 09:40 10/03/21 11:35 FiO2 96 10/02/21 22:00 Oxygen Flow Rate (L/min) 2.5 Oxygen Delivery Method Nasal Cannula Weight: 105.1 kg Body Mass Index (BMI) 45.3 Intake & Output: Intake and Output for Last 24 Hours 10/01/21 10/02/21 10/03/21 23:59 23:59 23:59 Intake Total 51.8 / 51.8 860 / 960 681.83 / 681.83 Output Total 400 / 400 1880 / 2000 715 / 715 Balance -348.2 / -348.2 -1020 / -1040 -33.17 / -33.17 Lab / Micro Data Result Diagrams: 10/03/21 03:16 10/03/21 03:16 Labs: Laboratory Results - last 24 hr 10/02/21 14:05: Troponin I High Sens 134 H* 10/02/21 14:05: APTT Cancelled 10/02/21 15:07: APTT 85.3 H 10/02/21 21:45: APTT 62.7 H 10/03/21 03:16: WBC 7.6, RBC 3.58 L, Hgb 10.5 L, Hct 37.1, MCV 103.6 H, MCH 29.3, MCHC 28.3 L, RDW Std Deviation 64.4 H, RDW Coeff of Steven 17.5 H, Plt Count 138 L, MPV 11.4, Immature Gran % (Auto) 0.400, Neut % (Auto) 69.2, Lymph % (Auto) 12.4 L, [place] % (Auto) 12.6 H, Eos % (Auto) 4.9, Baso % (Auto) 0.5, Absolute Neuts (auto) 5.3, Absolute Lymphs (auto) 0.94, Nucleated RBC % 0.3 10/03/21 03:16: Sodium 140, Potassium 5.3 H, Chloride 103, Carbon Dioxide 33.0 H, Anion Gap 4 L, BUN 108 H*, Creatinine 1.90 H, Estim Creat Clear Calc 16.63, Est GFR (MDRD) Af Amer 32 L, Est GFR (MDRD) Non-Af 27 L, BUN/Creatinine Ratio 56.8 H, Glucose 126 H, Calcium 8.4 L 10/03/21 03:16: APTT 76.1 H Micro: Microbiology 10/01/21 17:05 Mucosa - Nose Respiratory Panel (PCR) - Final 10/01/21 17:20 Urine Catheter - Velazquez Legionella Antigen - Final 10/01/21 17:20 Urine Catheter - Velazquez Streptococcus pneumoniae Antigen (M - Final 10/01/21 14:50 Nasal Secretion SARS-CoV-2 & FLU Antigen (Rapid) - Final Radiography Diagnostic Testing: Radiology Impression Echocardiogram 10/01/21 17:06 Interpretation Summary The estimated ejection fraction is 55-60 %. Unable to assess diastolic dysfunction. Mildly dilated right ventricle. The left atrium is mildly enlarged. The right atrium is mildly enlarged. There is moderate mitral annular calcification. Mild (1+) mitral valve insufficiency. Mild (1+) tricuspid valve insufficiency. Pulmonary artery systolic pressure is 50-55 mmHg. Trivial aortic valve insufficiency. Trivial pulmonic valve insufficiency. Ordering Physician: Hernan Hernandez Referring Physician: MYLENE KRISHNA Performed By: Laura Banerjee RDCS Chest X-Ray 10/02/21 05:48 IMPRESSION: Residual mild degree of CHF although there has been a moderate degree of improvement. Electronically Signed: Rex Raines MD at 13:25 EDT , Physical Exam Narrative General: Alert and oriented x3, hard of hearing. Heart: Normal S1, S2. No rubs or murmurs. Lungs: Decreased breath sound at bases bilaterally. Abdomen: Normal bowel sound, soft, nontender, no guarding or rebound. Extremities: Both extremities are wrapped in VICTORINO bandage. There is likely 4+ edema bilaterally if bandages taken off. Assessment & Plan Assessment/Plan (1) INDIRA (acute kidney injury): PLAN: Baseline serum creatinine from 1.50 mg/dL. INDIRA is likely due to cardiorenal syndrome. So far, serum creatinine has peaked at 2.15 mg/dL on 10/01/2021. Renal function has stabilized and slightly improved on Lasix drip. Her weight is coming down each day. Continue Lasix drip at current dose for today and monitor renal function. There is no need for kidney replacement therapy. Recheck serum creatinine, electrolyte, acid-base status and volume status again tomorrow. (2) Chronic kidney disease, stage 3b: PLAN: The patient has CKD stage IIIb with serum creatinine of 1.50 mg/dL at baseline. We will probably have to tolerate some elevation of serum creatinine above baseline to keep the patient more euvolemic. (3) Hypertension: PLAN: BP is borderline low. However, the patient is not symptomatic. Continue diuresis and Metroprolol 12.5 mg twice a day. (4) Lymphedema: PLAN: The patient is getting wrapping therapy to the wound center. Continuing Lasix drip with monitoring of renal function. (5) Gout: PLAN: The patient is on allopurinol. There is no gout flare although we will need to monitor her closely since she is getting relatively high-dose diuretic.
--- NOTE | 2021-10-03 12:39 | PN.HOSP_ITS ---
Documented by User: Estella Trammell NP, DONOR RECRUITMENT MANAGER-C 10/03/21 12:49 Subjective Subjective Patient seen and examined. Breathing improved. Feels swelling is improving as well. Reports mild constipation. Objective Data Objective Data Vital Signs: Vital Signs Temp Pulse Resp BP Pulse Ox O2 Del Method O2 Flow Rate 97.5 F L 70 18 108/45 L 96 Nasal Cannula 2.5 10/03/21 09:15 10/03/21 09:17 10/03/21 09:15 10/03/21 09:17 10/03/21 09:40 10/03/21 09:40 10/03/21 11:35 FiO2 96 10/02/21 22:00 Oxygen Flow Rate (L/min) 2.5 Oxygen Delivery Method Nasal Cannula Weight: 231 lb 11.293 oz Body Mass Index (BMI) 45.3 Intake & Output: Intake and Output for Last 24 Hours 10/01/21 10/02/21 10/03/21 23:59 23:59 23:59 Intake Total 51.8 / 51.8 860 / 960 681.83 / 681.83 Output Total 400 / 400 1880 / 2000 715 / 715 Balance -348.2 / -348.2 -1020 / -1040 -33.17 / -33.17 Lab / Micro Data Result Diagrams: 10/03/21 03:16 10/03/21 03:16 Labs: Laboratory Results - last 24 hr 10/02/21 14:05: Troponin I High Sens 134 H* 10/02/21 14:05: APTT Cancelled 10/02/21 15:07: APTT 85.3 H 10/02/21 21:45: APTT 62.7 H 10/03/21 03:16: WBC 7.6, RBC 3.58 L, Hgb 10.5 L, Hct 37.1, MCV 103.6 H, MCH 29.3, MCHC 28.3 L, RDW Std Deviation 64.4 H, RDW Coeff of Steven 17.5 H, Plt Count 138 L, MPV 11.4, Immature Gran % (Auto) 0.400, Neut % (Auto) 69.2, Lymph % (Auto) 12.4 L, Nash % (Auto) 12.6 H, Eos % (Auto) 4.9, Baso % (Auto) 0.5, Absolute Neuts (auto) 5.3, Absolute Lymphs (auto) 0.94, Nucleated RBC % 0.3 10/03/21 03:16: Sodium 140, Potassium 5.3 H, Chloride 103, Carbon Dioxide 33.0 H , Anion Gap 4 L, BUN 108 H*, Creatinine 1.90 H, Estim Creat Clear Calc 16.63, Est GFR (MDRD) Af Amer 32 L, Est GFR (MDRD) Non-Af 27 L, BUN/Creatinine Ratio 56.8 H, Glucose 126 H, Calcium 8.4 L 10/03/21 03:16: APTT 76.1 H Micro: Microbiology 10/01/21 17:05 Mucosa - Nose Respiratory Panel (PCR) - Final 10/01/21 17:20 Urine Catheter - Velazquez Legionella Antigen - Final 10/01/21 17:20 Urine Catheter - Velazquez Streptococcus pneumoniae Antigen (M - Final 10/01/21 14:50 Nasal Secretion SARS-CoV-2 & FLU Antigen (Rapid) - Final Radiography Diagnostic Testing: Radiology Impression Echocardiogram 10/01/21 17:06 Interpretation Summary The estimated ejection fraction is 55-60 %. Unable to assess diastolic dysfunction. Mildly dilated right ventricle. The left atrium is mildly enlarged. The right atrium is mildly enlarged. There is moderate mitral annular calcification. Mild (1+) mitral valve insufficiency. Mild (1+) tricuspid valve insufficiency. Pulmonary artery systolic pressure is 50-55 mmHg. Trivial aortic valve insufficiency. Trivial pulmonic valve insufficiency. Ordering Physician: Hernan Hernandez Referring Physician: MYLENE KRISHNA Performed By: Laura Banerjee, RDFOZIA Chest X-Ray 10/02/21 05:48 IMPRESSION: Residual mild degree of CHF although there has been a moderate degree of improvement. Electronically Signed: Rex Raines MD at 13:25 EDT , Physical Exam Const alert and oriented x3 HEENT normocephalic and moist oral mucous membranes Eyes PERRL, EOMs intact bilaterally and conjunctivae normal Neck no lymphadenopathy Resp clear to auscultation bilaterally Auscultation: diminished lung sounds Cardio regular rate, regular rhythm and no murmurs Peripheral Pulses: pulses 2+ throughout GI normal to inspection, nondistended, normoactive bowel sounds, non-tender and non-distended Extremity normal to inspection General Extremity: edema bilateral lower extremity (lymphedema) Skin no rashes or lesions noted Lesions: no lesions Rashes: no rashes Trauma: no lacerations or abrasions Neuro CN's II-XII intact bilaterally, no focal motor deficits, no sensory deficits noted and deep tendon reflexes 2+ bilaterally Psych mental status grossly normal and affect normal Assessment & Plan Assessment/Plan (1) Acute respiratory failure with hypoxia and hypercapnia: PLAN: Plan 1. Acute hypoxic respiratory failure secondary to acute heart failure with preserved ejection fraction and possible pneumonia- Chest x-ray consistent with congestion, consolidation in the left hemithorax.? Initially on BiPAP on admissi on. Significantly improved with Lasix drip. Now on 2 L nasal cannula. On IV Zosyn empirically due to suspicious finding on chest x-ray, concerning for pneumonia. Afebrile. No leukocytosis. 2.? Acute heart failure with preserved ejection fraction-BNP 1632. Strict I&O.? Daily weight.? Nicko wraps bilateral lower extremities.?Cardiology consulted.? Lasix drip.? Echocardiogram demonstrated an EF of 55 to 60%, pulmonary artery systolic pressure 50 to 55 mmHg. 3.? Acute kidney injury on chronic kidney disease stage IIIb-likely cardiorenal syndrome. Nephrology following. Creatinine improved. Continue Lasix drip. 4.? Abnormal troponin-demand ischemia secondary to #1.? Enzymes did not trend.? EKG without acute ST-T changes.? Echocardiogram per above. 5. Chronic Lymphedema-following at [facility].? Lasix recently increased to 80 mg daily without improvement in symptoms.? Nicko wraps bilateral lower extremities.? Lasix drip per above. 6. CAD with history of CABG-on metoprolol, statin. 7. Hyperlipidemia-continue statin. 8. Gout-hold allopurinol. 9. Hypothyroidism-continue Synthroid regimen.? 10. Chronic anemia- follows with hematology.? Appears stable. DVT prophylaxis- heparin sc This patient was seen by GUILHERME Escalante under the supervision of Dr. Hernandez. Time spent examining patient, reviewing data and subsequent management of care: 14 minutes Documented by User: Dr. Hernan Hernandez MD 10/03/21 17:02 Subjective Subjective Patient seen and examined. Breathing improved. Feels swelling is improving as well. Reports mild constipation. Seen and examined. Follow-up for anasarca, heart failure exacerbation possible left pneumonia. Patient shortness of breath is improving. Patient has intermittent confusion, sleepy in the morning Objective Data Lab / Micro Data Result Diagrams: 10/03/21 03:16 10/03/21 03:16 Labs: Laboratory Results - last 24 hr 10/02/21 14:05: Troponin I High Sens 134 H* 10/02/21 14:05: APTT Cancelled 10/02/21 15:07: APTT 85.3 H 10/02/21 21:45: APTT 62.7 H 10/03/21 03:16: WBC 7.6, RBC 3.58 L, Hgb 10.5 L, Hct 37.1, MCV 103.6 H, MCH 29.3, MCHC 28.3 L, RDW Std Deviation 64.4 H, RDW Coeff of Steven 17.5 H, Plt Count 138 L, MPV 11.4, Immature Gran % (Auto) 0.400, Neut % (Auto) 69.2, Lymph % (Auto) 12.4 L, Nash % (Auto) 12.6 H, Eos % (Auto) 4.9, Baso % (Auto) 0.5, Absolute Neuts (auto) 5.3, Absolute Lymphs (auto) 0.94, Nucleated RBC % 0.3 10/03/21 03:16: Sodium 140, Potassium 5.3 H, Chloride 103, Carbon Dioxide 33.0 H , Anion Gap 4 L, BUN 108 H*, Creatinine 1.90 H, Estim Creat Clear Calc 16.63, Est GFR (MDRD) Af Amer 32 L, Est GFR (MDRD) Non-Af 27 L, BUN/Creatinine Ratio 56.8 H, Glucose 126 H, Calcium 8.4 L 10/03/21 03:16: APTT 76.1 H Assessment & Plan Assessment/Plan (1) Acute respiratory failure with hypoxia and hypercapnia: PLAN: Plan 1. Acute hypoxic respiratory failure secondary to acute heart failure with preserved ejection fraction and possible pneumonia- Chest x-ray consistent with congestion, consolidation in the left hemithorax.? Initially on BiPAP on admission. Significantly improved with Lasix drip. Now on 2 L nasal cannula. On IV Zosyn empirically due to suspicious finding on chest x-ray, concerning for pneumonia. Afebrile. No leukocytosis. 2.? Acute heart failure with preserved ejection fraction-BNP 1632. Strict I&O.? Daily weight.? Nicko wraps bilateral lower extremities.?Cardiology consulted.? Lasix drip.? Echocardiogram demonstrated an EF of 55 to 60%, pulmonary artery systolic pressure 50 to 55 mmHg. 3.? Acute kidney injury on chronic kidney disease stage IIIb-likely cardiorenal syndrome. Nephrology following. Creatinine improved. Continue Lasix drip. 4.? Abnormal troponin-demand ischemia secondary to #1.? Enzymes did not trend.? EKG without acute ST-T changes.? Echocardiogram per above. 5. Chronic Lymphedema-[facility].? Lasix recently increased to 80 mg daily without improvement in symptoms.? Nicko wraps bilateral lower extremities.? Lasix drip per above. 6. CAD with history of CABG-on metoprolol, statin. 7. Hyperlipidemia-continue statin. 8. Gout-hold allopurinol. 9. Hypothyroidism-continue Synthroid regimen.? 10. Chronic anemia- follows with hematology.? Appears stable. DVT prophylaxis- heparin sc This patient was seen by GUILHERME Escalante under the supervision of Dr. Hernandez. Time spent examining patient, reviewing data and subsequent management of care: 14 minutes This patient was seen in conjunction with DONOR RECRUITMENT MANAGER, Estella. I have independently interviewed and examined the patient and reviewed pertinent history, examination findings, laboratory and plan of management. I have reviewed the note and agree with the documented findings with the few additional points. Assessment and plan 1.? Acute hypoxic and hypercarbic respiratory failure mostly due to CHF exacerbation and possible pneumonia: As per caregiver and patient she is not on oxygen or breathing machine.? Licensed Surveyor consult reviewed.? Patient improved overnight on BiPAP.? ABG showed 7.22/75/73 on 2 L of oxygen.? BiPAP as needed.? Continue on dialysis 2.? Acute on chronic heart failure probably diastolic: Patient denies any history of coronary artery disease, LA, angina or cardiac stent/heart cath but probably had surgery for aneurysm.? On chest x-ray it looks patient had open heart surgery.? Previous record shows patient had echo in November 2011 reported as EF 65%, moderate concentric LVH, mild LA enlargement, mild MR, RVSP 20 mmHg.? Overall suggest she had chronic HFpEF. ?heart failure.? She had negative pharmacological nuclear stress test.? BNP high.? Started on furosemide drip.? 10/02: 2D echo is pending.? Patient on IV heparin drip as troponin is high probably due to demand ischemia because of heart failure kidney failure and hypoxia.? Low-dose beta-emil resumed. 10/03: EF 55 to 60%, mildly dilated RV, LA and RA mildly enlarged. Mild MR and TR. 3.? Abnormal chest x-ray with suspicion of possible pneumonia: Chest x-ray shows consolidation in left hemithorax which may be possible atelectasis or pneumonia.? Since patient is very hypoxic on NIPPV, decided to start empirically antibiotic Zosyn.? Urinary antigens are negative.? Respiratory panel negative.? SARS-CoV-2 and flu rapid antigen negative. 4.? 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 Patient recently diuretic dose increased to 80 mg daily.? Admitted with BUN/creatinine 102/2.5.? Track Announcer consulted. 10/02: Improvement in patient's creatinine.? BUN 94/creatinine 1.91.? Nephrology follow-up appreciated.? INDIRA possible due to cardiorenal disease.? Likely switch to Lasix intermittent tomorrow. 10/03 nephrology consult and follow-up reviewed. Furosemide drip decreased to 5 mg/h 5? Abnormal troponin-possibly demand ischemia from heart failure, kidney injury and hypoxia on EKG without acute ST-T changes.? Mild progressive elevation in serial troponin.? On IV heparin 6. Chronic Lymphedema-following at [facility].? Lasix recently increased to 80 mg daily without increase in urine output actually 8 dropped.? Nicko wraps bilater al lower extremities.? Lasix drip per above. 7.? Patient history of open heart surgery.? She had possible aneurysm but details unclear.? Patient does not remember well, states surgery was done many y ears ago.-on metoprolol, statin. 8. Hyperlipidemia-continue statin.? Lipid profile LDL 39, TC 116.? Magnesium 1.6. 9. Gout-hold allopurinol. 10. Hypothyroidism-continue Synthroid regimen.? TSH 3.84. 11. Chronic iron deficiency anemia-? patient follows [employer] Dr. Mendoza and gets iron transfusion Total time of the visit including total time spent in counseling or coordination of care, (more than 50% of the total time, spent in obtaining medical information from nurses and other ancillary care providers,explaining to the patient about labs, imaging, diagnosis and management), discussion with multiple consultants, review of labs and imaging is? 40 minutes. Living will/advanced directive/end of life care: As per the patient's friend, she might have living will but was protective.? Her niece is power of personal injury attorney for health. ? After discussion of benefits/risks procedures involved with? full code, DNR CC arrest and DNR CC, the patient states she full code but probably she might not have understood because of respiratory failure and BiPAP.? Discussed with POA.? For now full code Patient? does want artificial life support including intubation, tube feed, ventilator and/chest compression, central venous catheter, vasopressor and DC shock if needed ?? I have discussed my assessment with Estella HAWLEY and orders have been reviewed. Charges/Coding Visit Charges Inpatient E&M: 23428 Subs Hosp L3
[2021-10-03] MEDS: Acetaminophen 325 MG Tablet 650 MG PO (19:51)
[2021-10-04] VITALS (13 sets, daily range): BP systolic 98–108; BP diastolic 41–52; PULSE 64–72; RESP 16–20; TEMP 36.3–36.8; O2SAT 92–96
[2021-10-04] MEDS: Morphine 2 MG/ML Syringe IV (00:09)
[2021-10-04] MEDS: 0.9% Saline Lock 10 ML Syringe IV ×5 (00:10→20:34)
[2021-10-04 04:52] LABS: Absolute Neutrophil Count 5.3 X10^3/uL (2.0-7.7); Basophil# 0.02 X10^3/uL; Basophil% 0.3 % (0-1); Eosinophil# 0.34 X10^3/uL; Eosinophils% 4.7 % (0-5); Hematocrit 37.9 % (37-47); Hemoglobin 10.8 g/dL (12.0-15.0); Mean Corp Hgb Conc 28.5 g/dL (32-36); Mean Corpuscular Hgb 30.1 pg (27.0-32.0); Mean Corpuscular Volume 105.6 fL (81-99); Mean Platelet Vol. 11.1 fl (6.2-12.0); Monocyte# 0.77 X10^3/uL; Monocyte% 10.6 % (0-10); NRBC Flagged by Analyzer 0 % (0-5); POSITIVE MORPHOLOGY YES; Platelet Count 128 K/mm3 (150-450); RBC Distribution Width CV 17.8 % (11.6-14.6); RBC Distribution Width SD 67.4 fl (35.1-43.9); Red Blood Count 3.59 M/mm3 (4.2-5.4); White Blood Count 7.3 K/mm3 (4.4-11.0)
[2021-10-04 04:58] LABS: Differential Indicated SCAN CRITERIA MET
[2021-10-04] MEDS: Levothyroxine 75 MCG Tablet PO (05:04)
[2021-10-04 05:25] LABS: Anion Gap 7 (5-15); BUN 109 mg/dL (7-18); BUN/Creat Ratio 57.1 RATIO (10-20); Calcium,Total 8.8 mg/dL (8.5-10.1); Chloride 101 mmol/L (98-107); Creatinine, Serum 1.91 mg/dL (0.55-1.02); EST Glomerular Filtration Rate 27 mL/min (>60); Est Glom Filt Rate - Afr Amer 32 mL/min (>60); Estimated Creatinine Clearance 16.55 ml/min; Glucose 154 mg/dL (74-106); Magnesium 1.8 mg/dL (1.6-2.6); Potassium 5.1 mmol/L (3.5-5.1); Sodium Level 139 mmol/L (136-145)
[2021-10-04 05:27] LABS: Partial Thromboplast Time 142.9 Seconds (24.1-36.2)
--- NOTE | 2021-10-04 06:23 | NURSING ---
all documentation completed by Chandan Ventura RN reviewed by this RN
[2021-10-04 06:47] LABS: Anisocytosis 2+; Differential Comment SCANNED; Hypochromasia 1+; Macrocytosis 2+
[2021-10-04] MEDS: Nystatin Powder 15gm Bottle 1 APPLIC TOPICAL ×2 (10:10→21:56)
[2021-10-04] MEDS: Cholecalciferol (VIT D3) 25 MCG TABLET (1,000 UNITS) 50 MCG PO (10:10)
[2021-10-04] MEDS: Aspirin E.C. 81 MG Tablet PO (10:10)
[2021-10-04] MEDS: Metoprolol Tartrate 25 MG Tablet 12.5 MG PO ×2 (10:10→21:57)
[2021-10-04] MEDS: Pantoprazole Sodium 40 MG Tablet PO (10:10)
[2021-10-04] MEDS: Allopurinol 300 MG Tablet PO (10:10)
[2021-10-04] MEDS: Heparin Injection (Vial) 5,000 UNIT/ML VIAL 5000 UNIT SC ×2 (10:10→21:56)
--- NOTE | 2021-10-04 10:33 | PCM.PN.HOSP ---
Documented by User: Estella Trammell NP, DOLPHIN RESEARCHER-C 10/04/21 10:38 Subjective Subjective Patient seen and examined. No acute events overnight. Denies current symptoms or complaints. Reports continued improvement in breathing and swelling. Objective Data Objective Data Vital Signs: Vital Signs Temp Pulse Resp BP Pulse Ox O2 Del Method O2 Flow Rate 97.4 F L 71 18 103/48 L 94 Nasal Cannula 2 10/04/21 10:10/04/21 10:10/04/21 10:10/04/21 10:10 10/04/21 10:05 10/04/21 10:05 10/04/21 10:05 FiO2 96 10/02/21 22:00 Oxygen Flow Rate (L/min) 2 Oxygen Delivery Method Nasal Cannula Weight: 236 lb 12.423 oz Body Mass Index (BMI) 45.3 Intake & Output: Intake and Output for Last 24 Hours 10/02/21 10/03/21 10/04/21 23:59 23:59 23:59 Intake Total 860 / 960 1271.83 / 1271.83 130.67 / 130.67 Output Total 1880 / 2000 1115 / 1165 250 / 250 Balance -1020 / -1040 156.83 / 106.83 -119.33 / -119.33 Lab / Micro Data Result Diagrams: 10/04/21 04:40 10/04/21 04:40 Labs: Laboratory Results - last 24 hr 10/04/21 04:40: WBC 7.3, RBC 3.59 L, Hgb 10.8 L, Hct 37.9, MCV 105.6 H, MCH 30.1, MCHC 28.5 L, RDW Std Deviation 67.4 H, RDW Coeff of Steven 17.8 H, Plt Count 128 L, MPV 11.1, Immature Gran % (Auto) 0.400, Neut % (Auto) 73.0 H, Lymph % (Auto) 11.0 L, [place] % (Auto) 10.6 H, Eos % (Auto) 4.7, Baso % (Auto) 0.3, Absolute Neuts (auto) 5.3, Absolute Lymphs (auto) 0.80 L, Nucleated RBC % 0, Differential Comment SCANNED, Hypochromasia 1+, Anisocytosis 2+, Macrocytosis 2+ 10/04/21 04:40: Sodium 139, Potassium 5.1, Chloride 101, Carbon Dioxide 31.0, Anion Gap 7, BUN 109 H*, Creatinine 1.91 H, Estim Creat Clear Calc 16.55, Est GFR (MDRD) Af Amer 32 L, Est GFR (MDRD) Non-Af 27 L, BUN/Creatinine Ratio 57.1 H, Glucose 154 H, Calcium 8.8, Magnesium 1.8 10/04/21 04:40: APTT 142.9 H* Micro: Microbiology 10/01/21 17:35 Blood Culture (Wb) - Right Hand Blood Culture - Preliminary No growth in 48 hours. 10/01/21 17:20 Blood Culture (Wb) - Anticubital Left Blood Culture - Preliminary No growth in 48 hours. 10/01/21 17:05 Mucosa - Nose Respiratory Panel (PCR) - Final 10/01/21 17:20 Urine Catheter - Velazquez Legionella Antigen - Final 10/01/21 17:20 Urine Catheter - Velazquez Streptococcus pneumoniae Antigen (M - Final 10/01/21 14:50 Nasal Secretion SARS-CoV-2 & FLU Antigen (Rapid) - Final Physical Exam Const alert, oriented x3 and no apparent distress Orientation / Consciousness: awake, oriented to person, oriented to place and oriented to time HEENT normocephalic and moist oral mucous membranes Eyes PERRL, EOMs intact bilaterally and conjunctivae normal Neck no lymphadenopathy Resp clear to auscultation bilaterally Auscultation: diminished lung sounds Cardio regular rate, regular rhythm and no murmurs Peripheral Pulses: pulses 2+ throughout GI normal to inspection, nondistended, normoactive bowel sounds, non-tender and non-distended Extremity normal to inspection General Extremity: edema bilateral lower extremity (Lymphedema) Skin no rashes or lesions noted Lesions: no lesions Rashes: no rashes Trauma: no lacerations or abrasions Neuro CN's II-XII intact bilaterally, no focal motor deficits, no sensory deficits noted and deep tendon reflexes 2+ bilaterally Psych mental status grossly normal and affect normal Assessment & Plan Assessment/Plan (1) Acute respiratory failure with hypoxia and hypercapnia: PLAN: Plan 1. Acute hypoxic respiratory failure secondary to acute heart failure with preserved ejection fraction and possible pneumonia- Chest x-ray consistent with congestion, consolidation in the left hemithorax.? Initially on BiPAP on admission.? Significantly improved with Lasix drip.? Now on 2 L nasal cannula.? Initially placed on IV Zosyn empirically due to suspicious finding on chest x-ray, concerning for pneumonia.? Afebrile.? No leukocytosis. No evidence of infection. Further antibiotics discontinued. 2.? Acute heart failure with preserved ejection fraction-BNP 1632. Strict I&O.? Daily weight.? Nicko wraps bilateral lower extremities.?Cardiology consulted.? Transition from Lasix drip to IV Lasix.? Follow cardiology/nephrology recommendations for Lasix dosing at discharge. Echocardiogram demonstrated an EF of 55 to 60%, pulmonary artery systolic pressure 50 to 55 mmHg. 3.? Acute kidney injury on chronic kidney disease stage IIIb-likely cardiorenal syndrome.? Nephrology following.? Creatinine improved.? Lasix drip transitioned to IV Lasix as noted above. 4.? Abnormal troponin-demand ischemia secondary to #1.? Enzymes did not trend.? EKG without acute ST-T changes.? Echocardiogram per above. 5. Chronic Lymphedema-following at [facility].? Lasix recently increased to 80 mg daily without improvement in symptoms.? Nicko wraps bilateral lower extremities.? Lasix drip per above. 6. CAD with history of CABG-on metoprolol, statin. 7. Hyperlipidemia-continue statin. 8. Gout-hold allopurinol. 9. Hypothyroidism-continue Synthroid regimen.? 10. Chronic anemia- follows with hematology.? Appears stable. DVT prophylaxis- heparin sc This patient was seen by GUILHERME Escalante under the supervision of Dr. Hernandez. Time spent examining patient, reviewing data and subsequent management of care: 12 minutes Documented by User: Dr. Hernan Hernandez MD 10/04/21 15:35 Subjective Subjective Patient seen and examined. No acute events overnight. Denies current symptoms or complaints. Reports continued improvement in breathing and swelling. She has severe Objective Data Lab / Micro Data Result Diagrams: 10/04/21 04:40 10/04/21 04:40 Physical Exam Narrative General: Awake, alert oriented x3. On nasal cannula. HEENT: Atraumatic, PERRLA, EOMI, Normocephalic Oral: On BiPAP, oropharyngeal exam could not be done. Neck: Supple, No JVD, Negative Carotid Bruits Lungs: Air entry severely diminished especially in lower half of left lung. Still has bilateral coarse crepitation but slight improvement. Cardiovascular: Sinus rhythm , Normal S1, Normal S2, systolic murmur LLSB Abdomen: Bowel Sounds Present, Soft, Non Tender, Mild ascites. : Velazquez catheter draining clear urine. No renal angle tenderness. No suprapubic tenderness. Extremities: Anasarca. Bilateral lower extremity lymphedema. Capillary Refill Less than 3 Seconds Skin: Small superficial blister right leg covered with a dressing. Below-knee Nicko wrap bandage. Musculoskeletal: Bilateral shoulder replacement. Bilateral TKR. Muscle strength 3+/5 at major joints. Neurological: Cranial nerves II-XII grossly intact, DTR 2+/4 Psych/Mental Status: Flat affect. Assessment & Plan Assessment/Plan (1) Acute respiratory failure with hypoxia and hypercapnia: PLAN: Plan 1. Acute hypoxic respiratory failure secondary to acute heart failure with preserved ejection fraction and possible pneumonia- Chest x-ray consistent with congestion, consolidation in the left hemithorax.? Initially on BiPAP on admission.? Significantly improved with Lasix drip.? Now on 2 L nasal cannula.? Initially placed on IV Zosyn empirically due to suspicious finding on chest x-ray, concerning for pneumonia.? 2.? Acute heart failure with preserved ejection fraction-BNP 1632. Strict I&O.? Daily weight.? Nicko wraps bilateral lower extremities.?Cardiology consulted.? Transition from Lasix drip to IV Lasix.? Follow cardiology/nephrology recommendations for Lasix dosing at discharge. Echocardiogram demonstrated an EF of 55 to 60%, pulmonary artery systolic pressure 50 to 55 mmHg. 3.? Acute kidney injury on chronic kidney disease stage IIIb-likely cardiorenal syndrome.? Nephrology following.? Creatinine improved.? Lasix drip transitioned to IV Lasix as noted above. 4.? Abnormal troponin-demand ischemia secondary to #1.? Enzymes did not trend.? EKG without acute ST-T changes.? Echocardiogram per above. 5. Chronic Lymphedema-following at [facility].? Lasix recently increased to 80 mg daily without improvement in symptoms.? Nicko wraps bilateral lower extremities.? Lasix drip per above. 6. CAD with history of CABG-on metoprolol, statin. 7. Hyperlipidemia-continue statin. 8. Gout-hold allopurinol. 9. Hypothyroidism-continue Synthroid regimen.? 10. Chronic anemia- follows with hematology.? Appears stable. DVT prophylaxis- heparin sc This patient was seen by ANGELIQUE EscalanteC under the supervision of Dr. Hernandez. Time spent examining patient, reviewing data and subsequent management of care: 12 minutes This patient was seen in conjunction with DOLPHIN RESEARCHEREstella.? I have independently interviewed and examined the patient and reviewed pertinent history, examination findings, laboratory and plan of management.? I have? reviewed the note and agree with the documented findings with the few? additional points. Assessment and plan 1.? Acute hypoxic and hypercarbic respiratory failure mostly due to CHF exacerbation and possible pneumonia: As per caregiver and patient she is not on oxygen or breathing machine.? Animal Control Licensing Worker consult reviewed.? Patient improved overnight on BiPAP.? ABG showed 7.22/75/73 on 2 L of oxygen.? BiPAP as needed.? Continue new oxygen 2.? Acute on chronic heart failure probably diastolic: Patient denies any history of coronary artery disease, DC, angina or cardiac stent/heart cath but probably had surgery for aneurysm.? On chest x-ray it looks patient had open heart surgery.? Previous record shows patient had echo in November 2011 reported as EF 65%, moderate concentric LVH, mild LA enlargement, mild MR, RVSP 20 mmHg.? Overall suggest she had chronic HFpEF. ?heart failure.? She had negative pharmacological nuclear stress test.? BNP high.? Started on furosemide drip.? 10/02: 2D echo is pending.? Patient on IV heparin drip as troponin is high probably due to demand ischemia because of heart failure kidney failure and hypoxia.? Low-dose beta-emil resumed. 10/03: EF 55 to 60%, mildly dilated RV, LA and RA mildly enlarged.? Mild MR and TR. 10/04: Lasix drip tapered off changed to 40 mg IV twice daily. Lung exam is still has significant coarse crepitations. As per the patient's POA this is not her baseline yet although there is improvement in shortness of breath. DNRCC arrest, palliative care consult. Discussed with the record pressman. 3.? Abnormal chest x-ray with suspicion of possible pneumonia: Chest x-ray shows consolidation in left hemithorax which may be possible atelectasis or pneumonia.? Since patient is very hypoxic on NIPPV, decided to start empirically antibiotic Zosyn.? Urinary antigens are negative.? Respiratory panel negative.? SARS-CoV-2 and flu rapid antigen negative. 10/04: The patient did not had fever, blood cultures x2 negative for 48 hours, other respiratory infectious work-up negative as mentioned above therefore IV antibiotic was discontinued on 10/03. 4.? 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 Patient recently diuretic dose increased to 80 mg daily.? Admitted with BUN/creatinine 102/2.5.? Lead Portfolio Manager consulted. 10/02: Improvement in patient's creatinine.? BUN 94/creatinine 1.91.? Nephrology follow-up appreciated.? INDIRA possible due to cardiorenal disease.? Likely switch to Lasix intermittent tomorrow. 10/03 nephrology consult and follow-up reviewed.? Furosemide drip decreased to 5 mg/h 10/04: Discussed with the barrel liner. Agree with above plan. 5? Abnormal troponin-possibly demand ischemia from heart failure, kidney injury and hypoxia on EKG without acute ST-T changes.? Mild progressive elevation in serial troponin.? On IV heparin 6. Chronic Lymphedema-following at [facility].? Lasix recently increased to 80 mg daily without increase in urine output actually 8 dropped.? Nicko wraps bilateral lower extremities.? Lasix drip per above. 7.? Patient history of open heart surgery.? She had possible aneurysm but details unclear.? Patient does not remember well, states surgery was done many years ago.-on metoprolol, statin. 8. Hyperlipidemia-continue statin.? Lipid profile LDL 39, TC 116.? Magnesium 1.6. 9. Gout-hold allopurinol. 10. Hypothyroidism-continue Synthroid regimen.? TSH 3.84. 11. Chronic iron deficiency anemia-? patient follows analytical chemist Dr. Mendoza and gets iron transfusion Total time of the visit including total time spent in counseling or coordination of care, (more than 50% of the total time, spent in obtaining medical information from nurses and other ancillary care providers,explaining to the patient about labs, imaging, diagnosis and management), discussion with multiple consultants, review of labs and imaging is? 40 minutes. Living will/advanced directive/end of life care: I talked to the patient's power of pegger for health, her neice, Mrs. Bryant. After discussion of benefits/risks procedures involved with? full code, DNR CC arrest and DNR CC, she said that she is DNR CC arrest. She has living will/advanced directive. On other days she was not comfortable on BiPAP but the patient said they just put it on. I gave the option of DNR CC arrest with BiPAP/CPAP or DNR CC comfort care. For now she is DNR CC arrest but agreed for palliative care consult. She does not want hospice care. Palliative consulted Patient? doesn't want artificial life support including intubation, tube feed, ventilator and/chest compression, central venous catheter, vasopressor and DC shock if needed ?? I have discussed my assessment with Estella HAWLEY and orders have been reviewed. Charges/Coding Visit Charges Inpatient E&M: 04108 Subs Hosp L3
[2021-10-04] MEDS: Ipratropium/Albuterol Sulfate 3 ML AMPUL.NEB INHALATION (11:25)
--- NOTE | 2021-10-04 12:28 | PN.RENAL_ITS ---
Subjective Subjective Following for INDIRA on CKD. The patient denies chest pain, shortness of breath at rest, or nausea. Appetite is good. Objective Data Objective Data Vital Signs: Vital Signs Temp Pulse Resp BP Pulse Ox O2 Del Method O2 Flow Rate 97.4 F L 68 16 103/48 L 94 Nasal Cannula 2 10/04/21 10:05 10/04/21 11:25 10/04/21 11:25 10/04/21 10:10 10/04/21 10:05 10/04/21 10:05 10/04/21 11:07 FiO2 96 10/02/21 22:00 Oxygen Flow Rate (L/min) 2 Oxygen Delivery Method Nasal Cannula Weight: 107.4 kg Body Mass Index (BMI) 45.3 Intake & Output: Intake and Output for Last 24 Hours 10/02/21 10/03/21 10/04/21 23:59 23:59 23:59 Intake Total 860 / 960 1271.83 / 1271.83 318.94 / 318.94 Output Total 1880 / 2000 1115 / 1165 425 / 425 Balance -1020 / -1040 156.83 / 106.83 -106.06 / -106.06 Lab / Micro Data Result Diagrams: 10/04/21 04:40 10/04/21 04:40 Labs: Laboratory Results - last 24 hr 10/04/21 04:40: WBC 7.3, RBC 3.59 L, Hgb 10.8 L, Hct 37.9, MCV 105.6 H, MCH 30.1, MCHC 28.5 L, RDW Std Deviation 67.4 H, RDW Coeff of Steven 17.8 H, Plt Count 128 L, MPV 11.1, Immature Gran % (Auto) 0.400, Neut % (Auto) 73.0 H, Lymph % (Auto) 11.0 L, [place] % (Auto) 10.6 H, Eos % (Auto) 4.7, Baso % (Auto) 0.3, Absolute Neuts (auto) 5.3, Absolute Lymphs (auto) 0.80 L, Nucleated RBC % 0, Differential Comment SCANNED, Hypochromasia 1+, Anisocytosis 2+, Macrocytosis 2+ 10/04/21 04:40: Sodium 139, Potassium 5.1, Chloride 101, Carbon Dioxide 31.0, Anion Gap 7, BUN 109 H*, Creatinine 1.91 H, Estim Creat Clear Calc 16.55, Est GFR (MDRD) Af Amer 32 L, Est GFR (MDRD) Non-Af 27 L, BUN/Creatinine Ratio 57.1 H , Glucose 154 H, Calcium 8.8, Magnesium 1.8 10/04/21 04:40: APTT 142.9 H* Micro: Microbiology 10/01/21 17:35 Blood Culture (Wb) - Right Hand Blood Culture - Preliminary No growth in 48 hours. 10/01/21 17:20 Blood Culture (Wb) - Anticubital Left Blood Culture - Preliminary No growth in 48 hours. 10/01/21 17:05 Mucosa - Nose Respiratory Panel (PCR) - Final 10/01/21 17:20 Urine Catheter - Velazquez Legionella Antigen - Final 10/01/21 17:20 Urine Catheter - Velazquez Streptococcus pneumoniae Antigen (M - Final 10/01/21 14:50 Nasal Secretion SARS-CoV-2 & FLU Antigen (Rapid) - Final Physical Exam Narrative General: Alert and oriented x3, hard of hearing. Heart: Normal S1, S2. No rubs or murmurs. Lungs: Decreased breath sound at bases bilaterally. Clear to auscultation anteriorly. Abdomen: Normal bowel sound, soft, nontender, no guarding or rebound. Extremities: Both extremities are wrapped in VICTORINO bandage. There is likely 4+ edema bilaterally if bandages taken off. Assessment & Plan Assessment/Plan (1) INDIRA (acute kidney injury): PLAN: Baseline serum creatinine from 1.50 mg/dL. INDIRA is likely due to cardiorenal syndrome. So far, serum creatinine has peaked at 2.15 mg/dL on 10/01/2021. Renal function has stabilized and slightly improved on Lasix drip. Her weight has been coming down each day until today. I am not sure about the accuracy of her weight. Recheck again tomorrow. The patient has been taken off of Lasix drip. She is now on intermittent IV Lasix. However, I think that she would need a higher dose of Lasix for response since her albumin was only 0.9 g/dL (09/21/2021) along with CKD. I will discuss with Dr. Hernandez. There is no need for kidney replacement therapy. Recheck serum creatinine, electrolyte, acid-base status and volume status again tomorrow. (2) Chronic kidney disease, stage 3b: PLAN: The patient has CKD stage IIIb with serum creatinine of 1.50 mg/dL at baseline. We will probably have to tolerate some elevation of serum creatinine above baseline to keep the patient more euvolemic. (3) Hypertension: PLAN: BP is borderline low but stable in the last 24 hours. The patient is not symptomatic. She denies dizziness. Continue diuresis and Metroprolol 12.5 mg twice a day. (4) Lymphedema: PLAN: The patient is getting wrapping therapy to the wound center. Continuing Lasix IV with monitoring of renal function. (5) Gout: PLAN: The patient is on allopurinol. There is no gout flare although we will need to monitor her closely since she is getting relatively high-dose diuretic.
--- NOTE | 2021-10-04 13:30 | PCM.PN.CARD ---
Subjective Subjective The patient is awake and alert. She has been up in the bedside chair. Her stepdaughter has been with her. She believes her breathing is somewhat improved. Her stepdaughter knows that her breathing is still not back to her baseline. She also notes her stepmother has been more tired and fatigued and weak despite receiving her previous IV iron infusion which she states has helped her with her various symptoms in the past. Objective Data Vital Signs: Vital Signs Temp Pulse Resp BP Pulse Ox O2 Del Method O2 Flow Rate 97.4 F L 68 16 103/48 L 94 Nasal Cannula 2 10/04/21 10:05 10/04/21 11:25 10/04/21 11:25 10/04/21 10:10 10/04/21 10:05 10/04/21 10:05 10/04/21 11:07 FiO2 96 10/02/21 22:00 Oxygen Flow Rate (L/min) 2 Oxygen Delivery Method Nasal Cannula Weight: 236 lb 12.423 oz Body Mass Index (BMI) 45.3 Intake & Output: Intake and Output for Last 24 Hours 10/02/21 10/03/21 10/04/21 23:59 23:59 23:59 Intake Total 860 / 960 1271.83 / 1271.83 318.94 / 318.94 Output Total 1880 / 2000 1115 / 1165 425 / 425 Balance -1020 / -1040 156.83 / 106.83 -106.06 / -106.06 Lab / Micro Data Result Diagrams: 10/04/21 04:40 10/04/21 04:40 Labs: Laboratory Results - last 24 hr 10/04/21 04:40: WBC 7.3, RBC 3.59 L, Hgb 10.8 L, Hct 37.9, MCV 105.6 H, MCH 30.1, MCHC 28.5 L, RDW Std Deviation 67.4 H, RDW Coeff of Steven 17.8 H, Plt Count 128 L, MPV 11.1, Immature Gran % (Auto) 0.400, Neut % (Auto) 73.0 H, Lymph % (Auto) 11.0 L, [place] % (Auto) 10.6 H, Eos % (Auto) 4.7, Baso % (Auto) 0.3, Absolute Neuts (auto) 5.3, Absolute Lymphs (auto) 0.80 L, Nucleated RBC % 0, Differential Comment SCANNED, Hypochromasia 1+, Anisocytosis 2+, Macrocytosis 2+ 10/04/21 04:40: Sodium 139, Potassium 5.1, Chloride 101, Carbon Dioxide 31.0, Anion Gap 7, BUN 109 H*, Creatinine 1.91 H, Estim Creat Clear Calc 16.55, Est GFR (MDRD) Af Amer 32 L, Est GFR (MDRD) Non-Af 27 L, BUN/Creatinine Ratio 57.1 H, Glucose 154 H, Calcium 8.8, Magnesium 1.8 10/04/21 04:40: APTT 142.9 H* Micro: Microbiology 10/01/21 17:35 Blood Culture (Wb) - Right Hand Blood Culture - Preliminary No growth in 48 hours. 10/01/21 17:20 Blood Culture (Wb) - Anticubital Left Blood Culture - Preliminary No growth in 48 hours. Cardiology Labs/Tests 10/04/21 04:40: WBC 7.3, RBC 3.59 L, Hgb 10.8 L, Hct 37.9, MCV 105.6 H, MCH 30.1, MCHC 28.5 L, Plt Count 128 L, MPV 11.1, Immature Gran % (Auto) 0.400, Neut % (Auto) 73.0 H, Lymph % (Auto) 11.0 L, [place] % (Auto) 10.6 H, Eos % (Auto) 4.7, Baso % (Auto) 0.3, Absolute Neuts (auto) 5.3, Nucleated RBC % 0 10/04/21 04:40: Sodium 139, Potassium 5.1, Chloride 101, Carbon Dioxide 31.0, Anion Gap 7, BUN 109 H*, Creatinine 1.91 H, Est GFR (MDRD) Af Amer 32 L, Est GFR (MDRD) Non-Af 27 L, BUN/Creatinine Ratio 57.1 H, Glucose 154 H, Calcium 8.8, Magnesium 1.8 10/04/21 04:40: APTT 142.9 H* Rhythm: Sinus rhythm ECHO: Interpretation Summary The estimated ejection fraction is 55-60 %. Unable to assess diastolic dysfunction. Mildly dilated right ventricle. The left atrium is mildly enlarged. The right atrium is mildly enlarged. There is moderate mitral annular calcification. Mild (1+) mitral valve insufficiency. Mild (1+) tricuspid valve insufficiency. Pulmonary artery systolic pressure is 50-55 mmHg. Trivial aortic valve insufficiency. Trivial pulmonic valve insufficiency. Physical Exam Const alert, oriented x3 and no apparent distress HEENT normocephalic and head/scalp atraumatic Eyes PERRL, conjunctivae normal and no scleral icterus Neck full ROM, supple and no JVD Resp Resp Narrative: Diminished inspiratory effort Auscultation: rhonchi throughout and diminished lung sounds bilateral lower Cardio regular rate, regular rhythm, S1 normal heart sound and S2 normal heart sound Extremity Extremity Narrative: Positive bilateral lower extremity peripheral pitting edema: Positive bilateral lower extremity Nicko wraps General Extremity: edema bilateral lower extremity (Positive bilateral lower extremity Nicko wraps) Details: moderate Psych mental status grossly normal Assessment & Plan Assessment/Plan (1) Acute exacerbation of congestive heart failure: PLAN: The patient was evaluated by Dr. Traore with concerns of acute CHF thought to be related to heart failure with preserved ejection fraction based upon the transthoracic echocardiographic studies. The patient is being treated medically. This is included the addition of IV furosemide-continuous infusion which is going to be transition to pulse dose furosemide infusion. At the present time the patient believes her breathing is somewhat improved. However, on examination she appears to have scattered rhonchi and diminished breath sounds. At the present time she will continue to be monitored. She will continue her IV diuretic therapy. Her other medications will be optimized as tolerated. Depending upon her future clinical course consideration will be given as to whether or not she is a candidate for any additional noninvasive or invasive cardiovascular studies. (2) Lymphedema: PLAN: The patient is reported as having a history of lymphedema. She has been on medical therapy. She has been evaluated by the wound center. She has received bilateral lower extremity wound care and Nicko wraps. (3) INDIRA (acute kidney injury): PLAN: It appears the patient has had issues of acute on chronic renal insufficiency. Her creatinine level remains elevated. This will need to be followed as she goes through her medication adjustments. This would also have to be taken into consideration as to whether or not she would be a candidate for any type of invasive cardiovascular studies requiring IV contrast based upon concerns of IV contrast related nephropathy. (4) Hyperlipidemia: PLAN: The patient will continue lipid-lowering therapy. (5) Hypertension: PLAN: The patient's blood pressure will need to be followed with adjustment of her medications taken into consideration her clinical course, vital signs, and renal insufficiency. Addt'l Comments Overall, the patient is going to continue medical management. A concern is the long-term evaluation and care of the patient. She does not appear to be an ideal candidate for aggressive invasive cardiovascular evaluation or care. Thus consideration may have to be given to long-term conservative medical management including consideration to palliative care, etc. The patient's case has been discussed and reviewed with the patient, her stepdaughter, Dr. Hernandez, and Dr. Mullins. Dr. Hernandez will be discussing with the patient's family members her long-term evaluation and care plans. This note was generated using a voice recognition system and there may be incorrect words, spelling or punctuation that were not noted when reviewing the office note prior to saving. Procedure Criteria Type of Procedure Procedure Type: Elective Elective Risks - COVID COVID Risk Discussion: The surgeon/proceduralist and patient have discussed in detail the risk of exposure to and/or potential harm posed by the COVID-19 virus with having a surgery/procedure at this time versus the risk of delaying the surgery/procedure. It is not possible to know either the risk of delaying the surgery or procedure or chance of getting an infection with perfect accuracy, but a joint decision was made between the patient and the surgeon/proceduralist to proceed at this time with the scheduled surgery/procedure as indicated on the consent form.
[2021-10-04] MEDS: oxyCODONE 5 MG Tablet PO (15:25)
[2021-10-04] MEDS: Furosemide 40 MG/4 ML Vial IV (17:17)
[2021-10-04] MEDS: Pravastatin 40 MG Tablet PO (21:58)
[2021-10-05] VITALS (10 sets, daily range): BP systolic 102–117; BP diastolic 45–57; PULSE 69–96; RESP 18; TEMP 36.4–36.6; O2SAT 93–95
[2021-10-05] MEDS: Levothyroxine 75 MCG Tablet PO (05:30)
[2021-10-05 06:41] LABS: Absolute Lymphocyte Count 0.64 X10^3/uL (0.83-4.51); Absolute Neutrophil Count 5.5 X10^3/uL (2.0-7.7); Basophil# 0.01 X10^3/uL; Basophil% 0.1 % (0-1); Eosinophil# 0.32 X10^3/uL; Eosinophils% 4.4 % (0-5); Hematocrit 36.7 % (37-47); Hemoglobin 10.5 g/dL (12.0-15.0); Lymphocyte # 0.64 X10^3/ul (0.83-4.51); Lymphocyte % 8.8 % (19-41); Mean Corp Hgb Conc 28.6 g/dL (32-36); Mean Corpuscular Hgb 29.7 pg (27.0-32.0); Mean Corpuscular Volume 103.7 fL (81-99); Mean Platelet Vol. 12.1 fl (6.2-12.0); Monocyte# 0.75 X10^3/uL; Monocyte% 10.3 % (0-10); NRBC Flagged by Analyzer 0.3 % (0-5); Neutrophil % 75.8 % (47-70); POSITIVE MORPHOLOGY YES; Platelet Count 120 K/mm3 (150-450); RBC Distribution Width CV 17.7 % (11.6-14.6); RBC Distribution Width SD 66.7 fl (35.1-43.9); Red Blood Count 3.54 M/mm3 (4.2-5.4); White Blood Count 7.3 K/mm3 (4.4-11.0)
[2021-10-05 06:45] LABS: Differential Indicated SCAN CRITERIA MET
--- NOTE | 2021-10-05 06:48 | NURSING ---
all documentation completed by Mio MEYER reviewed by this RN
--- NOTE | 2021-10-05 06:55 | PN.CARD_ITS ---
Subjective Subjective The patient is awake and alert. She believes her breathing is somewhat improved. She is still concerned about her lower extremity edema and the need for continued wound care. She states she would consider transitioning from the [facility] acute care to a [facility] transitional care type facility to assist with her lower extremity wound care. Objective Data Vital Signs: Vital Signs Temp Pulse Resp BP Pulse Ox O2 Del Method O2 Flow Rate 97.8 F 69 18 102/45 L 95 Nasal Cannula 2 10/05/21 03:00 10/05/21 03:00 10/05/21 03:00 10/05/21 03:00 10/05/21 03:00 10/05/21 03:45 10/05/21 03:45 FiO2 96 10/02/21 22:00 Oxygen Flow Rate (L/min) 2 Oxygen Delivery Method Nasal Cannula Weight: 237 lb 7.005 oz Body Mass Index (BMI) 45.3 Intake & Output: Intake and Output for Last 24 Hours 10/03/21 10/04/21 10/05/21 23:59 23:59 23:59 Intake Total 1271.83 / 1271.83 718.94 / 718.94 Output Total 1115 / 1165 575 / 825 375 / 375 Balance 156.83 / 106.83 143.94 / -106.06 -375 / -375 Lab / Micro Data Result Diagrams: 10/05/21 06:01 10/04/21 04:40 Labs: Laboratory Results - last 24 hr 10/05/21 06:01: WBC 7.3, RBC 3.54 L, Hgb 10.5 L, Hct 36.7 L, MCV 103.7 H, MCH 29.7, MCHC 28.6 L, RDW Std Deviation 66.7 H, RDW Coeff of Steven 17.7 H, Plt Count 120 L, MPV 12.1 H, Immature Gran % (Auto) 0.600, Neut % (Auto) 75.8 H, Lymph % (Auto) 8.8 L, [place] % (Auto) 10.3 H, Eos % (Auto) 4.4, Baso % (Auto) 0.1, Ab solute Neuts (auto) 5.5, Absolute Lymphs (auto) 0.64 L, Nucleated RBC % 0.3 Micro: Microbiology 10/01/21 17:35 Blood Culture (Wb) - Right Hand Blood Culture - Preliminary No growth in 48 hours. 10/01/21 17:20 Blood Culture (Wb) - Anticubital Left Blood Culture - Preliminary No growth in 48 hours. Cardiology Labs/Tests 10/05/21 06:01: WBC 7.3, RBC 3.54 L, Hgb 10.5 L, Hct 36.7 L, MCV 103.7 H, MCH 29.7, MCHC 28.6 L, Plt Count 120 L, MPV 12.1 H, Immature Gran % (Auto) 0.600, Neut % (Auto) 75.8 H, Lymph % (Auto) 8.8 L, [place] % (Auto) 10.3 H, Eos % (Auto) 4.4, Baso % (Auto) 0.1, Absolute Neuts (auto) 5.5, Nucleated RBC % 0.3 Rhythm: Sinus rhythm Physical Exam Const alert, oriented x3 and no apparent distress HEENT normocephalic and head/scalp atraumatic HEENT Narrative: Hearing grossly impaired Eyes PERRL, conjunctivae normal and no scleral icterus Neck full ROM, supple and no JVD Resp Resp Narrative: Diminished inspiratory effort Auscultation: wheezes scattered wheezes and diminished lung sounds bilateral lower Cardio regular rate, regular rhythm, S1 normal heart sound and S2 normal heart sound Extremity Extremity Narrative: Positive bilateral lower extremity peripheral pitting edema: Positive bilateral lower extremity Nicko wraps General Extremity: edema bilateral lower extremity (Positive bilateral lower extremity Nicko wraps) Details: moderate Psych mental status grossly normal Assessment & Plan Assessment/Plan (1) Acute exacerbation of congestive heart failure: PLAN: The patient was evaluated by Dr. Traore with concerns of acute CHF thought to be related to heart failure with preserved ejection fraction based upon the transthoracic echocardiographic studies. The patient is being treated medically. This has included IV furosemide both in a continuous infusion with subsequent change to a pulsed dose therapy. At the present time the patient believes her breathing is somewhat improved. However, on examination she appears to have scattered wheezes and diminished breath sounds. At the present time she will continue to be monitored. She will continue her IV diuretic therapy. She will be requested to have a dose of IV Diuril in an attempt to increase her diuresis with the hopes of improving her overall clinical condition-pulmonary state and potentially her lower extremity edema to some degree. As noted before she does not appear to be an ideal candidate for further invasive evaluation or care. (2) Lymphedema: PLAN: The patient is reported as having a history of lymphedema. She has been on medical therapy. She has been evaluated by the wound center. She has received bilateral lower extremity wound care and Nicko wraps. This morning she states she would be willing to consider going to a [facility] transitional care type unit for continued assistance including of her lower extremities. (3) INDIRA (acute kidney injury): PLAN: It appears the patient has had issues of acute on chronic renal insufficiency. Her creatinine levels are being followed. (4) Hyperlipidemia: PLAN: The patient will continue lipid-lowering therapy. (5) Hypertension: PLAN: The patient's blood pressure will need to be followed with adjustment of her medications taken into consideration her clinical course, vital signs, and renal insufficiency. Leni'l Comments She is also pending further evaluation by palliative care. Procedure Criteria Type of Procedure Procedure Type: Elective Elective Risks - COVID COVID Risk Discussion: The surgeon/proceduralist and patient have discussed in detail the risk of exposure to and/or potential harm posed by the COVID-19 virus with having a surgery/procedure at this time versus the risk of delaying the surgery/procedure. It is not possible to know either the risk of delaying the surgery or procedure or chance of getting an infection with perfect accuracy, but a joint decision was made between the patient and the surgeon/proceduralist to proceed at this time with the scheduled surgery/procedure as indicated on the consent form.
[2021-10-05 07:04] LABS: Differential Comment SCANNED; Macrocytosis 1+
[2021-10-05 07:26] LABS: Anion Gap 5 (5-15); BUN 113 mg/dL (7-18); BUN/Creat Ratio 57.1 RATIO (10-20); Chloride 102 mmol/L (98-107); Creatinine, Serum 1.98 mg/dL (0.55-1.02); EST Glomerular Filtration Rate 26 mL/min (>60); Est Glom Filt Rate - Afr Amer 31 mL/min (>60); Estimated Creatinine Clearance 15.96 ml/min; Glucose 117 mg/dL (74-106); Potassium 5.3 mmol/L (3.5-5.1); Sodium Level 138 mmol/L (136-145)
[2021-10-05] MEDS: Furosemide 40 MG/4 ML Vial IV (10:00)
[2021-10-05] MEDS: Heparin Injection (Vial) 5,000 UNIT/ML VIAL 5000 UNIT SC ×2 (10:00→20:39)
[2021-10-05] MEDS: Allopurinol 300 MG Tablet PO (10:07)
[2021-10-05] MEDS: Nystatin Powder 15gm Bottle 1 APPLIC TOPICAL ×2 (10:08→20:41)
[2021-10-05] MEDS: Cholecalciferol (VIT D3) 25 MCG TABLET (1,000 UNITS) 50 MCG PO (10:08)
[2021-10-05] MEDS: Metoprolol Tartrate 25 MG Tablet 12.5 MG PO ×2 (10:09→20:39)
[2021-10-05] MEDS: 0.9% Saline Lock 10 ML Syringe IV ×3 (10:11→20:41)
[2021-10-05] MEDS: Aspirin E.C. 81 MG Tablet PO (10:13)
[2021-10-05] MEDS: Pantoprazole Sodium 40 MG Tablet PO (10:13)
--- NOTE | 2021-10-05 12:09 | PCM.PN.REN ---
Subjective Subjective Following for INDIRA on CKD. The patient complained of diarrhea earlier today. She denies current chest pain. There is no nausea or vomiting. There is no increasing shortness of breath. Objective Data Objective Data Vital Signs: Vital Signs Temp Pulse Resp BP Pulse Ox O2 Del Method O2 Flow Rate 97.6 F L 95 18 115/50 L 95 Nasal Cannula 2 10/05/21 09:00 10/05/21 10:09 10/05/21 09:00 10/05/21 09:00 10/05/21 09:00 10/05/21 10:00 10/05/21 11:49 FiO2 96 10/02/21 22:00 Oxygen Flow Rate (L/min) 2 Oxygen Delivery Method Nasal Cannula Weight: 107.7 kg Body Mass Index (BMI) 45.3 Intake & Output: Intake and Output for Last 24 Hours 10/03/21 10/04/21 10/05/21 23:59 23:59 23:59 Intake Total 1271.83 / 1271.83 718.94 / 718.94 Output Total 1115 / 1165 575 / 825 375 / 375 Balance 156.83 / 106.83 143.94 / -106.06 -375 / -375 Lab / Micro Data Result Diagrams: 10/05/21 06:01 10/05/21 06:01 Labs: Laboratory Results - last 24 hr 10/05/21 06:01: WBC 7.3, RBC 3.54 L, Hgb 10.5 L, Hct 36.7 L, MCV 103.7 H, MCH 29.7, MCHC 28.6 L, RDW Std Deviation 66.7 H, RDW Coeff of Steven 17.7 H, Plt Count 120 L, MPV 12.1 H, Immature Gran % (Auto) 0.600, Neut % (Auto) 75.8 H, Lymph % (Auto) 8.8 L, [place] % (Auto) 10.3 H, Eos % (Auto) 4.4, Baso % (Auto) 0.1, Absolute Neuts (auto) 5.5, Absolute Lymphs (auto) 0.64 L, Nucleated RBC % 0.3, Differential Comment SCANNED, Macrocytosis 1+ 10/05/21 06:01: Sodium 138, Potassium 5.3 H, Chloride 102, Carbon Dioxide 31.0, Anion Gap 5, BUN 113 H*, Creatinine 1.98 H, Estim Creat Clear Calc 15.96, Est GFR (MDRD) Af Amer 31 L, Est GFR (MDRD) Non-Af 26 L, BUN/Creatinine Ratio 57.1 H, Glucose 117 H, Calcium 9.0 10/05/21 06:01: Albumin 3.0 L Micro: Microbiology 10/01/21 17:35 Blood Culture (Wb) - Right Hand Blood Culture - Preliminary No growth in 48 hours. 10/01/21 17:20 Blood Culture (Wb) - Anticubital Left Blood Culture - Preliminary No growth in 48 hours. 10/01/21 17:05 Mucosa - Nose Respiratory Panel (PCR) - Final 10/01/21 17:20 Urine Catheter - Velazquez Legionella Antigen - Final 10/01/21 17:20 Urine Catheter - Velazquez Streptococcus pneumoniae Antigen (M - Final 10/01/21 14:50 Nasal Secretion SARS-CoV-2 & FLU Antigen (Rapid) - Final Physical Exam Narrative General: Alert and oriented x3, hard of hearing. Heart: Normal S1, S2. No rubs or murmurs. Lungs: Decreased breath sound at bases bilaterally. Abdomen: Normal bowel sound, soft, nontender, no guarding or rebound. Extremities: Both extremities are wrapped in VICTORINO bandage. There is likely 4+ edema bilaterally if bandages taken off. Assessment & Plan Assessment/Plan (1) INDIRA (acute kidney injury): PLAN: Baseline serum creatinine from 1.50 mg/dL. INDIRA is likely due to cardiorenal syndrome. So far, serum creatinine has peaked at 2.15 mg/dL on 10/01/2021. Renal function has stabilized and slightly improved on Lasix drip. The patient has been taken off of Lasix drip. She is now on intermittent IV Lasix. However, response to intermittent IV Lasix is not as robust as with Lasix drip. I will try a higher dose of IV intermittent Lasix and more frequently. Since her serum albumin is very low at 0.9 g/dL, she may be somewhat resistant to diuretic. There is no need for kidney replacement therapy. I did speak to the patient's niece who is the POA yesterday about the possible course of cardiorenal INDIRA including possible need for dialysis. However, I do not recommend dialysis in her case given drastic change in quality of life this would impose. Agree with consulting palliative care for their expert opinion as well. Recheck serum creatinine, electrolyte, acid-base status and volume status again tomorrow. (2) Chronic kidney disease, stage 3b: PLAN: The patient has CKD stage IIIb with serum creatinine of 1.50 mg/dL at baseline. We will probably have to tolerate some elevation of serum creatinine above baseline to keep the patient more euvolemic. (3) Hypertension: PLAN: BP is stable in the last 24 hours. The patient is not symptomatic. She denies dizziness. Continue diuresis and Metroprolol 12.5 mg twice a day. Given stable BP, she should be able to tolerate higher dose of IV Lasix. (4) Lymphedema: PLAN: The patient is getting wrapping therapy to the wound center. Continuing Lasix IV with monitoring of renal function. (5) Gout: PLAN: The patient is on allopurinol. There is no gout flare although we will need to monitor her closely since she is getting relatively high-dose diuretic.
--- NOTE | 2021-10-05 12:11 | PN.HOSP_ITS ---
Documented by User: Estella Trammell NP, PANTOGRAPH OPERATOR-C 10/05/21 12:20 Subjective Subjective Patient seen and examined. Reports diarrhea. Patient denies shortness of breath. Amenable to TCU at discharge. Objective Data Objective Data Vital Signs: Vital Signs Temp Pulse Resp BP Pulse Ox O2 Del Method O2 Flow Rate 97.6 F L 95 18 115/50 L 95 Nasal Cannula 2 10/05/21 09:00 10/05/21 10:09 10/05/21 09:00 10/05/21 09:00 10/05/21 09:00 10/05/21 10:00 10/05/21 11:49 FiO2 96 10/02/21 22:00 Oxygen Flow Rate (L/min) 2 Oxygen Delivery Method Nasal Cannula Weight: 237 lb 7.005 oz Body Mass Index (BMI) 45.3 Intake & Output: Intake and Output for Last 24 Hours 10/03/21 10/04/21 10/05/21 23:59 23:59 23:59 Intake Total 1271.83 / 1271.83 718.94 / 718.94 Output Total 1115 / 1165 575 / 825 375 / 375 Balance 156.83 / 106.83 143.94 / -106.06 -375 / -375 Lab / Micro Data Result Diagrams: 10/05/21 06:01 10/05/21 06:01 Labs: Laboratory Results - last 24 hr 10/05/21 06:01: WBC 7.3, RBC 3.54 L, Hgb 10.5 L, Hct 36.7 L, MCV 103.7 H, MCH 29.7, MCHC 28.6 L, RDW Std Deviation 66.7 H, RDW Coeff of Steven 17.7 H, Plt Count 120 L, MPV 12.1 H, Immature Gran % (Auto) 0.600, Neut % (Auto) 75.8 H, Lymph % (Auto) 8.8 L, [place] % (Auto) 10.3 H, Eos % (Auto) 4.4, Baso % (Auto) 0.1, Absolute Neuts (auto) 5.5, Absolute Lymphs (auto) 0.64 L, Nucleated RBC % 0.3, Differential Comment SCANNED, Macrocytosis 1+ 10/05/21 06:01: Sodium 138, Potassium 5.3 H, Chloride 102, Carbon Dioxide 31.0, Anion Gap 5, BUN 113 H*, Creatinine 1.98 H, Estim Creat Clear Calc 15.96, Est GFR (MDRD) Af Amer 31 L, Est GFR (MDRD) Non-Af 26 L, BUN/Creatinine Ratio 57.1 H , Glucose 117 H, Calcium 9.0 10/05/21 06:01: Albumin 3.0 L Micro: Microbiology 10/01/21 17:35 Blood Culture (Wb) - Right Hand Blood Culture - Preliminary No growth in 48 hours. 10/01/21 17:20 Blood Culture (Wb) - Anticubital Left Blood Culture - Preliminary No growth in 48 hours. 10/01/21 17:05 Mucosa - Nose Respiratory Panel (PCR) - Final 10/01/21 17:20 Urine Catheter - Velazquez Legionella Antigen - Final 10/01/21 17:20 Urine Catheter - Velazquez Streptococcus pneumoniae Antigen (M - Final 10/01/21 14:50 Nasal Secretion SARS-CoV-2 & FLU Antigen (Rapid) - Final Physical Exam Const alert and oriented x3 HEENT normocephalic and moist oral mucous membranes Eyes PERRL, EOMs intact bilaterally and conjunctivae normal Neck no lymphadenopathy Resp clear to auscultation bilaterally Auscultation: diminished lung sounds Cardio regular rate, regular rhythm and no murmurs Peripheral Pulses: pulses 2+ throughout GI normal to inspection, nondistended, normoactive bowel sounds, non-tender and non-distended Extremity normal to inspection General Extremity: edema bilateral lower extremity (Lymphedema, Nicko wraps in place) Skin no rashes or lesions noted Lesions: no lesions Rashes: no rashes Trauma: no lacerations or abrasions Neuro CN's II-XII intact bilaterally, no focal motor deficits, no sensory deficits noted and deep tendon reflexes 2+ bilaterally Psych mental status grossly normal and affect normal Assessment & Plan Assessment/Plan (1) Acute respiratory failure with hypoxia and hypercapnia: PLAN: Plan 1. Acute hypoxic respiratory failure secondary to acute heart failure with preserved ejection fraction and possible pneumonia- Chest x-ray consistent with congestion, consolidation in the left hemithorax.? Initially on BiPAP on admission.? Significantly improved with Lasix drip.? Now on 2 L nasal cannula.? Initially placed on IV Zosyn empirically due to suspicious finding on chest x- ray, concerning for pneumonia.? Afebrile.? No leukocytosis.? No evidence of infection.? Further antibiotics discontinued. 2.? Acute heart failure with preserved ejection fraction-BNP 1632. Strict I&O.? Daily weight.? Nicko wraps bilateral lower extremities.?Cardiology consulted.? Transition from Lasix drip to IV Lasix.? Follow cardiology/nephrology recommendations for Lasix dosing at discharge.? Echocardiogram demonstrated an EF of 55 to 60%, pulmonary artery systolic pressure 50 to 55 mmHg. 3.? Acute kidney injury on chronic kidney disease stage IIIb-likely cardiorenal syndrome.? Nephrology following.? Continue IV lasix. Per nephrology, if patient is not able to manage fluid balance with reduced diuretics, dialysis may be indicated. However, due to age and co-morbidities, this is not recommended. Palliative consulted. Will discuss with patient and niece ongoing plan of care. 4.? Abnormal troponin-demand ischemia secondary to #1.? Enzymes did not trend.? EKG without acute ST-T changes.? Echocardiogram per above. 5. Chronic Lymphedema-following at [facility] center.? Lasix recently increased to 80 mg daily without improvement in symptoms.? Nicko wraps bilateral lower extremities.? IV lasix per above. 6. CAD with history of CABG-on metoprolol, statin. 7. Hyperlipidemia-continue statin. 8. Gout-hold allopurinol. 9. Hypothyroidism-continue Synthroid regimen.? 10. Chronic anemia- follows with hematology.? Appears stable. DVT prophylaxis- heparin sc This patient was seen by GUILHERME Escalante under the supervision of Dr. John. Time spent examining patient, reviewing data and subsequent management of care: 14 minutes Documented by User: Dr. Quinten John MD 10/05/21 16:04 Objective Data Lab / Micro Data Result Diagrams: 10/05/21 06:01 10/05/21 06:01 Assessment & Plan Assessment/Plan (1) Acute respiratory failure with hypoxia and hypercapnia: Charges/Coding Addendum Addendum: Addendum: Dr. John I personally examined the patient and reviewed the chart. I agree with the above. All closures 6-year-old female presented to the hospital with shortness of breath and increased lower extremity edema. She was started on Lasix as an outpatient and this had been increased to about 80 mg daily without any imp rovement in her swelling so she was transition to a Lasix drip and she had significant diuresis with this however a Lasix drip can be continued so she has been dropped down to bolus dosing today and will monitor. In discussion with nephrology, if the bolus Lasix does not work she may need dialysis however given her age and all of her other medical conditions dialysis is not something that they recommend. Clinical time spent in all aspects of patient care: 18 minutes Visit Charges Inpatient E&M: 90492 Subs Hosp L2
[2021-10-05] MEDS: Furosemide 40 MG/4 ML Vial 60 MG IV ×2 (14:23→20:40)
[2021-10-05] MEDS: Pravastatin 40 MG Tablet PO (20:39)
[2021-10-06] VITALS (13 sets, daily range): BP systolic 96–131; BP diastolic 53–65; PULSE 61–110; RESP 18–28; TEMP 36.5–36.9; O2SAT 91–95
--- NOTE | 2021-10-06 02:50 | NURSING ---
Pt Gets confused at night. Pt told nurse she was looking for a round disk to put on her nieces finger. They need to take her to the md and have it applied. Tried reorient pt but she just said you think i am crazy. I and sole assessor looked all over for this disk and nothing found
[2021-10-06] MEDS: Levothyroxine 75 MCG Tablet PO (05:20)
[2021-10-06] MEDS: Furosemide 40 MG/4 ML Vial 60 MG IV ×3 (05:20→20:59)
[2021-10-06] MEDS: 0.9% Saline Lock 10 ML Syringe IV ×3 (05:20→21:04)
[2021-10-06 05:58] LABS: Absolute Neutrophil Count 4.8 X10^3/uL (2.0-7.7); Basophil# 0.02 X10^3/uL; Basophil% 0.3 % (0-1); Eosinophils% 7.6 % (0-5); Hematocrit 34.1 % (37-47); Hemoglobin 9.9 g/dL (12.0-15.0); Lymphocyte % 9.1 % (19-41); Mean Corpuscular Hgb 29.7 pg (27.0-32.0); Mean Corpuscular Volume 102.4 fL (81-99); Mean Platelet Vol. 12.1 fl (6.2-12.0); Monocyte# 0.64 X10^3/uL; Monocyte% 9.7 % (0-10); NRBC Flagged by Analyzer 0 % (0-5); Neutrophil # 4.81 X10^3/uL (2.7-7.7); POSITIVE DIFFERENTIAL YES; Platelet Count 120 K/mm3 (150-450); RBC Distribution Width CV 17.5 % (11.6-14.6); RBC Distribution Width SD 63.6 fl (35.1-43.9); Red Blood Count 3.33 M/mm3 (4.2-5.4); White Blood Count 6.6 K/mm3 (4.4-11.0)
[2021-10-06 06:13] LABS: Differential Indicated SCAN CRITERIA MET
[2021-10-06 06:57] LABS: Anion Gap 6 (5-15); BUN 114 mg/dL (7-18); BUN/Creat Ratio 63.3 RATIO (10-20); Chloride 101 mmol/L (98-107); EST Glomerular Filtration Rate 29 mL/min (>60); Est Glom Filt Rate - Afr Amer 34 mL/min (>60); Estimated Creatinine Clearance 17.56 ml/min; Glucose 122 mg/dL (74-106); Potassium 4.8 mmol/L (3.5-5.1); Sodium Level 140 mmol/L (136-145)
[2021-10-06 07:18] LABS: Differential Comment SCANNED
--- NOTE | 2021-10-06 08:33 | PCM.PN.REN ---
Subjective Subjective Patient is resting quietly. Alert and oriented. Very hard of hearing. Denies any complaints except for feeling thirsty. Objective Data Objective Data Vital Signs: Vital Signs Temp Pulse Resp BP Pulse Ox O2 Del Method O2 Flow Rate 97.7 F L 101 H 18 127/58 H 91 Nasal Cannula 2 10/06/21 02:53 10/06/21 07:00 10/06/21 02:53 10/06/21 02:53 10/06/21 07:26 10/06/21 07:26 10/06/21 07:26 FiO2 96 10/02/21 22:00 Oxygen Flow Rate (L/min) 2 Oxygen Delivery Method Nasal Cannula Weight: 106.8 kg Body Mass Index (BMI) 45.3 Intake & Output: Intake and Output for Last 24 Hours 10/04/21 10/05/21 10/06/21 23:59 23:59 23:59 Intake Total 718.94 / 718.94 120 / 120 60 / 60 Output Total 575 / 825 1525 / 1525 500 / 500 Balance 143.94 / -106.06 -1405 / -1405 -440 / -440 Lab / Micro Data Result Diagrams: 10/06/21 05:17 10/06/21 05:17 Labs: Laboratory Results - last 24 hr 10/06/21 05:17: WBC 6.6, RBC 3.33 L, Hgb 9.9 L, Hct 34.1 L, MCV 102.4 H, MCH 29.7, MCHC 29.0 L, RDW Std Deviation 63.6 H, RDW Coeff of Steven 17.5 H, Plt Count 120 L, MPV 12.1 H, Immature Gran % (Auto) 0.300, Neut % (Auto) 73.0 H, Lymph % (Auto) 9.1 L, [place] % (Auto) 9.7, Eos % (Auto) 7.6 H, Baso % (Auto) 0.3, Absolute Neuts (auto) 4.8, Absolute Lymphs (auto) 0.60 L, Nucleated RBC % 0, Differential Comment SCANNED 10/06/21 05:17: Sodium 140, Potassium 4.8, Chloride 101, Carbon Dioxide 33.0 H, Anion Gap 6, BUN 114 H*, Creatinine 1.80 H, Estim Creat Clear Calc 17.56, Est GFR (MDRD) Af Amer 34 L, Est GFR (MDRD) Non-Af 29 L, BUN/Creatinine Ratio 63.3 H, Glucose 122 H, Calcium 9.0 Micro: Microbiology 10/05/21 09:30 Stool C. difficile DNA Amplification - Final 10/01/21 17:35 Blood Culture (Wb) - Right Hand Blood Culture - Preliminary No growth in 48 hours. 10/01/21 17:20 Blood Culture (Wb) - Anticubital Left Blood Culture - Preliminary No growth in 48 hours. 10/01/21 17:05 Mucosa - Nose Respiratory Panel (PCR) - Final 10/01/21 17:20 Urine Catheter - Brandon Legionella Antigen - Final 10/01/21 17:20 Urine Catheter - Brandon Streptococcus pneumoniae Antigen (M - Final 10/01/21 14:50 Nasal Secretion SARS-CoV-2 & FLU Antigen (Rapid) - Final Physical Exam Narrative General: Alert and oriented x3, hard of hearing. Heart: Normal S1, S2. No rubs or murmurs. Lungs: scattered rales, some audible expiratory wheezing Abdomen: Normal bowel sounds, soft, nontender Extremities: Both extremities are wrapped in VICTORINO bandages. There is likely 3-4+ edema bilaterally if bandages taken off. Pitting edema to b/l thighs : indwelling brandon with clear urine in bag Assessment & Plan Assessment/Plan (1) INDIRA (acute kidney injury): PLAN: Baseline serum creatinine ~1.50 mg/dL. Nonoliguric, hypervolemic INDIRA is likely due to cardiorenal syndrome. Serum creatinine peaked at 2.15 mg/dL on 10/01/2021 and has leveled off ~1.9mg/dL over last few days, today SCr 1.8mg/dL. BUN is rising, currently 114 Renal function stabilized and slightly improved on Lasix drip. The patient has been taken off of Lasix drip and is now on intermittent IV Lasix, 60mg IV TID. However, response to intermittent IV Lasix is not as robust as with Lasix drip. Since her serum albumin is very low at 0.9 g/dL, she may be somewhat resistant to diuretic. Patient is net negative 2.9L. For now we will continue Lasix 60mg TID. Patient received Diuril 250mg IV x1 on 7/4. There is no acute need for kidney replacement therapy at this time. Today I spoke with patient the possibility of her needing NON LICENSED NUCLEAR PLANT OPERATOR. Explained risks and benefits of dialysis. Patient asked appropriate questions. We spoke to the patient's niece who is the POA about the possible course of cardiorenal INDIRA including possible need for dialysis. However, I do not recommend dialysis in her case given drastic change in quality of life this would impose. Agree with consulting Hospice/or palliative care for their expert opinion as well. Continue to monitor renal function (2) Chronic kidney disease, stage 3b: PLAN: The patient has CKD stage IIIb with serum creatinine of 1.50 mg/dL at baseline. We will probably have to tolerate some elevation of serum creatinine above baseline to keep the patient more euvolemic. (3) Hypertension: PLAN: BP is stable The patient is not symptomatic. She denies dizziness. Continue diuresis and Metroprolol 12.5 mg twice a day. Given stable BP, she should be able to tolerate higher dose of IV Lasix. (4) Lymphedema: PLAN: The patient is getting wrapping therapy to the wound center. Continuing Lasix IV with monitoring of renal function. (5) Gout: PLAN: The patient is on allopurinol. There is no gout flare although we will need to monitor her closely since she is getting relatively high-dose diuretic.
--- NOTE | 2021-10-06 09:35 | NURSING ---
nurse called to room for nosebleed and that pt feeling sob per physics and astronomy professor. pt with oxygen out of nose when nurse in and only 83%. no further bleeding obs and oxygen replaced but unable to recoverr to more than 88% pt needing o2 turned up to 4l untill reached 90% and took 5min to recover. rr slightly elevated as well.
[2021-10-06] MEDS: Aspirin E.C. 81 MG Tablet PO (09:39)
[2021-10-06] MEDS: Allopurinol 300 MG Tablet PO (09:39)
[2021-10-06] MEDS: Cholecalciferol (VIT D3) 25 MCG TABLET (1,000 UNITS) 50 MCG PO (09:39)
[2021-10-06] MEDS: Nystatin Powder 15gm Bottle 1 APPLIC TOPICAL ×2 (09:41→21:00)
[2021-10-06] MEDS: Pantoprazole Sodium 40 MG Tablet PO (09:41)
[2021-10-06] MEDS: Heparin Injection (Vial) 5,000 UNIT/ML VIAL 5000 UNIT SC ×2 (09:44→20:58)
--- NOTE | 2021-10-06 11:36 | PCM.PN.HOSP ---
Documented by User: Estella Trammell [employer] SERVICES FIELD SUPERVISOR, [employer] SERVICES FIELD SUPERVISOR-C 10/06/21 11:42 Subjective Subjective Patient seen and examined. Does not wish to undergo dialysis. Amendable to hospice consult. Requesting SNF with hospice. Await further hospice meeting/discussion. Objective Data Objective Data Vital Signs: Vital Signs Temp Pulse Resp BP Pulse Ox O2 Del Method O2 Flow Rate 97.9 F 84 28 H 96/53 L 93 Nasal Cannula 4 10/06/21 10:00 10/06/21 10:00 10/06/21 10:00 10/06/21 10:00 10/06/21 10:00 10/06/21 10:00 10/06/21 10:00 FiO2 96 10/02/21 22:00 Oxygen Flow Rate (L/min) 4 Oxygen Delivery Method Nasal Cannula Weight: 235 lb 7.259 oz Body Mass Index (BMI) 45.3 Intake & Output: Intake and Output for Last 24 Hours 10/04/21 10/05/21 10/06/21 23:59 23:59 23:59 Intake Total 718.94 / 718.94 120 / 120 60 / 60 Output Total 575 / 825 1525 / 1525 500 / 500 Balance 143.94 / -106.06 -1405 / -1405 -440 / -440 Lab / Micro Data Result Diagrams: 10/06/21 05:17 10/06/21 05:17 Labs: Laboratory Results - last 24 hr 10/06/21 05:17: WBC 6.6, RBC 3.33 L, Hgb 9.9 L, Hct 34.1 L, MCV 102.4 H, MCH 29.7, MCHC 29.0 L, RDW Std Deviation 63.6 H, RDW Coeff of Steven 17.5 H, Plt Count 120 L, MPV 12.1 H, Immature Gran % (Auto) 0.300, Neut % (Auto) 73.0 H, Lymph % (Auto) 9.1 L, [place] % (Auto) 9.7, Eos % (Auto) 7.6 H, Baso % (Auto) 0.3, Absolute Neuts (auto) 4.8, Absolute Lymphs (auto) 0.60 L, Nucleated RBC % 0, Differential Comment SCANNED 10/06/21 05:17: Sodium 140, Potassium 4.8, Chloride 101, Carbon Dioxide 33.0 H, Anion Gap 6, BUN 114 H*, Creatinine 1.80 H, Estim Creat Clear Calc 17.56, Est GFR (MDRD) Af Amer 34 L, Est GFR (MDRD) Non-Af 29 L, BUN/Creatinine Ratio 63.3 H, Glucose 122 H, Calcium 9.0 Micro: Microbiology 10/05/21 09:30 Stool C. difficile DNA Amplification - Final 10/01/21 17:35 Blood Culture (Wb) - Right Hand Blood Culture - Preliminary No growth in 48 hours. 10/01/21 17:20 Blood Culture (Wb) - Anticubital Left Blood Culture - Preliminary No growth in 48 hours. 10/01/21 17:05 Mucosa - Nose Respiratory Panel (PCR) - Final 10/01/21 17:20 Urine Catheter - Velazquez Legionella Antigen - Final 10/01/21 17:20 Urine Catheter - Velazquez Streptococcus pneumoniae Antigen (M - Final 10/01/21 14:50 Nasal Secretion SARS-CoV-2 & FLU Antigen (Rapid) - Final Physical Exam Const alert, oriented x3 and no apparent distress HEENT normocephalic and moist oral mucous membranes Eyes PERRL, EOMs intact bilaterally and conjunctivae normal Neck no lymphadenopathy Resp clear to auscultation bilaterally Auscultation: diminished lung sounds Cardio regular rate, regular rhythm and no murmurs Peripheral Pulses: pulses 2+ throughout GI normal to inspection, nondistended, normoactive bowel sounds, non-tender and non-distended Extremity normal to inspection General Extremity: edema bilateral lower extremity (edema bilateral lower extremity (Lymphedema, Nicko wraps in place)) Skin no rashes or lesions noted Lesions: no lesions Rashes: no rashes Trauma: no lacerations or abrasions Neuro CN's II-XII intact bilaterally, no focal motor deficits, no sensory deficits noted and deep tendon reflexes 2+ bilaterally Psych mental status grossly normal and affect normal Assessment & Plan Assessment/Plan (1) Acute respiratory failure with hypoxia and hypercapnia: PLAN: Plan 1. Acute hypoxic respiratory failure secondary to acute heart failure with preserved ejection fraction and possible pneumonia- Chest x-ray consistent with congestion, consolidation in the left hemithorax.? Initially on BiPAP on admission.? Significantly improved with diuresis.? Now on 4 L nasal cannula.? Initially placed on IV Zosyn empirically due to suspicious finding on chest x-ray, concerning for pneumonia.? Afebrile.? No leukocytosis.? No evidence of infection.? Further antibiotics discontinued. 2.? Acute heart failure with preserved ejection fraction-BNP 1632. Strict I&O.? Daily weight.? Nicko wraps bilateral lower extremities.?Cardiology consulted.? Transition from Lasix drip to IV Lasix.? Follow cardiology/nephrology recommendations for Lasix dosing.? Echocardiogram demonstrated an EF of 55 to 60%, pulmonary artery systolic pressure 50 to 55 mmHg. 3.? Acute kidney injury on chronic kidney disease stage IIIb-likely cardiorenal syndrome.? Nephrology following.? Continue IV Lasix. Per nephrology, if patient is not able to manage fluid balance with reduced diuretics, dialysis may be indicated. However, due to age and co-morbidities, this is not recommended. Patient does not wish to undergo dialysis, she is agreeable to hospice consult. Hospice consult placed. Likely SNF with hospice pending further discussion. 4.? Abnormal troponin-demand ischemia secondary to #1.? Enzymes did not trend.? EKG without acute ST-T changes.? Echocardiogram per above. 5. Chronic Lymphedema-following at wound center.? Lasix recently increased to 80 mg daily without improvement in symptoms.? Nicko wraps bilateral lower extremities.? IV lasix per above. 6. CAD with history of CABG-on metoprolol, statin. 7. Hyperlipidemia-continue statin. 8. Gout-hold allopurinol. 9. Hypothyroidism-continue Synthroid regimen.? 10. Chronic anemia- follows with hematology.? Appears stable. DVT prophylaxis- heparin sc This patient was seen by GUILHERME Escalante under the supervision of Dr. John. Discharge planning: Hospice meeting pending. Will need facility acceptance as well. Time spent examining patient, reviewing data and subsequent management of care: 12 minutes Documented by User: Dr. Quinten John MD 10/06/21 12:33 Objective Data Lab / Micro Data Result Diagrams: 10/06/21 05:17 10/06/21 05:17 Assessment & Plan Assessment/Plan (1) Acute respiratory failure with hypoxia and hypercapnia: Charges/Coding Addendum Addendum: Dr. John I personally examined the patient and reviewed the chart. I agree with the above.? All closures 6-year-old female presented to the hospital with shortness of breath and increased lower extremity edema.? She was started on Lasix as an outpatient and this had been increased to about 80 mg daily without any improvement in her swelling so she was transition to a Lasix drip and she had significant diuresis with this however a Lasix drip can be continued so she has been dropped down to bolus dosing today and will monitor.? In discussion with nephrology, if the bolus Lasix does not work she may need dialysis however given her age and all of her other medical conditions dialysis is not something that they recommend.? Clinical time spent in all aspects of patient care: 18 minutes 10/06/2021: Continue with bolus Lasix and will continue to monitor to see if her edema worsens or improves. However did have a 20-minute discussion on advance care planning in terms of whether or not she would like to proceed with dialysis if that became necessary or not and she states at this time that she does not want to go onto dialysis therefore we did have a discussion about hospice and she would like to meet with hospice to see what her options are especially with potentially going to care home facility with hospice. Clinical time spent in all aspects of patient care: 15 minutes Visit Charges Inpatient E&M: 35409 Subs Hosp L2 Procedures Hospitalists Procedures: 86824 Advncd Care Plan 30 Min
--- NOTE | 2021-10-06 13:08 | PN.CARD_ITS ---
Subjective Subjective The patient was evaluated earlier this day. She was awake and alert. She was concerned with her lower extremities and the need for continued wound care evaluation. Objective Data Vital Signs: Vital Signs Temp Pulse Resp BP Pulse Ox O2 Del Method O2 Flow Rate 97.9 F 84 28 H 96/53 L 93 Nasal Cannula 4 10/06/21 10:00 10/06/21 10:00 10/06/21 10:00 10/06/21 10:00 10/06/21 10:00 10/06/21 10:00 10/06/21 10:00 FiO2 96 10/02/21 22:00 Oxygen Flow Rate (L/min) 4 Oxygen Delivery Method Nasal Cannula Weight: 235 lb 7.259 oz Body Mass Index (BMI) 45.3 Intake & Output: Intake and Output for Last 24 Hours 10/04/21 10/05/21 10/06/21 23:59 23:59 23:59 Intake Total 718.94 / 718.94 120 / 120 60 / 60 Output Total 575 / 825 1525 / 1525 500 / 500 Balance 143.94 / -106.06 -1405 / -1405 -440 / -440 Lab / Micro Data Result Diagrams: 10/06/21 05:17 10/06/21 05:17 Labs: Laboratory Results - last 24 hr 10/06/21 05:17: WBC 6.6, RBC 3.33 L, Hgb 9.9 L, Hct 34.1 L, MCV 102.4 H, MCH 29.7, MCHC 29.0 L, RDW Std Deviation 63.6 H, RDW Coeff of Steven 17.5 H, Plt Count 120 L, MPV 12.1 H, Immature Gran % (Auto) 0.300, Neut % (Auto) 73.0 H, Lymph % (Auto) 9.1 L, [place] % (Auto) 9.7, Eos % (Auto) 7.6 H, Baso % (Auto) 0.3, Absolute Neuts (auto) 4.8, Absolute Lymphs (auto) 0.60 L, Nucleated RBC % 0, Differential Comment SCANNED 10/06/21 05:17: Sodium 140, Potassium 4.8, Chloride 101, Carbon Dioxide 33.0 H, Anion Gap 6, BUN 114 H*, Creatinine 1.80 H, Estim Creat Clear Calc 17.56, Est GFR (MDRD) Af Amer 34 L, Est GFR (MDRD) Non-Af 29 L, BUN/Creatinine Ratio 63.3 H , Glucose 122 H, Calcium 9.0 Micro: Microbiology 10/05/21 09:30 Stool C. difficile DNA Amplification - Final Cardiology Labs/Tests 10/06/21 05:17: WBC 6.6, RBC 3.33 L, Hgb 9.9 L, Hct 34.1 L, MCV 102.4 H, MCH 29.7, MCHC 29.0 L, Plt Count 120 L, MPV 12.1 H, Immature Gran % (Auto) 0.300, Neut % (Auto) 73.0 H, Lymph % (Auto) 9.1 L, [place] % (Auto) 9.7, Eos % (Auto) 7.6 H, Baso % (Auto) 0.3, Absolute Neuts (auto) 4.8, Nucleated RBC % 0 10/06/21 05:17: Sodium 140, Potassium 4.8, Chloride 101, Carbon Dioxide 33.0 H, Anion Gap 6, BUN 114 H*, Creatinine 1.80 H, Est GFR (MDRD) Af Amer 34 L, Est GFR (MDRD) Non-Af 29 L, BUN/Creatinine Ratio 63.3 H, Glucose 122 H, Calcium 9.0 Rhythm: EKG: ECHO: Stress Test: Cardiac Cath: PCI: CT Surgery: Holter monitor: EPS: PPM: CXR: Chest CT Scan: Physical Exam Const alert, oriented x3 and no apparent distress HEENT normocephalic and head/scalp atraumatic HEENT Narrative: Hearing grossly impaired Eyes PERRL, conjunctivae normal and no scleral icterus Neck full ROM, supple and no JVD Resp Resp Narrative: Diminished inspiratory effort Auscultation: diminished lung sounds bilateral lower Cardio regular rate, regular rhythm, S1 normal heart sound and S2 normal heart sound GI normal to inspection, nondistended, normoactive bowel sounds Extremity Extremity Narrative: Positive bilateral lower extremity peripheral pitting edema: Positive bilateral lower extremity Nicko wraps General Extremity: edema bilateral lower extremity (Positive bilateral lower extremity Nicko wraps) Details: moderate Skin Skin Narrative: Posterior thorax: Positive erythema/rash Psych mental status grossly normal Assessment & Plan Assessment/Plan (1) Acute exacerbation of congestive heart failure: PLAN: The patient was evaluated by Dr. Traore with concerns of acute CHF thought to be related to heart failure with preserved ejection fraction based upon the transthoracic echocardiographic studies. The patient is being treated medically. This has included IV furosemide both in a continuous infusion with subsequent change to a pulsed dose therapy. She also received a one-time dose of IV Diuril at 250 mg. It appeared she had increased urinary output. At the present time the patient believes her breathing is somewhat improved. At the present time she will continue to be monitored. She will continue her IV diuretic therapy. As noted before she does not appear to be an ideal candidate for further invasive evaluation or care. (2) Lymphedema: PLAN: The patient is reported as having a history of lymphedema. She has been on medical therapy. She has been evaluated by the wound center. She has received bilateral lower extremity wound care and Nicko wraps. This morning she states she would be willing to consider going to a [facility] transitional care type unit for continued assistance including of her lower extremities. (3) INDIRA (acute kidney injury): PLAN: It appears the patient has had issues of acute on chronic renal insufficiency. Her creatinine levels are being followed. (4) Hyperlipidemia: PLAN: The patient will continue lipid-lowering therapy. (5) Hypertension: PLAN: The patient's blood pressure will need to be followed with adjustment of her medications taken into consideration her clinical course, vital signs, and renal insufficiency. Addt'l Comments The patient's case was discussed and reviewed with the patient and the nephrology MEDICAL RECORDS DIRECTOR present at the time. The patient is going to continue medical management. The patient is also to be evaluated by palliative care. This note was generated using a voice recognition system and there may be incorrect words, spelling or punctuation that were not noted when reviewing the office note prior to saving. Procedure Criteria Type of Procedure Procedure Type: Elective Elective Risks - COVID COVID Risk Discussion: The surgeon/proceduralist and patient have discussed in detail the risk of exposure to and/or potential harm posed by the COVID-19 virus with having a surgery/procedure at this time versus the risk of delaying the surgery/procedure. It is not possible to know either the risk of delaying the surgery or procedure or chance of getting an infection with perfect accuracy, but a joint decision was made between the patient and the surgeon/proceduralist to proceed at this time with the scheduled surgery/procedure as indicated on the consent form.
--- NOTE | 2021-10-06 13:31 | CASEMGMT ---
Social Work Consult: detention placement Referral source: wind instrument repairer Met with patient in room. Introduced self and child welfare social worker role. Patient agreeable to speak with this child welfare social worker. This child welfare social worker broached conversation of assisted placement. Patient states I don't want to go to a assisted. This child welfare social worker facilitating conversation about why recommendation for assisted placement as patient is requiring x2 assistance and lives alone. Patient confirms to have no family that is able to help patient in the home. Patient reluctant to discuss assisted placement further but open to this child welfare social worker providing patient with list of senior care facilities that are local to patient geographical region and in-network with patient insurance. Patient plans to look over list and speak with purnima (JACIEL)Ian. Patient agreeable to this child welfare social worker speaking with Ian. Patient also with referral for hospice services per Joaquin Soria. Patient confirms to be agreeable to hospice services but not sure how things are going to work out. This child welfare social worker offering support and active listening throughout conversation. Telephone call to Ian, This child welfare social worker updated Ian on above information. Ian plans to speak with patient later today/evening about assisted choices and options. Ian aware of hospice referral and request to speak with Johnny [email or web address].Temi. in regards to reason for hospice referral. This child welfare social worker assisted in facilitating conversation with Ian and Estella. PLAN: residential home pending patient being agreeable. Will continue to follow. Darlene PYLE, LAUREN
--- NOTE | 2021-10-06 15:07 | WOUNDNOTE ---
wound photo: right lower leg
[2021-10-06] MEDS: Pravastatin 40 MG Tablet PO (21:00)
[2021-10-06] MEDS: Metoprolol Tartrate 25 MG Tablet 12.5 MG PO (21:00)
[2021-10-07] VITALS (13 sets, daily range): BP systolic 110–130; BP diastolic 47–77; PULSE 62–94; RESP 18–20; TEMP 36.3–36.7; O2SAT 94–97
[2021-10-07] MEDS: Furosemide 40 MG/4 ML Vial 60 MG IV ×3 (05:01→21:40)
[2021-10-07] MEDS: 0.9% Saline Lock 10 ML Syringe IV (05:02)
[2021-10-07] MEDS: Levothyroxine 75 MCG Tablet PO (05:02)
[2021-10-07 08:02] LABS: Anion Gap 8 (5-15); BUN 118 mg/dL (7-18); BUN/Creat Ratio 69.4 RATIO (10-20); Calcium,Total 8.9 mg/dL (8.5-10.1); Chloride 102 mmol/L (98-107); EST Glomerular Filtration Rate 30 mL/min (>60); Est Glom Filt Rate - Afr Amer 37 mL/min (>60); Estimated Creatinine Clearance 18.59 ml/min; Glucose 139 mg/dL (74-106); Magnesium 1.8 mg/dL (1.6-2.6); Potassium 4.6 mmol/L (3.5-5.1); Sodium Level 143 mmol/L (136-145)
--- NOTE | 2021-10-07 08:50 | CASEMGMT ---
Social Work Met with patient in room. Patient reports to have spoken with niece about long term placement. Patient reports first choice is [facility] ([facility]) and to not have a second choice. This social worker aide updated discharge funeral planning counselor, Taylor. Shrestha to make referral to [facility]. PLAN: [facility] pending acceptance and pre-cert. Darlene PYLE, NAZARIO-S
--- NOTE | 2021-10-07 09:05 | PCM.PN.REN ---
Subjective Subjective Sitting up in bed eating breakfast. Denies any complaints. No overnight events. Reports breathing is about the same. Objective Data Objective Data Vital Signs: Vital Signs Temp Pulse Resp BP Pulse Ox O2 Del Method O2 Flow Rate 98.1 F 68 20 H 127/77 H 96 Nasal Cannula 4 10/07/21 05:00 10/07/21 07:00 10/07/21 05:00 10/07/21 05:00 10/07/21 07:24 10/07/21 07:24 10/07/21 07:24 FiO2 96 10/02/21 22:00 Oxygen Flow Rate (L/min) 4 Oxygen Delivery Method Nasal Cannula Weight: 107.683 kg Body Mass Index (BMI) 45.3 Intake & Output: Intake and Output for Last 24 Hours 10/05/21 10/06/21 10/07/21 23:59 23:59 23:59 Intake Total 120 / 120 660 / 660 0 / 0 Output Total 1525 / 1525 1300 / 1300 400 / 400 Balance -1405 / -1405 -640 / -640 -400 / -400 Lab / Micro Data Result Diagrams: 10/06/21 05:17 10/07/21 06:16 Labs: Laboratory Results - last 24 hr 10/07/21 06:16: Sodium 143, Potassium 4.6, Chloride 102, Carbon Dioxide 33.0 H, Anion Gap 8, BUN 118 H*, Creatinine 1.70 H, Estim Creat Clear Calc 18.59, Est GFR (MDRD) Af Amer 37 L, Est GFR (MDRD) Non-Af 30 L, BUN/Creatinine Ratio 69.4 H, Glucose 139 H, Calcium 8.9, Magnesium 1.8 Micro: Microbiology 10/05/21 09:30 Stool C. difficile DNA Amplification - Final 10/01/21 17:35 Blood Culture (Wb) - Right Hand Blood Culture - Preliminary No growth in 48 hours. 10/01/21 17:20 Blood Culture (Wb) - Anticubital Left Blood Culture - Preliminary No growth in 48 hours. 10/01/21 17:05 Mucosa - Nose Respiratory Panel (PCR) - Final 10/01/21 17:20 Urine Catheter - Brandon Legionella Antigen - Final 10/01/21 17:20 Urine Catheter - Brandon Streptococcus pneumoniae Antigen (M - Final 10/01/21 14:50 Nasal Secretion SARS-CoV-2 & FLU Antigen (Rapid) - Final Physical Exam Narrative General: Alert and oriented x3, hard of hearing. Heart: Normal S1, S2. No rubs or murmurs. Lungs: scattered rales; audible inspiratory and expiratory wheezing Abdomen: Normal bowel sounds, soft, nontender Extremities: Both extremities are wrapped in VICTORINO bandages. There is likely 3+ edema bilaterally if bandages taken off. Pitting edema to b/l thighs : indwelling brandon with clear urine in bag Assessment & Plan Assessment/Plan (1) INDIRA (acute kidney injury): PLAN: Baseline serum creatinine ~1.50 mg/dL. Nonoliguric, hypervolemic INDIRA is likely due to cardiorenal syndrome. Serum creatinine peaked at 2.15 mg/dL on 10/01/2021 and has leveled off ~1.9mg/dL for few days, today SCr 1.7mg/dL. BUN is rising, currently 118 Renal function stabilized and slightly improved on Lasix drip. The patient has been taken off of Lasix drip and is now on intermittent IV Lasix, 60mg IV TID. However, response to intermittent IV Lasix is not as robust as with Lasix drip. Since her serum albumin is very low at 0.9 g/dL, she may be somewhat resistant to diuretic. Patient is net negative 3.5L. For now we will continue Lasix 60mg TID. Patient received Diuril 250mg IV x1 on 10/05. UOP 1.3L yesterday. On NC 4L. There is no acute need for kidney replacement therapy at this time. I spoke with patient again today the possibility of her needing [employer], if not during this hospitalization but likely in the near future. Again explained risks and benefits of dialysis. Patient asked appropriate questions again today. Today patient states that she would not want dialysis if/when it comes to that and that she prefers to be comfortable. She is interested in Hospice. We spoke to the patient's niece who is the POA about the possible course of cardiorenal INDIRA including possible need for dialysis. However, I do not recommend dialysis in her case given drastic change in quality of life this would impose. Continue to monitor renal function discharge planning in process. (2) Chronic kidney disease, stage 3b: PLAN: The patient has CKD stage IIIb with serum creatinine of 1.50 mg/dL at baseline. We will probably have to tolerate some elevation of serum creatinine above baseline to keep the patient more euvolemic. (3) Hypertension: PLAN: BP is stable The patient is not symptomatic. She denies dizziness. Continue diuresis and Metroprolol 12.5 mg twice a day. Given stable BP, she should be able to tolerate higher dose of IV Lasix. (4) Lymphedema: PLAN: The patient is getting wrapping therapy to the wound center. Continuing Lasix IV with monitoring of renal function. (5) Gout: PLAN: The patient is on allopurinol. There is no gout flare although we will need to monitor her closely since she is getting relatively high-dose diuretic.
--- NOTE | 2021-10-07 09:15 | CASEMGMT ---
Discharge [employer] Engineer Henrietta Discharge [employer] Automation Engineer faxed over referral to Wendy at [facility]. Will follow up. Henrietta Michelle Discharge [employer]a Automation Engineer
[2021-10-07] MEDS: Cholecalciferol (VIT D3) 25 MCG TABLET (1,000 UNITS) 50 MCG PO (10:06)
[2021-10-07] MEDS: Heparin Injection (Vial) 5,000 UNIT/ML VIAL 5000 UNIT SC ×2 (10:06→21:40)
[2021-10-07] MEDS: Aspirin E.C. 81 MG Tablet PO (10:06)
[2021-10-07] MEDS: Metoprolol Tartrate 25 MG Tablet 12.5 MG PO ×2 (10:07→21:42)
[2021-10-07] MEDS: Pantoprazole Sodium 40 MG Tablet PO (10:07)
[2021-10-07] MEDS: Allopurinol 300 MG Tablet PO (10:07)
[2021-10-07] MEDS: Nystatin Powder 15gm Bottle 1 APPLIC TOPICAL ×2 (10:07→21:42)
--- NOTE | 2021-10-07 10:55 | PCM.PN.HOSP ---
Documented by User: Estella Trammell NP, [employer]-C 10/07/21 11:15 Subjective Subjective Patient seen and examined. Drowsy this morning however easily arousable. Awaiting acceptance to SNF. Patient amenable to plan. Denies current symptoms or complaints. Objective Data Objective Data Vital Signs: Vital Signs Temp Pulse Resp BP Pulse Ox O2 Del Method O2 Flow Rate 98.1 F 82 20 H 130/62 H 96 Nasal Cannula 4 10/07/21 05:00 10/07/21 10:07 10/07/21 05:00 10/07/21 10:07 10/07/21 07:24 10/07/21 07:24 10/07/21 07:24 FiO2 96 10/02/21 22:00 Oxygen Flow Rate (L/min) 4 Oxygen Delivery Method Nasal Cannula Weight: 237 lb 6.4 oz Body Mass Index (BMI) 45.3 Intake & Output: Intake and Output for Last 24 Hours 10/05/21 10/06/21 10/07/21 23:59 23:59 23:59 Intake Total 120 / 120 660 / 660 0 / 0 Output Total 1525 / 1525 1300 / 1300 400 / 400 Balance -1405 / -1405 -640 / -640 -400 / -400 Lab / Micro Data Result Diagrams: 10/06/21 05:17 10/07/21 06:16 Labs: Laboratory Results - last 24 hr 10/07/21 06:16: Sodium 143, Potassium 4.6, Chloride 102, Carbon Dioxide 33.0 H, Anion Gap 8, BUN 118 H*, Creatinine 1.70 H, Estim Creat Clear Calc 18.59, Est GFR (MDRD) Af Amer 37 L, Est GFR (MDRD) Non-Af 30 L, BUN/Creatinine Ratio 69.4 H, Glucose 139 H, Calcium 8.9, Magnesium 1.8 Micro: Microbiology 10/05/21 09:30 Stool C. difficile DNA Amplification - Final 10/01/21 17:35 Blood Culture (Wb) - Right Hand Blood Culture - Preliminary No growth in 48 hours. 10/01/21 17:20 Blood Culture (Wb) - Anticubital Left Blood Culture - Preliminary No growth in 48 hours. 10/01/21 17:05 Mucosa - Nose Respiratory Panel (PCR) - Final 10/01/21 17:20 Urine Catheter - Velazquez Legionella Antigen - Final 10/01/21 17:20 Urine Catheter - Velazquez Streptococcus pneumoniae Antigen (M - Final 10/01/21 14:50 Nasal Secretion SARS-CoV-2 & FLU Antigen (Rapid) - Final Physical Exam Const alert and oriented x3 Constitutional Narrative: Drowsy HEENT normocephalic and moist oral mucous membranes Eyes PERRL, EOMs intact bilaterally and conjunctivae normal Neck no lymphadenopathy Resp clear to auscultation bilaterally Auscultation: diminished lung sounds Cardio regular rate, regular rhythm and no murmurs Peripheral Pulses: pulses 2+ throughout GI normal to inspection, nondistended, normoactive bowel sounds, non-tender and non-distended Extremity normal to inspection General Extremity: edema bilateral lower extremity (Lymphedema, Nicko wraps in place) Skin no rashes or lesions noted Lesions: no lesions Rashes: no rashes Trauma: no lacerations or abrasions Neuro CN's II-XII intact bilaterally, no focal motor deficits, no sensory deficits noted and deep tendon reflexes 2+ bilaterally Psych mental status grossly normal and affect normal Assessment & Plan Assessment/Plan (1) Acute respiratory failure with hypoxia and hypercapnia: (2) INDIRA (acute kidney injury): (3) Acute exacerbation of congestive heart failure: PLAN: Plan 1. Acute hypoxic respiratory failure secondary to acute heart failure with preserved ejection fraction and possible pneumonia- Chest x-ray consistent with congestion, consolidation in the left hemithorax.? Initially on BiPAP on admission.? Significantly improved with diuresis.? Now on 4 L nasal cannula.? Initially placed on IV Zosyn empirically due to suspicious finding on chest x-ray, concerning for pneumonia.? Afebrile.? No leukocytosis.? No evidence of infection.? Further antibiotics discontinued. 2.? Acute heart failure with preserved ejection fraction-BNP 1632. Strict I&O.? Daily weight.? Nicko wraps bilateral lower extremities.?Cardiology consulted.? Continue IV Lasix 60 mg IV daily 8 hours during admission.? Plan for oral Lasix 80 mg twice daily at discharge.? Echocardiogram demonstrated an EF of 55 to 60%, pulmonary artery systolic pressure 50 to 55 mmHg. 3.? Acute kidney injury on chronic kidney disease stage IIIb-likely cardiorenal syndrome.? Nephrology following.? Continue IV Lasix. Per nephrology, if patient is not able to manage fluid balance with reduced diuretics, dialysis may be indicated. However, due to age and co-morbidities, this is not recommended.? Patient does not wish to undergo dialysis, she is agreeable to hospice consult. After further discussion with patient and her niece/POA, plan will be for patient to go to SNF at discharge and if her status declines, they will consult hospice at that time. Transition to DNR CC CODE STATUS. 4.? Abnormal troponin-demand ischemia secondary to #1.? Enzymes did not trend.? EKG without acute ST-T changes.? Echocardiogram per above. 5. Chronic Lymphedema-following at wound center. Nicko wraps bilateral lower extremities.? IV lasix per above. 6. CAD with history of CABG-on metoprolol, statin. 7. Hyperlipidemia-continue statin. 8. Gout-hold allopurinol. 9. Hypothyroidism-continue Synthroid regimen.? 10. Chronic anemia- follows with hematology.? Appears stable. DVT prophylaxis- heparin sc This patient was seen by GUILHERME Escalante under the supervision of Dr. John. Discharge planning: Awaiting approval to SNF. Plan for hospice consult at SNF if patient further declines. Time spent examining patient, reviewing data and subsequent management of care: 14 minutes Documented by User: Dr. Quinten John MD 10/07/21 13:19 Objective Data Lab / Micro Data Result Diagrams: 10/06/21 05:17 10/07/21 06:16 Assessment & Plan Assessment/Plan (1) Acute respiratory failure with hypoxia and hypercapnia: (2) INDIRA (acute kidney injury): (3) Acute exacerbation of congestive heart failure: Charges/Coding Addendum Addendum: Dr. John I personally examined the patient and reviewed the chart. I agree with the above.? All closures 6-year-old female presented to the hospital with shortness of breath and increased lower extremity edema.? She was started on Lasix as an outpatient and this had been increased to about 80 mg daily without any improvement in her swelling so she was transition to a Lasix drip and she had significant diuresis with this however a Lasix drip can be continued so she has been dropped down to bolus dosing today and will monitor.? In discussion with nephrology, if the bolus Lasix does not work she may need dialysis however given her age and all of her other medical conditions dialysis is not something that they recommend.? Clinical time spent in all aspects of patient care: 18 minutes 10/06/2021:?Continue with bolus Lasix and will continue to monitor to see if her edema worsens or improves.? However did have a 20-minute discussion on advance care planning in terms of whether or not she would like to proceed with dialysis if that became necessary or not and she states at this time that she does not want to go onto dialysis therefore we did have a discussion about hospice and she would like to meet with hospice to see what her options are especially with potentially going to jail facility with hospice.? Clinical time spent in all aspects of patient care: 15 minutes 10/07/2021: Family has elected to make her DNR CC and transition back to the correction. However if she declines well at the correction then they will transition her to hospice. She is not having as good of a response to 3 times daily Lasix that she was on the Lasix drip however she reiterates that she does not want to do dialysis for the fluid. Clinical time spent in all aspects of patient care: 15 minutes Visit Charges Inpatient E&M: 97058 Subs Hosp L2
--- NOTE | 2021-10-07 11:04 | CASEMGMT ---
Discharge [employer] Experimental Mechanic Wendy from [facility] called. Patient has been accepted. Pre-cert has been started. Rosetta notified. Henrietta Michelle Discharge [employer]ic
--- NOTE | 2021-10-07 20:56 | PN.CARD_ITS ---
Subjective Subjective The patient appears to be resting comfortably this evening with her respiratory status. She has no new acute complaints. Objective Data Vital Signs: Vital Signs Temp Pulse Resp BP Pulse Ox O2 Del Method O2 Flow Rate 97.3 F L 71 18 110/47 L 97 Nasal Cannula 4 10/07/21 18:00 10/07/21 20:00 10/07/21 18:00 10/07/21 18:00 10/07/21 18:00 10/07/21 19:35 10/07/21 19:35 FiO2 96 10/02/21 22:00 Oxygen Flow Rate (L/min) 4 Oxygen Delivery Method Nasal Cannula Weight: 237 lb 6.4 oz Body Mass Index (BMI) 45.3 Intake & Output: Intake and Output for Last 24 Hours 10/05/21 10/06/21 10/07/21 23:59 23:59 23:59 Intake Total 120 / 120 660 / 660 660 / 660 Output Total 1525 / 1525 1300 / 1300 1100 / 1100 Balance -1405 / -1405 -640 / -640 -440 / -440 Lab / Micro Data Result Diagrams: 10/06/21 05:17 10/07/21 06:16 Labs: Laboratory Results - last 24 hr 10/07/21 06:16: Sodium 143, Potassium 4.6, Chloride 102, Carbon Dioxide 33.0 H, Anion Gap 8, BUN 118 H*, Creatinine 1.70 H, Estim Creat Clear Calc 18.59, Est GFR (MDRD) Af Amer 37 L, Est GFR (MDRD) Non-Af 30 L, BUN/Creatinine Ratio 69.4 H , Glucose 139 H, Calcium 8.9, Magnesium 1.8 Micro: Microbiology 10/01/21 17:35 Blood Culture (Wb) - Right Hand Blood Culture - Final No growth in 5 days. 10/01/21 17:20 Blood Culture (Wb) - Anticubital Left Blood Culture - Final No growth in 5 days. Cardiology Labs/Tests 10/07/21 06:16: Sodium 143, Potassium 4.6, Chloride 102, Carbon Dioxide 33.0 H, Anion Gap 8, BUN 118 H*, Creatinine 1.70 H, Est GFR (MDRD) Af Amer 37 L, Est GFR (MDRD) Non-Af 30 L, BUN/Creatinine Ratio 69.4 H, Glucose 139 H, Calcium 8.9, Magnesium 1.8 Rhythm: Sinus rhythm Physical Exam Const alert, oriented x3 and no apparent distress HEENT normocephalic and head/scalp atraumatic HEENT Narrative: Hearing grossly impaired Eyes PERRL, conjunctivae normal and no scleral icterus Neck full ROM, supple and no JVD Resp Resp Narrative: Diminished inspiratory effort Auscultation: wheezes scattered wheezes and diminished lung sounds bilateral lower Cardio regular rate, regular rhythm, S1 normal heart sound and S2 normal heart sound GI normal to inspection, nondistended, normoactive bowel sounds Extremity Extremity Narrative: Positive bilateral lower extremity peripheral pitting edema: Positive bilateral lower extremity Nicko wraps General Extremity: edema bilateral lower extremity (Positive bilateral lower extremity Nicko wraps) Details: moderate Skin Skin Narrative: Posterior thorax: Positive erythema/rash Psych mental status grossly normal Assessment & Plan Assessment/Plan (1) Acute exacerbation of congestive heart failure: PLAN: The patient was evaluated by Dr. Traore with concerns of acute CHF thought to be related to heart failure with preserved ejection fraction based upon the transthoracic echocardiographic studies. The patient is being treated medically. This has included IV furosemide both in a continuous infusion with subsequent change to a pulsed dose therapy. She also received a one-time dose of IV Diuril at 250 mg. It appeared she had increased urinary output. At the present time she will continue to be monitored. She will continue her IV diuretic therapy with adjustment as needed. As noted before she does not appear to be an ideal candidate for further invas shanice evaluation or care. (2) Lymphedema: PLAN: The patient is reported as having a history of lymphedema. She has been on medical therapy. She has been evaluated by the wound center. She has received bilateral lower extremity wound care and Nicko wraps. (3) INDIRA (acute kidney injury): PLAN: It appears the patient has had issues of acute on chronic renal insufficiency. Her creatinine levels are being followed. (4) Hyperlipidemia: PLAN: The patient will continue lipid-lowering therapy. (5) Hypertension: PLAN: The patient's blood pressure will need to be followed with adjustment of her medications taken into consideration her clinical course, vital signs, and renal insufficiency. Addt'l Comments Overall, at the present time, the patient is continuing conservative medical management. It appears she has now pending transfer to an extended care facility for continued postacute hospital rehabilitation. This note was generated using a voice recognition system and there may be incorrect words, spelling or punctuation that were not noted when reviewing the office note prior to saving.
[2021-10-07] MEDS: Pravastatin 40 MG Tablet PO (21:43)
[2021-10-08] VITALS (9 sets, daily range): BP systolic 107–116; BP diastolic 39–58; PULSE 69–104; RESP 18–20; TEMP 36.4–36.5; O2SAT 91–98
[2021-10-08] MEDS: Levothyroxine 75 MCG Tablet PO (05:32)
[2021-10-08] MEDS: 0.9% Saline Lock 10 ML Syringe IV ×2 (05:32→14:07)
[2021-10-08] MEDS: Furosemide 40 MG/4 ML Vial 60 MG IV ×2 (05:32→14:01)
[2021-10-08 06:59] LABS: Absolute Lymphocyte Count 0.54 X10^3/uL (0.83-4.51); Absolute Neutrophil Count 5.6 X10^3/uL (2.0-7.7); Basophil# 0.02 X10^3/uL; Basophil% 0.3 % (0-1); Eosinophil# 0.48 X10^3/uL; Eosinophils% 6.5 % (0-5); Hematocrit 35.9 % (37-47); Lymphocyte # 0.54 X10^3/ul (0.83-4.51); Lymphocyte % 7.3 % (19-41); Mean Corp Hgb Conc 27.9 g/dL (32-36); Mean Corpuscular Hgb 29.4 pg (27.0-32.0); Mean Corpuscular Volume 105.6 fL (81-99); Mean Platelet Vol. 12.4 fl (6.2-12.0); Monocyte% 10.8 % (0-10); NRBC Flagged by Analyzer 0 % (0-5); Neutrophil # 5.56 X10^3/uL (2.7-7.7); Neutrophil % 74.8 % (47-70); POSITIVE DIFFERENTIAL YES; POSITIVE MORPHOLOGY YES; Platelet Count 122 K/mm3 (150-450); RBC Distribution Width CV 17.5 % (11.6-14.6); RBC Distribution Width SD 66.4 fl (35.1-43.9); White Blood Count 7.4 K/mm3 (4.4-11.0)
[2021-10-08 07:09] LABS: Differential Indicated SCAN CRITERIA MET
[2021-10-08 07:21] LABS: Anisocytosis 1+; Differential Comment SCANNED; Macrocytosis 1+
[2021-10-08 07:40] LABS: Anion Gap 4 (5-15); BUN 125 mg/dL (7-18); BUN/Creat Ratio 82.2 RATIO (10-20); Calcium,Total 9.2 mg/dL (8.5-10.1); Chloride 99 mmol/L (98-107); Creatinine, Serum 1.52 mg/dL (0.55-1.02); EST Glomerular Filtration Rate 35 mL/min (>60); Est Glom Filt Rate - Afr Amer 42 mL/min (>60); Estimated Creatinine Clearance 20.79 ml/min; Glucose 121 mg/dL (74-106); Sodium Level 137 mmol/L (136-145)
[2021-10-08] MEDS: Aspirin E.C. 81 MG Tablet PO (09:03)
[2021-10-08] MEDS: Metoprolol Tartrate 25 MG Tablet 12.5 MG PO (09:03)
[2021-10-08] MEDS: Heparin Injection (Vial) 5,000 UNIT/ML VIAL 5000 UNIT SC (09:03)
[2021-10-08] MEDS: Cholecalciferol (VIT D3) 25 MCG TABLET (1,000 UNITS) 50 MCG PO (09:05)
[2021-10-08] MEDS: Pantoprazole Sodium 40 MG Tablet PO (09:05)
[2021-10-08] MEDS: Allopurinol 300 MG Tablet PO (09:05)
[2021-10-08] MEDS: Nystatin Powder 15gm Bottle 1 APPLIC TOPICAL (09:06)
--- NOTE | 2021-10-08 12:11 | PCM.PN.HOSP ---
Documented by User: GUILHERME Lr 10/08/21 12:19 Subjective Subjective Patient seen and examined. Patient in bed no distress noted. Objective Data Objective Data Vital Signs: Vital Signs Temp Pulse Resp BP Pulse Ox O2 Del Method O2 Flow Rate 97.6 F L 104 H 18 107/52 L 98 Nasal Cannula 4 10/08/21 08:50 10/08/21 09:03 10/08/21 08:50 10/08/21 09:03 10/08/21 08:50 10/08/21 08:57 10/08/21 08:57 FiO2 96 10/02/21 22:00 Oxygen Flow Rate (L/min) 4 Oxygen Delivery Method Nasal Cannula Weight: 235 lb 10.786 oz Body Mass Index (BMI) 45.3 Intake & Output: Intake and Output for Last 24 Hours 10/06/21 10/07/21 10/08/21 23:59 23:59 23:59 Intake Total 660 / 660 780 / 780 50 / 50 Output Total 1300 / 1300 1250 / 1250 200 / 200 Balance -640 / -640 -470 / -470 -150 / -150 Lab / Micro Data Result Diagrams: 10/08/21 05:32 10/08/21 05:32 Labs: Laboratory Results - last 24 hr 10/08/21 05:32: WBC 7.4, RBC 3.40 L, Hgb 10.0 L, Hct 35.9 L, MCV 105.6 H, MCH 29.4, MCHC 27.9 L, RDW Std Deviation 66.4 H, RDW Coeff of Steven 17.5 H, Plt Count 122 L, MPV 12.4 H, Immature Gran % (Auto) 0.300, Neut % (Auto) 74.8 H, Lymph % (Auto) 7.3 L, Banner % (Auto) 10.8 H, Eos % (Auto) 6.5 H, Baso % (Auto) 0.3, Absolute Neuts (auto) 5.6, Absolute Lymphs (auto) 0.54 L, Nucleated RBC % 0, Differential Comment SCANNED, Anisocytosis 1+, Macrocytosis 1+ 10/08/21 05:32: Sodium 137, Potassium 5.0, Chloride 99, Carbon Dioxide 34.0 H, Anion Gap 4 L, BUN 125 H*, Creatinine 1.52 H, Estim Creat Clear Calc 20.79, Est GFR (MDRD) Af Amer 42 L, Est GFR (MDRD) Non-Af 35 L, BUN/Creatinine Ratio 82.2 H, Glucose 121 H, Calcium 9.2 Micro: Microbiology 10/01/21 17:35 Blood Culture (Wb) - Right Hand Blood Culture - Final No growth in 5 days. 10/01/21 17:20 Blood Culture (Wb) - Anticubital Left Blood Culture - Final No growth in 5 days. 10/05/21 09:30 Stool C. difficile DNA Amplification - Final 10/01/21 17:05 Mucosa - Nose Respiratory Panel (PCR) - Final 10/01/21 17:20 Urine Catheter - Velazquez Legionella Antigen - Final 10/01/21 17:20 Urine Catheter - Velazquez Streptococcus pneumoniae Antigen (M - Final 10/01/21 14:50 Nasal Secretion SARS-CoV-2 & FLU Antigen (Rapid) - Final Physical Exam Const alert, oriented x3 and no apparent distress Orientation / Consciousness: awake HEENT normocephalic and moist oral mucous membranes Eyes conjunctivae normal Neck no lymphadenopathy and supple Resp clear to auscultation bilaterally Resp Narrative: On BIPAP Auscultation: rales and diminished lung sounds Cardio regular rate, regular rhythm and no murmurs Peripheral Pulses: pulses 2+ throughout GI normal to inspection, nondistended, normoactive bowel sounds and non-tender Extremity normal to inspection General Extremity: edema bilateral lower extremity (Lymphedema, Nicko wraps in place) Skin no rashes or lesions noted Skin Narrative: Superficial blisters bilateral lower extremities Lesions: no lesions Rashes: no rashes Trauma: no lacerations or abrasions Neuro oriented x3, moves all extremities, no focal motor deficits and no sensory deficits noted Psych mental status grossly normal and affect normal Assessment & Plan Assessment/Plan (1) Chronic kidney disease, stage 3b: (2) Acute respiratory failure with hypoxia and hypercapnia: (3) Acute exacerbation of congestive heart failure: PLAN: Plan 1. Acute hypoxic respiratory failure secondary to acute heart failure with preserved EF -Patient currently on 4 L nasal cannula, O2 sat stable -IV Zosyn discontinued 10/07/2021 2. Acute heart failure with preserved EF -BNP 1632 on admission -continue strict intake and output as well as daily weights -Cardiology following -Continue IV Lasix -Echo demonstrates EF 55 to 60% 3. Acute on chronic kidney disease stage IIIb -Nephrology following -Patient refused dialysis treatment stating that at her age she does not want this. -Patient transition from DNR CCA to DNR CC 4. Abnormal troponin -Likely demand ischemia secondary to #1 -EKG without acute ST changes 5. Lymphedema -Continue Nicko wraps to bilateral lower extremities 6. CAD with history of CABG -Continue metoprolol 7. Hyperlipidemia -Continue statin 8. Chronic anemia -Appears stable at this time, follows with hematology DVT prophylaxis-subcu heparin Discharge planning-awaiting approval for SNF This patient was seen by Leah Fang NP-C under the supervision of Dr. John. 13 minutes spent in clinical coordination of patient's plan of care. Documented by User: Dr. Quinten John MD 10/08/21 12:44 Objective Data Lab / Micro Data Result Diagrams: 10/08/21 05:32 10/08/21 05:32 Assessment & Plan Assessment/Plan (1) Chronic kidney disease, stage 3b: (2) Acute respiratory failure with hypoxia and hypercapnia: (3) Acute exacerbation of congestive heart failure: Charges/Coding Addendum Addendum: Dr. John I personally examined the patient and reviewed the chart. I agree with the above.? All closures 6-year-old female presented to the hospital with shortness of breath and increased lower extremity edema.? She was started on Lasix as an outpatient and this had been increased to about 80 mg daily without any improvement in her swelling so she was transition to a Lasix drip and she had significant diuresis with this however a Lasix drip can be continued so she has been dropped down to bolus dosing today and will monitor.? In discussion with nephrology, if the bolus Lasix does not work she may need dialysis however given her age and all of her other medical conditions dialysis is not something that they recommend.? Clinical time spent in all aspects of patient care: 18 minutes 10/06/2021:?Continue with bolus Lasix and will continue to monitor to see if her edema worsens or improves.? However did have a 20-minute discussion on advance care planning in terms of whether or not she would like to proceed with dialysis if that became necessary or not and she states at this time that she does not want to go onto dialysis therefore we did have a discussion about hospice and she would like to meet with hospice to see what her options are especially with potentially going to residential facility with hospice.? Clinical time spent in all aspects of patient care: 15 minutes 10/07/2021:?Family has elected to make her DNR CC and transition back to the senior care.? However if she declines well at the senior care then they will transition her to hospice.? She is not having as good of a response to 3 times daily Lasix that she was on the Lasix drip however she reiterates that she does not want to do dialysis for the fluid.? Clinical time spent in all aspects of patient care: 15 minutes 10/08/2021: BUN continues to climb, discussed with her the plan for no dialysis, she reiterated that she does not want to do dialysis and she understands that because of this decision that she will . Currently awaiting pre-CERT for SNF placement. Clinical time spent in all aspects of patient care: 15 minutes Visit Charges Inpatient E&M: 78319 Subs Hosp L2
--- NOTE | 2021-10-08 12:48 | PCM.PN.REN ---
Subjective Subjective Resting in bed, no overnight events. Friend at bedside. Objective Data Objective Data Vital Signs: Vital Signs Temp Pulse Resp BP Pulse Ox O2 Del Method O2 Flow Rate 97.6 F L 104 H 18 107/52 L 98 Nasal Cannula 4 10/08/21 08:50 10/08/21 09:03 10/08/21 08:50 10/08/21 09:03 10/08/21 08:50 10/08/21 08:57 10/08/21 08:57 FiO2 96 10/02/21 22:00 Oxygen Flow Rate (L/min) 4 Oxygen Delivery Method Nasal Cannula Weight: 106.9 kg Body Mass Index (BMI) 45.3 Intake & Output: Intake and Output for Last 24 Hours 10/06/21 10/07/21 10/08/21 23:59 23:59 23:59 Intake Total 660 / 660 780 / 780 50 / 50 Output Total 1300 / 1300 1250 / 1250 200 / 200 Balance -640 / -640 -470 / -470 -150 / -150 Lab / Micro Data Result Diagrams: 10/08/21 05:32 10/08/21 05:32 Labs: Laboratory Results - last 24 hr 10/08/21 05:32: WBC 7.4, RBC 3.40 L, Hgb 10.0 L, Hct 35.9 L, MCV 105.6 H, MCH 29.4, MCHC 27.9 L, RDW Std Deviation 66.4 H, RDW Coeff of Steven 17.5 H, Plt Count 122 L, MPV 12.4 H, Immature Gran % (Auto) 0.300, Neut % (Auto) 74.8 H, Lymph % (Auto) 7.3 L, [place] % (Auto) 10.8 H, Eos % (Auto) 6.5 H, Baso % (Auto) 0.3, Absolute Neuts (auto) 5.6, Absolute Lymphs (auto) 0.54 L, Nucleated RBC % 0, Differential Comment SCANNED, Anisocytosis 1+, Macrocytosis 1+ 10/08/21 05:32: Sodium 137, Potassium 5.0, Chloride 99, Carbon Dioxide 34.0 H, Anion Gap 4 L, BUN 125 H*, Creatinine 1.52 H, Estim Creat Clear Calc 20.79, Est GFR (MDRD) Af Amer 42 L, Est GFR (MDRD) Non-Af 35 L, BUN/Creatinine Ratio 82.2 H, Glucose 121 H, Calcium 9.2 Micro: Microbiology 10/01/21 17:35 Blood Culture (Wb) - Right Hand Blood Culture - Final No growth in 5 days. 10/01/21 17:20 Blood Culture (Wb) - Anticubital Left Blood Culture - Final No growth in 5 days. 10/05/21 09:30 Stool C. difficile DNA Amplification - Final 10/01/21 17:05 Mucosa - Nose Respiratory Panel (PCR) - Final 10/01/21 17:20 Urine Catheter - Brandon Legionella Antigen - Final 10/01/21 17:20 Urine Catheter - Brandon Streptococcus pneumoniae Antigen (M - Final 10/01/21 14:50 Nasal Secretion SARS-CoV-2 & FLU Antigen (Rapid) - Final Physical Exam Narrative General: Alert and oriented x3, hard of hearing. Heart: Normal S1, S2. No rubs or murmurs. Lungs: scattered rales and wheezing Abdomen: Normal bowel sounds, soft, nontender Extremities: Both extremities are wrapped in VICTORINO bandages. There is likely 3+ edema bilaterally if bandages taken off. Pitting edema to b/l thighs : indwelling brandon with clear urine in bag Assessment & Plan Assessment/Plan (1) INDIRA (acute kidney injury): PLAN: Baseline serum creatinine ~1.50 mg/dL. Nonoliguric, hypervolemic INDIRA is likely due to cardiorenal syndrome. Serum creatinine peaked at 2.15 mg/dL on 10/01/2021 and leveled off ~1.9mg/dL for few days, today SCr 1.5mg/dL, BUN 125 Renal function stabilized and slightly improved on Lasix drip. The patient has been taken off of Lasix drip and is now on intermittent IV Lasix, 60mg IV TID. However, response to intermittent IV Lasix is not as robust as with Lasix drip. Since her serum albumin is very low at 0.9 g/dL, she may be somewhat resistant to diuretic. Patient is net negative 3.7L. Currently on Lasix 60mg TID. Patient received Diuril 250mg IV x1 on 10/05. On NC 4L. There is no acute need for kidney replacement therapy at this time. 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 We spoke to the patient's niece who is the POA about the probable course of cardiorenal INDIRA including possible need for dialysis. However, I do not recommend dialysis in her case given drastic change in quality of life this would impose. Discharge planning in process. At discharge lasix 80mg bid. (2) Chronic kidney disease, stage 3b: PLAN: The patient has CKD stage IIIb with serum creatinine of 1.50 mg/dL at baseline. We will probably have to tolerate some elevation of serum creatinine above baseline to keep the patient more euvolemic. (3) Hypertension: PLAN: BP is stable The patient is not symptomatic. She denies dizziness. Continue diuresis and Metroprolol 12.5 mg twice a day. Given stable BP, she should be able to tolerate higher dose of IV Lasix. (4) Lymphedema: PLAN: The patient is getting wrapping therapy from wound center on Tuesday/Fridays. Continuing Lasix IV with monitoring of renal function. (5) Gout: PLAN: The patient is on allopurinol. There is no gout flare although we will need to monitor her closely since she is getting relatively high-dose diuretic.
--- NOTE | 2021-10-08 14:10 | TREXTCAR_ITS ---
Diet Diet Order/Speech Therapy: 10/02/21 12:53 Diet: Regular - General Dietary Modifications:: Sodium Restricted Is pt able to select menu?: No Diet Comments: ensure pudding w/ Lunch, magic cup w/ Dinner Routine Orders/Code Status Enema Type: Fleetz Enema Frequency: Daily PRN Suppository Type: Dulcolax 10mg Suppository Frequency: Daily PRN O2 Frequency: Continuous (4) Keep PO Greater than or Equal to (%): 92 Code Status: DNRCC Wound(s) right upper [place]: Wound Type: small abrasion Dressing Change: Adaptic Suggestions for Active Care Change Position every (hours): 2 Times a day to sit in chair: 3 Therapies Physical Therapy: Eval and Treat Occupational Therapy: Eval and Treat Problem/Diagnosis (1) INDIRA (acute kidney injury): Status: Acute Code(s): N17.9 - Acute kidney failure, unspecified (2) Chronic kidney disease, stage 3b: Status: Acute Code(s): N18.32 - Chronic kidney disease, stage 3b (3) Hypertension: Status: Chronic Code(s): I10 - Essential (primary) hypertension (4) Lymphedema: Status: Acute Code(s): I89.0 - Lymphedema, not elsewhere classified (5) Gout: Status: Chronic Code(s): M10.9 - Gout, unspecified Plan 1. Acute hypoxic respiratory failure secondary to acute heart failure with preserved EF -Patient currently on 4 L nasal cannula, O2 sat stable -IV Zosyn discontinued 10/07/2021 2. Acute heart failure with preserved EF -BNP 1632 on admission -continue strict intake and output as well as daily weights -Cardiology following -Continue IV Lasix -Echo demonstrates EF 55 to 60% 3. Acute on chronic kidney disease stage IIIb -Nephrology following -Patient refused dialysis treatment stating that at her age she does not want this. -Patient transition from DNR CCA to DNR CC 4. Abnormal troponin -Likely demand ischemia secondary to #1 -EKG without acute ST changes 5. Lymphedema -Continue Nicko wraps to bilateral lower extremities 6. CAD with history of CABG -Continue metoprolol 7. Hyperlipidemia -Continue statin 8. Chronic anemia -Appears stable at this time, follows with hematology Allergies/Procedures Done in Hospital Allergies pramoxine [From CeraVe Itch Relief] Allergy (Severe, Verified 10/01/21 14:06) Hives Fish Containing Products Allergy (Verified 10/07/21 19:06) Nausea/Vom/Diarrhea Type of Care/Length of Stay Estimated LOS: Convalescent Care Less Than 30 days Type of Care Needed: Skilled Rehab Potential: Fair Prognosis: Fair Additional Orders/Day of Discharge Day of Discharge: 10/08/21 Dietary and Speech Recommendations Dietitian Recommendations/Changes: Continue Regular Sodium Restricted diet as tolerated and ensure pudding w/ lunch and magic cup w/ dinner for increased nutrition if consumed. Consider liberalizing diet to regular if pt signs w/ hospice care. Discharge Plan Admission Admit Date/Time: 10/01/21 15:15 Primary Reason for Your Visit: CHF, Respiratory failure Attending Provider: Quinten John Primary Care Provider: Esvin Preciado Consulting Providers: Carol Traore ; Ab Gorman ; Jose Alfredo Tinajero ; Kelley Archer INSPECTOR SOLDERING ; Mamta Schneider ; Samira Montoya ; Forrest Carrero ; Calli Mcpherson ; Vanessa Calzada ; Shira Avalos INSPECTOR [employer]DERING ; Hernan Hernandez Discharge Orders/Prescriptions Prescriptions: New acetaminophen [Tylenol] 325 mg Tablet 650 mg PO Q6H PRN PRN (Reason: Pain Score 1-10/Temp > 100.7 F) Qty: 0 0RF ipratropium-albuterol 0.5 mg-3 mg(2.5 mg base)/3 mL Solution For Nebulization 3 ml inhalation Q4H.RT PRN (Reason: SHORTNESS OF BREATH) Qty: 0 0RF aspirin 81 mg Tablet,Delayed Release (Dr/Ec) 81 mg PO DAILY@0800 Qty: 0 0RF nystatin [Nyamyc] 100,000 unit/gram Powder 1 applic topical BID Qty: 0 0RF Protocol: *Topical Application Instructions APPLICATION INSTRUCTIONS: apply to abdominal folds oxycodone 5 mg Tablet 5 mg PO Q4H PRN PRN (Reason: Pain Score 6-10) 3 Days Qty: 10 0RF metoprolol tartrate 25 mg Tablet 12.5 mg PO BID Qty: 0 0RF furosemide [Lasix] 80 mg tablet 80 mg PO BID Qty: 30 0RF Continued pravastatin 40 MG tablet 40 mg PO QHS Label Comments: CHOLESTEROL pantoprazole 40 MG tablet 40 mg PO DAILY Label Comments: GERD acetaminophen 500 MG tablet 500 mg PO DAILY levothyroxine 75 mcg tablet 75 mcg PO DAILY Label Comments: Take 1 tablet by mouth daily allopurinol 300 mg tablet 300 mg PO DAILY Label Comments: Take 1 tablet by mouth daily cholecalciferol (vitamin D3) 50 mcg (2,000 unit) capsule 50 mcg PO DAILY Label Comments: TAKE 1 CAPSULE BY MOUTH EVERY DAY Discontinued metoprolol tartrate 25 mg Tablet 25 mg PO BID furosemide 80 mg tablet 80 mg PO DAILY Label Comments: TAKE 1 TABLET BY MOUTH DAILY AFTER LUNCH spironolactone 25 mg tablet 12.5 mg PO DAILY Label Comments: Take 1 (one) Tablet by mouth every other day Referrals / Follow Up: Esvin Preciado MD [Primary Care Provider] - Disposition Disposition (needs filled in before D/C Order can be placed): Detention Facility
--- NOTE | 2021-10-08 14:12 | CASEMGMT ---
Discharge Refining Engineer Wendy from [facility] reached out. Pre-cert has been obtained. [place] have been notified. Henrietta Michelle Discharge Refining Engineer
--- NOTE | 2021-10-08 14:20 | PCM.DC.SUM ---
Documented by User: GUILHERME Lr 10/08/21 14:27 Providers Date of Admission: 10/01/21 Date of Discharge: 10/08/21 Primary Care Physician: Dr. Esvin Preciado MD Consultations 10/01/21 15:50 Consult: Nephrology Routine Consulting Provider: Mamta Schneider Reason for Consult: INDIRA on CKD 4, Acute on chr HF, anasarva EMERGENT Consult: No MD Notified: Yes Date Notified: 10/01/21 Time Notified: 15:25 Method of Notification: Verbal 10/01/21 17:06 Consult: Cardiology Routine Consulting Provider: Carol Traore Reason for Consult: heart faiure, trop high EMERGENT Consult: No MD Notified: Yes Date Notified: 10/01/21 Time Notified: 15:22 Method of Notification: Verbal Consult: Nursing Staffing Coordinator / Pulmonary Medicine Routine Consulting Provider: Pulmonary Medicine [facility] Reason for Consult: Acute combined respiratory failure, on BiPAP, heart failure EMERGENT Consult: No MD Notified: Yes Date Notified: 10/01/21 Time Notified: 15:47 Method of Notification: Text 10/04/21 15:14 Consult: Hospice / Palliative Care Routine Consulting Provider: [facility] Reason for Consult: DNRCC- Arrest. confortable. EMERGENT Consult: No MD Notified: Yes Date Notified: 10/04/21 Time Notified: 15:17 Method of Notification: Answering Service 10/04/21 17:16 Consult: Onc/Wound/chin strap sewer Routine Comment: Reason For Visit: ANASARCA Diagnosis Discharge Diagnosis (1) INDIRA (acute kidney injury): Status: Acute Code(s): N17.9 - Acute kidney failure, unspecified (2) Chronic kidney disease, stage 3b: Status: Acute Code(s): N18.32 - Chronic kidney disease, stage 3b (3) Hypertension: Status: Chronic Code(s): I10 - Essential (primary) hypertension (4) Lymphedema: Status: Acute Code(s): I89.0 - Lymphedema, not elsewhere classified (5) Gout: Status: Chronic Code(s): M10.9 - Gout, unspecified Plan 1. Acute hypoxic respiratory failure secondary to acute heart failure with preserved EF -Patient currently on 4 L nasal cannula, O2 sat stable -IV Zosyn discontinued 10/07/2021 2. Acute heart failure with preserved EF -BNP 1632 on admission -continue strict intake and output as well as daily weights -Cardiology following -Continue IV Lasix -Echo demonstrates EF 55 to 60% 3. Acute on chronic kidney disease stage IIIb -Nephrology following -Patient refused dialysis treatment stating that at her age she does not want this. -Patient transition from DNR CCA to DNR CC 4. Abnormal troponin -Likely demand ischemia secondary to #1 -EKG without acute ST changes 5. Lymphedema -Continue Nicko wraps to bilateral lower extremities 6. CAD with history of CABG -Continue metoprolol 7. Hyperlipidemia -Continue statin 8. Chronic anemia -Appears stable at this time, follows with hematology Medications at Discharge Home Medications pantoprazole 40 mg tablet,delayed release 40 mg PO DAILY gerd 05/24/16 pravastatin 40 mg tablet 40 mg PO QHS cholesterol 05/24/16 acetaminophen 500 mg tablet 500 mg PO DAILY 03/03/18 allopurinol 300 mg tablet 300 mg PO DAILY GOUT 10/01/21 cholecalciferol (vitamin D3) 50 mcg (2,000 unit) capsule 50 mcg PO DAILY SUPPLEMENT 10/01/21 levothyroxine 75 mcg tablet 75 mcg PO DAILY THYROID 10/01/21 acetaminophen 325 mg tablet (Tylenol) 650 mg PO Q6H PRN PRN Pain Score 1-10/Temp > 100.7 F #0 tabs 10/08/21 aspirin 81 mg tablet,delayed release 81 mg PO DAILY@0800 #0 tabs 10/08/21 furosemide 80 mg tablet (Lasix) 80 mg PO BID #30 tabs 10/08/21 ipratropium 0.5 mg-albuterol 3 mg (2.5 mg base)/3 mL nebulization soln 3 ml inhalation Q4H.RT PRN SHORTNESS OF BREATH #0 mL 10/08/21 metoprolol tartrate 25 mg tablet 12.5 mg PO BID #0 tabs 10/08/21 nystatin 100,000 unit/gram topical powder (Nyamyc) 1 applic topical BID #0 grams 10/08/21 oxycodone 5 mg tablet 5 mg PO Q4H PRN PRN Pain Score 6-10 3 days #10 tabs 10/08/21 Hospital Course Operations None Procedures 2-D Echocardiogram Summary of Care Provided Minutes Spent on Discharge: 35 Hospital Course: Patient is an 86-year-old female who initially presented to the ER for shortness of breath. Patient was admitted and underwent a chest x-ray and echocardiogram. Echocardiogram demonstrates EF 55 to 60%. Patient during admission patient was evaluated by cardiology and by nephrology. Patient has chronic kidney disease and dialysis was discussed. Patient states that she does not want this at her age and that she would prefer conservative treatment options at this time. Due to patient's level of care needs patient will be discharged to a senior care facility. During this admission it was discussed with family and patient regarding hospice care as patient has multiple chronic issues. [facility] and see how she does with their with option for hospice referral at a later time. Physical Exam Const alert, oriented x3 and no apparent distress Orientation / Consciousness: awake HEENT normocephalic and moist oral mucous membranes Eyes conjunctivae normal Neck no lymphadenopathy and supple Resp clear to auscultation bilaterally Resp Narrative: On BIPAP Effort and Inspection: tachypneic Auscultation: rales and diminished lung sounds Cardio regular rate, regular rhythm and no murmurs Peripheral Pulses: pulses 2+ throughout GI normal to inspection, nondistended, normoactive bowel sounds, non-tender and non-distended Extremity normal to inspection General Extremity: edema bilateral lower extremity (Lymphedema, Nicko wraps in place) Skin no rashes or lesions noted Skin Narrative: Superficial blisters bilateral lower extremities Lesions: no lesions Rashes: no rashes Trauma: no lacerations or abrasions Neuro oriented x3, moves all extremities, no focal motor deficits and no sensory deficits noted Psych mental status grossly normal and affect normal Weight / BMI Weight Weight: 235 lb 10.786 oz Body Mass Index (BMI) 45.3 ABG / Lab / Microbiology Data Result Diagrams: 10/08/21 05:32 10/08/21 05:32 Laboratory: Laboratory Results - last 24 hr 10/08/21 05:32: WBC 7.4, RBC 3.40 L, Hgb 10.0 L, Hct 35.9 L, MCV 105.6 H, MCH 29.4, MCHC 27.9 L, RDW Std Deviation 66.4 H, RDW Coeff of Steven 17.5 H, Plt Count 122 L, MPV 12.4 H, Immature Gran % (Auto) 0.300, Neut % (Auto) 74.8 H, Lymph % (Auto) 7.3 L, Foster % (Auto) 10.8 H, Eos % (Auto) 6.5 H, Baso % (Auto) 0.3, Absolute Neuts (auto) 5.6, Absolute Lymphs (auto) 0.54 L, Nucleated RBC % 0, Differential Comment SCANNED, Anisocytosis 1+, Macrocytosis 1+ 10/08/21 05:32: Sodium 137, Potassium 5.0, Chloride 99, Carbon Dioxide 34.0 H, Anion Gap 4 L, BUN 125 H*, Creatinine 1.52 H, Estim Creat Clear Calc 20.79, Est GFR (MDRD) Af Amer 42 L, Est GFR (MDRD) Non-Af 35 L, BUN/Creatinine Ratio 82.2 H, Glucose 121 H, Calcium 9.2 Microbiology: Microbiology 10/01/21 17:35 Blood Culture (Wb) - Right Hand Blood Culture - Final No growth in 5 days. 10/01/21 17:20 Blood Culture (Wb) - Anticubital Left Blood Culture - Final No growth in 5 days. 10/05/21 09:30 Stool C. difficile DNA Amplification - Final 10/01/21 17:05 Mucosa - Nose Respiratory Panel (PCR) - Final 10/01/21 17:20 Urine Catheter - Velazquez Legionella Antigen - Final 10/01/21 17:20 Urine Catheter - Velazquez Streptococcus pneumoniae Antigen (M - Final 10/01/21 14:50 Nasal Secretion SARS-CoV-2 & FLU Antigen (Rapid) - Final D/C Instructions Discharge Diet: 2000 mg Sodium Diet Call your doctor if you observe: Shortness of breath, Chest pain and Increased palpitations (irregular heartbeat) Meaningful Use Info Meaningful Use Diagnoses (Choose all that apply): CHF CHF NICKO/ARB ordered at discharge?: No Reason NICKO/ARB not ordered?: Normal EF Documented LVEF (%): 55 Discharge Plan Admission Admit Date/Time: 10/01/21 15:15 Primary Reason for Your Visit: CHF, Respiratory failure Attending Provider: Quinten John Primary Care Provider: Esvin Preciado Consulting Providers: Carol Traore ; Ab Gorman ; Jose Alfredo Tinajero ; Kelley Archer NP ; Mamta Schneider ; Samira Montoya ; Forrest Carrero ; Calli Mcpherson ; Vanessa Calzada ; Shira Avalos NATUROPATHIC PHYSICIAN ; Hernan Hernandez Discharge Orders/Prescriptions Prescriptions: New acetaminophen [Tylenol] 325 mg Tablet 650 mg PO Q6H PRN PRN (Reason: Pain Score 1-10/Temp > 100.7 F) Qty: 0 0RF ipratropium-albuterol 0.5 mg-3 mg(2.5 mg base)/3 mL Solution For Nebulization 3 ml inhalation Q4H.RT PRN (Reason: SHORTNESS OF BREATH) Qty: 0 0RF aspirin 81 mg Tablet,Delayed Release (Dr/Ec) 81 mg PO DAILY@0800 Qty: 0 0RF nystatin [Nyamyc] 100,000 unit/gram Powder 1 applic topical BID Qty: 0 0RF Protocol: *Topical Application Instructions APPLICATION INSTRUCTIONS: apply to abdominal folds oxycodone 5 mg Tablet 5 mg PO Q4H PRN PRN (Reason: Pain Score 6-10) 3 Days Qty: 10 0RF metoprolol tartrate 25 mg Tablet 12.5 mg PO BID Qty: 0 0RF furosemide [Lasix] 80 mg tablet 80 mg PO BID Qty: 30 0RF Continued pravastatin 40 MG tablet 40 mg PO QHS Label Comments: CHOLESTEROL pantoprazole 40 MG tablet 40 mg PO DAILY Label Comments: GERD acetaminophen 500 MG tablet 500 mg PO DAILY levothyroxine 75 mcg tablet 75 mcg PO DAILY Label Comments: Take 1 tablet by mouth daily allopurinol 300 mg tablet 300 mg PO DAILY Label Comments: Take 1 tablet by mouth daily cholecalciferol (vitamin D3) 50 mcg (2,000 unit) capsule 50 mcg PO DAILY Label Comments: TAKE 1 CAPSULE BY MOUTH EVERY DAY Discontinued metoprolol tartrate 25 mg Tablet 25 mg PO BID furosemide 80 mg tablet 80 mg PO DAILY Label Comments: TAKE 1 TABLET BY MOUTH DAILY AFTER LUNCH spironolactone 25 mg tablet 12.5 mg PO DAILY Label Comments: Take 1 (one) Tablet by mouth every other day Referrals / Follow Up: Esvin Preciado MD [Primary Care Provider] - Disposition Disposition (needs filled in before D/C Order can be placed): Care Home Facility Documented by User: Dr. Quinten John MD 10/08/21 15:04 Providers Date of Admission: 10/01/21 Reason For Visit: ANASARCA Diagnosis Discharge Diagnosis (1) INDIRA (acute kidney injury): Status: Acute Code(s): N17.9 - Acute kidney failure, unspecified (2) Chronic kidney disease, stage 3b: Status: Acute Code(s): N18.32 - Chronic kidney disease, stage 3b (3) Hypertension: Status: Chronic Code(s): I10 - Essential (primary) hypertension (4) Lymphedema: Status: Acute Code(s): I89.0 - Lymphedema, not elsewhere classified (5) Gout: Status: Chronic Code(s): M10.9 - Gout, unspecified Medications at Discharge Home Medications pantoprazole 40 mg tablet,delayed release 40 mg PO DAILY gerd 05/24/16 pravastatin 40 mg tablet 40 mg PO QHS cholesterol 05/24/16 acetaminophen 500 mg tablet 500 mg PO DAILY 03/03/18 allopurinol 300 mg tablet 300 mg PO DAILY GOUT 10/01/21 cholecalciferol (vitamin D3) 50 mcg (2,000 unit) capsule 50 mcg PO DAILY SUPPLEMENT 10/01/21 levothyroxine 75 mcg tablet 75 mcg PO DAILY THYROID 10/01/21 acetaminophen 325 mg tablet (Tylenol) 650 mg PO Q6H PRN PRN Pain Score 1-10/Temp > 100.7 F #0 tabs 10/08/21 aspirin 81 mg tablet,delayed release 81 mg PO DAILY@0800 #0 tabs 10/08/21 furosemide 80 mg tablet (Lasix) 80 mg PO BID #30 tabs 10/08/21 ipratropium 0.5 mg-albuterol 3 mg (2.5 mg base)/3 mL nebulization soln 3 ml inhalation Q4H.RT PRN SHORTNESS OF BREATH #0 mL 10/08/21 metoprolol tartrate 25 mg tablet 12.5 mg PO BID #0 tabs 10/08/21 nystatin 100,000 unit/gram topical powder (Nyamyc) 1 applic topical BID #0 grams 10/08/21 oxycodone 5 mg tablet 5 mg PO Q4H PRN PRN Pain Score 6-10 3 days #10 tabs 10/08/21 ABG / Lab / Microbiology Data Result Diagrams: 10/08/21 05:32 10/08/21 05:32 Discharge Plan Admission Admit Date/Time: 10/01/21 15:15 Primary Reason for Your Visit: CHF, Respiratory failure Attending Provider: Quinten John Primary Care Provider: Esvin Preciado Consulting Providers: Carol Traore ; Ab Gorman ; Jose Alfredo Tinajero ; Kelley Archer NATUROPATHIC PHYSICIAN ; Mamta Schneider ; Samira Montoya ; Forrest Carrero ; Calli Mcpherson ; Vanessa Calzada ; Shira Avalos NATUROPATHIC PHYSICIAN ; Hernan Hernandez Discharge Orders/Prescriptions Prescriptions: New acetaminophen [Tylenol] 325 mg Tablet 650 mg PO Q6H PRN PRN (Reason: Pain Score 1-10/Temp > 100.7 F) Qty: 0 0RF ipratropium-albuterol 0.5 mg-3 mg(2.5 mg base)/3 mL Solution For Nebulization 3 ml inhalation Q4H.RT PRN (Reason: SHORTNESS OF BREATH) Qty: 0 0RF aspirin 81 mg Tablet,Delayed Release (Dr/Ec) 81 mg PO DAILY@0800 Qty: 0 0RF nystatin [Nyamyc] 100,000 unit/gram Powder 1 applic topical BID Qty: 0 0RF Protocol: *Topical Application Instructions APPLICATION INSTRUCTIONS: apply to abdominal folds oxycodone 5 mg Tablet 5 mg PO Q4H PRN PRN (Reason: Pain Score 6-10) 3 Days Qty: 10 0RF metoprolol tartrate 25 mg Tablet 12.5 mg PO BID Qty: 0 0RF furosemide [Lasix] 80 mg tablet 80 mg PO BID Qty: 30 0RF Continued pravastatin 40 MG tablet 40 mg PO QHS Label Comments: CHOLESTEROL pantoprazole 40 MG tablet 40 mg PO DAILY Label Comments: GERD acetaminophen 500 MG tablet 500 mg PO DAILY levothyroxine 75 mcg tablet 75 mcg PO DAILY Label Comments: Take 1 tablet by mouth daily allopurinol 300 mg tablet 300 mg PO DAILY Label Comments: Take 1 tablet by mouth daily cholecalciferol (vitamin D3) 50 mcg (2,000 unit) capsule 50 mcg PO DAILY Label Comments: TAKE 1 CAPSULE BY MOUTH EVERY DAY Discontinued metoprolol tartrate 25 mg Tablet 25 mg PO BID furosemide 80 mg tablet 80 mg PO DAILY Label Comments: TAKE 1 TABLET BY MOUTH DAILY AFTER LUNCH spironolactone 25 mg tablet 12.5 mg PO DAILY Label Comments: Take 1 (one) Tablet by mouth every other day Referrals / Follow Up: Esvin Preciado MD [Primary Care Provider] - Disposition Disposition (needs filled in before D/C Order can be placed): Care Home Facility Charges/Coding Addendum Addendum: Dr. John I personally examined the patient and reviewed the chart. I agree with the above.? All closures 6-year-old female presented to the hospital with shortness of breath and increased lower extremity edema.? She was started on Lasix as an outpatient and this had been increased to about 80 mg daily without any improvement in her swelling so she was transition to a Lasix drip and she had significant diuresis with this however a Lasix drip can be continued so she has been dropped down to bolus dosing today and will monitor.? In discussion with nephrology, if the bolus Lasix does not work she may need dialysis however given her age and all of her other medical conditions dialysis is not something that they recommend.? Clinical time spent in all aspects of patient care: 18 minutes 10/06/2021:?Continue with bolus Lasix and will continue to monitor to see if her edema worsens or improves.? However did have a 20-minute discussion on advance care planning in terms of whether or not she would like to proceed with dialysis if that became necessary or not and she states at this time that she does not want to go onto dialysis therefore we did have a discussion about hospice and she would like to meet with hospice to see what her options are especially with potentially going to senior care facility with hospice.? Clinical time spent in all aspects of patient care: 15 minutes 10/07/2021:?Family has elected to make her DNR CC and transition back [facility] the jail.? However if she declines well at the jail then they will transition her to hospice.? She is not having as good of a response to 3 times daily Lasix that she was on the Lasix drip however she reiterates that she does not want to do dialysis for the fluid.? Clinical time spent in all aspects of patient care: 15 minutes 10/08/2021:?BUN continues to climb, discussed with her the plan for no dialysis, she reiterated that she does not want to do dialysis and she understands that because of this decision that she will .? She did receive pre-CERT today so plan will be to go to the jail as a DNR CC and continue with oral medications. There were multiple family discussions throughout her hospitalization and it does appear that everybody is on board with this plan. Clinical time spent in all aspects of patient care: 36 minutes Visit Charges Inpatient E&M: [id number] Disch Hosp
--- NOTE | 2021-10-08 14:57 | CM.UR ---
Per palliative, pt agreed to palliative at this time. Ignacio MEYER CM
--- NOTE | 2021-10-08 15:11 | CASEMGMT ---
Social Work This social worker school notified by discharge business planning analystHenrietta that pre-cert has been obtained. Per Dr. John, patient is medically cleared. This social worker school met with patient in room. This social worker school communicated to patient and patient niece that patient is approved to discharge to [facility] ([facility]) today. Patient and patient niece agreeable. This social worker school set up transportation through [facility] via cot as patient is not able to stay seated for duration of transportation. Transportation form completed and placed with patient discharge information. Transportation set up for 5:30pm today. PASRR completed in [facility]. [facility] This social worker school updated Wendy on transportation time/date. This social worker school faxed transfer to extended care form, signed medication list, PASRR results, COVID-19 test results and COVID-19 screening tool to [facility]. PLAN: [facility], skilled. Darlene PYLE, LOLLYPOP MACHINE OPERATOR-S
--- NOTE | 2021-10-08 20:00 | NURSING ---
transport arrived to transfer pt to SNF. report given by this RN. pt transferred to cot without issue. transport taking over care at this time.
== END 2021-10-08 19:55 | disposition skilled nursing facility (03) | DRG 291 ==
LOC: ED 15:19 → ICU 16:02 → PCU 10-02 10:32
PROVIDERS: Family Medicine; Internal Medicine Nephrology; Nurse Practitioner; Nurse Practitioner Adult Health; Nurse Practitioner Family; Admitting Provider Internal Medicine; Emergency Provider Emergency Medicine; PCP Family Medicine; Visit Provider Family Medicine
DX: I13.0 Hypertensive heart and chronic kidney disease with heart failure and stage 1 through stage 4 chronic kidney disease, or unspecified chronic kidney disease (principal); J96.01 Acute respiratory failure with hypoxia; J96.02 Acute respiratory failure with hypercapnia; I50.33 Acute on chronic diastolic (congestive) heart failure; N17.9 Acute kidney failure, unspecified; I24.8 Other forms of acute ischemic heart disease; L97.911 Non-pressure chronic ulcer of unspecified part of right lower leg limited to breakdown of skin; I73.9 Peripheral vascular disease, unspecified; N18.32 Chronic kidney disease, stage 3b; I48.0 Paroxysmal atrial fibrillation; I87.2 Venous insufficiency (chronic) (peripheral); M10.9 Gout, unspecified; D50.9 Iron deficiency anemia, unspecified; E03.9 Hypothyroidism, unspecified; I89.0 Lymphedema, not elsewhere classified; I25.10 Atherosclerotic heart disease of native coronary artery without angina pectoris; E78.5 Hyperlipidemia, unspecified; I34.0 Nonrheumatic mitral (valve) insufficiency; Z66 Do not resuscitate; Z51.5 Encounter for palliative care; Z82.3 Family history of stroke; H91.90 Unspecified hearing loss, unspecified ear; R77.8 Other specified abnormalities of plasma proteins; Z79.01 Long term (current) use of anticoagulants; Z95.1 Presence of aortocoronary bypass graft
CPT/HCPCS: 29581; 36415; 36600; 51702; 71045; 80048; 80061; 81001; 82040; 82803; 83735; 83880; 84100; 84443; 84484; 85025; 85610; 85730; 87040; 87426; 87428; 87449; 87493; 87633; 93005; 93306; 94002; 94003; 94640; 97110; 97162; 97166; 97530; 97535; 97802; 97803; 99213; 99285; A4216; G0463; J1940